=== PATIENT | female | born 1940 | race Caucasian/White ===

== ENCOUNTER 2016-11-11 11:33 | Inpatient (IN) ==
[2016-11-11] MEDS ORDERED: Ondansetron 4 MG/2 ML VIAL IVP ONE (11:51)
[2016-11-11] MEDS ORDERED: 0.9 % Sodium Chloride 1,000 ML IVC ONE (11:53)
--- NOTE | 2016-11-11 12:09 | Emergency Department Note ---
Disposition Clinical Impression: Partial small bowel obstruction, Hepatic lesion, Chronic osteomyelitis of sacrum Abdominal pain Qualifiers: Abdominal location: unspecified location Qualified Code(s): R10.9 - Unspecified abdominal pain Disposition: Admitted As Inpatient Condition: Good Time of Disposition: 17:08 Abdominal Pain HPI - General Chief Complaint: ED Abdominal Pain Stated Complaint: abdominal pain, N/V/D Time Seen by Provider: 11/11/16 11:37 Source: patient, EMS Limitations: no limitations Nursing Notes Reviewed: Yes Vital Signs Reviewed: Yes - History of Present Illness HPI Narrative: 76-year-old female presents to the ED via EMS from [facility] for abdominal pain, nausea and vomiting. Patient reports yesterday while at rest began to experience sharp crampy abdominal pain. Pain was nonradiating. She has been experiencing nausea and vomiting the past 3 days as well, last episode of vomiting this morning. She vomited up her ice tea. She has been taking Percocet that she takes for her decubitus ulcer for this pain without significant relief. She denies any fever, cough, recent illness, chest pain or shortness of breath. She had not episode of nonbloody diarrhea today with a normal bowel movement yesterday. Denies any recent hospitalizations or recent travel. Denies any new medications. Patient has a history of cholecystectomy, appendectomy and umbilical hernia repair. The mesh was removed by Dr. Raygoza when surgery was performed to remove adhesions. She also has a chronic sacral decubitus ulcer which wound care nurse has been addressing on a weekly basis. Pt Subjective Complaint: abdominal pain Pain Scale: 7 - Related Data Home Medications Medication Instructions Recorded Confirmed Amitriptyline [Elavil] 10 mg PO 02/04/15 11/11/16 Gabapentin [Neurontin] 200 mg PO 02/04/15 11/11/16 Omeprazole [PriLOSEC] 20 mg PO [facility] 02/04/15 11/11/16 Sennosides/Docusate Sodium [Senna 8.6 mg PO [facility] 02/04/15 11/11/16 Plus] Sertraline [Zoloft] 100 mg PO QA 02/04/15 11/11/16 Simvastatin [Zocor] 40 mg PO 02/04/15 11/11/16 Calcium Carbonate/Vitamin D3 1 tab PO [facility] 03/05/15 11/11/16 [Calcium 250+D Tablet] Aspirin 81 mg PO QAM 05/06/15 11/11/16 Lactobacillus Combination No.8 2 tab PO DAILY 12/09/15 11/11/16 [Adult Probiotic] Potassium Chloride [Klor-Con 10 meq PO DAILY 12/09/15 11/11/16 Sprinkle] Acetaminophen [Tylenol] 650 mg PO TID PRN 08/17/16 11/11/16 Colestipol HCl [Colestid] 2 gm PO DAILY 08/17/16 11/11/16 Gabapentin [Neurontin] 100 mg PO QAM 08/17/16 11/11/16 Insulin Aspart Prot/Insuln Asp 46 unit SQ HS 08/17/16 11/11/16 [Novolog Mix 70-30 Vial] Insulin Aspart Prot/Insuln Asp 56 unit SQ QAM 08/17/16 11/11/16 [Novolog Mix 70-30 Vial] Ondansetron HCl [Zofran] 4 mg PO TID PRN 08/17/16 11/11/16 Oxycodone HCl/Acetaminophen 1 each PO Q6H PRN 08/17/16 11/11/16 [Percocet 5-325 mg Tablet] Psyllium Husk [Daily Fiber] 1.04 gm PO DAILY 08/17/16 11/11/16 Bromfenac Sodium 1 drop RIGHT EYE DAILY 11/11/16 11/11/16 Fluconazole [Diflucan] 150 mg PO DAILY 11/11/16 11/11/16 Terconazole Vag SUPP [Terazol] 80 mg VG HS 11/11/16 11/11/16 Previous Rx's Medication Instructions Recorded Metoprolol [Lopressor] 12.5 mg PO BID tablet 12/19/14 Allergies Allergy/AdvReac Type Severity Reaction Status Date / Time rosuvastatin [From Crestor] Allergy Hives Verified 11/11/16 11:50 ciprofloxacin AdvReac Itching Verified 11/11/16 11:50 Hydromorphone [From Dilaudid] AdvReac Difficulty Verified 11/11/16 11:50 Breathing All systems ED: reviewed and negative except as stated. Constitutional: Denies: fever, chills Cardiovascular: Denies: chest pain, dyspnea on exertion Respiratory: Denies: cough, dyspnea Gastrointestinal: Reports: abdominal pain, nausea, vomiting, diarrhea. Denies: melena, hematochezia Genitourinary: Denies: urgency, dysuria Musculoskeletal: Denies: back pain, neck pain Integumentary: Denies: rash, abrasion Neurological: Denies: headache Abdominal Pain PMH - Past Medical History Medical history: Reports: arthritis, cancer, coronary artery disease, DVT, diabetes, fibromyalgia, hyperlipidemia, hypertension, myocardial infarction, other Female Surgical History: Reports: herniorrhaphy Psychiatric history: Reports: anxiety, depression - Social History Smoking status: Former smoker Alcohol use: Reports: rarely Drug use: Reports: none Physical Exam - General Limitations: no limitations General appearance: alert, in no apparent distress, obese - Head Head exam: atraumatic, normocephalic, normal inspection - Eye Eye exam: Present: normal appearance, PERRL, EOMI - ENT ENT exam: normal exam, normal oropharynx, mucous membranes dry - Neck Neck exam: Present: normal inspection, full ROM, trachea midline - Chest Chest inspection: Present: normal inspection, symmetric chest wall rise. Absent : tenderness - Respiratory Respiratory exam: Present: normal lung sounds bilaterally. Absent: respiratory distress - Cardiovascular Cardiovascular exam: Present: regular rate, normal rhythm, normal heart sounds - Abdominal Exam Abdominal exam: Present: soft (obese), tenderness, hyperactive bowel sounds, scar (midline). Absent: distention, guarding, rebound, rigidity Abdominal tenderness: Present: diffuse - Extremities Exam Extremities exam: Present: normal inspection, full ROM, normal capillary refill. Absent: tenderness, pedal edema, calf tenderness - Neurological Exam Neurological exam: Present: alert, oriented X3 - Psychiatric Psychiatric exam: Present: normal affect, normal mood - Skin Skin exam: Present: warm, dry, intact, normal color Course Course Narrative: 76-year-old female presents with nausea vomiting and now abdominal pain. She has had multiple abdominal surgeries including adhesions. Patient reports her abdomen is slightly more distended than usual. Patients afebrile. Appears in no acute distress. Heart and lungs are normal. Denies any lung disease. Her abdomen is obese but soft and diffusely tender. She does have hyperactive bowel sounds. She denies any bloodier black tarry stools. Concerning for possible obstruction given her symptoms. Will get labs, urine, troponin and EKG. CT abdomen and pelvis with IV and oral contrast. - Reevaluation(s) Reevaluation #1: Patient re-examined, abdomen is mildly distended diffusely tender. Her pain is well-controlled as well as her nausea. I offer the patient or medication she currently refused. Labs and images reviewed she has a normal white blood cell count 11, elevated glucose 163, alk phos 176 has been elevated the past and urine that appears contaminated not consistent with infection. Patient denies any urinary symptoms. Her CT of the abdomen and pelvis reveals distended fluid filled small bowel loops suggestive a partial to early obstructive process. She also has a new hepatic lesion as well as redemonstration of a chronic osteomyelitis to the sacrum. NG tube will be placed she would be admitted to the hospital. Patient was notified about her new hepatic lesion. She does have a history of endometrial cancer requiring 30 sessions of chemoradiation. She is not septic appearing. Does not meet SIRS criteria. Lactate 0.9. Patient is in agreement with this plan. Abdomen/Pelvis CT 11/11/16 14:30 IMPRESSION: 1. Distended fluid filled small bowel loops. Gradual transition in the mid to distal small bowel. Large ventral abdominal wall hernia containing multiple loops of bowel. No significant inflammatory changes although small interloop fluid collections are present in the pelvis. A partial or early obstructive process is not excluded and continued close follow-up recommended. 2. New left hepatic lesion with peripheral enhancement worrisome for a malignancy. Differential possibilities include a metastatic lesion or cholangiocarcinoma versus HCC. Workup at this time could entail MRI, particularly if there is high likelihood for HCC. Alternatively, percutaneous biopsy could be performed. 3. Re-demonstration of sacral decubitus ulcer with chronic osteomyelitis involving the distal sacrum and coccyx. D/ / 11/11/2016 15:28:01 Jeremias Bach MD / Irlanda Oliver Interpreting Provider: Jeremias Bach MD Time: 16:50 Reevaluation #2: Patient refused NG tube at this time. Discussed that tit is imperative that it is placed for the partial obstruction she voices understanding. - Consultations Consultation #1: Spoke with on-call hospitalist young Casarez to admit for abdominal pain, partial small bowel obstruction, new hepatic lesion, chronic sacral osteomyelitis. No further orders at this time Time: 17:04 Vital Signs Temperature 98.2 F 11/11/16 11:36 Pulse Rate 86 11/11/16 11:36 Respiratory Rate 18 11/11/16 11:36 Blood Pressure 143/94 11/11/16 11:36 O2 Sat by Pulse Oximetry 94 11/11/16 11:36 Temperature 98.3 F 11/11/16 16:52 Pulse Rate 71 11/11/16 17:45 Respiratory Rate 16 11/11/16 18:03 Blood Pressure 125/59 11/11/16 18:03 O2 Sat by Pulse Oximetry 96 11/11/16 17:45 Oxygen Delivery Oxygen Delivery Nasal Cannula Abdominal Pain - MDM Narrative Medical decision making narrative: I examined this patient and my medical decision-making was reviewed with the KNITTING TEACHER/PA/Advanced Practice Nurse/Resident Physician. I agree with the documented findings, disposition and treatment plan as described except to the extent set forth below. Patient was seen and evaluated by Dr. Baum and myself, I agree with his evaluation and management plan, supervise care the patient's stay. Patient's nursing facility with crampy abdominal pain. History of surgery in the past. Question whether she could have a bowel obstruction today she is distended but she is nontoxic in appearance. We will order lab CT of her abdomen ; see if we can make her comfortable and reassess. She is fairly nonverbal with medication here. 1408 hrs.: Patient's labs are back. Urine looks a contamination with bacteria. Creatinine is okay. Waiting on CAT scan. Patient does have fluids running at this point. Abdomen/Pelvis CT 11/11/16 14:30 IMPRESSION: 1. Distended fluid filled small bowel loops. Gradual transition in the mid to distal small bowel. Large ventral abdominal wall hernia containing multiple loops of bowel. No significant inflammatory changes although small interloop fluid collections are present in the pelvis. A partial or early obstructive process is not excluded and continued close follow-up recommended. 2. New left hepatic lesion with peripheral enhancement worrisome for a malignancy. Differential possibilities include a metastatic lesion or cholangiocarcinoma versus HCC. Workup at this time could entail MRI, particularly if there is high likelihood for HCC. Alternatively, percutaneous biopsy could be performed. 3. Re-demonstration of sacral decubitus ulcer with chronic osteomyelitis involving the distal sacrum and coccyx. D/ / 11/11/2016 15:28:01 Jeremias Bach MD / Irlanda Oliver Interpreting Provider: Jeremias Bach MD - Medical Records Medical records reviewed: Yes I reviewed the patient's medical records. - Lab Data Lab results reviewed: Yes I reviewed the patient's lab results. Result diagrams: 11/11/16 12:47 11/11/16 12:47 Lab Results 11/11/16 11/11/16 11/11/16 Range/Units 12:47 12:47 12:47 WBC 11.0 (4.3-11.1) K/mcL RBC 4.60 (3.82-4.97) M/mcL Hgb 12.0 (11.5-15.4) g/dL Hct 40.5 (35.3-44.9) % MCV 88.0 (83.0-100.0) fL MCH 26.1 L (28.0-33.3) pg MCHC 29.6 L (31.6-35.5) g/dL RDW 18.0 H (11.5-14.5) % Plt Count 224 (140-400) K/mcL MPV 11.1 (9.4-12.4) fL Immature Gran % 1.0 (0-4) % Seg Neutrophils % 82.2 % Lymphocytes % 8.3 % Monocytes % 8.1 % Eosinophils % 0.1 % Basophils % 0.3 % Neutrophils # 9.1 H (1.6-8.9) K/mcL Lymphocytes # 0.9 (0.6-4.6) K/mcL Monocytes # 0.9 (0.0-1.3) K/mcL Eosinophils # 0.0 (0.0-0.6) K/mcL Basophils # 0.0 (0.0-0.2) K/mcL Sodium 137 (136-145) mEq/L Potassium 4.2 (3.5-4.5) mEq/L Chloride 101 (98-109) mEq/L Carbon Dioxide 28 (19-29) mEq/L BUN 23 H (7-20) mg/dL Creatinine 0.82 (0.57-1.11) mg/dL Est GFR ( Amer) > 60 (> 60) Est GFR (Non-Af Amer) > 60 (> 60) BUN/Creatinine Ratio 28 H (6-26) Glucose 163 H (70-99) mg/dL Calculated Osmolality 291 (280-300) Lactic Acid (0.5-2.2) mmol/L Calcium 9.1 (8.6-10.8) mg/dL Total Bilirubin 0.8 (0.2-1.2) mg/dL Direct Bilirubin 0.4 (0.0-0.5) mg/dL Indirect Bilirubin 0.4 (0.0-1.2) mg/dL AST 67 H (5-34) Units/L ALT 53 (0-55) Units/L Alkaline Phosphatase 176 H (38-126) Units/L Troponin I 0.02 (0-0.03) ng/mL Serum Total Protein 7.6 (6.0-8.3) g/dL Albumin 3.1 L (3.5-5.0) g/dL Globulin 4.5 H (2.4-3.5) g/dL Albumin/Globulin Ratio 0.7 L (1.1-2.2) Lipase < 10 (8-78) Units/L Urine Color (Yellow) Urine Clarity (Clear) Urine pH (5.0-8.0) pH Units Ur Specific Galt (1.010-1.025) Urine Protein (Neg-Trace) mg/dL Urine Glucose (UA) (Normal) mg/dL Urine Ketones (Negative) mg/dL Urine Blood (Negative) Urine Nitrite (Negative) Urine Bilirubin (Negative) Urine Urobilinogen (Normal) mg/dL Ur Leukocyte Esterase (Negative) Urine Microscopic RBC (0-3) per hpf Urine Microscopic WBC (0-3) per hpf Ur Squamous Epith Cells (None-Few) per lpf Urine Bacteria (None-Few) per hpf Hyaline Casts (None-Few) per lpf Granular Casts (None Seen) per lpf Ur Culture Indicated? (NO) 11/11/16 11/11/16 Range/Units 12:57 17:17 WBC (4.3-11.1) K/mcL RBC (3.82-4.97) M/mcL Hgb (11.5-15.4) g/dL Hct (35.3-44.9) % MCV (83.0-100.0) fL MCH (28.0-33.3) pg MCHC (31.6-35.5) g/dL RDW (11.5-14.5) % Plt Count (140-400) K/mcL MPV (9.4-12.4) fL Immature Gran % (0-4) % Seg Neutrophils % % Lymphocytes % % Monocytes % % Eosinophils % % Basophils % % Neutrophils # (1.6-8.9) K/mcL Lymphocytes # (0.6-4.6) K/mcL Monocytes # (0.0-1.3) K/mcL Eosinophils # (0.0-0.6) K/mcL Basophils # (0.0-0.2) K/mcL Sodium (136-145) mEq/L Potassium (3.5-4.5) mEq/L Chloride (98-109) mEq/L Carbon Dioxide (19-29) mEq/L BUN (7-20) mg/dL Creatinine (0.57-1.11) mg/dL Est GFR ( Amer) (> 60) Est GFR (Non-Af Amer) (> 60) BUN/Creatinine Ratio (6-26) Glucose (70-99) mg/dL Calculated Osmolality (280-300) Lactic Acid 0.9 (0.5-2.2) mmol/L Calcium (8.6-10.8) mg/dL Total Bilirubin (0.2-1.2) mg/dL Direct Bilirubin (0.0-0.5) mg/dL Indirect Bilirubin (0.0-1.2) mg/dL AST (5-34) Units/L ALT (0-55) Units/L Alkaline Phosphatase (38-126) Units/L Troponin I (0-0.03) ng/mL Serum Total Protein (6.0-8.3) g/dL Albumin (3.5-5.0) g/dL Globulin (2.4-3.5) g/dL Albumin/Globulin Ratio (1.1-2.2) Lipase (8-78) Units/L Urine Color Dark Yellow (Yellow) Urine Clarity Cloudy A (Clear) Urine pH 5.5 (5.0-8.0) pH Units Ur Specific Galt 1.029 H (1.010-1.025) Urine Protein 30 H (Neg-Trace) mg/dL Urine Glucose (UA) Normal (Normal) mg/dL Urine Ketones Trace H (Negative) mg/dL Urine Blood Small H (Negative) Urine Nitrite Negative (Negative) Urine Bilirubin Moderate H (Negative) Urine Urobilinogen Normal (Normal) mg/dL Ur Leukocyte Esterase Moderate H (Negative) Urine Microscopic RBC 0-3 (0-3) per hpf Urine Microscopic WBC TNTC H (0-3) per hpf Ur Squamous Epith Cells Many H (None-Few) per lpf Urine Bacteria Many H (None-Few) per hpf Hyaline Casts Few (None-Few) per lpf Granular Casts Moderate H (None Seen) per lpf Ur Culture Indicated? YES A (NO) - Radiology Data Radiology results reviewed: Yes I reviewed the patient's radiology results. Abdomen/Pelvis CT 11/11/16 14:30 IMPRESSION: 1. Distended fluid filled small bowel loops. Gradual transition in the mid to distal small bowel. Large ventral abdominal wall hernia containing multiple loops of bowel. No significant inflammatory changes although small interloop fluid collections are present in the pelvis. A partial or early obstructive process is not excluded and continued close follow-up recommended. 2. New left hepatic lesion with peripheral enhancement worrisome for a malignancy. Differential possibilities include a metastatic lesion or cholangiocarcinoma versus HCC. Workup at this time could entail MRI, particularly if there is high likelihood for HCC. Alternatively, percutaneous biopsy could be performed. 3. Re-demonstration of sacral decubitus ulcer with chronic osteomyelitis involving the distal sacrum and coccyx. D/ / 11/11/2016 15:28:01 Jeremias Bach MD / Irlanda Oliver Interpreting Provider: Jeremias Bach MD - EKG Data EKG attestation: Yes I reviewed and interpreted this EKG. EKG results narrative: EKG performed 1149 normal sinus rhythm 79 bpm, here is a incomplete right bundle branch block in a marked left axis deviation, there are no ST elevations or depressions. Intervals are within normal limits NE interval 166 QRS 96 QT QTC [id number]. There is no old EKG for comparison. No acute ischemic changes scene. This is an abnormal EKG.
[2016-11-11] MEDS ORDERED: *HR* Morphine 2 MG/ML SYRINGE IVP ONE (12:48)
[2016-11-11 12:56] LABS: Basophils % 0.3 %; Eosinophils % 0.1 %; Hematocrit 40.5 % (35.3-44.9); Lymphocytes # 0.9 K/mcL (0.6-4.6); Lymphocytes % 8.3 %; Mean Corpuscular HGB Conc 29.6 g/dL (31.6-35.5); Mean Corpuscular Hemoglobin 26.1 pg (28.0-33.3); Mean Platelet Volume 11.1 fL (9.4-12.4); Monocytes # 0.9 K/mcL (0.0-1.3); Monocytes % 8.1 %; Neutrophils # 9.1 K/mcL (1.6-8.9); Platelet Count 224 K/mcL (140-400); Segmented Neutrophils % 82.2 %
[2016-11-11 13:07] LABS: Alanine Aminotransferase 53 Units/L (0-55); Albumin 3.1 g/dL (3.5-5.0); Albumin/Globulin Ratio 0.7 (1.1-2.2); Alkaline Phosphatase 176 Units/L (38-126); Aspartate Amino Transferase 67 Units/L (5-34); BUN/Creatinine Ratio 28 (6-26); Bilirubin,Direct 0.4 mg/dL (0.0-0.5); Bilirubin,Indirect 0.4 mg/dL (0.0-1.2); Bilirubin,Total 0.8 mg/dL (0.2-1.2); Blood Urea Nitrogen 23 mg/dL (7-20); Calcium 9.1 mg/dL (8.6-10.8); Carbon Dioxide 28 mEq/L (19-29); Chloride 101 mEq/L (98-109); Globulin 4.5 g/dL (2.4-3.5); Glucose 163 mg/dL (70-99); Osmolality,Calculated 291 (280-300); Potassium 4.2 mEq/L (3.5-4.5); Sodium 137 mEq/L (136-145); Total Protein 7.6 g/dL (6.0-8.3); eGFR For African Americans > 60 (> 60); eGFR For Non-African Americans > 60 (> 60)
[2016-11-11 13:08] LABS: Lipase < 10 Units/L (8-78)
[2016-11-11 13:14] LABS: Bilirubin,Urine Moderate (Negative); Blood,Urine Small (Negative); Clarity,Urine Cloudy (Clear); Color,Urine Dark Yellow (Yellow); Glucose,Urine (UA) Normal (Normal); Ketones,Urine Trace mg/dL (Negative); Leukocyte Esterase,Urine Moderate (Negative); Nitrite,Urine Negative (Negative); PH,Urine 5.5 pH Units (5.0-8.0); Protein,Urine 30 mg/dL (Neg-Trace); Specific Gravity,Urine 1.029 (1.010-1.025); Urobilinogen,Urine Normal (Normal)
[2016-11-11 13:17] LABS: Bacteria,Urine Many per hpf (None-Few); RBC,Urine 0-3 per hpf (0-3); Squamous Epithelial Cell,Urine Many per lpf (None-Few); WBC,Urine TNTC per hpf (0-3)
[2016-11-11 13:27] LABS: Hyaline Casts,Urine Few per lpf (None-Few)
[2016-11-11 13:28] LABS: Granular Casts,Urine Moderate per lpf (None Seen)
[2016-11-11] MEDS ORDERED: Naloxone 0.4 MG/ML INJ IVP PRN (22:33)
[2016-11-11] MEDS ORDERED: Dextrose Gel 15 GM PO PRN ×2 (22:36)
[2016-11-11] MEDS ORDERED: *HR* Dextrose 50 % in Water (Syg) 50 ML SYRINGE IVP PRN (22:36)
[2016-11-11] MEDS ORDERED: D5% in Water 1,000 ML IVC PRN (22:36)
[2016-11-11] MEDS ORDERED: *HR* Morphine 2 MG/ML SYRINGE IVP PRN ×2 (22:38→22:39)
[2016-11-11] MEDS ORDERED: Acetaminophen 325 MG TABLET PO PRN (22:38)
--- NOTE | 2016-11-11 22:41 | Internal Med History&Physical ---
Date of Encounter: 11/11/16 Time of Encounter: 22:41 Assessment and Plan (1) Partial small bowel obstruction Current visit: Yes Status: Acute Keep NPO. Surgical consult. Pain relief. (2) Diarrhea Current visit: Yes Status: Acute Check for stool culture and C diff. Qualifiers: Diarrhea type: unspecified type Qualified Code(s): R19.7 - Diarrhea, unspecified (3) UTI (urinary tract infection) Current visit: Yes Status: Acute Emperically treat with ceftriaxone. Urine cultures pending Qualifiers: Urinary tract infection type: site unspecified Hematuria presence: without hematuria Qualified Code(s): N39.0 - Urinary tract infection, site not specified (4) Hepatic lesion Current visit: Yes Status: Acute Pt had h/o endometrial cancer. possible metastatic lesion. Consider liver biopsy versus oncology consult (5) Diabetes mellitus Current visit: Yes Status: Chronic Start sliding scale insulin Qualifiers: Diabetes mellitus type: type 2 Diabetes mellitus complication status: with skin complications Diabetes mellitus complication detail: with other skin ulcer Diabetes mellitus group home insulin use: with manager intermediate use Qualified Code(s): E11.622 - Type 2 diabetes mellitus with other skin ulcer; Z79.4 - senior care (current) use of insulin (6) Sacral decubitus ulcer Current visit: Yes Status: Chronic Consult wound care team Qualifiers: Pressure ulcer stage: unspecified pressure ulcer stage Qualified Code(s): L89.159 - Pressure ulcer of sacral region, unspecified stage (7) Chronic osteomyelitis of sacrum Current visit: Yes Status: Chronic Wound care consult (8) CAD (coronary artery disease) Current visit: Yes Status: Chronic Continue home medications Qualifiers: Coronary Disease-Associated Artery/Lesion type: [place] artery [place] vs. transplanted heart: [place] heart Associated angina: without angina Qualified Code(s): I25.10 - Atherosclerotic heart disease of [place] coronary artery without angina pectoris (9) Morbid obesity with BMI of 40.0-44.9, adult Current visit: Yes Status: Chronic Supportive care (10) DVT prophylaxis Current visit: Yes Status: Acute SubQ Heparin Internal Medicine - H&P: HPI Chief complaint: Abdominal pain; diarrhea, vomiting Admitted From: Emergency Dept Plans for Post Hospital Care: Home History of present illness: Ms. Camacho is a 76 year old female With h/o coronary artery disease, diabetes mellitus, fibromyalgia, hypertension, endometrial cancer s/p hysterectomy; h/o umbilical hernia repair, cholecystectomy and appendectomy; wheel chair bound and resident of [facility], h/o chronic sacral ulcer. She reports 3 episodes of diarrhea (describes as acid diarrhea, which irritates her skin). She reports crampy, non radiating upper abdominal pain. Pain was associated with nausea and an episode of vomiting. She denies fever, chills. She reports pain on urination and attributes to diarrhea. She denies chest pain, shortness of breath, cough, expectoration. She was evaluated in the emergency department and CT scan of the abdomen showed Distended fluid filled small bowel loops - partial or early obstructive process is not excluded. She is kept NPO and admitted to the hospitalist service for further management. Past Med Surg Social Fam HX - Past Medical History Medical history: arthritis, cancer, coronary artery disease, DVT, diabetes, fibromyalgia, hyperlipidemia, hypertension, myocardial infarction, other Psychiatric history: anxiety, depression - Past Surgical History Surgical History: appendectomy, , cataract, cholecystectomy, herniorrhaphy, orthopedic, other, SHONDA/BSO, other - Social History Smoking Status: Former smoker Smokeless Tobacco Status: No Alcohol use: rarely Drug use: none - Family History Father History Unknown: Yes Living Status: Mother Adopted: No Living Status: Hx Family Cardiac Disorders: Yes Hx Family Respiratory Disorders: Yes (COPD) Hx Family Endocrine Disorder: Yes (Diabetes) Internal Medicine - H&P: Meds Metoprolol [Lopressor] 12.5 mg PO BID tablet 12/19/14 [Rx] Amitriptyline [Elavil] 10 mg PO HS 02/04/15 [History] Gabapentin [Neurontin] 200 mg PO HS 02/04/15 [History] Omeprazole [PriLOSEC] 20 mg PO QAM 02/04/15 [History] Sennosides/Docusate Sodium [Senna Plus] 8.6 mg PO QAM 02/04/15 [History] Sertraline [Zoloft] 100 mg PO QAM 02/04/15 [History] Simvastatin [Zocor] 40 mg PO HS 02/04/15 [History] Calcium Carbonate/Vitamin D3 [Calcium 250+D Tablet] 1 tab PO QAM 03/05/15 [ History] Aspirin 81 mg PO QAM 05/06/15 [History] Lactobacillus Combination No.8 [Adult Probiotic] 2 tab PO DAILY 12/09/15 [ History] Potassium Chloride [Klor-Con Sprinkle] 10 meq PO DAILY 12/09/15 [History] Acetaminophen [Tylenol] 650 mg PO TID PRN 08/17/16 [History] Colestipol HCl [Colestid] 2 gm PO DAILY 08/17/16 [History] Gabapentin [Neurontin] 100 mg PO QAM 08/17/16 [History] Insulin Aspart Prot/Insuln Asp [Novolog Mix 70-30 Vial] 46 unit SQ HS 08/17/16 [ History] Insulin Aspart Prot/Insuln Asp [Novolog Mix 70-30 Vial] 56 unit SQ QAM 08/17/16 [History] Ondansetron HCl [Zofran] 4 mg PO TID PRN 08/17/16 [History] Oxycodone HCl/Acetaminophen [Percocet 5-325 mg Tablet] 1 each PO Q6H PRN [History] Psyllium Husk [Daily Fiber] 1.04 gm PO DAILY 08/17/16 [History] Bromfenac Sodium 1 drop RIGHT EYE DAILY 11/11/16 [History] Fluconazole [Diflucan] 150 mg PO DAILY 11/11/16 [History] Terconazole Vag SUPP [Terazol] 80 mg VG HS 11/11/16 [History] Allergies rosuvastatin [From Crestor] Allergy (Verified 11/11/16 11:50) Hives ciprofloxacin Adverse Reaction (Verified 11/11/16 11:50) Itching Hydromorphone [From Dilaudid] Adverse Reaction (Verified 11/11/16 11:50) Difficulty Breathing All Systems PM: A 10-system review of systems was performed and is negative for pertinent findings except as documented above in the HPI. - Constitutional Vitals: Temp Pulse Resp BP Pulse Ox 98.1 F 67 17 114/62 93 11/11/16 19:03 11/11/16 19:03 11/11/16 19:03 11/11/16 19:03 11/11/16 19:03 Exam: General: Not in acute distress at the time of my evaluation. obese HEENT: Oral mucosa is moist. No conjunctival palor or scleral icterus Neck: No obvious neck swellings Lungs: Clear to auscultation Cardiac: Regular rate and rhythm. No significant murmurs Abdomen: Soft, non tender. Bowel sounds present. midline scar present. Large ventral hernia present Genitourinary: No guzmán catheter Neurological: Alert and oriented. Not able to move the lower extremities Psych: Not aggressive or agitated Extremities: B/L leg edema Skin: Unstageable sacral ulcer present Internal Med - H&P Results - Labs CBC & Chem 7: 11/11/16 12:47 11/11/16 12:47 - Impressions ITS Impressions Abdomen/Pelvis CT 11/11/16 14:30 IMPRESSION: 1. Distended fluid filled small bowel loops. Gradual transition in the mid to distal small bowel. Large ventral abdominal wall hernia containing multiple loops of bowel. No significant inflammatory changes although small interloop fluid collections are present in the pelvis. A partial or early obstructive process is not excluded and continued close follow-up recommended. 2. New left hepatic lesion with peripheral enhancement worrisome for a malignancy. Differential possibilities include a metastatic lesion or cholangiocarcinoma versus HCC. Workup at this time could entail MRI, particularly if there is high likelihood for HCC. Alternatively, percutaneous biopsy could be performed. 3. Re-demonstration of sacral decubitus ulcer with chronic osteomyelitis involving the distal sacrum and coccyx. D/ / 11/11/2016 15:28:01 Jeremias Bach MD / Irlanda Oliver Interpreting Provider: Jeremias Bach MD
[2016-11-11] MEDS: *HR* Heparin 5,000 UNIT/ML VIAL SQ SCH (23:06)
[2016-11-11] MEDS: 0.9 % Sodium Chloride 1,000 ML IVC SCH (23:06)
[2016-11-11] MEDS: Insulin LISPRO 300 UNITS/3 ML VIAL SQ SCH (23:25)
[2016-11-12 04:50] LABS: Adenovirus F 40/41 PCR Not detected (Not detect); Astrovirus PCR Not detected (Not detect); C.difficile Toxin A/B by PCR Not detected (Not detect); Campylobacter by PCR Not detected (Not detect); Cryptosporidium by PCR Not detected (Not detect); Cyclospora cayetanensis PCR Not detected (Not detect); E. coli O157 by PCR Not detected (Not detect); Entamoeba histolytica PCR Not detected (Not detect); Enteroaggregative E.coli(EAEC) Not detected (Not detect); Enteropathogenic E.coli(EPEC) Not detected (Not detect); Enterotoxigenic E.coli (ETEC) Not detected (Not detect); Giardia lamblia PCR Not detected (Not detect); Norovirus GI/GII PCR Not detected (Not detect); Plesiomonas shigelloides PCR Not detected (Not detect); Rotavirus A PCR Not detected (Not detect); Salmonella PCR Not detected (Not detect); Sapovirus PCR Not detected (Not detect); Shig/EnteroinvasiveE coli EIEC Not detected (Not detect); Shigalike tox-prod E coli STEC Not detected (Not detect); Vibrio PCR Not detected (Not detect); Vibrio cholerae PCR Not detected (Not detect); Yersinia enterocolitica PCR Not detected (Not detect)
[2016-11-12] MEDS: *HR* Heparin 5,000 UNIT/ML VIAL SQ SCH ×3 (05:45→21:04)
[2016-11-12] MEDS: Insulin LISPRO 300 UNITS/3 ML VIAL SQ SCH ×3 (05:45→17:46)
[2016-11-12] MEDS: Lactobacillus 1 EACH CAP.SPRINK PO SCH ×2 (08:15→21:03)
--- NOTE | 2016-11-12 11:21 | Electrocardiograph Report ---
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
[2016-11-12] MEDS: Fluconazole 100 MG TABLET PO SCH (12:24)
[2016-11-12] MEDS: 0.9 % Sodium Chloride 1,000 ML IVC SCH (12:25)
--- NOTE | 2016-11-12 17:02 | Internal Med Progress Note ---
Date of Encounter: 11/12/16 Time of Encounter: 09:40 - Assessment and plan (1) Partial small bowel obstruction Current Visit: Yes Status: Acute Assessment and plan: Patient has history of multiple abdominal surgeries including ventral hernia repairs in the past. CT abdomen/pelvis shows changes suggestive of partial small bowel obstruction. Patient seems to be improving clinically. Surgery consult. Clear liquid diet if tolerated. IV hydration. Pain control and when necessary antiemetics. Supportive care. (2) Hepatic lesion Current Visit: Yes Status: Acute Assessment and plan: CT abdomen/pelvis shows incidental finding of hepatic lesion at least 3-4 cm, which was not present in CT abdomen from 2015 2 years ago. Patient does have history of endometrial cancer. Will consult IR for possible CT-guided biopsy. (3) Diarrhea Current Visit: Yes Status: Acute Assessment and plan: Reported to have diarrhea prior to presentation, currently resolved. GI panel negative. No fever or leukocytosis. Qualifiers: Diarrhea type: unspecified type Qualified Code(s): R19.7 - Diarrhea, unspecified (4) UTI (urinary tract infection) Current Visit: Yes Status: Acute Assessment and plan: Asymptomatic bacteriuria. Continue IV Rocephin and follow up final urine culture. Qualifiers: Urinary tract infection type: site unspecified Hematuria presence: without hematuria Qualified Code(s): N39.0 - Urinary tract infection, site not specified (5) Diabetes mellitus Current Visit: Yes Status: Chronic Assessment and plan: Accu-Chek blood glucose monitoring with sliding scale insulin. Diabetic diet when tolerated. Qualifiers: Diabetes mellitus type: type 2 Diabetes mellitus complication status: with skin complications Diabetes mellitus complication detail: with other skin ulcer Diabetes mellitus terminal make up operator insulin use: with skilled nursing use Qualified Code(s): E11.622 - Type 2 diabetes mellitus with other skin ulcer; Z79.4 - manager terminal (current) use of insulin (6) Morbid obesity with BMI of 40.0-44.9, adult Current Visit: Yes Status: Chronic (7) Chronic osteomyelitis of sacrum Current Visit: Yes Status: Chronic Assessment and plan: Patient has stable stage IV decubitus ulcer per nursing notes and documented chronic osteomyelitis of sacrum and coccyx. Continue local wound care according to outpatient wound center instructions. (8) CAD (coronary artery disease) Current Visit: Yes Status: Chronic Qualifiers: Coronary Disease-Associated Artery/Lesion type: [place] artery [place] vs. transplanted heart: [place] heart Associated angina: without angina Qualified Code(s): I25.10 - Atherosclerotic heart disease of [place] coronary artery without angina pectoris - Subjective Interval history: Slightly drowsy but able to answer questions. Reports improvement in nausea and abdominal pain. - Constitutional Vitals: Temp Pulse Resp BP Pulse Ox 97.7 F 99 17 113/61 97 11/12/16 14:30 11/12/16 14:30 11/12/16 14:30 11/12/16 14:30 11/12/16 14:30 General appearance: Present: A&O X 2, answers questions appropriately - Respiratory Respiratory exam: Present: CTAB. Absent: accessory muscle use, rales, rhonchi, wheezes - Cardiovascular Cardiovascular exam: Present: RRR, +S1, +S2. Absent: diastolic murmur, gallop, rubs, systolic murmur - GI/Abdominal GI/Abdominal exam: Present: normal bowel sounds, soft (On palpation, underlying deformity and induration related to previous ventral hernia repairs in central abdomen, nontender), no peritoneal signs. Absent: distended, tenderness - Extremities Exam Extremities exam: Present: full ROM (Decreased range of motion due to chronic weakness), warm, radial pulses palpable and symetrical. Absent: calf tenderness , cyanotic, pedal edema Internal Medicine: Result - Labs CBC & Chem 7: 11/11/16 12:47 11/11/16 12:47 Consult Discharge Plan - Plan Referrals: NO,PCP [Primary Care Provider] -
[2016-11-12] MEDS ORDERED: Terconazole Vag SUPP 80 MG SUPP.VAG VG SCH (21:00)
--- NOTE | 2016-11-12 21:57 | General Surgery Consult Note ---
Date of Encounter: 11/12/16 Time of Encounter: 21:55 Assessment and Plan (1) Partial small bowel obstruction Status: Acute I explained to the patient that she may have signs of PSBO, however it appears to be resolving. I personally reviewed the CT scan images and report and note the large ventral/incisional hernia. I do not think any surgical intervention is necessary and think that after the patient has her procedure tomorrow (she states she is to have a liver biopsy on Wednesday) I think it would be appropriate to advance her diet. The patient agrees with the above plan. History of Present Illness Consult date: 11/12/16 Reason for consult: other (Abdominal pain, concern for PSBO) Requesting physician: Blanquita Paulson History of present illness: The patient is a 76 year old female with a past medical history signficant for IBS mellitus, hypertension, obesity, and recurrent abdominal hernia who states that 3 days ago she had the onset of nas[place]a and vomiting along with diarrhea. She denies any rectal bleeding and states that the diarrhea lasted for less than 24hours. The nausea and vomiting symptoms lasted until the following day, however, she did also admit to decreased appetites. She states currently that she doesn't have any nausea and does have some abdominal tenderness. Her last BM was today and she feels it was normal. I've been asked to evaluate the patient due to a CT scan concerning for PSBO. Past Med Surg Social Fam HX - Past Medical History Medical history: arthritis, cancer, coronary artery disease, DVT, diabetes, fibromyalgia, hyperlipidemia, hypertension, myocardial infarction, other Psychiatric history: anxiety, depression - Past Surgical History Surgical History: appendectomy, , cataract, cholecystectomy, herniorrhaphy, orthopedic, other, SHONDA/BSO, other - Social History Smoking Status: Former smoker Smokeless Tobacco Status: No Alcohol use: rarely Drug use: none - Family History Father History Unknown: Yes Living Status: Mother Adopted: No Living Status: Hx Family Cardiac Disorders: Yes Hx Family Respiratory Disorders: Yes (COPD) Hx Family Endocrine Disorder: Yes (Diabetes) Medications and Allergies Metoprolol [Lopressor] 12.5 mg PO BID tablet 12/19/14 [Rx] Amitriptyline [Elavil] 10 mg PO HS 02/04/15 [History] Gabapentin [Neurontin] 200 mg PO HS 02/04/15 [History] Omeprazole [PriLOSEC] 20 mg PO QAM 02/04/15 [History] Sennosides/Docusate Sodium [Senna Plus] 8.6 mg PO QAM 02/04/15 [History] Sertraline [Zoloft] 100 mg PO QAM 02/04/15 [History] Simvastatin [Zocor] 40 mg PO HS 02/04/15 [History] Calcium Carbonate/Vitamin D3 [Calcium 250+D Tablet] 1 tab PO QAM 03/05/15 [ History] Aspirin 81 mg PO QAM 05/06/15 [History] Lactobacillus Combination No.8 [Adult Probiotic] 2 tab PO DAILY 12/09/15 [ History] Potassium Chloride [Klor-Con Sprinkle] 10 meq PO DAILY 12/09/15 [History] Acetaminophen [Tylenol] 650 mg PO TID PRN 08/17/16 [History] Colestipol HCl [Colestid] 2 gm PO DAILY 08/17/16 [History] Gabapentin [Neurontin] 100 mg PO QAM 08/17/16 [History] Insulin Aspart Prot/Insuln Asp [Novolog Mix 70-30 Vial] 46 unit SQ HS 08/17/16 [ History] Insulin Aspart Prot/Insuln Asp [Novolog Mix 70-30 Vial] 56 unit SQ QAM 08/17/16 [History] Ondansetron HCl [Zofran] 4 mg PO TID PRN 08/17/16 [History] Psyllium Husk [Daily Fiber] 1.04 gm PO DAILY 08/17/16 [History] Bromfenac Sodium 1 drop RIGHT EYE DAILY 11/11/16 [History] Cefdinir [Omnicef] 300 mg PO BID #10 capsule 11/13/16 [Rx] Oxycodone HCl/Acetaminophen [Percocet 5-325 mg Tablet] 1 each PO Q6H PRN #20 [Rx] Allergies rosuvastatin [From Crestor] Allergy (Verified 11/11/16 11:50) Hives ciprofloxacin Adverse Reaction (Verified 11/11/16 11:50) Itching Hydromorphone [From Dilaudid] Adverse Reaction (Verified 11/11/16 11:50) Difficulty Breathing Review of Systems All systems PM: reviewed and no additional remarkable complaints except as stated All systems PM: A 10-system review of systems was performed and is negative for pertinent findings except as documented above in the HPI. General Surgery Exam Initial Vital Signs Temp Pulse Resp BP Pulse Ox 98.2 F 86 18 143/94 94 11/11/16 11:36 11/11/16 11:36 11/11/16 11:36 11/11/16 11:36 11/11/16 11:36 - Eyes PERRL, normal ocular movement - Neck no masses, trachea midline, no lymphadectomy - Cardiovascular Cardiovascular exam: Present: RRR, no murmurs/rubs/gallops - Abdomen Abdomen general surgery: Present: bowel sounds present, soft (Obese, positive bowel sounds. Noted wide mouth incisional hernia. Mild tenderness.) - Neurologic Present: CN 2-12 grossly intact, normal coordination - Musculoskeletal Present: other (No clubbing cyanosis or edema noted.) Exam Initial Vital Signs Temp Pulse Resp BP Pulse Ox 98.2 F 86 18 143/94 94 11/11/16 11:36 11/11/16 11:36 11/11/16 11:36 11/11/16 11:36 11/11/16 11:36 Results - Labs 11/13/16 05:31 11/13/16 05:31 Abnormal lab results MCH 26.1 pg (28.0-33.3) L 11/11/16 12:47 MCHC 29.6 g/dL (31.6-35.5) L 11/11/16 12:47 RDW 18.0 % (11.5-14.5) H 11/11/16 12:47 Neutrophils # 9.1 K/mcL (1.6-8.9) H 11/11/16 12:47 BUN 23 mg/dL (7-20) H 11/11/16 12:47 BUN/Creatinine Ratio 28 (6-26) H 11/11/16 12:47 Glucose 163 mg/dL (70-99) H 11/11/16 12:47 POC Glucose 173 (58-89) H 11/12/16 16:05 AST 67 Units/L (5-34) H 11/11/16 12:47 Alkaline Phosphatase 176 Units/L (38-126) H 11/11/16 12:47 Albumin 3.1 g/dL (3.5-5.0) L 11/11/16 12:47 Globulin 4.5 g/dL (2.4-3.5) H 11/11/16 12:47 Albumin/Globulin Ratio 0.7 (1.1-2.2) L 11/11/16 12:47 Urine Clarity Cloudy (Clear) A 11/11/16 12:57 Ur Specific [place] 1.029 (1.010-1.025) H 11/11/16 12:57 Urine Protein 30 mg/dL (Neg-Trace) H 11/11/16 12:57 Urine Ketones Trace mg/dL (Negative) H 11/11/16 12:57 Urine Blood Small (Negative) H 11/11/16 12:57 Urine Bilirubin Moderate (Negative) H 11/11/16 12:57 Ur Leukocyte Esterase Moderate (Negative) H 11/11/16 12:57 Urine Microscopic WBC TNTC per hpf (0-3) H 11/11/16 12:57 Ur Squamous Epith Cells Many per lpf (None-Few) H 11/11/16 12:57 Urine Bacteria Many per hpf (None-Few) H 11/11/16 12:57 Granular Casts Moderate per lpf (None Seen) H 11/11/16 12:57 Ur Culture Indicated? YES (NO) A 11/11/16 12:57 All other labs normal. - Imaging CT scan - abdomen: report reviewed, image reviewed (Noted large incisional hernia. Mildly dilated small bowel loops with no free air or free fluid. Air noted in the rectum. Stool noted in the colon. Likely consistent with partial small bowel obstruction. Noted faint evidence of a hepatic mass identified.) Consult Discharge Plan - Plan Additional Instructions: F/up with PCP in 1-2 weeks Referrals: NO,PCP [Primary Care Provider] - Prescriptions: Cefdinir [Omnicef] 300 mg PO BID #10 capsule
[2016-11-12] MEDS ORDERED: CefTRIAXone 1,000 MG VIAL ONE (23:36)
[2016-11-13] MEDS: Insulin LISPRO 300 UNITS/3 ML VIAL SQ SCH ×2 (00:24→06:04)
[2016-11-13] MEDS: 0.9 % Sodium Chloride 1,000 ML IVC SCH (00:24)
[2016-11-13 05:43] LABS: Basophils % 0.3 %; Eosinophils # 0.1 K/mcL (0.0-0.6); Eosinophils % 0.8 %; Hematocrit 35.1 % (35.3-44.9); Immature Granulocytes % 1.2 % (0-4); Lymphocytes # 1.5 K/mcL (0.6-4.6); Lymphocytes % 18.9 %; Mean Corpuscular HGB Conc 29.3 g/dL (31.6-35.5); Mean Corpuscular Hemoglobin 26.3 pg (28.0-33.3); Mean Corpuscular Volume 89.8 fL (83.0-100.0); Monocytes # 0.9 K/mcL (0.0-1.3); Monocytes % 10.9 %; Neutrophils # 5.3 K/mcL (1.6-8.9); Platelet Count 182 K/mcL (140-400); Red Blood Count 3.91 M/mcL (3.82-4.97); Red Cell Distribution Width 18.1 % (11.5-14.5); Segmented Neutrophils % 67.9 %
[2016-11-13 05:48] LABS: Hemoglobin 10.3 g/dL (11.5-15.4)
[2016-11-13 05:53] LABS: INR 1.3; Prothrombin Time 13.6 Seconds (9.4-12.1)
[2016-11-13] MEDS: *HR* Heparin 5,000 UNIT/ML VIAL SQ SCH ×2 (06:04→13:46)
[2016-11-13 06:12] LABS: BUN/Creatinine Ratio 15 (6-26); Calcium 8.2 mg/dL (8.6-10.8); Carbon Dioxide 26 mEq/L (19-29); Chloride 103 mEq/L (98-109); Glucose 185 mg/dL (70-99); Osmolality,Calculated 286 (280-300); Potassium 3.7 mEq/L (3.5-4.5); Sodium 136 mEq/L (136-145); eGFR For African Americans > 60 (> 60); eGFR For Non-African Americans > 60 (> 60)
[2016-11-13 06:19] LABS: Blood Urea Nitrogen 10 mg/dL (7-20)
[2016-11-13] MEDS: Lactobacillus 1 EACH CAP.SPRINK PO SCH (08:22)
[2016-11-13] MEDS ORDERED: Aspirin 81 MG TAB.CHEW PO SCH (09:00)
[2016-11-13] MEDS ORDERED: Insulin LISPRO 300 UNITS/3 ML VIAL SQ SCH ×2 (11:30→21:00)
[2016-11-13] MEDS ORDERED: Gabapentin 100 MG CAPSULE PO SCH ×2 (11:30→21:00)
--- NOTE | 2016-11-13 12:37 | IR Procedure Note ---
Date of procedure: 11/13/16 Consent Obtained: Written consent Timeout: Correct patient and procedure verified, Correct site verified, Time out performed, Skin prep completed Local anesthetic: Lidocaine 1% Indications: Left hepatic mass. Remote h/o uterine can in 1983 Procedure Performed: CT guided liver bx Site/Technique: Left hepatic lobe access Results/Findings: Lesional material per path. Tolerated well. Estimated blood loss (cc): 3 Complications: None; Tolerated procedure well Post Procedure Treatment Plan: Monitoring in pts room
[2016-11-13] MEDS: Fluconazole 100 MG TABLET PO SCH (13:46)
--- NOTE | 2016-11-13 14:12 | Discharge Summary ---
Date of Encounter: 11/13/16 Time of Encounter: 14:08 - Discharge Diagnosis (1) Partial small bowel obstruction Priority: Primary Status: Acute (2) Hepatic lesion Priority: Primary Status: Acute (3) Diarrhea Priority: Primary Status: Acute Qualifiers: Diarrhea type: unspecified type Qualified Code(s): R19.7 - Diarrhea, unspecified (4) UTI (urinary tract infection) Priority: Primary Status: Acute Qualifiers: Urinary tract infection type: site unspecified Hematuria presence: without hematuria Qualified Code(s): N39.0 - Urinary tract infection, site not specified (5) Diabetes mellitus Priority: Secondary Status: Chronic Qualifiers: Diabetes mellitus type: type 2 Diabetes mellitus complication status: with skin complications Diabetes mellitus complication detail: with other skin ulcer Diabetes mellitus prison insulin use: with prison use Qualified Code(s): E11.622 - Type 2 diabetes mellitus with other skin ulcer; Z79.4 - FPC (current) use of insulin (6) Morbid obesity with BMI of 40.0-44.9, adult Priority: Secondary Status: Chronic (7) Chronic osteomyelitis of sacrum Priority: Secondary Status: Chronic (8) CAD (coronary artery disease) Priority: Secondary Status: Chronic Qualifiers: Coronary Disease-Associated Artery/Lesion type: [place] artery [place] vs. transplanted heart: [place] heart Associated angina: without angina Qualified Code(s): I25.10 - Atherosclerotic heart disease of [place] coronary artery without angina pectoris - Discharge Medications Prescriptions: Cefdinir [Omnicef] 300 mg PO BID #10 capsule Home Medications: Metoprolol [Lopressor] 12.5 mg PO BID tablet 12/19/14 [Rx] Amitriptyline [Elavil] 10 mg PO HS 02/04/15 [History] Gabapentin [Neurontin] 200 mg PO HS 02/04/15 [History] Omeprazole [PriLOSEC] 20 mg PO QAM 02/04/15 [History] Sennosides/Docusate Sodium [Senna Plus] 8.6 mg PO QAM 02/04/15 [History] Sertraline [Zoloft] 100 mg PO QAM 02/04/15 [History] Simvastatin [Zocor] 40 mg PO HS 02/04/15 [History] Calcium Carbonate/Vitamin D3 [Calcium 250+D Tablet] 1 tab PO QAM 03/05/15 [ History] Aspirin 81 mg PO QAM 05/06/15 [History] Lactobacillus Combination No.8 [Adult Probiotic] 2 tab PO DAILY 12/09/15 [ History] Potassium Chloride [Klor-Con Sprinkle] 10 meq PO DAILY 12/09/15 [History] Acetaminophen [Tylenol] 650 mg PO TID PRN 08/17/16 [History] Colestipol HCl [Colestid] 2 gm PO DAILY 08/17/16 [History] Gabapentin [Neurontin] 100 mg PO QAM 08/17/16 [History] Insulin Aspart Prot/Insuln Asp [Novolog Mix 70-30 Vial] 46 unit SQ HS 08/17/16 [ History] Insulin Aspart Prot/Insuln Asp [Novolog Mix 70-30 Vial] 56 unit SQ QAM 08/17/16 [History] Ondansetron HCl [Zofran] 4 mg PO TID PRN 08/17/16 [History] Psyllium Husk [Daily Fiber] 1.04 gm PO DAILY 08/17/16 [History] Bromfenac Sodium 1 drop RIGHT EYE DAILY 11/11/16 [History] Cefdinir [Omnicef] 300 mg PO BID #10 capsule 11/13/16 [Rx] Oxycodone HCl/Acetaminophen [Percocet 5-325 mg Tablet] 1 each PO Q6H PRN #20 [Rx] Allergies/Adverse Reactions: Allergies rosuvastatin [From Crestor] Allergy (Verified 11/11/16 11:50) Hives ciprofloxacin Adverse Reaction (Verified 11/11/16 11:50) Itching Hydromorphone [From Dilaudid] Adverse Reaction (Verified 11/11/16 11:50) Difficulty Breathing Procedures/tests Complete & Pending: Procedures Performed prior 72 hours Category Date Time Status CT biopsy liver [CT] Routine Cat Scan 11/13/16 Taken - Notes to Outpatient Provider Please f/up liver biopsy results from new hepatic lesion; Date of admission: 11/11/16 22:33 Primary care physician: PCP NO Consults: 11/11/16 22:39 Consult to Wound Care [CONS] Routine Reason for Consult: Sacral pressure ulcer Call Completed: No 11/12/16 08:49 Consult to Surgery [CONS] Routine Consulting Provider: [facility] Reason for Consult: Partial SBO Call Completed: Yes Discharging clinician: Blanquita Paulson Anticipated date of discharge: 11/13/16 - Patient Status Disposition: Transfer SNF Condition: Good Functional capacity at discharge: bed bound Overall status at discharge: patient is progressing back to baseline - Discharge Instructions Follow Up With: NO,PCP [Primary Care Provider] - Additional Instructions: F/up with PCP in 1-2 weeks - Diet and Activity Activity: as per physical therapy Diet: advance to your usual diet, diabetic diet, low fat, low cholesterol, low salt diet Hospital course: Ms. Camacho is a 76 year old female [facility] resident with the above medical problems who was admitted with abdominal pain, nausea and emesis. Patient has history of multiple abdominal surgeries including cholecystectomy, appendectomy, multiple surgeries for ventral hernia repair. CT abdomen/pelvis done in the emergency room showed changes suggestive of partial small bowel obstruction. Patient was kept on IV hydration with bowel rest and supportive care with gradual improvement in abdominal pain and emesis. Surgery was consulted and agreed with conservative management as patient was noted to be improving. She gradually tolerated soft diet. She was also noted to have an incidental finding of hepatic lesion, concerning for malignancy, which was new since her previous CT abdomen in 2014. She underwent CT-guided liver biopsy today by interventional radiology, pathology report pending. Patient is otherwise medically stable for discharge back to [facility] with outpatient follow-up for biopsy results. - Time Spent with Patient Total time spent providing and/or coordinating discharge services: Greater than 30 minutes (40 min) - Constitutional Vitals: Temp Pulse Resp BP Pulse Ox 98.0 F 81 16 131/63 93 11/13/16 13:36 11/13/16 13:36 11/13/16 13:36 11/13/16 13:36 11/13/16 13:36 General appearance: Present: A&O X 2, answers questions appropriately - Respiratory Respiratory exam: Present: CTAB. Absent: accessory muscle use, rales, rhonchi, wheezes - GI/Abdominal GI/Abdominal exam: Present: normal bowel sounds, soft, no peritoneal signs. Absent: distended, tenderness
--- NOTE | 2016-11-13 14:17 | Physician Discharge Referral ---
ExtendedCare Referral Info Transfer To: [facility] Provider in Charge: Blanquita Paulson Provider in Charge after Transfer: PCP Institutional Level of Care: Skilled - Diagnosis (1) Partial small bowel obstruction Priority: Primary Status: Acute (2) Hepatic lesion Priority: Primary Status: Acute (3) Diarrhea Priority: Primary Status: Acute (4) UTI (urinary tract infection) Priority: Primary Status: Acute (5) Diabetes mellitus Priority: Secondary Status: Chronic (6) Morbid obesity with BMI of 40.0-44.9, adult Priority: Secondary Status: Chronic (7) Chronic osteomyelitis of sacrum Priority: Secondary Status: Chronic (8) CAD (coronary artery disease) Priority: Secondary Status: Chronic Expected Duration of Placement: senior care Prognosis: Fair Aware of Diagnosis: Patient - Transfer Medications Prescriptions: Cefdinir [Omnicef] 300 mg PO BID #10 capsule Home Medications: Metoprolol [Lopressor] 12.5 mg PO BID tablet 12/19/14 [Rx] Amitriptyline [Elavil] 10 mg PO HS 02/04/15 [History] Gabapentin [Neurontin] 200 mg PO HS 02/04/15 [History] Omeprazole [PriLOSEC] 20 mg PO QAM 02/04/15 [History] Sennosides/Docusate Sodium [Senna Plus] 8.6 mg PO QAM 02/04/15 [History] Sertraline [Zoloft] 100 mg PO QAM 02/04/15 [History] Simvastatin [Zocor] 40 mg PO HS 02/04/15 [History] Calcium Carbonate/Vitamin D3 [Calcium 250+D Tablet] 1 tab PO QAM 03/05/15 [ History] Aspirin 81 mg PO QAM 05/06/15 [History] Lactobacillus Combination No.8 [Adult Probiotic] 2 tab PO DAILY 12/09/15 [ History] Potassium Chloride [Klor-Con Sprinkle] 10 meq PO DAILY 12/09/15 [History] Acetaminophen [Tylenol] 650 mg PO TID PRN 08/17/16 [History] Colestipol HCl [Colestid] 2 gm PO DAILY 08/17/16 [History] Gabapentin [Neurontin] 100 mg PO QAM 08/17/16 [History] Insulin Aspart Prot/Insuln Asp [Novolog Mix 70-30 Vial] 46 unit SQ HS 08/17/16 [ History] Insulin Aspart Prot/Insuln Asp [Novolog Mix 70-30 Vial] 56 unit SQ QAM 08/17/16 [History] Ondansetron HCl [Zofran] 4 mg PO TID PRN 08/17/16 [History] Psyllium Husk [Daily Fiber] 1.04 gm PO DAILY 08/17/16 [History] Bromfenac Sodium 1 drop RIGHT EYE DAILY 11/11/16 [History] Cefdinir [Omnicef] 300 mg PO BID #10 capsule 11/13/16 [Rx] Oxycodone HCl/Acetaminophen [Percocet 5-325 mg Tablet] 1 each PO Q6H PRN #20 [Rx] Allergies/Adverse Reactions: Allergies rosuvastatin [From Crestor] Allergy (Verified 11/11/16 11:50) Hives ciprofloxacin Adverse Reaction (Verified 11/11/16 11:50) Itching Hydromorphone [From Dilaudid] Adverse Reaction (Verified 11/11/16 11:50) Difficulty Breathing - Respiratory Orders Smoking Cessation: Smoking cessation has been advised. For more information, call the [place] Tobacco Quit Line at 0-186-OGJN-NOW. - Ancillary Orders May use pressure relief devices daily prn - Advance Directives Code Status: Full Code - Mobility Orders Bedrest - Rehabiliation Orders Rehab Potential: Fair Rehab Orders: ROM Exercises, Evaluation for Physical Therapy, Evaluation for Occupational Therapy - Treatments Skin tear care topically daily PRN per policy - Diet Orders No Added Salt (ALYSSA), No Concentrated Sweets (diabetic) CERTIFICATION: I certify that the transfer of the above named patient to an Extended Care Facility is necessary for the continuing treatment of the diagnosis listed. The above information is true and accurate reflection of patient's current condition. Confidential - Redisclosure prohibited without a patient's written consent.
[2016-11-13 14:31] VITALS: BP 141/64
== END 2016-11-13 15:19 | DRG 393 ==
LOC: 3ANU 11:33 → EMEROO 11:33 → 3ANU 18:25
PROVIDERS: ADMIT Internal Medicine; ATTEND Internal Medicine
PROC: IRLIVER (2016-11-13 09:15)

== ENCOUNTER 2017-01-11 08:10 | Observation (INO) ==
--- NOTE | 2017-01-11 08:34 | Anesthesia Evaluation PreOp ---
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 HX Other Medical History: Diabetes Type II, GERD, Other (uterine CA S/P TAHBSO, chemo/XRT, obesity BMI=41.7) Anesthesia History: No Prior Anesthetic Complications, Past Anesthesia Alcohol Use: rarely Drug use: none Medications and Allergies Metoprolol [Lopressor] 12.5 mg PO BID tablet 12/19/14 [Rx] Amitriptyline [Elavil] 10 mg PO HS 02/04/15 [History] Gabapentin [Neurontin] 200 mg PO HS 02/04/15 [History] Omeprazole [PriLOSEC] 20 mg PO QAM 02/04/15 [History] Sennosides/Docusate Sodium [Senna Plus] 8.6 mg PO QAM 02/04/15 [History] Sertraline [Zoloft] 100 mg PO QAM 02/04/15 [History] Simvastatin [Zocor] 40 mg PO HS 02/04/15 [History] Calcium Carbonate/Vitamin D3 [Calcium 250+D Tablet] 1 tab PO QAM 03/05/15 [ History] Aspirin 81 mg PO QAM 05/06/15 [History] Lactobacillus Combination No.8 [Adult Probiotic] 2 tab PO DAILY 12/09/15 [ History] Potassium Chloride [Klor-Con Sprinkle] 10 meq PO DAILY 12/09/15 [History] Acetaminophen [Tylenol] 650 mg PO TID PRN 08/17/16 [History] Colestipol HCl [Colestid] 2 gm PO DAILY 08/17/16 [History] Gabapentin [Neurontin] 100 mg PO QAM 08/17/16 [History] Insulin Aspart Prot/Insuln Asp [Novolog Mix 70-30 Vial] 46 unit SQ HS 08/17/16 [ History] Insulin Aspart Prot/Insuln Asp [Novolog Mix 70-30 Vial] 56 unit SQ QAM 08/17/16 [History] Ondansetron HCl [Zofran] 4 mg PO TID PRN 08/17/16 [History] Psyllium Husk [Daily Fiber] 1.04 gm PO DAILY 08/17/16 [History] Bromfenac Sodium 1 drop RIGHT EYE DAILY 11/11/16 [History] Oxycodone HCl/Acetaminophen [Percocet 5-325 mg Tablet] 1 each PO Q6H PRN #20 [Rx] 3 Allergy/AdvReac Type Severity Reaction Status Date / Time rosuvastatin [From Crestor] Allergy Hives Verified 12/14/16 09:09 ciprofloxacin AdvReac Itching Verified 12/14/16 09:09 Hydromorphone [From Dilaudid] AdvReac Difficulty Verified 12/14/16 09:09 Breathing - Meds/Allergy Pre-op Review Medications Reviewed: Yes Allergies Reviewed: Yes Beta Blockers on Current Med List: Yes If Beta Blockers taken, Date/Time (Last Dose taken): 01/11/2017 at 0715 Anesthesia Results - Labs Laboratory Tests 01/05/17 01/05/17 01/05/17 12:14 12:14 12:14 WBC 10.0 Hgb 11.7 Hct 38.8 Plt Count 214 PT 11.8 INR 1.1 APTT 30.1 Sodium 138 Potassium 4.5 BUN 19 Creatinine 0.81 - Imaging EKG: report reviewed (11/11/2016 SINUS RHYTHM WITH OCCASIONAL SUPRAVENTRICULAR PREMATURE COMPLEXES MARKED LEFT AXIS DEVIATION LOW QRS VOLTAGE IN PRECORDIAL LEADS INCOMPLETE RIGHT BUNDLE BRANCH BLOCK) Additional studies: 03/07/2015 Echo mildly dilated LV moderate LV diastolic dysfunction LVEF 50% mildly dilated RV moderate-severely dilated LA mildly dilated RA moderate mitral annular calcification borderline mild mitral stenosis mild MR and TR mild-moderate pulmonary HTN Anesthesia Exam 3 Vital Signs Temp 98.2 BP 124/57 Pulse 86 Resp 18 O2 Sat 91% Height: 5'4'' Weight: 243 lbs NPO (# of Hours): 8 Pain Scale: 0 Pain Scale Used: Numeric (1 - 10) - HEENT Pupil (Motor): EOMI Mallampati: III Teeth: Missing, Poor dentition Oral Opening: Greater than 3 - SCRUBBING MACHINE OPERATOR LOC: Oriented SCRUBBING MACHINE OPERATOR Motor: Normal RUE, Normal LUE, Normal Face, Deficit RLE, Deficit LLE SCRUBBING MACHINE OPERATOR Sensory: Normal: RUE, LUE, Face, Deficit: RLE, LLE - Cardiac Rhythm: Regular Murmur: None - Pulmonary Breath Sounds: bilateral Clear Respiratory Effort: Symmetrical Anesthesia Assess/Plan ASA Score: 3 Modified [place] Scale for Level of Consciousness: Cooperative, oriented, and tranquil Anesthetic Plan: MAC Monitoring Plan: Standard Monitors
[2017-01-11] MEDS ORDERED: Ampicillin/Sulbactam 1,500 MG in 0.9 % Sodium Chloride Mini Bag 100 ML IVPB ONE (09:01)
[2017-01-11] MEDS ORDERED: 0.9 % Sodium Chloride 1,000 ML ONE (09:41)
--- NOTE | 2017-01-11 12:12 | Anesthesia Evaluation Post Op ---
Date of Encounter: 01/11/17 Time of Encounter: 11:59 - Vital Signs Vital Signs: vss - Lungs Lungs: Clear Ascult./Percussion - Airway Airway: Non-obstructed - Cardiovascular Baseline Rhythm - Mental Status Mental Status: Asleep with brisk response to light stimulation - Pain Pain Scale used: [place] (Faces) (patient uncomfrontable, medicated via 2mg morphine.) - Nausea Vomiting Nausea Vomiting: Not Present - Discharge PostOp Status: Transfer Patient to floor ([place], baseline pulse-ox 90%. continous pulse ox ordered, and CPAP ordered.)
[2017-01-11] MEDS ORDERED: Naloxone 0.4 MG/ML INJ IVP PRN (12:52)
[2017-01-11] MEDS ORDERED: Ondansetron 4 MG/2 ML VIAL IVP PRN (12:52)
[2017-01-11] MEDS ORDERED: *HR* Morphine 2 MG/ML SYRINGE IVP PRN ×2 (12:57)
[2017-01-11] MEDS ORDERED: D5% in Water 1,000 ML IVC PRN (13:25)
[2017-01-11] MEDS ORDERED: *HR* Dextrose 50 % in Water (Syg) 50 ML SYRINGE IVP PRN (13:25)
[2017-01-11] MEDS ORDERED: Dextrose Gel 15 GM PO PRN ×2 (13:25)
--- NOTE | 2017-01-11 13:50 | Internal Med History&Physical ---
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 She underwent a CT ablation of left liver today per INR. She tolerated procedure well. She has been admitted overnight monitoring for bleeding and pain management 2 we will check CBC now and continue to monitor 3 MORPHINE as needed as well as Percocet 10 /325 4 monitor vital signs and SPO2-bipap while sleeping 5 patient is to follow-up with oncology as an outpatient consult as needed (2) Cholangiocarcinoma of liver Current visit: No Status: Chronic 1 status post ablation of left liver lesion. Patient is to follow-up with oncology as outpatient consult as needed (3) Diabetes mellitus Current visit: No Status: Chronic 1 Accu-Cheks before meals at bedtime with sliding scale and basal insulin 2 diabetic diet Qualifiers: Diabetes mellitus type: type 2 Diabetes mellitus complication status: with skin complications Diabetes mellitus complication detail: with other skin ulcer Diabetes mellitus snf insulin use: with buttermaker use Qualified Code(s): E11.622 - Type 2 diabetes mellitus with other skin ulcer; Z79.4 - assisted (current) use of insulin (4) DVT prophylaxis Current visit: No Status: Acute 1 SCD (5) Hypertension Current visit: No Status: Chronic 1 we will resume home medications Qualifiers: Hypertension type: essential hypertension Qualified Code(s): I10 - Essential (primary) hypertension Internal Medicine - H&P: HPI Chief complaint: CT ablation of L hepatic mass Admitted From: Emergency Dept Plans for Post Hospital Care: Home History of present illness: Ms. Camacho is a 76 year old female past history of hypertension diabetes osteomyelitis neuropathy [place] newly diagnosed intrahepatic cholangiocarcinoma with no evidence of distant metastases disease, no other liver lesions. Today she underwent a CT ablation of left hepatic mass per interventional radiology. She tolerated procedure well and she has been admitted overnight for monitoring of bleeding and pain control. Presently the patient does appear to be in pain 10 out of 10. She was given 2 mg IV morphine. Blood pressure was slightly elevated systolic 140-160- she was placed on BiPAP per respiratory therapy. Baseline lab work was obtained. Abdomen is tender to palpation she has a dressing to her upper abdomen intact no active bleeding noted. She is hemodynamically stable at this time. Patient's daughter is her granddaughter who is also her power of deputy attorney general requests patient Is status DNR comfort care and DNI. Past Med Surg Social Fam HX - Past Medical History Medical history: cancer, diabetes Psychiatric history: anxiety, depression - Past Surgical History Surgical History: appendectomy, , cataract, cholecystectomy, herniorrhaphy, orthopedic, other, SHONDA/BSO, other - Social History Smoking Status: Former smoker Smokeless Tobacco Status: No Alcohol use: rarely Drug use: none - Family History Father Living Status: Mother Adopted: No Living Status: Hx Family Cardiac Disorders: Yes Hx Family Respiratory Disorders: Yes (COPD) Hx Family Endocrine Disorder: Yes (Diabetes) Internal Medicine - H&P: Meds Metoprolol [Lopressor] 12.5 mg PO BID tablet 12/19/14 [Rx] Amitriptyline [Elavil] 10 mg PO HS 02/04/15 [History] Gabapentin [Neurontin] 200 mg PO HS 02/04/15 [History] Omeprazole [PriLOSEC] 20 mg PO QAM 02/04/15 [History] Sennosides/Docusate Sodium [Senna Plus] 8.6 mg PO QAM 02/04/15 [History] Sertraline [Zoloft] 100 mg PO QAM 02/04/15 [History] Simvastatin [Zocor] 40 mg PO HS 02/04/15 [History] Calcium Carbonate/Vitamin D3 [Calcium 250+D Tablet] 1 tab PO QAM 03/05/15 [ History] Aspirin 81 mg PO QAM 05/06/15 [History] Lactobacillus Combination No.8 [Adult Probiotic] 2 tab PO DAILY 12/09/15 [ History] Potassium Chloride [Klor-Con Sprinkle] 10 meq PO DAILY 12/09/15 [History] Acetaminophen [Tylenol] 650 mg PO TID PRN 08/17/16 [History] Colestipol HCl [Colestid] 2 gm PO DAILY 08/17/16 [History] Gabapentin [Neurontin] 100 mg PO QAM 08/17/16 [History] Insulin Aspart Prot/Insuln Asp [Novolog Mix 70-30 Vial] 46 unit SQ HS 08/17/16 [ History] Insulin Aspart Prot/Insuln Asp [Novolog Mix 70-30 Vial] 56 unit SQ QAM 08/17/16 [History] Ondansetron HCl [Zofran] 4 mg PO TID PRN 08/17/16 [History] Psyllium Husk [Daily Fiber] 1.04 gm PO DAILY 08/17/16 [History] Bromfenac Sodium 1 drop RIGHT EYE DAILY 11/11/16 [History] Oxycodone HCl/Acetaminophen [Percocet 5-325 mg Tablet] 1 each PO Q6H PRN #20 [Rx] 3 Allergy/AdvReac Type Severity Reaction Status Date / Time rosuvastatin [From Crestor] Allergy Hives Verified 12/14/16 09:09 ciprofloxacin AdvReac Itching Verified 12/14/16 09:09 Hydromorphone [From Dilaudid] AdvReac Difficulty Verified 12/14/16 09:09 Breathing ROS unobtainable: other All Systems PM: A 10-system review of systems was performed and is negative for pertinent findings except as documented above in the HPI. 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 Absent: lymphadenopathy - Respiratory Respiratory exam: Present: CTAB. Absent: accessory muscle use, rales, rhonchi, wheezes - Cardiovascular Cardiovascular exam: Present: RRR, +S1, +S2. Absent: diastolic murmur, gallop, rubs, systolic murmur - GI/Abdominal GI/Abdominal exam: Present: normal bowel sounds, soft, tenderness, no peritoneal signs. Absent: distended - Extremities Exam Extremities exam: Present: warm, radial pulses palpable and symmetrical. Absent : calf tenderness, cyanotic, pedal edema - Neurological Exam Neurological exam: Present: CN II-XII intact, oriented X3, no focal deficits. Absent: pronater drift, facial droop, speech deficit - Skin Skin exam: Present: dry, intact <Rubens,Tatyana - Last Filed: 01/11/17 17:22> Date of Encounter: 01/11/17 Internal Medicine - H&P: HPI History of present illness: Ms. Camacho is a 76 year old female All Systems PM: A 10-system review of systems was performed and is negative for pertinent findings except as documented above in the HPI. - Constitutional Vitals: Temp Pulse Resp BP Pulse Ox 98.4 F 90 18 165/87 92 01/11/17 15:34 01/11/17 15:34 01/11/17 15:34 01/11/17 15:34 01/11/17 15:34 Internal Med - H&P Results - Labs CBC & Chem 7: 01/11/17 13:18 01/11/17 13:18 Labs: Short CBC 01/11/17 Range/Units 13:18 WBC 7.0 (4.3-11.1) K/mcL Hgb 11.9 (11.5-15.4) g/dL Hct 39.7 (35.3-44.9) % Plt Count 187 (140-400) K/mcL Neutrophils # 5.5 (1.6-8.9) K/mcL BMP 01/11/17 13:18 Sodium 134 L Potassium 4.6 H Chloride 97 L Carbon Dioxide 24 BUN 19 Creatinine 0.83 Glucose 250 H Calcium 9.2 - Attending Attestation Patient independently seen and examined. Admitted for observation as per Dr. Pastrana's (IR) request for overnight monitoring, s/p abalation of liver lesion. Pain control. Resume home medications Case discussed with SUSIE Breen, I agree with her documented findings, assessment, and plan.
[2017-01-11] MEDS ORDERED: *HR* Labetalol 20 MG/4 ML SYRINGE IVP ONE (14:16)
[2017-01-11] MEDS ORDERED: Lidocaine -MPF 2% 5 ML VIAL INFILT ONE (14:16)
[2017-01-11] MEDS ORDERED: *HR* Propofol 200 MG/20 ML VIAL IVP ONE (14:16)
[2017-01-11] MEDS ORDERED: *HR* Propofol 500 MG/50 ML BOTTLE IVC ONE (14:16)
[2017-01-11 14:32] LABS: Basophils % 0.4 %; Eosinophils % 0.3 %; Hematocrit 39.7 % (35.3-44.9); Hemoglobin 11.9 g/dL (11.5-15.4); Immature Granulocytes % 0.6 % (0-4); Immature Platelets 9.4 % (1.1-6.1); Lymphocytes # 0.7 K/mcL (0.6-4.6); Lymphocytes % 10.6 %; Mean Corpuscular Hemoglobin 26.9 pg (28.0-33.3); Mean Corpuscular Volume 89.8 fL (83.0-100.0); Mean Platelet Volume 11.9 fL (9.4-12.4); Monocytes # 0.7 K/mcL (0.0-1.3); Monocytes % 9.6 %; Neutrophils # 5.5 K/mcL (1.6-8.9); Platelet Count 187 K/mcL (140-400); Red Blood Count 4.42 M/mcL (3.82-4.97); Red Cell Distribution Width 17.5 % (11.5-14.5); Segmented Neutrophils % 78.5 %
[2017-01-11 14:36] LABS: INR 1.1
[2017-01-11 14:44] LABS: BUN/Creatinine Ratio 23 (6-26); Blood Urea Nitrogen 19 mg/dL (7-20); Calcium 9.2 mg/dL (8.6-10.8); Carbon Dioxide 24 mEq/L (19-29); Chloride 97 mEq/L (98-109); Glucose 250 mg/dL (70-99); Osmolality,Calculated 289 (280-300); Potassium 4.6 mEq/L (3.5-4.5); Sodium 134 mEq/L (136-145); eGFR For African Americans > 60 (> 60); eGFR For Non-African Americans > 60 (> 60)
[2017-01-11] MEDS ORDERED: Ondansetron ODT 4 MG TAB.RAPDIS PO PRN (17:12)
[2017-01-11] MEDS: Insulin LISPRO 300 UNITS/3 ML VIAL SQ SCH ×2 (17:21→21:04)
[2017-01-11] MEDS: *HR* HYDROcodone/Acet 10/325 mg TABLET PO PRN (17:45)
[2017-01-11] MEDS: Gabapentin 100 MG CAPSULE PO SCH (21:02)
[2017-01-11] MEDS: Insulin DETEMIR 100 UNIT/ML X5UNITS SQ SCH (21:05)
[2017-01-12 04:34] LABS: Basophils % 0.5 %; Eosinophils # 0.1 K/mcL (0.0-0.6); Eosinophils % 0.7 %; Hematocrit 38.1 % (35.3-44.9); Hemoglobin 11.2 g/dL (11.5-15.4); Immature Granulocytes % 0.5 % (0-4); Lymphocytes # 1.3 K/mcL (0.6-4.6); Lymphocytes % 17.5 %; Mean Corpuscular HGB Conc 29.4 g/dL (31.6-35.5); Mean Corpuscular Hemoglobin 26.9 pg (28.0-33.3); Mean Corpuscular Volume 91.6 fL (83.0-100.0); Mean Platelet Volume 11.5 fL (9.4-12.4); Monocytes # 1.1 K/mcL (0.0-1.3); Monocytes % 13.8 %; Neutrophils # 5.1 K/mcL (1.6-8.9); Platelet Count 180 K/mcL (140-400); Red Blood Count 4.16 M/mcL (3.82-4.97); Red Cell Distribution Width 17.8 % (11.5-14.5)
[2017-01-12 04:50] LABS: BUN/Creatinine Ratio 21 (6-26); Blood Urea Nitrogen 17 mg/dL (7-20); Carbon Dioxide 31 mEq/L (19-29); Chloride 96 mEq/L (98-109); Glucose 208 mg/dL (70-99); Magnesium 1.2 mg/dL (1.6-2.6); Osmolality,Calculated 290 (280-300); Potassium 4.1 mEq/L (3.5-4.5); Sodium 136 mEq/L (136-145); eGFR For African Americans > 60 (> 60); eGFR For Non-African Americans > 60 (> 60)
[2017-01-12] MEDS ORDERED: Magnesium Sulfate 2 GM in D5% in Water 100 ML IVPB ONE (08:12)
[2017-01-12] MEDS ORDERED: BROMFENAC SODIUM OP SCH (09:00)
[2017-01-12] MEDS ORDERED: (Colestipol Hcl [Colestid] 2 GM) PO SCH (09:00)
[2017-01-12] MEDS: Gabapentin 100 MG CAPSULE PO SCH ×2 (09:01→21:51)
[2017-01-12] MEDS: Aspirin 81 MG TAB.CHEW PO SCH (09:02)
[2017-01-12] MEDS: Insulin LISPRO 300 UNITS/3 ML VIAL SQ SCH ×4 (09:02→21:50)
[2017-01-12] MEDS: *HR* HYDROcodone/Acet 10/325 mg TABLET PO PRN ×2 (09:18→21:50)
--- NOTE | 2017-01-12 11:47 | Internal Med Progress Note ---
<Vaibhav Lainez - Last Filed: 01/12/17 17:41> Date of Encounter: 01/12/17 Time of Encounter: 11:47 - Assessment and plan (1) Encounter for ablation of malignant neoplasm with goal of cure or eradication Current Visit: Yes Status: Acute Assessment and plan: Patient's Hgb has dropped from 11.9 to 11.2. WBC count at 7.7. O2 sat at night has been from 92-99 on bipap. Follow-up with oncology at outpatient. (2) Cholangiocarcinoma of liver Current Visit: No Status: Chronic Assessment and plan: Oncology follow-up. (3) Hypomagnesemia Current Visit: Yes Status: Acute Assessment and plan: Patient's magnesium was at 1.2. She was given 2 gm magnesium once as a result. (4) Diabetes mellitus Current Visit: No Status: Chronic Assessment and plan: On diabetic diet. Accuckecks before meals at bedtime with sliding scale and basal insulin. Glucose dropped from 250 to 208. Patient has risk factors for CAD including diabetes, hyperlipidemia, and HTN. She is currently on metorpolol , statin, and aspirin. 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 Home med of metoprolol resumed. Qualifiers: Hypertension type: essential hypertension Qualified Code(s): I10 - Essential (primary) hypertension (6) DVT prophylaxis Current Visit: No Status: Acute Assessment and plan: SCD. - Subjective Interval history: Patient denies any abdominal pain, chest pain, shortness of breath, dizziness, syncope, or headaches. She says she feels better overall since yesterday. - Constitutional Vitals: Temp Pulse Resp BP Pulse Ox 97.8 F 72 16 131/63 94 01/12/17 10:39 01/12/17 10:39 01/12/17 10:39 01/12/17 10:39 01/12/17 10:39 General appearance: Present: A&O X 3, answers questions appropriately - Respiratory Respiratory exam: Present: CTAB. Absent: chest wall tenderness, respiratory distress, rhonchi, wheezes, tachypnea - Cardiovascular Cardiovascular exam: Present: RRR, +S1, +S2. Absent: irregular rhythm - GI/Abdominal GI/Abdominal exam: Present: normal bowel sounds, soft, tenderness. Absent: guarding, rebound Additional comments: Tenderdness to light palpation of the LLQ. Surgical scar present. Internal Medicine: Result - Labs CBC & Chem 7: 01/12/17 03:41 01/12/17 03:41 Labs: Short CBC 01/11/17 01/12/17 Range/Units 13:18 03:41 WBC 7.0 7.7 (4.3-11.1) K/mcL Hgb 11.9 11.2 L (11.5-15.4) g/dL Hct 39.7 38.1 (35.3-44.9) % Plt Count 187 180 (140-400) K/mcL Neutrophils # 5.5 5.1 (1.6-8.9) K/mcL BMP 01/11/17 01/12/17 13:18 03:41 Sodium 134 L 136 Potassium 4.6 H 4.1 Chloride 97 L 96 L Carbon Dioxide 24 31 H BUN 19 17 Creatinine 0.83 0.80 Glucose 250 H 208 H Calcium 9.2 9.0 Laboratory Tests 01/12/17 03:41 Magnesium 1.2 L - ABG Interpretation ABG results: PT/INR, D-dimer PT 12.0 Seconds (9.4-12.1) 01/11/17 13:18 - VTE Documentation of Mechanical Device: Intermittent pneumatic compression device Consult Discharge Plan - Plan Referrals: NONE,PCP [Primary Care Provider] - <Mark Turner - Last Filed: 01/12/17 18:10> Date of Encounter: 01/12/17 - Constitutional Vitals: Temp Pulse Resp BP Pulse Ox 97.5 F L 94 17 153/70 94 01/12/17 14:51 01/12/17 14:51 01/12/17 14:51 01/12/17 14:51 01/12/17 14:51 Internal Medicine: Result - Labs CBC & Chem 7: 01/12/17 03:41 01/12/17 03:41 Labs: Short CBC 01/12/17 Range/Units 03:41 WBC 7.7 (4.3-11.1) K/mcL Hgb 11.2 L (11.5-15.4) g/dL Hct 38.1 (35.3-44.9) % Plt Count 180 (140-400) K/mcL Neutrophils # 5.1 (1.6-8.9) K/mcL BMP 01/12/17 03:41 Sodium 136 Potassium 4.1 Chloride 96 L Carbon Dioxide 31 H BUN 17 Creatinine 0.80 Glucose 208 H Calcium 9.0 - ABG Interpretation ABG results: PT/INR, D-dimer PT 12.0 Seconds (9.4-12.1) 01/11/17 13:18 - Attending Attestation I examined this patient and my medical decision-making was reviewed with the Resident Physician. I agree with the documented findings, disposition and treatment plan as described except to the extent set forth below. Patient admitted for ablation of malignant neoplasm. Recently diagnosed with intrahepatic cholangiocarcinoma. She tolerated procedure well. Patient is scheduled to follow-up with oncology as outpatient. Magnesium is being replaced. Patient's home medications will be continued. Anticipate discharge in a.m. No other acute events or complaints. Heart rate 94, temperature 97.5, blood pressure 152/70, O2 sat 94%. Heart S1-S2 positive. Lungs bilateral good entry. Abdomen soft nontender.
[2017-01-12] MEDS: Insulin DETEMIR 100 UNIT/ML X5UNITS SQ SCH (21:51)
[2017-01-13 05:12] LABS: Basophils % 0.2 %; Eosinophils # 0.1 K/mcL (0.0-0.6); Eosinophils % 0.6 %; Hematocrit 35.8 % (35.3-44.9); Hemoglobin 11.1 g/dL (11.5-15.4); Immature Granulocytes % 0.5 % (0-4); Lymphocytes # 1.4 K/mcL (0.6-4.6); Lymphocytes % 17.3 %; Mean Corpuscular Hemoglobin 27.4 pg (28.0-33.3); Mean Corpuscular Volume 88.4 fL (83.0-100.0); Mean Platelet Volume 11.7 fL (9.4-12.4); Monocytes # 1.1 K/mcL (0.0-1.3); Monocytes % 13.2 %; Neutrophils # 5.5 K/mcL (1.6-8.9); Platelet Count 168 K/mcL (140-400); Red Blood Count 4.05 M/mcL (3.82-4.97); Red Cell Distribution Width 17.7 % (11.5-14.5); Segmented Neutrophils % 68.2 %
[2017-01-13 05:17] LABS: BUN/Creatinine Ratio 18 (6-26); Blood Urea Nitrogen 13 mg/dL (7-20); Carbon Dioxide 31 mEq/L (19-29); Chloride 97 mEq/L (98-109); Glucose 197 mg/dL (70-99); Magnesium 1.4 mg/dL (1.6-2.6); Osmolality,Calculated 284 (280-300); Sodium 134 mEq/L (136-145); eGFR For African Americans > 60 (> 60); eGFR For Non-African Americans > 60 (> 60)
[2017-01-13] MEDS: *HR* HYDROcodone/Acet 10/325 mg TABLET PO PRN ×2 (09:32→20:51)
[2017-01-13] MEDS: Insulin LISPRO 300 UNITS/3 ML VIAL SQ SCH ×4 (09:38→21:51)
[2017-01-13] MEDS: Aspirin 81 MG TAB.CHEW PO SCH (10:25)
[2017-01-13] MEDS: Gabapentin 100 MG CAPSULE PO SCH ×2 (10:26→20:51)
[2017-01-13] MEDS ORDERED: Magnesium Sulfate 2 GM in D5% in Water 100 ML IVPB ONE (12:02)
--- NOTE | 2017-01-13 13:50 | Internal Med Progress Note ---
Date of Encounter: 01/13/17 Time of Encounter: 09:00 - Assessment and plan (1) Cholangiocarcinoma of liver Current Visit: No Status: Chronic Assessment and plan: Recently diagnosed intrahepatic cholangiocarcinoma - s/p CT ablation of left hepatic lobe mass, Hydrodissection attempted, 2 zarate performed Patient tolerated procedure well, admitted for pain management and possible mild bleeding Continue IV morphine as needed for pain and [place] as needed for pain No active bleeding, H&H stable, WBC - 8.0 Oncology follow-up as outpatient (2) Sacral decubitus ulcer Current Visit: No Status: Chronic Assessment and plan: 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 Wound care consult - change dressing daily Qualifiers: Pressure ulcer stage: unspecified pressure ulcer stage Qualified Code(s): L89.159 - Pressure ulcer of sacral region, unspecified stage (3) Diabetes mellitus Current Visit: No Status: Chronic Assessment and plan: Diabetes mellitus type 2, insulin-dependent, hyperglycemia Continue Levemir, insulin sliding scale, glucose checks Qualifiers: Diabetes mellitus type: type 2 Diabetes mellitus complication status: with skin complications Diabetes mellitus complication detail: with other skin ulcer 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 Patient needs PT and OT evaluation (7) DVT prophylaxis Current Visit: No Status: Acute Assessment and plan: Continue SCDs, ambulate - Time Spent With Patient 25 - 35 minutes - Subjective Interval history: Examined this morning. Patient is awake and alert. Not in any distress. Denies chest pain or shortness of breath. Denies abdominal pain or vomiting. Tolerating oral diet. Complains of generalized weakness. No fever. Hemodynamically stable. No other acute events or complaints. - Constitutional Vitals: Temp Pulse Resp BP Pulse Ox 97.4 F L 83 18 139/84 92 01/13/17 11:32 01/13/17 11:32 01/13/17 11:32 01/13/17 11:32 01/13/17 11:32 General appearance: Present: A&O X 3, morbidly obese, pleasant, no acute distress, answers questions appropriately - Head Head exam: Present: atraumatic - Eye Eye exam: Present: EOMI - ENT ENT exam: Present: mucous membranes moist - Respiratory Respiratory exam: Present: decreased breath sounds (Slightly decreased in both bases, otherwise clear to auscultation). Absent: rales, rhonchi, wheezes, tachypnea - Cardiovascular Cardiovascular exam: Present: RRR, +S1, +S2 - GI/Abdominal GI/Abdominal exam: Present: soft. Absent: distended, firm, guarding, tenderness Additional comments: Obese - Extremities Exam Extremities exam: Present: pedal edema (Mild bilateral lower leg edema), radial pulses palpable and symmetrical. Absent: cyanotic - Neurological Exam Neurological exam: Present: alert, oriented X3, no focal deficits. Absent: facial droop, speech deficit - Skin Additional comments: Stage IV sacral ulcer Internal Medicine: Result - Labs CBC & Chem 7: 01/13/17 04:19 01/13/17 04:19 Labs: Short CBC 01/13/17 Range/Units 04:19 WBC 8.0 (4.3-11.1) K/mcL Hgb 11.1 L (11.5-15.4) g/dL Hct 35.8 (35.3-44.9) % Plt Count 168 (140-400) K/mcL Neutrophils # 5.5 (1.6-8.9) K/mcL BMP 01/13/17 04:19 Sodium 134 L Potassium 4.0 Chloride 97 L Carbon Dioxide 31 H BUN 13 Creatinine 0.72 Glucose 197 H Calcium 9.0 - ABG Interpretation ABG results: PT/INR, D-dimer PT 12.0 Seconds (9.4-12.1) 01/11/17 13:18 - VTE Documentation of Mechanical Device: Intermittent pneumatic compression device Consult Discharge Plan - Plan Referrals: NONE,PCP [Primary Care Provider] -
[2017-01-13] MEDS: Insulin DETEMIR 100 UNIT/ML X5UNITS SQ SCH (21:51)
[2017-01-14] MEDS: *HR* HYDROcodone/Acet 10/325 mg TABLET PO PRN ×2 (02:47→16:48)
[2017-01-14] MEDS: Gabapentin 100 MG CAPSULE PO SCH (08:18)
[2017-01-14] MEDS: Aspirin 81 MG TAB.CHEW PO SCH (08:18)
[2017-01-14] MEDS: Insulin LISPRO 300 UNITS/3 ML VIAL SQ SCH ×3 (08:19→16:48)
[2017-01-14 10:51] VITALS: BP 145/57
--- NOTE | 2017-01-14 12:27 | Discharge Summary ---
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 Wound care consult - change dressing daily Qualifiers: Pressure ulcer stage: stage 4 Qualified Code(s): L89.154 - Pressure ulcer of sacral region, stage 4 (3) Diabetes mellitus Priority: Secondary Status: Chronic Comments: Diabetes mellitus type 2, insulin-dependent, hyperglycemia Continue usual home dose of insulin Qualifiers: Diabetes mellitus type: type 2 Diabetes mellitus complication status: with skin complications Diabetes mellitus complication detail: with other skin ulcer Diabetes mellitus chcf insulin use: with termite exterminator helper use Qualified Code(s): E11.622 - Type 2 diabetes mellitus with other skin ulcer; Z79.4 - shelter (current) use of insulin (4) Hypomagnesemia Priority: Secondary Status: Acute Comments: Magnesium replaced (5) Hypertension Priority: Secondary Status: Chronic Comments: Essential hypertension, controlled, continue metoprolol, monitor Qualifiers: Hypertension type: essential hypertension Qualified Code(s): I10 - Essential (primary) hypertension (6) Morbid obesity with BMI of 40.0-44.9, adult Priority: Secondary Status: Chronic Comments: BMI 42.2. Patient needs PT and OT evaluation - Discharge Medications Prescriptions: Magnesium Oxide [Magnesium] 400 mg PO BID #30 tablet Oxycodone HCl/Acetaminophen [Percocet 5-325 mg Tablet] 1 each PO Q6H PRN #7 PRN Reason: Pain Home Medications: Metoprolol [Lopressor] 12.5 mg PO BID tablet 12/19/14 [Rx] Amitriptyline [Elavil] 10 mg PO HS 02/04/15 [History] Gabapentin [Neurontin] 200 mg PO HS 02/04/15 [History] Omeprazole [PriLOSEC] 20 mg PO QAM 02/04/15 [History] Sennosides/Docusate Sodium [Senna Plus] 8.6 mg PO QAM 02/04/15 [History] Sertraline [Zoloft] 100 mg PO QAM 02/04/15 [History] Simvastatin [Zocor] 40 mg PO HS 02/04/15 [History] Calcium Carbonate/Vitamin D3 [Calcium 250+D Tablet] 1 tab PO QAM 03/05/15 [ History] Aspirin 81 mg PO QAM 05/06/15 [History] Potassium Chloride [Klor-Con Sprinkle] 10 meq PO DAILY 12/09/15 [History] Acetaminophen [Tylenol] 650 mg PO TID PRN 08/17/16 [History] Colestipol HCl [Colestid] 2 gm PO DAILY 08/17/16 [History] Gabapentin [Neurontin] 100 mg PO QAM 08/17/16 [History] Insulin Aspart Prot/Insuln Asp [Novolog Mix 70-30 Vial] 46 unit SQ HS 08/17/16 [ History] Insulin Aspart Prot/Insuln Asp [Novolog Mix 70-30 Vial] 56 unit SQ QAM 08/17/16 [History] Ondansetron HCl [Zofran] 4 mg PO TID PRN 08/17/16 [History] Psyllium Husk [Daily Fiber] 1.04 gm PO DAILY 08/17/16 [History] Bromfenac Sodium 1 drop RIGHT EYE DAILY 11/11/16 [History] Magnesium Oxide [Magnesium] 400 mg PO BID #30 tablet 01/14/17 [Rx] Oxycodone HCl/Acetaminophen [Percocet 5-325 mg Tablet] 1 each PO Q6H PRN #7 [Rx] Allergies/Adverse Reactions: 3 Allergy/AdvReac Type Severity Reaction Status Date / Time rosuvastatin [From Crestor] Allergy Hives Verified 12/14/16 09:09 ciprofloxacin AdvReac Itching Verified 12/14/16 09:09 Hydromorphone [From Dilaudid] AdvReac Difficulty Verified 12/14/16 09:09 Breathing Date of admission: 01/11/17 14:15 Primary care physician: PCP NONE Consults: 01/11/17 13:25 Consult to Event Av Operator [CONS] Routine Reason for SW Consult: Pt from ECF 01/11/17 13:30 Consult to Interventional Radiology [CONS] Routine Consulting Provider: Radiology Interventional Cols Reason for Consult: post microwave ablation Time Notified: 13:32 Call Completed: No 01/12/17 15:23 Consult to Wound Care [CONS] Routine Reason for Consult: decub Call Completed: No Anticipated date of discharge: 01/14/17 - Patient Status Disposition: Transfer SNF Condition: Good Functional capacity at discharge: wheelchair bound Overall status at discharge: patient is progressing back to baseline - Discharge Instructions Follow Up With: NONE,PCP [Primary Care Provider] - Miah Chavez MD [Partnered Physician] - Additional Instructions: - Advised to follow-up with oncology and primary care physician - Continue all meds as per discharge instructions - Advised to return if symptoms worsen - Diet and Activity Activity: increase activity as tolerated Diet: advance to your usual diet Hospital course: Ms. Camacho is a 76 year old female with past medical history of diabetes, anxiety, depression, hypertension, obesity and recently diagnosed cholangiocarcinoma liver. Patient underwent a CT abdomen showed a left hepatic mass by interventional radiology. She tolerated procedure well. She was admitted for monitoring of bleeding and pain control. Patient has been hemodynamically stable. She did not have any complications. Patient's labs are fairly within normal limits. Magnesium has been replaced. H&H has been stable and WBC is 8.0. Patient did not have any fever. We restarted all her home medications. Patient will need to follow-up with oncology for cholangiocarcinoma liver. Patient was on insulin sliding scale during her stay for diabetes. Patient was on IV morphine as needed for pain. Patient also has a sacral decubitus ulcer stage IV which is chronic. Wound care nurse has evaluated patient and advised dressing change daily. Patient will require dressing change even at the [facility]. PT and OT have evaluated the patient. She will need to be continued on physical therapy at [facility]. Patient has been explained about her condition and plan of care in detail. She had no other acute events or complications during her stay in the hospital. She had no complications after her CT ablation of the left hepatic lobe mass. Patient has been advised to follow-up with oncology. She understood and agreed. No unanswered questions. No family members at the time of discharge. She is tolerating oral diet well. She ambulates using a wheelchair. Patient is being discharged in stable condition. - Time Spent with Patient Total time spent providing and/or coordinating discharge services: Less than 30 minutes - Constitutional Vitals: Temp Pulse Resp BP Pulse Ox 97.7 F 81 17 145/57 96 01/14/17 10:40 01/14/17 10:40 01/14/17 10:40 01/14/17 10:40 01/14/17 10:40 General appearance: Present: A&O X 3, morbidly obese, pleasant, no acute distress, answers questions appropriately - Head Head exam: Present: atraumatic - Eye Eye exam: Present: EOMI - ENT ENT exam: Present: mucous membranes moist - Respiratory Respiratory exam: Present: CTAB. Absent: rales, rhonchi, wheezes, tachypnea - Cardiovascular Cardiovascular exam: Present: RRR, +S1, +S2 - GI/Abdominal GI/Abdominal exam: Present: soft. Absent: distended, firm, guarding, tenderness - Extremities Exam Extremities exam: Present: pedal edema (Mild bilateral), radial pulses palpable and symmetrical. Absent: cyanotic - Neurological Exam Neurological exam: Present: alert, oriented X3, no focal deficits. Absent: facial droop, speech deficit - Skin Additional comments: Stage IV decubitus sacral ulcer - VTE Documentation of Mechanical Device: Intermittent pneumatic compression device
--- NOTE | 2017-01-14 12:40 | Physician Discharge Referral ---
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 (2) Sacral decubitus ulcer Priority: Primary Status: Chronic (3) Diabetes mellitus Priority: Secondary Status: Chronic (4) Hypomagnesemia Priority: Secondary Status: Acute (5) Hypertension Priority: Secondary Status: Chronic (6) Morbid obesity with BMI of 40.0-44.9, adult Priority: Secondary Status: Chronic Prognosis: Fair Aware of Diagnosis: Patient, Family Aware of Prognosis: Patient, Family - Transfer Medications Prescriptions: Magnesium Oxide [Magnesium] 400 mg PO BID #30 tablet Oxycodone HCl/Acetaminophen [Percocet 5-325 mg Tablet] 1 each PO Q6H PRN #7 PRN Reason: Pain Home Medications: Metoprolol [Lopressor] 12.5 mg PO BID tablet 12/19/14 [Rx] Amitriptyline [Elavil] 10 mg PO HS 02/04/15 [History] Gabapentin [Neurontin] 200 mg PO HS 02/04/15 [History] Omeprazole [PriLOSEC] 20 mg PO QAM 02/04/15 [History] Sennosides/Docusate Sodium [Senna Plus] 8.6 mg PO QAM 02/04/15 [History] Sertraline [Zoloft] 100 mg PO QAM 02/04/15 [History] Simvastatin [Zocor] 40 mg PO HS 02/04/15 [History] Calcium Carbonate/Vitamin D3 [Calcium 250+D Tablet] 1 tab PO QAM 03/05/15 [ History] Aspirin 81 mg PO QAM 05/06/15 [History] Potassium Chloride [Klor-Con Sprinkle] 10 meq PO DAILY 12/09/15 [History] Acetaminophen [Tylenol] 650 mg PO TID PRN 08/17/16 [History] Colestipol HCl [Colestid] 2 gm PO DAILY 08/17/16 [History] Gabapentin [Neurontin] 100 mg PO QAM 08/17/16 [History] Insulin Aspart Prot/Insuln Asp [Novolog Mix 70-30 Vial] 46 unit SQ HS 08/17/16 [ History] Insulin Aspart Prot/Insuln Asp [Novolog Mix 70-30 Vial] 56 unit SQ QAM 08/17/16 [History] Ondansetron HCl [Zofran] 4 mg PO TID PRN 08/17/16 [History] Psyllium Husk [Daily Fiber] 1.04 gm PO DAILY 08/17/16 [History] Bromfenac Sodium 1 drop RIGHT EYE DAILY 11/11/16 [History] Magnesium Oxide [Magnesium] 400 mg PO BID #30 tablet 01/14/17 [Rx] Oxycodone HCl/Acetaminophen [Percocet 5-325 mg Tablet] 1 each PO Q6H PRN #7 [Rx] Allergies/Adverse Reactions: 3 Allergy/AdvReac Type Severity Reaction Status Date / Time rosuvastatin [From Crestor] Allergy Hives Verified 12/14/16 09:09 ciprofloxacin AdvReac Itching Verified 12/14/16 09:09 Hydromorphone [From Dilaudid] AdvReac Difficulty Verified 12/14/16 09:09 Breathing - Respiratory Orders Smoking Cessation: Smoking cessation has been advised. For more information, call the [place] Tobacco Quit Line at 4-773-YXPI-NOW. - Lab Orders Lab Orders: CBC - Ancillary Orders May use pressure relief devices daily prn - Advance Directives Code Status: DNR-Arrest/Don't Intubate - Mobility Orders Other (Wheelchair) - Rehabiliation Orders Rehab Potential: Fair Rehab Orders: ROM Exercises, Evaluation for Physical Therapy, Evaluation for Occupational Therapy - Treatments Skin tear care topically daily PRN per policy List/Other: - Change in dressing to sacral decubitus ulcer daily - Follow up with oncology - Diet Orders Regular (Diabetic diet) CERTIFICATION: I certify that the transfer of the above named patient to an Extended Care Facility is necessary for the continuing treatment of the diagnosis listed. The above information is true and accurate reflection of patient's current condition. Confidential - Redisclosure prohibited without a patient's written consent.
== END 2017-01-14 18:48 ==
LOC: 3ANU 08:10 → INTRAD 08:10 → 3ANU 12:27
PROVIDERS: ADMIT Internal Medicine; ATTEND Internal Medicine

== ENCOUNTER 2017-04-17 08:06 | Inpatient (IN) ==
--- NOTE | 2017-04-17 09:31 | Emergency Department Note ---
Disposition Clinical Impression: UTI (urinary tract infection), Sacral decubitus ulcer Disposition: Admitted As Inpatient Condition: Fair General Adult HPI - General Chief complaint: ED Altered Mental Status Stated complaint: AMS Time Seen by Provider: 04/17/17 08:11 Source: patient Limitations: no limitations Nursing Notes Reviewed: Yes Vital Signs Reviewed: Yes - History of Present Illness Pain Scale: 7 - Related Data Home Medications Medication Instructions Recorded Confirmed Omeprazole [PriLOSEC] 20 mg PO QAM 02/04/15 03/15/17 Sennosides/Docusate Sodium [Senna 8.6 mg PO QAM PRN 02/04/15 03/15/17 Plus] Calcium Carbonate/Vitamin D3 2 tab PO BID 03/05/15 03/15/17 [Calcium 250+D Tablet] Acetaminophen [Tylenol] 650 mg PO TID PRN 08/17/16 03/15/17 Ondansetron HCl [Zofran] 4 mg PO TID PRN 08/17/16 03/15/17 Alendronate Sodium [Fosamax] 70 mg PO QWEEK 03/15/17 03/15/17 Divalproex (24 HR) [Depakote ER 500 mg PO BID 03/15/17 03/15/17 (24 HR)] Docusate [Colace] 200 mg PO DAILY 03/15/17 03/15/17 Ergocalciferol (VITAMIN D2) 50,000 unit PO QWEEK 03/15/17 03/15/17 [Vitamin D2] Ergocalciferol (VITAMIN D2) 400 unit PO DAILY 03/15/17 03/15/17 [Vitamin D] Ibuprofen [Motrin] 200 mg PO TID PRN 03/15/17 03/15/17 LORazepam [Ativan] 1 mg PO TID PRN 03/15/17 03/15/17 Levothyroxine [Synthroid] 112 mcg PO 0630 03/15/17 03/15/17 Loratadine [Claritin] 10 mg PO DAILY 03/15/17 03/15/17 Lurasidone [Latuda] 20 mg PO HS 03/15/17 03/15/17 Multivitamin [Multivitamins] 1 each PO DAILY 03/15/17 03/15/17 fluvoxaMINE [Luvox] 150 mg PO HS 03/15/17 03/15/17 Previous Rx's Medication Instructions Recorded Oxycodone HCl/Acetaminophen 1 each PO Q6H PRN #7 01/14/17 [Percocet 5-325 mg Tablet] Allergies Allergy/AdvReac Type Severity Reaction Status Date / Time rosuvastatin [From Crestor] Allergy Hives Verified 03/15/17 10:51 ciprofloxacin AdvReac Itching Verified 03/15/17 10:51 Hydromorphone [From Dilaudid] AdvReac Difficulty Verified 03/15/17 10:51 Breathing Past Medical History - Past Medical History Medical history: Reports: cancer, diabetes Surgical history: Reports: appendectomy, , cataract, cholecystectomy, herniorrhaphy, orthopedic, other, SHONDA/BSO, other Psychiatric history: Reports: anxiety, depression - Social History Smoking Status: Former smoker Smokeless Tobacco Status: No Alcohol use: Reports: rarely Drug use: Reports: none Physical Exam - General Limitations: no limitations General appearance: alert, in no apparent distress Course Vital Signs Temperature 98.0 F 04/17/17 08:07 Pulse Rate 91 04/17/17 08:07 Respiratory Rate 16 04/17/17 08:07 Blood Pressure 172/83 04/17/17 08:07 O2 Sat by Pulse Oximetry 96 04/17/17 08:07 Temperature 98.0 F 04/17/17 08:07 Pulse Rate 84 04/17/17 12:05 Respiratory Rate 14 04/17/17 12:36 Blood Pressure 125/74 04/17/17 12:36 O2 Sat by Pulse Oximetry 94 04/17/17 12:05 Oxygen Delivery Oxygen Delivery Nasal Cannula Medical Decision Making - MDM Narrative Medical decision making narrative: This documentation is done with the assistance of [employer] [facility] [employer] dictation software. Though efforts have been made to ensure accuracy, there may be inaccuracies in consulting it architect or spelling or other typographical errors. I examined this patient and my medical decision-making was reviewed with the Resident Physician. I agree with the documented findings, disposition and treatment plan as described except to the extent set forth below. Patient seen and evaluated on arrival with EMS and Dr. Tovar, agree with his evaluation and management plan, I supervised the care of the patient's stay. Patient presents from long-term. Medics said they were uncertain why they were called. Patient is getting IV antibiotics for IV out and was somewhat combative. They said for than she has been fine. She has a baseline deficits and is not able to. She does have a decubitus ulcer in the midline of her buttocks that they might be using IV next 4 but no one bothered to call in with a treatment plan or supply name ortega flores and have our nurses call her doctor who is taking care of her and sleeping more history here. Patient currently has no complaints. Baseline labs and her repeat her medical record and the determine if she needs any further evaluation or treatment here. Patient's agreement with this plan. 2 945 hours: Spoke with the long-term. They said they were not sure where her infection was. But they gave her a dose of cefepime. She did have a fever 100.4 today. They sent her in because she was agitated and pulled catheter out. Patient's been very calm here. She does have a decubitus ulcer. We will check urinalysis blood culture CBC and chemistry and a chest x-ray on her. She is in agreement with this plan. She does not appear septic nor does she meet surgical criteria at this point. - Lab Data Result diagrams: 04/17/17 09:53 04/17/17 09:53 Lab Results 04/17/17 04/17/17 04/17/17 Range/Units 08:14 09:32 09:53 WBC 23.1 H (4.3-11.1) K/mcL RBC 4.06 (3.82-4.97) M/mcL Hgb 11.1 L (11.5-15.4) g/dL Hct 36.2 (35.3-44.9) % MCV 89.2 (83.0-100.0) fL MCH 27.3 L (28.0-33.3) pg MCHC 30.7 L (31.6-35.5) g/dL RDW 16.1 H (11.5-14.5) % Plt Count 215 (140-400) K/mcL MPV 11.4 (9.4-12.4) fL Immature Gran % 0.8 (0-4) % Seg Neutrophils % 89.9 % Lymphocytes % 1.8 % Monocytes % 7.3 % Eosinophils % 0.0 % Basophils % 0.2 % Neutrophils # 20.7 H (1.6-8.9) K/mcL Lymphocytes # 0.4 L (0.6-4.6) K/mcL Monocytes # 1.7 H (0.0-1.3) K/mcL Eosinophils # 0.0 (0.0-0.6) K/mcL Basophils # 0.0 (0.0-0.2) K/mcL Immature Plt Fraction 11.6 H (1.1-6.1) % Sodium (136-145) mEq/L Potassium (3.5-4.5) mEq/L Chloride (98-109) mEq/L Carbon Dioxide (19-29) mEq/L BUN (7-20) mg/dL Creatinine (0.57-1.11) mg/dL Est GFR ( Amer) (> 60) Est GFR (Non-Af Amer) (> 60) BUN/Creatinine Ratio (6-26) Glucose (70-99) mg/dL POC Glucose 332 H (58-89) Calculated Osmolality (280-300) Lactic Acid (0.5-2.2) mmol/L Calcium (8.6-10.8) mg/dL Urine Color Yellow (Yellow) Urine Clarity Cloudy A (Clear) Urine pH 6.0 (5.0-8.0) pH Units Ur Specific [place] 1.022 (1.010-1.025) Urine Protein 100 H (Neg-Trace) mg/dL Urine Glucose (UA) 500 H (Normal) mg/dL Urine Ketones 15 H (Negative) mg/dL Urine Blood Small H (Negative) Urine Nitrite Negative (Negative) Urine Bilirubin Negative (Negative) Urine Urobilinogen Normal (Normal) mg/dL Ur Leukocyte Esterase Moderate H (Negative) Urine Microscopic RBC 0-3 (0-3) per hpf Urine Microscopic WBC TNTC H (0-3) per hpf Ur Squamous Epith Cells Many H (None-Few) per lpf Urine Bacteria Few (None-Few) per hpf Hyaline Casts Few (None-Few) per lpf Ur Culture Indicated? YES A (NO) 04/17/17 04/17/17 Range/Units 09:53 11:38 WBC (4.3-11.1) K/mcL RBC (3.82-4.97) M/mcL Hgb (11.5-15.4) g/dL Hct (35.3-44.9) % MCV (83.0-100.0) fL MCH (28.0-33.3) pg MCHC (31.6-35.5) g/dL RDW (11.5-14.5) % Plt Count (140-400) K/mcL MPV (9.4-12.4) fL Immature Gran % (0-4) % Seg Neutrophils % % Lymphocytes % % Monocytes % % Eosinophils % % Basophils % % Neutrophils # (1.6-8.9) K/mcL Lymphocytes # (0.6-4.6) K/mcL Monocytes # (0.0-1.3) K/mcL Eosinophils # (0.0-0.6) K/mcL Basophils # (0.0-0.2) K/mcL Immature Plt Fraction (1.1-6.1) % Sodium 133 L (136-145) mEq/L Potassium 3.9 (3.5-4.5) mEq/L Chloride 97 L (98-109) mEq/L Carbon Dioxide 21 (19-29) mEq/L BUN 23 H (7-20) mg/dL Creatinine 0.83 (0.57-1.11) mg/dL Est GFR ( Amer) > 60 (> 60) Est GFR (Non-Af Amer) > 60 (> 60) BUN/Creatinine Ratio 28 H (6-26) Glucose 320 H (70-99) mg/dL POC Glucose (58-89) Calculated Osmolality 292 (280-300) Lactic Acid 2.8 H (0.5-2.2) mmol/L Calcium 9.2 (8.6-10.8) mg/dL Urine Color (Yellow) Urine Clarity (Clear) Urine pH (5.0-8.0) pH Units Ur Specific [place] (1.010-1.025) Urine Protein (Neg-Trace) mg/dL Urine Glucose (UA) (Normal) mg/dL Urine Ketones (Negative) mg/dL Urine Blood (Negative) Urine Nitrite (Negative) Urine Bilirubin (Negative) Urine Urobilinogen (Normal) mg/dL Ur Leukocyte Esterase (Negative) Urine Microscopic RBC (0-3) per hpf Urine Microscopic WBC (0-3) per hpf Ur Squamous Epith Cells (None-Few) per lpf Urine Bacteria (None-Few) per hpf Hyaline Casts (None-Few) per lpf Ur Culture Indicated? (NO)
--- NOTE | 2017-04-17 09:37 | Emergency Department Note ---
Disposition Clinical Impression: UTI (urinary tract infection) Qualifiers: Urinary tract infection type: site unspecified Hematuria presence: with hematuria Qualified Code(s): N39.0 - Urinary tract infection, site not specified ; R31.9 - Hematuria, unspecified; R31.9 - Hematuria, unspecified Sacral decubitus ulcer Qualifiers: Pressure ulcer stage: stage 4 Qualified Code(s): L89.154 - Pressure ulcer of sacral region, stage 4 Disposition: Admitted As Inpatient Condition: Fair Time of Disposition: 13:10 General Adult HPI - General Chief complaint: ED Altered Mental Status Stated complaint: AMS Time Seen by Provider: 04/17/17 08:11 Source: patient Limitations: no limitations Nursing Notes Reviewed: Yes Vital Signs Reviewed: Yes - History of Present Illness HPI Narrative: Mrs. Camacho, a 76yo female, presents from [facility]; sent by nursing. Patient is alert and oriented however is unsure why she was sent here. Patient did not with any documentation or medication list. Patient's only complaint is mild pain in her buttock from an ulcer; unchanged from what she typically feels. At baseline patient is non-ambulatory. Pain Scale: 7 - Related Data Home Medications Medication Instructions Recorded Confirmed Omeprazole [PriLOSEC] 20 mg PO QAM 02/04/15 03/15/17 Sennosides/Docusate Sodium [Senna 8.6 mg PO QAM PRN 02/04/15 03/15/17 Plus] Calcium Carbonate/Vitamin D3 2 tab PO BID 03/05/15 03/15/17 [Calcium 250+D Tablet] Acetaminophen [Tylenol] 650 mg PO TID PRN 08/17/16 03/15/17 Ondansetron HCl [Zofran] 4 mg PO TID PRN 08/17/16 03/15/17 Alendronate Sodium [Fosamax] 70 mg PO QWEEK 03/15/17 03/15/17 Divalproex (24 HR) [Depakote ER 500 mg PO BID 03/15/17 03/15/17 (24 HR)] Docusate [Colace] 200 mg PO DAILY 03/15/17 03/15/17 Ergocalciferol (VITAMIN D2) 50,000 unit PO QWEEK 03/15/17 03/15/17 [Vitamin D2] Ergocalciferol (VITAMIN D2) 400 unit PO DAILY 03/15/17 03/15/17 [Vitamin D] Ibuprofen [Motrin] 200 mg PO TID PRN 03/15/17 03/15/17 LORazepam [Ativan] 1 mg PO TID PRN 03/15/17 03/15/17 Levothyroxine [Synthroid] 112 mcg PO 0630 03/15/17 03/15/17 Loratadine [Claritin] 10 mg PO DAILY 03/15/17 03/15/17 Lurasidone [Latuda] 20 mg PO HS 03/15/17 03/15/17 Multivitamin [Multivitamins] 1 each PO DAILY 03/15/17 03/15/17 fluvoxaMINE [Luvox] 150 mg PO HS 03/15/17 03/15/17 Previous Rx's Medication Instructions Recorded Oxycodone HCl/Acetaminophen 1 each PO Q6H PRN #7 01/14/17 [Percocet 5-325 mg Tablet] Allergies Allergy/AdvReac Type Severity Reaction Status Date / Time rosuvastatin [From Crestor] Allergy Hives Verified 03/15/17 10:51 ciprofloxacin AdvReac Itching Verified 03/15/17 10:51 Hydromorphone [From Dilaudid] AdvReac Difficulty Verified 03/15/17 10:51 Breathing All systems ED: reviewed and negative except as stated. Review of Systems: As Per HPI Past Medical History - Past Medical History Medical history: Reports: cancer, diabetes Surgical history: Reports: appendectomy, , cataract, cholecystectomy, herniorrhaphy, orthopedic, other, SHONDA/BSO, other Psychiatric history: Reports: anxiety, depression - Social History Smoking Status: Former smoker Smokeless Tobacco Status: No Alcohol use: Reports: rarely Drug use: Reports: none Physical Exam Vital Signs Reviewed General: Patient is alert, oriented, and in no acute distress. HEENT: No facial asymmetry. Head is normocephalic and atraumatic. PERRLA. Oral mucosa moist. Cardiovascular: Heart regular rate and rhythm without clicks, rubs, gallops, or murmurs. Respiratory: Symmetric chest rise with good respiratory effort. Bilateral breath sounds are clear without wheezing, crackles, or rhonchi. Abdomen: Bowel sounds present normoactive x-4 quadrants. Abdomen is soft, nondistended, and nontender. Neuro: GCS 15, A&O x4. Skin: warm, dry. Stage 4 sacral decubitis ulcer, midline, no packing in place, no erythema, no purulance. Psych: Patient's affect is appropriate for situation. - General Limitations: no limitations General appearance: alert, in no apparent distress Course Course Narrative: Requested ED nurse call intermediate: Per intermediate, "patient has an infection but we don't know where." Had IV cefepime; received 1 dose. [place] wound care sees the patient once per week with intermediate staff doing daily dressing changes. Patient's sacral decubitus ulcer clinically appears clean however is deep and still concerning. We will add vancomycin to cover cellulitis. Additionally, she has UTI. I discussed the patient with the admitting hospitalist, Dr. Olivares, who agrees to accept the patient for continued evaluation and management. Vital Signs Temperature 98.0 F 04/17/17 08:07 Pulse Rate 91 04/17/17 08:07 Respiratory Rate 16 04/17/17 08:07 Blood Pressure 172/83 04/17/17 08:07 O2 Sat by Pulse Oximetry 96 04/17/17 08:07 Temperature 98.0 F 04/17/17 08:07 Pulse Rate 84 04/17/17 12:05 Respiratory Rate 14 04/17/17 12:36 Blood Pressure 125/74 04/17/17 12:36 O2 Sat by Pulse Oximetry 94 04/17/17 12:05 Oxygen Delivery Oxygen Delivery Nasal Cannula Medical Decision Making - Medical Records Medical records reviewed: Yes I reviewed the patient's medical records. - Lab Data Lab results reviewed: Yes I reviewed the patient's lab results. Result diagrams: 04/17/17 09:53 04/17/17 09:53 Lab Results 04/17/17 04/17/17 04/17/17 Range/Units 08:14 09:32 09:53 WBC 23.1 H (4.3-11.1) K/mcL RBC 4.06 (3.82-4.97) M/mcL Hgb 11.1 L (11.5-15.4) g/dL Hct 36.2 (35.3-44.9) % MCV 89.2 (83.0-100.0) fL MCH 27.3 L (28.0-33.3) pg MCHC 30.7 L (31.6-35.5) g/dL RDW 16.1 H (11.5-14.5) % Plt Count 215 (140-400) K/mcL MPV 11.4 (9.4-12.4) fL Immature Gran % 0.8 (0-4) % Seg Neutrophils % 89.9 % Lymphocytes % 1.8 % Monocytes % 7.3 % Eosinophils % 0.0 % Basophils % 0.2 % Neutrophils # 20.7 H (1.6-8.9) K/mcL Lymphocytes # 0.4 L (0.6-4.6) K/mcL Monocytes # 1.7 H (0.0-1.3) K/mcL Eosinophils # 0.0 (0.0-0.6) K/mcL Basophils # 0.0 (0.0-0.2) K/mcL Immature Plt Fraction 11.6 H (1.1-6.1) % Sodium (136-145) mEq/L Potassium (3.5-4.5) mEq/L Chloride (98-109) mEq/L Carbon Dioxide (19-29) mEq/L BUN (7-20) mg/dL Creatinine (0.57-1.11) mg/dL Est GFR ( Amer) (> 60) Est GFR (Non-Af Amer) (> 60) BUN/Creatinine Ratio (6-26) Glucose (70-99) mg/dL POC Glucose 332 H (58-89) Calculated Osmolality (280-300) Lactic Acid (0.5-2.2) mmol/L Calcium (8.6-10.8) mg/dL Urine Color Yellow (Yellow) Urine Clarity Cloudy A (Clear) Urine pH 6.0 (5.0-8.0) pH Units Ur Specific [place] 1.022 (1.010-1.025) Urine Protein 100 H (Neg-Trace) mg/dL Urine Glucose (UA) 500 H (Normal) mg/dL Urine Ketones 15 H (Negative) mg/dL Urine Blood Small H (Negative) Urine Nitrite Negative (Negative) Urine Bilirubin Negative (Negative) Urine Urobilinogen Normal (Normal) mg/dL Ur Leukocyte Esterase Moderate H (Negative) Urine Microscopic RBC 0-3 (0-3) per hpf Urine Microscopic WBC TNTC H (0-3) per hpf Ur Squamous Epith Cells Many H (None-Few) per lpf Urine Bacteria Few (None-Few) per hpf Hyaline Casts Few (None-Few) per lpf Ur Culture Indicated? YES A (NO) 04/17/17 04/17/17 Range/Units 09:53 11:38 WBC (4.3-11.1) K/mcL RBC (3.82-4.97) M/mcL Hgb (11.5-15.4) g/dL Hct (35.3-44.9) % MCV (83.0-100.0) fL MCH (28.0-33.3) pg MCHC (31.6-35.5) g/dL RDW (11.5-14.5) % Plt Count (140-400) K/mcL MPV (9.4-12.4) fL Immature Gran % (0-4) % Seg Neutrophils % % Lymphocytes % % Monocytes % % Eosinophils % % Basophils % % Neutrophils # (1.6-8.9) K/mcL Lymphocytes # (0.6-4.6) K/mcL Monocytes # (0.0-1.3) K/mcL Eosinophils # (0.0-0.6) K/mcL Basophils # (0.0-0.2) K/mcL Immature Plt Fraction (1.1-6.1) % Sodium 133 L (136-145) mEq/L Potassium 3.9 (3.5-4.5) mEq/L Chloride 97 L (98-109) mEq/L Carbon Dioxide 21 (19-29) mEq/L BUN 23 H (7-20) mg/dL Creatinine 0.83 (0.57-1.11) mg/dL Est GFR ( Amer) > 60 (> 60) Est GFR (Non-Af Amer) > 60 (> 60) BUN/Creatinine Ratio 28 H (6-26) Glucose 320 H (70-99) mg/dL POC Glucose (58-89) Calculated Osmolality 292 (280-300) Lactic Acid 2.8 H (0.5-2.2) mmol/L Calcium 9.2 (8.6-10.8) mg/dL Urine Color (Yellow) Urine Clarity (Clear) Urine pH (5.0-8.0) pH Units Ur Specific [place] (1.010-1.025) Urine Protein (Neg-Trace) mg/dL Urine Glucose (UA) (Normal) mg/dL Urine Ketones (Negative) mg/dL Urine Blood (Negative) Urine Nitrite (Negative) Urine Bilirubin (Negative) Urine Urobilinogen (Normal) mg/dL Ur Leukocyte Esterase (Negative) Urine Microscopic RBC (0-3) per hpf Urine Microscopic WBC (0-3) per hpf Ur Squamous Epith Cells (None-Few) per lpf Urine Bacteria (None-Few) per hpf Hyaline Casts (None-Few) per lpf Ur Culture Indicated? (NO) - Radiology Data Radiology results reviewed: Yes I reviewed the patient's radiology results. - EKG Data EKG #1 EKG attestation: Yes I reviewed and interpreted this EKG. EKG results narrative: EKG gated O2 April 2017 at 08:17 inserted as sinus rhythm with a rate of 190. Normal intervals with MO 164, QRS 98, QT/QTC 353/41. Borderline left axis. Nonspecific ST-T changes. No previous EKG for comparison.
[2017-04-17 09:44] LABS: Bilirubin,Urine Negative (Negative); Blood,Urine Small (Negative); Clarity,Urine Cloudy (Clear); Color,Urine Yellow (Yellow); Glucose,Urine (UA) 500 mg/dL (Normal); Ketones,Urine 15 mg/dL (Negative); Leukocyte Esterase,Urine Moderate (Negative); Nitrite,Urine Negative (Negative); Protein,Urine 100 mg/dL (Neg-Trace); Specific Gravity,Urine 1.022 (1.010-1.025); Urobilinogen,Urine Normal (Normal)
[2017-04-17 09:47] LABS: Bacteria,Urine Few per hpf (None-Few); Hyaline Casts,Urine Few per lpf (None-Few); Squamous Epithelial Cell,Urine Many per lpf (None-Few); WBC,Urine TNTC per hpf (0-3)
[2017-04-17 10:00] LABS: RBC,Urine 0-3 per hpf (0-3)
[2017-04-17 10:05] LABS: Basophils % 0.2 %; Hematocrit 36.2 % (35.3-44.9); Hemoglobin 11.1 g/dL (11.5-15.4); Immature Granulocytes % 0.8 % (0-4); Immature Platelets 11.6 % (1.1-6.1); Lymphocytes # 0.4 K/mcL (0.6-4.6); Lymphocytes % 1.8 %; Mean Corpuscular HGB Conc 30.7 g/dL (31.6-35.5); Mean Corpuscular Hemoglobin 27.3 pg (28.0-33.3); Mean Corpuscular Volume 89.2 fL (83.0-100.0); Mean Platelet Volume 11.4 fL (9.4-12.4); Monocytes # 1.7 K/mcL (0.0-1.3); Monocytes % 7.3 %; Neutrophils # 20.7 K/mcL (1.6-8.9); Platelet Count 215 K/mcL (140-400); Red Blood Count 4.06 M/mcL (3.82-4.97); Red Cell Distribution Width 16.1 % (11.5-14.5); Segmented Neutrophils % 89.9 %
[2017-04-17] MEDS ORDERED: Vancomycin 1,750 MG in D5% in Water 500 ML IVPB ONE ×2 (10:59→23:00)
[2017-04-17 11:01] LABS: BUN/Creatinine Ratio 28 (6-26); Blood Urea Nitrogen 23 mg/dL (7-20); Calcium 9.2 mg/dL (8.6-10.8); Carbon Dioxide 21 mEq/L (19-29); Chloride 97 mEq/L (98-109); Glucose 320 mg/dL (70-99); Osmolality,Calculated 292 (280-300); Potassium 3.9 mEq/L (3.5-4.5); Sodium 133 mEq/L (136-145); eGFR For African Americans > 60 (> 60); eGFR For Non-African Americans > 60 (> 60)
--- NOTE | 2017-04-17 14:17 | Event Note ---
Date of Encounter: 04/17/17 Time of Encounter: 14:17 Patient seen and examined with nurse practitioner. Patient presents with altered mental status. Patient has UTI as well as stage 4 sacral decub ulcer. She has been on cefepime at the skilled nursing. Will continue that in addition to vancomycin. Urine and wound culture. Wound care to see the patient. Inpatient admission
[2017-04-17] MEDS ORDERED: 0.9 % Sodium Chloride 1,000 ML IVC ONE (14:19)
[2017-04-17] MEDS ORDERED: *HR* Dextrose 50 % in Water (Syg) 50 ML SYRINGE IVP PRN (14:57)
[2017-04-17] MEDS ORDERED: Dextrose Gel 15 GM PO PRN ×2 (14:57)
[2017-04-17] MEDS ORDERED: Acetaminophen 325 MG TABLET PO PRN (14:57)
[2017-04-17] MEDS ORDERED: Naloxone 0.4 MG/ML INJ IVP PRN (14:57)
[2017-04-17] MEDS ORDERED: D5% in Water 1,000 ML IVC PRN (14:57)
[2017-04-17] MEDS ORDERED: Ondansetron ODT 4 MG TAB.RAPDIS PO PRN (15:18)
[2017-04-17] MEDS ORDERED: Sennosides/Docusate Sodium TABLET PO PRN (15:18)
[2017-04-17] MEDS ORDERED: *HR* LORazepam 1 MG TABLET PO PRN (15:18)
--- NOTE | 2017-04-17 15:35 | Internal Med History&Physical ---
Date of Encounter: 04/17/17 Time of Encounter: 15:33 Assessment and Plan (1) Decubitus ulcer of coccygeal region, stage 4 Current visit: Yes Status: Acute She does not seem toxic. Does not meet SIRS criteria Infected stage IV decubitus ulcer. Consult wound management Obtain blood cultures now Continue antibiotic therapy, vancomycin and cefepime CBC in the morning (2) UTI (urinary tract infection) Current visit: Yes Status: Acute UA cloudy with moderate Leukesterase. Cultures sent, start Cefepime. Follow cultures to narrow Qualifiers: Urinary tract infection type: acute cystitis Hematuria presence: without hematuria Qualified Code(s): N30.00 - Acute cystitis without hematuria (3) Leukocytosis Current visit: Yes Status: Acute Secondary to infectious decubitus sacral ulcer CBC in the morning see plan above Qualifiers: Qualified Code(s): D72.829 - Elevated white blood cell count, unspecified (4) Diabetes mellitus Current visit: Yes Status: Chronic Low sliding scale insulin coverage with before meals and at bedtime with AC and HS Accu-Cheks and diabetic diet Qualifiers: Diabetes mellitus type: type 2 Diabetes mellitus complication status: with skin complications Diabetes mellitus complication detail: with other skin ulcer Diabetes mellitus children's counselor insulin use: with children's counselor use Qualified Code(s): E11.622 - Type 2 diabetes mellitus with other skin ulcer; Z79.4 - dough maker (current) use of insulin (5) DVT prophylaxis Current visit: Yes Status: Acute Heparin 5000 units subcutaneous twice a day Code(s): [id number] - SNOMED Code(s): 613264859 Internal Medicine - H&P: HPI Chief complaint: MENTAL STATUS AND UTI DECUBITUS ULCER Admitted From: Long-term Nursing Facility Plans for Post Hospital Care: Transfer Shelter Care History of present illness: Ms. Camacho is a 76 year old female with a past medical history of endometrial cancer, liver cancer, diabetes, chronic sacral ulcer with osteomyelitis. She presents [facility] today with altered mental status, mild pain in the buttock from decubitus sacral ulcer and osteomyelitis She denies any fever, chills, chest pain, shortness of breath, abdominal pain, bilateral lower extremity pain or swelling. Leukocytosis evident on CBC, mild anemia noted hemoglobin 11.1. Urinalysis cloudy small amount of blood and leukoesterase. He is being admitted for antibiotic therapy and further monitoring and evaluation. Past Med Surg Social Fam HX - Past Medical History Medical history: cancer, diabetes Psychiatric history: anxiety, depression - Past Surgical History Surgical History: appendectomy, , cataract, cholecystectomy, herniorrhaphy, orthopedic, other, SHONDA/BSO, other - Social History Smoking Status: Former smoker Smokeless Tobacco Status: No Alcohol use: rarely Drug use: none - Family History Father History Unknown: Yes Living Status: Mother Adopted: No Living Status: Hx Family Cardiac Disorders: Yes Hx Family Respiratory Disorders: Yes (copd) Hx Family Endocrine Disorder: Yes (Diabetes) Internal Medicine - H&P: Meds Omeprazole [PriLOSEC] 20 mg PO QAM 02/04/15 [History] Sennosides/Docusate Sodium [Senna Plus] 8.6 mg PO QAM PRN 02/04/15 [History] Ondansetron HCl [Zofran] 4 mg PO TID PRN 08/17/16 [History] Oxycodone HCl/Acetaminophen [Percocet 5-325 mg Tablet] 1 each PO Q6H PRN #7 [Rx] Acidoph/L.bulg/Bif.b/S.thermop [Emilie-Bid Caplet] 2 tab PO DAILY 04/17/17 [ History] Amitriptyline [Elavil] 10 mg PO HS 04/17/17 [History] Aspirin Enteric Coated [Aspirin EC] 81 mg PO DAILY 04/17/17 [History] Bromfenac Sodium 1 drop RIGHT EYE DAILY 04/17/17 [History] Calcium Carbonate/Vitamin D3 [Oyster Shell Calcium-Vit D Tab] 1 tab PO DAILY 07/03 [History] Cefepime HCl [Maxipime] 1 gm IV BID 04/17/17 [History] Gabapentin [Neurontin] 100 mg PO QAM 04/17/17 [History] Gabapentin [Neurontin] 200 mg PO HS 04/17/17 [History] Insulin Aspart Prot/Insuln Asp [Novolog Mix 70-30 Vial] 45 unit SQ HS 04/17/17 [ History] Insulin Aspart Prot/Insuln Asp [Novolog Mix 70-30 Vial] 56 unit SQ QAM 04/17/17 [History] Magnesium Oxide [Mag-Ox] 400 mg PO BID 04/17/17 [History] Metoprolol [Lopressor] 12.5 mg PO BID 04/17/17 [History] Oxygen 2 l .ROUTE AD 04/17/17 [History] Potassium Chloride [Klor-Con 10] 10 meq PO DAILY 04/17/17 [History] Sertraline [Zoloft] 125 mg PO DAILY 04/17/17 [History] Simvastatin [Zocor] 40 mg PO DAILY 04/17/17 [History] 3 Allergy/AdvReac Type Severity Reaction Status Date / Time rosuvastatin [From Crestor] Allergy Hives Verified 03/15/17 10:51 ciprofloxacin AdvReac Itching Verified 03/15/17 10:51 Hydromorphone [From Dilaudid] AdvReac Difficulty Verified 03/15/17 10:51 Breathing All Systems PM: A 10-system review of systems was performed and is negative for pertinent findings except as documented above in the HPI. - Constitutional Constitutional: no chills, no fever(s), no night sweats - EENT Nose, mouth and throat: no dysphagia, no nasal discharge, no neck pain, no sore throat - Cardiovascular Cardiovascular ROS IM: no chest pain, no diaphoresis, no dyspnea, no lightheadedness, no palpitations, no syncope - Respiratory Respiratory: no cough, no dyspnea, no wheezing, no excessive phlegm production - Gastrointestinal Gastrointestinal: constipation, nausea, no abdominal pain, no diarrhea, no hematemesis, no hematochezia, no melena, no vomiting - Genitourinary Genitourinary: no change in urinary stream, no dysuria, no flank pain, no hematuria - Musculoskeletal Musculoskeletal ROS IM: no numbness, no tingling - Integumentary Integumentary IM: skin ulcer, no rash, no unusual bruising Additional comments: Discussed cubitus sacral ulcer, tunneled with yellow granulation and pink tissue present. Limited eschar. There is measuring see nurse documentation - Neurological Neurological ROS: no confusion, no convulsions, no focal weakness, no numbness, no tingling, no tremor(s) - Hematologic/Lymphatic Hematologic/Lymphatic: no easy bruising - Constitutional Vitals: Temp Pulse Resp BP Pulse Ox 98.0 F 80 18 122/71 95 04/17/17 14:38 04/17/17 14:38 04/17/17 14:38 04/17/17 14:38 04/17/17 14:38 General appearance: Present: cooperative, A&O X 3, no acute distress, obese, answers questions appropriately - Head Head exam: Present: atraumatic, normocephalic - Neck Neck exam general surgery: Present: supple, trachea midline. Absent: lymphadenopathy - Respiratory Respiratory exam: Present: decreased breath sounds, CTAB. Absent: accessory muscle use, rales, rhonchi, wheezes - Cardiovascular Cardiovascular exam: Present: RRR, +S1, +S2. Absent: diastolic murmur, gallop, rubs, systolic murmur - GI/Abdominal GI/Abdominal exam: Present: distended, hypoactive bowel sounds, normal bowel sounds, soft, no peritoneal signs. Absent: guarding, tenderness - Extremities Exam Extremities exam: Present: warm, radial pulses palpable and symmetrical. Absent : calf tenderness, cyanotic, pedal edema - Neurological Exam Neurological exam: Present: CN II-XII intact, oriented X3, no focal deficits. Absent: pronater drift, facial droop, speech deficit - Skin Skin exam: Present: dry, erythema. Absent: cyanosis, intact - Expanded Skin Exam Full body front and back image: 1 - Unmeasured decubitus Ulcer that is tunelled Internal Med - H&P Results - Labs CBC & Chem 7: 04/17/17 09:53 04/17/17 09:53
[2017-04-17] MEDS: Cefepime HCl 1,000 MG in Water for inj. (sterile) 10 ML IVP SCH (16:12)
[2017-04-17] MEDS: *HR* Heparin 5,000 UNIT/ML VIAL SQ SCH (16:13)
[2017-04-17] MEDS: Insulin LISPRO 300 UNITS/3 ML VIAL SQ SCH ×2 (16:13→22:22)
[2017-04-17] MEDS: *HR* LORazepam 1 MG TABLET PO PRN (22:06)
[2017-04-17] MEDS: Lurasidone 20 MG TABLET PO SCH (22:07)
[2017-04-17] MEDS: Divalproex (24 HR) 500 MG TABLET PO SCH (22:07)
[2017-04-17] MEDS: *HR* OxyCODONE/APAP 5/325 TABLET PO PRN (23:02)
[2017-04-18] MEDS: Cefepime HCl 1,000 MG in Water for inj. (sterile) 10 ML IVP SCH (06:09)
[2017-04-18] MEDS: *HR* Heparin 5,000 UNIT/ML VIAL SQ SCH ×2 (06:10→17:38)
[2017-04-18 08:04] LABS: BUN/Creatinine Ratio 26 (6-26); Blood Urea Nitrogen 22 mg/dL (7-20); Calcium 8.9 mg/dL (8.6-10.8); Carbon Dioxide 24 mEq/L (19-29); Chloride 96 mEq/L (98-109); Glucose 362 mg/dL (70-99); Osmolality,Calculated 292 (280-300); Potassium 3.8 mEq/L (3.5-4.5); Sodium 132 mEq/L (136-145); eGFR For African Americans > 60 (> 60); eGFR For Non-African Americans > 60 (> 60)
[2017-04-18] MEDS: Loratadine 10 MG TABLET PO SCH (08:22)
[2017-04-18] MEDS: Divalproex (24 HR) 500 MG TABLET PO SCH ×2 (08:22→22:13)
[2017-04-18] MEDS: Multivit/Ca/Min/Fe/FA 1 TAB TABLET PO SCH (08:23)
[2017-04-18] MEDS: Insulin LISPRO 300 UNITS/3 ML VIAL SQ SCH ×4 (08:24→22:14)
[2017-04-18] MEDS ORDERED: Vancomycin 1,750 MG in D5% in Water 250 ML IVPB SCH (09:00)
[2017-04-18 09:01] LABS: Nucleated Red Blood Cells 0.1 /100 WBC (0); Red Cell Distribution Width 16.7 % (11.5-14.5)
[2017-04-18 09:03] LABS: Hematocrit 36.6 % (35.3-44.9); Immature Platelets 12.5 % (1.1-6.1); Mean Corpuscular HGB Conc 30.1 g/dL (31.6-35.5); Mean Corpuscular Hemoglobin 27.5 pg (28.0-33.3); Mean Corpuscular Volume 91.5 fL (83.0-100.0); Mean Platelet Volume 12.4 fL (9.4-12.4); Monocytes # 2.2 K/mcL (0.0-1.3); Platelet Count 185 K/mcL (140-400)
[2017-04-18 10:42] LABS: Anisocytosis 1+ (Not Present); Lymphocytes # 1.1 K/mcL (0.6-4.6); Macrocytosis Present (Not Present); Platelet Estimate Normal (Normal)
--- NOTE | 2017-04-18 13:36 | Internal Med Progress Note ---
Date of Encounter: 04/18/17 Time of Encounter: 13:31 - Assessment and plan (1) Sepsis Current Visit: Yes Status: Acute Assessment and plan: Suspected sepsis with leukocytosis, low-grade fever, tachycardia and lactic acidosis. Currently improving except worsening leukocytosis. Continue broad- spectrum IV antibiotics, continue workup to identify accurate source of infection. Qualifiers: Sepsis type: sepsis due to unspecified organism Qualified Code(s): A41.9 - Sepsis, unspecified organism (2) Decubitus ulcer, stage 4 with infection Current Visit: Yes Status: Chronic Assessment and plan: Patient has chronic stage IV sacral decubitus ulcer along with chronic sacral osteomyelitis due to bedbound status. Admitted with acute pain, confusion and low-grade fever, for presumed infected decubitus ulcer. On culture grew group B streptococcus. Will change antibiotics to IV Zosyn and vancomycin. Follow-up blood cultures. Local wound care were wound care recommendations. Frequent repositioning. ESR and CRP noted to be significantly elevated from baseline. We will consult infectious diseases and check MRI sacrum. Chest x-ray to rule out underlying infection. (3) UTI (urinary tract infection) Current Visit: Yes Status: Ruled-out Assessment and plan: Suspected UTI. Urine culture shows no significant bacterial growth. Qualifiers: Urinary tract infection type: acute cystitis Hematuria presence: without hematuria Qualified Code(s): N30.00 - Acute cystitis without hematuria (4) Hypothyroidism Current Visit: Yes Status: Chronic Assessment and plan: Continue levothyroxine. Qualifiers: Hypothyroidism type: unspecified Qualified Code(s): E03.9 - Hypothyroidism , unspecified (5) Peripheral neuropathy Current Visit: Yes Status: Chronic Qualifiers: Peripheral neuropathy type: polyneuropathy, unspecified Qualified Code(s): G62.9 - Polyneuropathy, unspecified (6) Diabetes mellitus Current Visit: Yes Status: Chronic Assessment and plan: Continue Accu-Chek blood glucose monitoring with sliding scale insulin. Diabetic diet. Qualifiers: Diabetes mellitus type: type 2 Diabetes mellitus complication status: with skin complications Diabetes mellitus complication detail: with other skin ulcer Diabetes mellitus terminologist insulin use: with terminologist use Qualified Code(s): E11.622 - Type 2 diabetes mellitus with other skin ulcer; Z79.4 - intermediate frame tender (current) use of insulin (7) Cholangiocarcinoma of liver Current Visit: Yes Status: Chronic - Subjective Interval history: Reports pain in sacral area; has chronic stage 4 decubitus ulcer in her lower back, that is spreading to her buttocks per her; no fever/chills, nausea, vomiting; bedbound at baseline. - Constitutional Vitals: Temp Pulse Resp BP Pulse Ox 97.9 F 87 18 129/62 96 04/18/17 12:22 04/18/17 12:22 04/18/17 12:22 04/18/17 12:22 04/18/17 12:22 General appearance: Present: A&O X 3, morbidly obese, no acute distress, answers questions appropriately - Respiratory Respiratory exam: Present: CTAB. Absent: accessory muscle use, rales, rhonchi, wheezes - Cardiovascular Cardiovascular exam: Present: RRR, +S1, +S2. Absent: diastolic murmur, gallop, rubs, systolic murmur - GI/Abdominal GI/Abdominal exam: Present: normal bowel sounds, soft (obese), no peritoneal signs. Absent: distended, tenderness - Extremities Exam Extremities exam: Present: pedal edema (dependent), warm, radial pulses palpable and symmetrical. Absent: calf tenderness, cyanotic - Back Exam Additional comments: Stage IV 5 x 6 cm ulcer in sacral area, mostly dry; noted to be contaminated by feces despite Allevyn dressing - Neurological Exam Neurological exam: Present: CN II-XII intact, oriented X3, no focal deficits, strengths equal and symetr throughout (decreased in B/L LE). Absent: pronater drift, facial droop, speech deficit Internal Medicine: Result - Labs CBC & Chem 7: 04/18/17 06:45 04/18/17 06:45 Labs: Short CBC 04/18/17 Range/Units 06:45 WBC 27.3 H (4.3-11.1) K/mcL Hgb 11.0 L (11.5-15.4) g/dL Hct 36.6 (35.3-44.9) % Plt Count 185 (140-400) K/mcL Neutrophils # 24.0 H (1.6-8.9) K/mcL BMP 04/18/17 06:45 Sodium 132 L Potassium 3.8 Chloride 96 L Carbon Dioxide 24 BUN 22 H Creatinine 0.84 Glucose 362 H Calcium 8.9 Consult Discharge Plan - Plan Referrals: NONE,PCP [Primary Care Provider] -
[2017-04-18] MEDS: Piperacillin/Tazobactam 3.375 GM/200 ML BAG IVPB SCH (15:11)
[2017-04-18] MEDS: Lurasidone 20 MG TABLET PO SCH (22:12)
[2017-04-18] MEDS: Vancomycin 1,750 MG in D5% in Water 500 ML IVPB SCH (22:19)
[2017-04-19] MEDS: Piperacillin/Tazobactam 3.375 GM/200 ML BAG IVPB SCH ×3 (00:45→15:55)
[2017-04-19 05:29] LABS: Basophils % 0.2 %; Eosinophils % 0.1 %; Hematocrit 33.2 % (35.3-44.9); Hemoglobin 10.4 g/dL (11.5-15.4); Immature Granulocytes % 1.3 % (0-4); Lymphocytes # 0.7 K/mcL (0.6-4.6); Lymphocytes % 3.7 %; Mean Corpuscular HGB Conc 31.3 g/dL (31.6-35.5); Mean Corpuscular Hemoglobin 27.5 pg (28.0-33.3); Mean Corpuscular Volume 87.8 fL (83.0-100.0); Mean Platelet Volume 11.7 fL (9.4-12.4); Monocytes # 1.6 K/mcL (0.0-1.3); Monocytes % 8.9 %; Neutrophils # 15.4 K/mcL (1.6-8.9); Platelet Count 194 K/mcL (140-400); Red Blood Count 3.78 M/mcL (3.82-4.97); Red Cell Distribution Width 16.2 % (11.5-14.5); Segmented Neutrophils % 85.8 %
[2017-04-19 05:41] LABS: BUN/Creatinine Ratio 26 (6-26); Blood Urea Nitrogen 21 mg/dL (7-20); Carbon Dioxide 28 mEq/L (19-29); Chloride 96 mEq/L (98-109); Glucose 342 mg/dL (70-99); Osmolality,Calculated 285 (280-300); Potassium 3.6 mEq/L (3.5-4.5); Sodium 129 mEq/L (136-145); eGFR For African Americans > 60 (> 60); eGFR For Non-African Americans > 60 (> 60)
[2017-04-19] MEDS: *HR* Heparin 5,000 UNIT/ML VIAL SQ SCH ×2 (06:28→17:17)
[2017-04-19] MEDS: Loratadine 10 MG TABLET PO SCH (09:50)
[2017-04-19] MEDS: Multivit/Ca/Min/Fe/FA 1 TAB TABLET PO SCH (09:50)
[2017-04-19] MEDS: Insulin LISPRO 300 UNITS/3 ML VIAL SQ SCH ×4 (09:50→21:28)
[2017-04-19] MEDS: Divalproex (24 HR) 500 MG TABLET PO SCH ×2 (09:50→21:28)
--- NOTE | 2017-04-19 14:47 | Internal Med Progress Note ---
Date of Encounter: 04/19/17 Time of Encounter: 14:44 - Assessment and plan (1) Sepsis Current Visit: Yes Status: Acute Assessment and plan: Suspected sepsis with leukocytosis, low-grade fever, tachycardia and lactic acidosis. Currently improved labs and vitals. Continue broad-spectrum IV antibiotics, continue workup to identify accurate source of infection. Qualifiers: Sepsis type: sepsis due to unspecified organism Qualified Code(s): A41.9 - Sepsis, unspecified organism (2) Decubitus ulcer, stage 4 with infection Current Visit: Yes Status: Chronic Assessment and plan: Patient has chronic stage IV sacral decubitus ulcer along with chronic sacral osteomyelitis due to bedbound status. Admitted with acute pain, confusion and low-grade fever, for presumed infected decubitus ulcer. Wound culture grew group B streptococcus and MRSA; Will continue antibiotics- IV Zosyn and vancomycin. Blood cultures remained negative; Local wound care were wound care recommendations. Frequent repositioning. ESR and CRP noted to be significantly elevated from baseline. Consulted infectious diseases and f/up MRI pelvis. Chest x-ray to rule out underlying infection noted- no acute infiltrates. (3) UTI (urinary tract infection) Current Visit: Yes Status: Ruled-out Qualifiers: Urinary tract infection type: acute cystitis Hematuria presence: without hematuria Qualified Code(s): N30.00 - Acute cystitis without hematuria (4) Hypothyroidism Current Visit: Yes Status: Chronic Assessment and plan: Continue levothyroxine. Qualifiers: Hypothyroidism type: unspecified Qualified Code(s): E03.9 - Hypothyroidism , unspecified (5) Peripheral neuropathy Current Visit: Yes Status: Chronic Qualifiers: Peripheral neuropathy type: polyneuropathy, unspecified Qualified Code(s): G62.9 - Polyneuropathy, unspecified (6) Diabetes mellitus Current Visit: Yes Status: Chronic Assessment and plan: Continue Accu-Chek blood glucose monitoring with sliding scale insulin. Blood sugars noted to be elevated, start basal insulin and increase sliding scale. Diabetic diet. Qualifiers: Diabetes mellitus type: type 2 Diabetes mellitus complication status: with skin complications Diabetes mellitus complication detail: with other skin ulcer Diabetes mellitus joint terminal attack controller insulin use: with custodial use Qualified Code(s): E11.622 - Type 2 diabetes mellitus with other skin ulcer; Z79.4 - skilled nursing (current) use of insulin (7) Cholangiocarcinoma of liver Current Visit: Yes Status: Chronic - Subjective Interval history: Reports no new complaints; improved sacral pain; no chest pain, dyspnea, nausea , vomiting, abdominal pain; has bowel movements; - Constitutional Vitals: Temp Pulse Resp BP Pulse Ox 97.9 F 86 17 111/68 95 04/19/17 11:56 04/19/17 11:56 04/19/17 11:56 04/19/17 11:56 04/19/17 11:56 General appearance: Present: A&O X 3, morbidly obese, no acute distress, answers questions appropriately - Respiratory Respiratory exam: Present: CTAB. Absent: accessory muscle use, rales, rhonchi, wheezes - Cardiovascular Cardiovascular exam: Present: RRR, +S1, +S2. Absent: diastolic murmur, gallop, rubs, systolic murmur - GI/Abdominal GI/Abdominal exam: Present: normal bowel sounds, soft (obese), no peritoneal signs. Absent: distended, tenderness - Extremities Exam Extremities exam: Present: pedal edema, warm, radial pulses palpable and symmetrical. Absent: calf tenderness, cyanotic - Neurological Exam Neurological exam: Present: CN II-XII intact, oriented X3, no focal deficits ( decreased motor power B/L LE). Absent: pronater drift, facial droop, speech deficit Internal Medicine: Result - Labs CBC & Chem 7: 04/19/17 04:59 04/19/17 04:59 Labs: Short CBC 04/19/17 Range/Units 04:59 WBC 17.9 H (4.3-11.1) K/mcL Hgb 10.4 L (11.5-15.4) g/dL Hct 33.2 L (35.3-44.9) % Plt Count 194 (140-400) K/mcL Neutrophils # 15.4 H (1.6-8.9) K/mcL BMP 04/19/17 04:59 Sodium 129 L Potassium 3.6 Chloride 96 L Carbon Dioxide 28 BUN 21 H Creatinine 0.82 Glucose 342 H Calcium 9.0 - Impressions Impressions Chest X-Ray 04/18/17 17:37 IMPRESSION: No evidence of pneumonia. D/ / Franklyn Roach / Franklyn Roach Interpreting Provider: Franklyn Roach Consult Discharge Plan - Plan Referrals: NONE,PCP [Primary Care Provider] -
--- NOTE | 2017-04-19 16:22 | Infectious Disease Consult ---
Date of Encounter: 04/19/17 Time of Encounter: 15:30 Assessment and Plan (1) Leukocytosis Status: Acute Assessment and plan: WBC 23.1 on admission. Source not clear: osteomyelitis/wound infection vs. pelvic fluid collection. Improved. Blood culture drawn 04/17/17 is NGTD 05/17 set. Qualifiers: Leukocytosis type: unspecified Qualified Code(s): D72.829 - Elevated white blood cell count, unspecified (2) Pelvic fluid collection Status: Acute Assessment and plan: Etiology unclear. CT scan done 03/04/17 showed a nonspecific 2.9 x 2.3 cm fluid and gas collection within the rectovesical pouch concerning for post-op seroma vs. abscess vs. hematoma. No additional workup was done. Get MRI of the abdomen and pelvis to evaluate fluid collection and sacral wound for possible OM. (3) Decubitus ulcer of coccygeal region, stage 4 Status: Acute Assessment and plan: Chronic. Clinically, does not appear infected. Not sure what the wound normally looks like and if there has been wound regression or not. ESR >130. CRP 283. Wound culture positive for MRSA and GBS. Get MRI of pelvis to evaluate for OM. The patient does have a history of OM back in 2014 for which she was treated by [facility]. If MRI suspicious for OM, would recommend IR consult for bone biopsy. Dressing changes per the wound care team's recommendations. Continue Vancomycin IV. Pharmacy to dose. Goal trough approximately 15. Continue Zosyn 3.375 grams IV Q8H. Duration of treatment depends on the clinical picture. Monitor renal function and for drug toxicity and dose-adjust antibiotics. (4) Cholangiocarcinoma of liver Status: Chronic Assessment and plan: Status post mircowave ablation in December 2016. Follows with [facility]. (5) Hypertension Status: Chronic Qualifiers: Hypertension type: essential hypertension Qualified Code(s): I10 - Essential (primary) hypertension (6) Morbid obesity with BMI of 40.0-44.9, adult Status: Chronic Infectious Disease HPI - Data of Consult Patient: new to practice Consult date: 04/19/17 Requesting Physician: Blanquita Paulson MD Primary Care Provider: PCP NONE - Consult Narrative Reason for consult: Sacral wound History of present illness: Ms. Camacho is a 76 year old female with a past medical history of cholangiocarcinoma status post microwave ablation in December 2016, diabetes, anxiety, depression, and chronic sacral wound with previous history of OM. The patient was admitted to the hospital 04/17/17 for altered mental status. We are consulted April 19 for antibiotic recommendations regarding sacral wound infection. Briefly, the patient 76-year-old female with past medical history as stated above. The patient somewhat of a poor historian, therefore, most of the information is obtained from the medical record. Review of the medical record reveals that the patient was seen by our service back in 2014 and at that time was being treated by [facility] for sacral osteomyelitis. Apparently, the patient resides in [facility] and she became suddenly altered and combative and was transferred to our emergency department for concerns about a possible infection. She received a dose of IV cefepime at the [facility] prior to transfer. On arrival to the ER, the patient was afebrile. She was mildly tachycardic and have leukocytosis with neutrophilic predominance. A urinalysis was obtained that was positive for pyuria, but the urine culture was negative. Blood cultures were obtained 1 set and are no growth to date. A wound culture of the patient's chronic sacral wound was positive for group B strep and MRSA. She was started on empiric IV antibiotics and admitted to the hospital for further evaluation. Since admission, the patient's leukocytosis has improved. Her mental status back to baseline. She had a chest x-ray that was negative. She has not had any other imaging studies since admission. Inflammatory markers were checked and are markedly elevated with an ESR of >130 and CRP 283. She is currently on IV vancomycin and IV Zosyn. We've been asked to evaluate and make further recommendations. During my exam, the patient states that she's had this chronic sacral wound for several years. She states it had gotten very small one point, but she went in for surgery on the wound and its split back open. She states she's not been ever treated with IV antibiotics for a sacral wound osteomyelitis or infection. Seen by Dr. Raygoza in the wound clinic, but she wasn't happy with the services so she's been seeing a wound nurse that comes to the [facility]. Again, the patient is unable to tell me why she came to the emergency department. She states she was in her usual state of health up until the day of admission. She denies any fevers or chills or rigors. She denies any chest pain, shortness of breath, or cough. She denies nausea, vomiting, diarrhea, or constipation. She states she is not aware of any changes of the wound or any increased drainage. She does report pain at the site, but states this is at baseline. Review of the medical record reveals that the patient had a CT scan of the abdomen and pelvis ordered by her medical oncologist on March 04. It showed post-ablation changes as well as a nonspecific 2.9 x 2.3 cm fluid collection within the rectovesical pouch concerning for postop seroma versus abscess versus a hematoma. I cannot find anywhere with this is addressed or worked up further and I'm concerned that maybe this is the source of the patient's leukocytosis rather than her wound infection. CC: Blanquita Paulson MD Past Med Surg Social Fam HX - Past Medical History Attestation: Yes The following information was validated with the patient. Source: patient, old records reviewed, nursing notes reviewed Medical history: cancer (cholangiocarcinoma s/p microwave ablation 12/2016), diabetes, other (chronic sacral decubitus ulcer) Psychiatric history: anxiety, depression - Past Surgical History Surgical History: appendectomy, , cataract, cholecystectomy, herniorrhaphy, orthopedic, other, SHONDA/BSO, other - Social History Smoking Status: Former smoker Smokeless Tobacco Status: No Alcohol use: rarely Drug use: none Occupational status: unemployed Current living situation: [facility] Activity Level: Wheelchair bound Recent Out of Country Travel Within the Last 8 Weeks: No Exposure or Possible Exposure to Illness During Travel: No - Family History Father History Unknown: Yes Living Status: Mother Adopted: No Living Status: Hx Family Cardiac Disorders: Yes Hx Family Respiratory Disorders: Yes (copd) Hx Family Endocrine Disorder: Yes (Diabetes) Infectious Disease-CN:Meds Omeprazole [PriLOSEC] 20 mg PO QAM 02/04/15 [History] Sennosides/Docusate Sodium [Senna Plus] 8.6 mg PO QAM PRN 02/04/15 [History] Ondansetron HCl [Zofran] 4 mg PO TID PRN 08/17/16 [History] Oxycodone HCl/Acetaminophen [Percocet 5-325 mg Tablet] 1 each PO Q6H PRN #7 [Rx] Acidoph/L.bulg/Bif.b/S.thermop [Emilie-Bid Caplet] 2 tab PO DAILY 04/17/17 [ History] Amitriptyline [Elavil] 10 mg PO HS 04/17/17 [History] Aspirin Enteric Coated [Aspirin EC] 81 mg PO DAILY 04/17/17 [History] Bromfenac Sodium 1 drop RIGHT EYE DAILY 04/17/17 [History] Calcium Carbonate/Vitamin D3 [Oyster Shell Calcium-Vit D Tab] 1 tab PO DAILY 07/03 [History] Cefepime HCl [Maxipime] 1 gm IV BID 04/17/17 [History] Gabapentin [Neurontin] 100 mg PO QAM 04/17/17 [History] Gabapentin [Neurontin] 200 mg PO HS 04/17/17 [History] Insulin Aspart Prot/Insuln Asp [Novolog Mix 70-30 Vial] 45 unit SQ HS 04/17/17 [ History] Insulin Aspart Prot/Insuln Asp [Novolog Mix 70-30 Vial] 56 unit SQ QAM 04/17/17 [History] Magnesium Oxide [Mag-Ox] 400 mg PO BID 04/17/17 [History] Metoprolol [Lopressor] 12.5 mg PO BID 04/17/17 [History] Oxygen 2 l .ROUTE AD 04/17/17 [History] Potassium Chloride [Klor-Con 10] 10 meq PO DAILY 04/17/17 [History] Sertraline [Zoloft] 125 mg PO DAILY 04/17/17 [History] Simvastatin [Zocor] 40 mg PO DAILY 04/17/17 [History] 3 Allergy/AdvReac Type Severity Reaction Status Date / Time rosuvastatin [From Crestor] Allergy Hives Verified 03/15/17 10:51 ciprofloxacin AdvReac Itching Verified 03/15/17 10:51 Hydromorphone [From Dilaudid] AdvReac Difficulty Verified 03/15/17 10:51 Breathing All systems: reviewed and no additional remarkable complaints except as stated Exam - Constitutional Vitals: Temp Pulse Resp BP Pulse Ox 97.7 F 70 16 118/61 95 04/19/17 14:58 04/19/17 14:58 04/19/17 14:58 04/19/17 14:58 04/19/17 14:58 General appearance: cooperative, morbidly obese, no acute distress - Head Head exam: Present: atraumatic, normal inspection, normocephalic - Eye Eye exam: Present: EOMI, normal appearance, PERRL Pupils: Present: normal accommodation - ENT ENT exam: Present: mucous membranes moist - Neck Neck exam: Present: normal inspection - Respiratory Respiratory exam: Present: CTAB. Absent: rales, respiratory distress, rhonchi, wheezes - Cardiovascular Cardiovascular exam: Present: RRR, +S1, +S2 - GI/Abdominal GI/Abdominal exam: Present: distended (obese), normal bowel sounds, soft. Absent: tenderness - Extremities Exam Extremities exam: Present: normal inspection. Absent: joint swelling, pedal edema, tenderness - Back Exam Additional comments: Stage IV sacral wound noted with moist pink wound bed with 100% granulation tissue. No purulence, surrounding erythema, or drainage noted. - Neurological Exam Neurological exam: Present: alert, oriented X3, no focal deficits - Psychiatric Psychiatric exam: Present: normal affect, normal mood - Skin Skin exam: Present: dry, intact, normal color, warm Infectious Disease CN: Results - Labs CBC & Chem 7: 04/20/17 04:41 04/20/17 04:41 Cultures: Cultures 04/17/17 14:27 Wound Culture - Final Buttock Strep agalactiae - (Group B) Methicillin Resistant S.aureus 04/17/17 09:53 Blood Culture - Preliminary Peripheral Venipuncture No growth. 04/17/17 09:32 Urine Culture - Final Urine,Clean Catch No significant growth. Consult Discharge Plan - Plan Referrals: NONE,PCP [Primary Care Provider] -
[2017-04-19] MEDS: *HR* OxyCODONE/APAP 5/325 TABLET PO PRN (19:19)
[2017-04-19] MEDS: Insulin DETEMIR 100 UNIT/ML X5UNITS SQ SCH (21:28)
[2017-04-19] MEDS: Lurasidone 20 MG TABLET PO SCH (21:29)
[2017-04-20] MEDS: Piperacillin/Tazobactam 3.375 GM/200 ML BAG IVPB SCH ×4 (00:27→22:44)
[2017-04-20 05:23] LABS: Basophils % 0.3 %; Eosinophils # 0.1 K/mcL (0.0-0.6); Eosinophils % 0.5 %; Hematocrit 32.6 % (35.3-44.9); Hemoglobin 10.2 g/dL (11.5-15.4); Immature Granulocytes % 1.2 % (0-4); Lymphocytes # 1.2 K/mcL (0.6-4.6); Lymphocytes % 10.2 %; Mean Corpuscular HGB Conc 31.3 g/dL (31.6-35.5); Mean Corpuscular Hemoglobin 27.3 pg (28.0-33.3); Mean Corpuscular Volume 87.4 fL (83.0-100.0); Mean Platelet Volume 11.8 fL (9.4-12.4); Monocytes # 1.1 K/mcL (0.0-1.3); Monocytes % 9.4 %; Neutrophils # 9.4 K/mcL (1.6-8.9); Platelet Count 189 K/mcL (140-400); Red Blood Count 3.73 M/mcL (3.82-4.97); Red Cell Distribution Width 16.1 % (11.5-14.5); Segmented Neutrophils % 78.4 %
[2017-04-20 05:28] LABS: BUN/Creatinine Ratio 23 (6-26); Blood Urea Nitrogen 17 mg/dL (7-20); Calcium 8.7 mg/dL (8.6-10.8); Carbon Dioxide 28 mEq/L (19-29); Chloride 98 mEq/L (98-109); Glucose 204 mg/dL (70-99); Osmolality,Calculated 291 (280-300); Potassium 3.3 mEq/L (3.5-4.5); eGFR For African Americans > 60 (> 60); eGFR For Non-African Americans > 60 (> 60)
[2017-04-20 05:29] LABS: Sodium 137 mEq/L (136-145)
[2017-04-20] MEDS: *HR* Heparin 5,000 UNIT/ML VIAL SQ SCH ×2 (05:37→15:21)
[2017-04-20] MEDS: Vancomycin 1,750 MG in D5% in Water 500 ML IVPB SCH (06:41)
[2017-04-20] MEDS: Loratadine 10 MG TABLET PO SCH (08:51)
[2017-04-20] MEDS: Divalproex (24 HR) 500 MG TABLET PO SCH ×2 (08:51→22:44)
[2017-04-20] MEDS: Multivit/Ca/Min/Fe/FA 1 TAB TABLET PO SCH (08:52)
[2017-04-20] MEDS: Insulin LISPRO 300 UNITS/3 ML VIAL SQ SCH ×4 (08:53→22:45)
[2017-04-20] MEDS: Insulin DETEMIR 100 UNIT/ML X5UNITS SQ SCH ×2 (09:40→22:42)
--- NOTE | 2017-04-20 13:20 | Infectious Disease Progress No ---
Date of Encounter: 04/20/17 Time of Encounter: 13:17 - Assessment and Plan (1) Leukocytosis Current Visit: Yes Status: Acute WBC 23.1 on admission. Source not clear: osteomyelitis/wound infection vs. pelvic fluid collection. Improved. Blood culture drawn 04/17/17 is NGTD 05/17 set. Qualifiers: Leukocytosis type: unspecified Qualified Code(s): D72.829 - Elevated white blood cell count, unspecified (2) Osteomyelitis Current Visit: Yes Status: Acute Causative organism unclear, but wound culture was positive for MRSA and GBS. Location: S5 sacral segment. MRI shows findings consistent with osteomyelitis. Recommend IR to evaluate for bone biopsy for culture. Continue antibiotics as below. Duration of treatment depends on the clinical picture, but likely 6 weeks. Qualifiers: Osteomyelitis type: unspecified type Osteomyelitis location: other site Qualified Code(s): M86.9 - Osteomyelitis, unspecified (3) Pelvic fluid collection Current Visit: Yes Status: Ruled-out Etiology unclear. CT scan done 03/04/17 showed a nonspecific 2.9 x 2.3 cm fluid and gas collection within the rectovesical pouch concerning for post-op seroma vs. abscess vs. hematoma. No additional workup was done. No drainable fluid collection was noted. (4) Decubitus ulcer of coccygeal region, stage 4 Current Visit: Yes Status: Acute Chronic. Clinically, does not appear infected. Not sure what the wound normally looks like and if there has been wound regression or not. ESR >130. CRP 283. Wound culture positive for MRSA and GBS. MRI of the pelvis shows findings consistent with osteomyelitis of the sacrum. The patient does have a history of OM back in 2014 for which she was treated by [facility]. Recommend IR consult for bone biopsy for culture. Dressing changes per the wound care team's recommendations. Continue Vancomycin IV. Pharmacy to dose. Goal trough approximately 15. Continue Zosyn 3.375 grams IV Q8H. Duration of treatment depends on the clinical picture. Monitor renal function and for drug toxicity and dose-adjust antibiotics. (5) Cholangiocarcinoma of liver Current Visit: Yes Status: Chronic Status post mircowave ablation in December 2016. Follows with [facility]. (6) Hypertension Current Visit: No Status: Chronic Qualifiers: Hypertension type: essential hypertension Qualified Code(s): I10 - Essential (primary) hypertension (7) Morbid obesity with BMI of 40.0-44.9, adult Current Visit: No Status: Chronic - Subjective Interval history: Patient seen and examined. No acute events noted overnight. Patient resting comfortably in bed. Denies any fevers or chills or rigors. Denies any headache or neck pain. Denies any chest pain, shortness of breath, cough. Denies any nausea, vomiting, diarrhea, constipation. Complains of lower back pain at the site of the decubitus ulcer when she is turned. No pain, urinary complaints, or appetite changes. Denies any oral thrush or new skin lesions. Infect Dis PN-Objective Data - Labs CBC & Chem 7: 04/21/17 03:33 04/21/17 03:33 Labs: Laboratory Results - last 24 hr 04/19/17 04/19/17 04/19/17 11:55 20:52 22:06 WBC RBC Hgb Hct MCV MCH MCHC RDW Plt Count MPV Immature Gran % Seg Neutrophils % Lymphocytes % Monocytes % Eosinophils % Basophils % Neutrophils # Lymphocytes # Monocytes # Eosinophils # Basophils # Sodium Potassium Chloride Carbon Dioxide BUN Creatinine Est GFR ( Amer) Est GFR (Non-Af Amer) BUN/Creatinine Ratio Glucose POC Glucose 335 H 219 H Calculated Osmolality Calcium Vancomycin Trough 21.2 H* Random Vancomycin 04/20/17 04/20/17 04/20/17 04:41 04:41 09:48 WBC 12.0 H RBC 3.73 L Hgb 10.2 L Hct 32.6 L MCV 87.4 MCH 27.3 L MCHC 31.3 L RDW 16.1 H Plt Count 189 MPV 11.8 Immature Gran % 1.2 Seg Neutrophils % 78.4 Lymphocytes % 10.2 Monocytes % 9.4 Eosinophils % 0.5 Basophils % 0.3 Neutrophils # 9.4 H Lymphocytes # 1.2 Monocytes # 1.1 Eosinophils # 0.1 Basophils # 0.0 Sodium 137 D Potassium 3.3 L Chloride 98 Carbon Dioxide 28 BUN 17 Creatinine 0.74 Est GFR ( Amer) > 60 Est GFR (Non-Af Amer) > 60 BUN/Creatinine Ratio 23 Glucose 204 H POC Glucose Calculated Osmolality 291 Calcium 8.7 Vancomycin Trough Random Vancomycin 15.1 - Impressions Impressions Pelvis MRI 04/18/17 17:32 IMPRESSION: 1. Large full-thickness sacral decubitus ulcer. No associated abscess. 2. Chronic absence of the coccyx. Bone marrow edema of the S5 sacral segment compatible with osteomyelitis. 3. Nonspecific presacral edema and edema of the visualized pelvic musculature. The differential includes myositis versus denervation. 4. Small to moderate volume of fluid in the left greater trochanteric bursa. 5. Status post intramedullary fixation of the left proximal femur. D/ / Farhat Downs MD / Farhat Downs MD Interpreting Provider: Farhat Downs MD Exam - Constitutional Vitals: Temp Pulse Resp BP Pulse Ox 98.6 F 99 16 131/79 94 04/20/17 10:26 04/20/17 10:26 04/20/17 10:26 04/20/17 10:26 04/20/17 10:26 General appearance: cooperative, morbidly obese, no acute distress - Head Head exam: Present: atraumatic, normal inspection, normocephalic - Eye Eye exam: Present: EOMI, normal appearance, PERRL Pupils: Present: normal accommodation - ENT ENT exam: Present: mucous membranes moist - Neck Neck exam: Present: normal inspection - Respiratory Respiratory exam: Present: CTAB. Absent: rales, respiratory distress, rhonchi, wheezes - Cardiovascular Cardiovascular exam: Present: RRR, +S1, +S2 - GI/Abdominal GI/Abdominal exam: Present: normal bowel sounds, soft. Absent: distended, tenderness - Extremities Exam Extremities exam: Present: normal inspection. Absent: joint swelling, pedal edema, tenderness - Neurological Exam Neurological exam: Present: alert, oriented X3. Absent: facial droop, speech deficit - Psychiatric Psychiatric exam: Present: normal affect, normal mood - Skin Skin exam: Present: dry, intact, normal color, warm Consult Discharge Plan - Plan Referrals: NONE,PCP [Primary Care Provider] -
--- NOTE | 2017-04-20 16:20 | Internal Med Progress Note ---
Date of Encounter: 04/20/17 Time of Encounter: 16:17 - Assessment and plan (1) Osteomyelitis Current Visit: Yes Status: Acute Assessment and plan: *Will consult IR for bone biopsy/culture. Qualifiers: Osteomyelitis type: unspecified type Osteomyelitis location: other site Qualified Code(s): M86.9 - Osteomyelitis, unspecified (2) Decubitus ulcer, stage 4 with infection Current Visit: Yes Status: Chronic Assessment and plan: Patient has chronic stage IV sacral decubitus ulcer along with chronic sacral osteomyelitis due to bedbound status. Admitted with acute pain, confusion and low-grade fever, for presumed infected decubitus ulcer. Wound culture grew group B streptococcus and MRSA; Will continue antibiotics- IV Zosyn and vancomycin. Blood cultures remained negative; Local wound care were wound care recommendations. Frequent repositioning. ESR and CRP noted to be significantly elevated from baseline. Infectious Disease consulted, recommendations appreciated. (3) CAD (coronary artery disease) Current Visit: No Status: Chronic Qualifiers: Coronary Disease-Associated Artery/Lesion type: [place] artery [place] vs. transplanted heart: [place] heart Associated angina: without angina Qualified Code(s): I25.10 - Atherosclerotic heart disease of [place] coronary artery without angina pectoris (4) Cholangiocarcinoma of liver Current Visit: Yes Status: Chronic (5) Diabetes mellitus Current Visit: Yes Status: Chronic Qualifiers: Diabetes mellitus type: type 2 Diabetes mellitus complication status: with skin complications Diabetes mellitus complication detail: with other skin ulcer Diabetes mellitus senior care insulin use: with senior care use Qualified Code(s): E11.622 - Type 2 diabetes mellitus with other skin ulcer; Z79.4 - FPC (current) use of insulin (6) Hypothyroidism Current Visit: Yes Status: Chronic Qualifiers: Hypothyroidism type: unspecified Qualified Code(s): E03.9 - Hypothyroidism , unspecified (7) Peripheral neuropathy Current Visit: Yes Status: Chronic Qualifiers: Peripheral neuropathy type: polyneuropathy, unspecified Qualified Code(s): G62.9 - Polyneuropathy, unspecified (8) Sepsis Current Visit: Yes Status: Acute Assessment and plan: Suspected sepsis with leukocytosis, low-grade fever, tachycardia and lactic acidosis. Currently improved labs and vitals. Continue broad-spectrum IV antibiotics, continue workup to identify accurate source of infection. Qualifiers: Sepsis type: sepsis due to unspecified organism Qualified Code(s): A41.9 - Sepsis, unspecified organism (9) UTI (urinary tract infection) Current Visit: Yes Status: Ruled-out Qualifiers: Urinary tract infection type: acute cystitis Hematuria presence: without hematuria Qualified Code(s): N30.00 - Acute cystitis without hematuria (10) UTI (urinary tract infection) Current Visit: Yes Status: Acute Qualifiers: Urinary tract infection type: site unspecified Hematuria presence: with hematuria Qualified Code(s): N39.0 - Urinary tract infection, site not specified; R31.9 - Hematuria, unspecified; R31.9 - Hematuria, unspecified - Subjective Interval history: no complaints, no acute events - Constitutional Vitals: Temp Pulse Resp BP Pulse Ox 98.6 F 99 16 131/79 94 04/20/17 10:26 04/20/17 10:26 04/20/17 10:26 04/20/17 10:26 04/20/17 10:26 General appearance: Present: A&O X 3, morbidly obese, no acute distress, answers questions appropriately Exam: - Respiratory Respiratory exam: Present: CTAB. Absent: accessory muscle use, rales, rhonchi, wheezes - Cardiovascular Cardiovascular exam: Present: RRR, +S1, +S2. Absent: diastolic murmur, gallop, rubs, systolic murmur - GI/Abdominal GI/Abdominal exam: Present: normal bowel sounds, soft (obese), no peritoneal signs. Absent: distended, tenderness - Extremities Exam Extremities exam: Present: pedal edema, warm, radial pulses palpable and symmetrical. Absent: calf tenderness, cyanotic - Neurological Exam Neurological exam: Present: CN II-XII intact, oriented X3, no focal deficits ( decreased motor power B/L LE). Absent: pronater drift, facial droop, speech deficit Internal Medicine: Result - Labs CBC & Chem 7: 04/20/17 04:41 04/20/17 04:41 Labs: Short CBC 04/20/17 Range/Units 04:41 WBC 12.0 H (4.3-11.1) K/mcL Hgb 10.2 L (11.5-15.4) g/dL Hct 32.6 L (35.3-44.9) % Plt Count 189 (140-400) K/mcL Neutrophils # 9.4 H (1.6-8.9) K/mcL BMP 12/05/17 04:41 Sodium 137 D Potassium 3.3 L Chloride 98 Carbon Dioxide 28 BUN 17 Creatinine 0.74 Glucose 204 H Calcium 8.7 - Impressions Impressions Pelvis MRI 04/18/17 17:32 IMPRESSION: 1. Large full-thickness sacral decubitus ulcer. No associated abscess. 2. Chronic absence of the coccyx. Bone marrow edema of the S5 sacral segment compatible with osteomyelitis. 3. Nonspecific presacral edema and edema of the visualized pelvic musculature. The differential includes myositis versus denervation. 4. Small to moderate volume of fluid in the left greater trochanteric bursa. 5. Status post intramedullary fixation of the left proximal femur. D/ / Farhat Downs MD / Farhat Downs MD Interpreting Provider: Farhat Downs MD Consult Discharge Plan - Plan Referrals: NONE,PCP [Primary Care Provider] -
[2017-04-20] MEDS: *HR* LORazepam 1 MG TABLET PO PRN (16:29)
[2017-04-20] MEDS: *HR* OxyCODONE/APAP 5/325 TABLET PO PRN (16:30)
[2017-04-20] MEDS: Vancomycin 1,250 MG in D5% in Water 250 ML IVPB SCH (17:35)
--- NOTE | 2017-04-20 22:38 | Electrocardiograph Report ---
[address] [place], [place] [address] Test Date: 2017-04-17 Pat Name: [facility] Department: [id number] Room: 3B23 Gender: F [employer] Operator: [facility] [place] : 1940 Requested By: Blanquita Paulson Order Number: [id number] Reading MD: Bernice Jarrett Measurements Intervals [place] Rate: 90 P: 34 NM: 164 QRS: -26 QRSD: 98 T: -26 QT: 353 QTc: 401 Interpretive Statements SINUS RHYTHM INDETERMINATE AXIS ST DEVIATION AND MODERATE T-WAVE ABNORMALITY, CONSIDER ANTEROLATERAL ISCHEMIA Electronically Signed On 04-20-2017 22:36:17 EST by Bernice Jarrett
[2017-04-20] MEDS: Lurasidone 20 MG TABLET PO SCH (22:44)
[2017-04-21 04:51] LABS: BUN/Creatinine Ratio 23 (6-26); Blood Urea Nitrogen 14 mg/dL (7-20); Calcium 8.8 mg/dL (8.6-10.8); Carbon Dioxide 23 mEq/L (19-29); Chloride 99 mEq/L (98-109); Glucose 62 mg/dL (70-99); Osmolality,Calculated 282 (280-300); Potassium 3.6 mEq/L (3.5-4.5); Sodium 137 mEq/L (136-145); eGFR For African Americans > 60 (> 60); eGFR For Non-African Americans > 60 (> 60)
[2017-04-21 04:53] LABS: Basophils # 0.1 K/mcL (0.0-0.2); Basophils % 0.8 %; Eosinophils # 0.1 K/mcL (0.0-0.6); Eosinophils % 0.6 %; Hematocrit 37.3 % (35.3-44.9); Hemoglobin 11.4 g/dL (11.5-15.4); Immature Granulocytes % 2.9 % (0-4); Lymphocytes # 1.7 K/mcL (0.6-4.6); Lymphocytes % 13.7 %; Mean Corpuscular HGB Conc 30.6 g/dL (31.6-35.5); Mean Corpuscular Hemoglobin 27.4 pg (28.0-33.3); Mean Corpuscular Volume 89.7 fL (83.0-100.0); Mean Platelet Volume 12.1 fL (9.4-12.4); Monocytes # 1.2 K/mcL (0.0-1.3); Neutrophils # 8.7 K/mcL (1.6-8.9); Platelet Count 158 K/mcL (140-400); Red Blood Count 4.16 M/mcL (3.82-4.97); Red Cell Distribution Width 16.7 % (11.5-14.5)
[2017-04-21] MEDS: *HR* Heparin 5,000 UNIT/ML VIAL SQ SCH ×2 (05:14→16:49)
[2017-04-21 06:25] LABS: Platelet Clumps Few (Not Present)
[2017-04-21 06:26] LABS: Platelet Estimate Normal (Normal)
[2017-04-21 08:13] LABS: INR 1.3; Prothrombin Time 13.7 Seconds (9.4-12.1)
[2017-04-21] MEDS: Insulin LISPRO 300 UNITS/3 ML VIAL SQ SCH ×4 (08:15→22:33)
[2017-04-21] MEDS: Piperacillin/Tazobactam 3.375 GM/200 ML BAG IVPB SCH ×2 (08:17→16:39)
[2017-04-21] MEDS ORDERED: *HR* FentaNYL (PF) 100 MCG/2 ML VIAL IVP ONE (09:07)
[2017-04-21] MEDS ORDERED: *HR* Midazolam HCl 2 MG/2 ML VIAL IVP ONE (09:07)
[2017-04-21] MEDS: Loratadine 10 MG TABLET PO SCH (09:18)
[2017-04-21] MEDS: Divalproex (24 HR) 500 MG TABLET PO SCH ×2 (09:19→22:32)
[2017-04-21] MEDS: Insulin DETEMIR 100 UNIT/ML X5UNITS SQ SCH ×2 (09:19→23:45)
[2017-04-21] MEDS: Multivit/Ca/Min/Fe/FA 1 TAB TABLET PO SCH (09:19)
--- NOTE | 2017-04-21 10:04 | IR Procedure Note ---
Date of procedure: 04/21/17 Consent Obtained: Verbal consent Timeout: Correct patient and procedure verified, Correct site verified, Time out performed, Skin prep completed Local anesthetic: Lidocaine 1% Indications: Decubitus ulcer, MRI positive for OM, bone bx requested. Procedure Performed: S5 bone bx Site/Technique: A longer 15g Jamshidi needle was used. Single 11g core obtained. Results/Findings: Approx 2cm bone core obtained for bone culture and sent to lab. Estimated blood loss (cc): 1 Complications: None; Tolerated procedure well Post Procedure Treatment Plan: Bone core placed in CSF container with saline per lab.
[2017-04-21] MEDS ORDERED: *HR* OxyCODONE/APAP 5/325 TABLET PO ONE (10:26)
[2017-04-21] MEDS: *HR* OxyCODONE/APAP 5/325 TABLET PO PRN (10:40)
[2017-04-21] MEDS: Vancomycin 1,250 MG in D5% in Water 250 ML IVPB SCH (16:38)
[2017-04-21] MEDS: Lurasidone 20 MG TABLET PO SCH (22:32)
--- NOTE | 2017-04-22 00:22 | Internal Med Progress Note ---
Date of Encounter: 04/21/17 Time of Encounter: 08:21 - Assessment and plan (1) Osteomyelitis Current Visit: Yes Status: Acute Assessment and plan: Bone biopsy and culture today Qualifiers: Osteomyelitis type: unspecified type Osteomyelitis location: other site Qualified Code(s): M86.9 - Osteomyelitis, unspecified (2) Decubitus ulcer, stage 4 with infection Current Visit: Yes Status: Chronic Assessment and plan: Patient has chronic stage IV sacral decubitus ulcer along with chronic sacral osteomyelitis due to bedbound status. Admitted with acute pain, confusion and low-grade fever, for presumed infected decubitus ulcer. Wound culture grew group B streptococcus and MRSA; Will continue antibiotics- IV Zosyn and vancomycin. Blood cultures remained negative; Local wound care were wound care recommendations. Frequent repositioning. ESR and CRP noted to be significantly elevated from baseline. Infectious Disease consulted, recommendations appreciated. (3) CAD (coronary artery disease) Current Visit: No Status: Chronic Qualifiers: Coronary Disease-Associated Artery/Lesion type: [place] artery [place] vs. transplanted heart: [place] heart Associated angina: without angina Qualified Code(s): I25.10 - Atherosclerotic heart disease of [place] coronary artery without angina pectoris (4) Cholangiocarcinoma of liver Current Visit: Yes Status: Chronic (5) Diabetes mellitus Current Visit: Yes Status: Chronic Assessment and plan: Continue Accu-Chek blood glucose monitoring with sliding scale insulin. Blood sugars noted to be elevated, start basal insulin and increase sliding scale. Diabetic diet. Qualifiers: Diabetes mellitus type: type 2 Diabetes mellitus complication status: with skin complications Diabetes mellitus complication detail: with other skin ulcer Diabetes mellitus prison insulin use: with prison use Qualified Code(s): E11.622 - Type 2 diabetes mellitus with other skin ulcer; Z79.4 - care home (current) use of insulin (6) Hypothyroidism Current Visit: Yes Status: Chronic Assessment and plan: Continue levothyroxine. Qualifiers: Hypothyroidism type: unspecified Qualified Code(s): E03.9 - Hypothyroidism , unspecified (7) Peripheral neuropathy Current Visit: Yes Status: Chronic Qualifiers: Peripheral neuropathy type: polyneuropathy, unspecified Qualified Code(s): G62.9 - Polyneuropathy, unspecified (8) Sepsis Current Visit: Yes Status: Acute Assessment and plan: Suspected sepsis with leukocytosis, low-grade fever, tachycardia and lactic acidosis. Currently improved labs and vitals. Continue broad-spectrum IV antibiotics, continue workup to identify accurate source of infection. Qualifiers: Sepsis type: sepsis due to unspecified organism Qualified Code(s): A41.9 - Sepsis, unspecified organism (9) UTI (urinary tract infection) Current Visit: Yes Status: Ruled-out Assessment and plan: Suspected UTI. Urine culture shows no significant bacterial growth. Qualifiers: Urinary tract infection type: acute cystitis Hematuria presence: without hematuria Qualified Code(s): N30.00 - Acute cystitis without hematuria (10) UTI (urinary tract infection) Current Visit: Yes Status: Acute Qualifiers: Urinary tract infection type: site unspecified Hematuria presence: with hematuria Qualified Code(s): N39.0 - Urinary tract infection, site not specified; R31.9 - Hematuria, unspecified; R31.9 - Hematuria, unspecified - Subjective Interval history: Scheduled for bone biopsy/culture today - Constitutional Vitals: Temp Pulse Resp BP Pulse Ox 97.8 F 100 16 105/64 96 04/21/17 23:00 04/21/17 23:00 04/21/17 23:00 04/21/17 23:00 04/21/17 23:00 General appearance: Present: A&O X 3, morbidly obese, no acute distress, answers questions appropriately Exam: - Respiratory Respiratory exam: Present: CTAB. Absent: accessory muscle use, rales, rhonchi, wheezes - Cardiovascular Cardiovascular exam: Present: RRR, +S1, +S2. Absent: diastolic murmur, gallop, rubs, systolic murmur - GI/Abdominal GI/Abdominal exam: Present: normal bowel sounds, soft (obese), no peritoneal signs. Absent: distended, tenderness - Extremities Exam Extremities exam: Present: pedal edema, warm, radial pulses palpable and symmetrical. Absent: calf tenderness, cyanotic Stage 4 decub ulcer packing clean, no drainage or active bleeding Internal Medicine: Result - Labs CBC & Chem 7: 04/21/17 03:33 04/21/17 03:33 Labs: Short CBC 04/21/17 Range/Units 03:33 WBC 12.1 H (4.3-11.1) K/mcL Hgb 11.4 L (11.5-15.4) g/dL Hct 37.3 (35.3-44.9) % Plt Count 158 (140-400) K/mcL Neutrophils # 8.7 (1.6-8.9) K/mcL BMP 04/21/17 03:33 Sodium 137 Potassium 3.6 Chloride 99 Carbon Dioxide 23 BUN 14 Creatinine 0.62 Glucose 62 L Calcium 8.8 - ABG Interpretation ABG results: PT/INR, D-dimer PT 13.7 Seconds (9.4-12.1) H 04/21/17 08:02 - Impressions Impressions Biopsy CT 04/21/17 00:00 IMPRESSION: Successful CT guided deep bone biopsy of S5. D/ / Jeremias Beaulieu MD / Jeremias Beaulieu MD Interpreting Provider: Jeremias Beaulieu MD Bone Biopsy CT 04/21/17 00:00 IMPRESSION: Successful CT guided deep bone biopsy of S5. D/ / Jeremias Beaulieu MD / Jeremias Beaulieu MD Interpreting Provider: Jeremias Beaulieu MD Consult Discharge Plan - Plan Referrals: NONE,PCP [Primary Care Provider] -
[2017-04-22] MEDS: Piperacillin/Tazobactam 3.375 GM/200 ML BAG IVPB SCH ×4 (00:31→23:08)
[2017-04-22 05:16] LABS: Basophils # 0.1 K/mcL (0.0-0.2); Basophils % 0.6 %; Eosinophils # 0.1 K/mcL (0.0-0.6); Eosinophils % 0.5 %; Hematocrit 33.9 % (35.3-44.9); Hemoglobin 10.4 g/dL (11.5-15.4); Immature Granulocytes % 3.2 % (0-4); Lymphocytes # 1.1 K/mcL (0.6-4.6); Lymphocytes % 8.9 %; Mean Corpuscular HGB Conc 30.7 g/dL (31.6-35.5); Mean Corpuscular Hemoglobin 27.4 pg (28.0-33.3); Mean Corpuscular Volume 89.4 fL (83.0-100.0); Mean Platelet Volume 11.7 fL (9.4-12.4); Monocytes # 1.2 K/mcL (0.0-1.3); Neutrophils # 9.1 K/mcL (1.6-8.9); Platelet Count 218 K/mcL (140-400); Red Blood Count 3.79 M/mcL (3.82-4.97); Red Cell Distribution Width 16.7 % (11.5-14.5); Segmented Neutrophils % 76.8 %
[2017-04-22 05:25] LABS: BUN/Creatinine Ratio 24 (6-26); Blood Urea Nitrogen 16 mg/dL (7-20); Calcium 8.7 mg/dL (8.6-10.8); Carbon Dioxide 27 mEq/L (19-29); Chloride 97 mEq/L (98-109); Glucose 174 mg/dL (70-99); Osmolality,Calculated 291 (280-300); Potassium 3.4 mEq/L (3.5-4.5); Sodium 138 mEq/L (136-145); eGFR For African Americans > 60 (> 60); eGFR For Non-African Americans > 60 (> 60)
[2017-04-22] MEDS: *HR* Heparin 5,000 UNIT/ML VIAL SQ SCH ×2 (06:21→17:15)
[2017-04-22] MEDS: Insulin LISPRO 300 UNITS/3 ML VIAL SQ SCH ×4 (09:15→20:51)
[2017-04-22] MEDS: Loratadine 10 MG TABLET PO SCH (09:23)
[2017-04-22] MEDS: Divalproex (24 HR) 500 MG TABLET PO SCH ×2 (09:23→20:36)
[2017-04-22] MEDS: Multivit/Ca/Min/Fe/FA 1 TAB TABLET PO SCH (09:23)
[2017-04-22] MEDS: Insulin DETEMIR 100 UNIT/ML X5UNITS SQ SCH ×2 (09:24→20:43)
[2017-04-22] MEDS: Vancomycin 1,250 MG in D5% in Water 250 ML IVPB SCH (15:38)
[2017-04-22] MEDS: Lurasidone 20 MG TABLET PO SCH (20:36)
--- NOTE | 2017-04-22 23:10 | Internal Med Progress Note ---
Date of Encounter: 04/22/17 Time of Encounter: 11:08 - Assessment and plan (1) Osteomyelitis Current Visit: Yes Status: Acute Assessment and plan: Bone biopsy 04/21 and culture follow-up.Continue Vanc/Zosyn. Appreciate ID recommendation on inpatient and discharge antibitoic therapy choice in this time given positive for MRSA and GBS in this patient. Qualifiers: Osteomyelitis type: unspecified type Osteomyelitis location: other site Qualified Code(s): M86.9 - Osteomyelitis, unspecified (2) Decubitus ulcer, stage 4 with infection Current Visit: Yes Status: Chronic Assessment and plan: Patient has chronic stage IV sacral decubitus ulcer along with chronic sacral osteomyelitis due to bedbound status. Admitted with acute pain, confusion and low-grade fever, for presumed infected decubitus ulcer. Wound culture grew group B streptococcus and MRSA; Will continue antibiotics- IV Zosyn and vancomycin. Blood cultures remained negative; Local wound care were wound care recommendations. Frequent repositioning. ESR and CRP noted to be significantly elevated from baseline. Infectious Disease consulted, recommendations appreciated. (3) CAD (coronary artery disease) Current Visit: No Status: Chronic Qualifiers: Coronary Disease-Associated Artery/Lesion type: [place] artery [place] vs. transplanted heart: [place] heart Associated angina: without angina Qualified Code(s): I25.10 - Atherosclerotic heart disease of [place] coronary artery without angina pectoris (4) Cholangiocarcinoma of liver Current Visit: Yes Status: Chronic (5) Diabetes mellitus Current Visit: Yes Status: Chronic Assessment and plan: Continue Accu-Chek blood glucose monitoring with sliding scale insulin. Blood sugars noted to be elevated, start basal insulin and increase sliding scale. Diabetic diet. Qualifiers: Diabetes mellitus type: type 2 Diabetes mellitus complication status: with skin complications Diabetes mellitus complication detail: with other skin ulcer Diabetes mellitus intermediate manager insulin use: with intermediate manager use Qualified Code(s): E11.622 - Type 2 diabetes mellitus with other skin ulcer; Z79.4 - intermediate manager (current) use of insulin (6) Hypothyroidism Current Visit: Yes Status: Chronic Assessment and plan: Continue levothyroxine. Qualifiers: Hypothyroidism type: unspecified Qualified Code(s): E03.9 - Hypothyroidism , unspecified (7) Peripheral neuropathy Current Visit: Yes Status: Chronic Qualifiers: Peripheral neuropathy type: polyneuropathy, unspecified Qualified Code(s): G62.9 - Polyneuropathy, unspecified (8) Sepsis Current Visit: Yes Status: Acute Assessment and plan: Suspected sepsis with leukocytosis, low-grade fever, tachycardia and lactic acidosis. Currently improved labs and vitals. Continue broad-spectrum IV antibiotics, continue workup to identify accurate source of infection. Qualifiers: Sepsis type: sepsis due to unspecified organism Qualified Code(s): A41.9 - Sepsis, unspecified organism (9) UTI (urinary tract infection) Current Visit: Yes Status: Ruled-out Assessment and plan: Suspected UTI. Urine culture shows no significant bacterial growth. Qualifiers: Urinary tract infection type: acute cystitis Hematuria presence: without hematuria Qualified Code(s): N30.00 - Acute cystitis without hematuria (10) UTI (urinary tract infection) Current Visit: Yes Status: Acute Qualifiers: Urinary tract infection type: site unspecified Hematuria presence: with hematuria Qualified Code(s): N39.0 - Urinary tract infection, site not specified; R31.9 - Hematuria, unspecified; R31.9 - Hematuria, unspecified - Subjective Interval history: Had bone biopsy 04/21 and tolerated procedure well without issue. - Constitutional Vitals: Temp Pulse Resp BP Pulse Ox 98.3 F 78 14 132/60 96 04/22/17 22:40 04/22/17 22:40 04/22/17 22:40 04/22/17 22:40 04/22/17 22:40 General appearance: Present: A&O X 3, morbidly obese, no acute distress, answers questions appropriately Exam: CVS: RRR Lungs: CTAB decub ulcer wound: packing clean, no active draining, no active bleed. Internal Medicine: Result - Labs CBC & Chem 7: 04/22/17 04:27 04/22/17 04:27 Labs: Short CBC 04/22/17 Range/Units 04:27 WBC 11.9 H (4.3-11.1) K/mcL Hgb 10.4 L (11.5-15.4) g/dL Hct 33.9 L (35.3-44.9) % Plt Count 218 (140-400) K/mcL Neutrophils # 9.1 H (1.6-8.9) K/mcL BMP 04/22/17 04:27 Sodium 138 Potassium 3.4 L Chloride 97 L Carbon Dioxide 27 BUN 16 Creatinine 0.67 Glucose 174 H Calcium 8.7 - ABG Interpretation ABG results: PT/INR, D-dimer PT 13.7 Seconds (9.4-12.1) H 04/21/17 08:02 Consult Discharge Plan - Plan Referrals: NONE,PCP [Primary Care Provider] -
[2017-04-23 05:08] LABS: Basophils # 0.1 K/mcL (0.0-0.2); Basophils % 0.6 %; Eosinophils # 0.1 K/mcL (0.0-0.6); Eosinophils % 0.7 %; Hematocrit 33.4 % (35.3-44.9); Immature Granulocytes % 4.7 % (0-4); Lymphocytes # 1.4 K/mcL (0.6-4.6); Mean Corpuscular HGB Conc 29.9 g/dL (31.6-35.5); Mean Corpuscular Hemoglobin 26.9 pg (28.0-33.3); Mean Corpuscular Volume 89.8 fL (83.0-100.0); Mean Platelet Volume 11.6 fL (9.4-12.4); Monocytes # 1.1 K/mcL (0.0-1.3); Monocytes % 10.8 %; Neutrophils # 7.3 K/mcL (1.6-8.9); Platelet Count 243 K/mcL (140-400); Red Blood Count 3.72 M/mcL (3.82-4.97); Red Cell Distribution Width 16.8 % (11.5-14.5); Segmented Neutrophils % 70.2 %
[2017-04-23 05:25] LABS: BUN/Creatinine Ratio 25 (6-26); Blood Urea Nitrogen 17 mg/dL (7-20); Calcium 8.5 mg/dL (8.6-10.8); Carbon Dioxide 29 mEq/L (19-29); Chloride 97 mEq/L (98-109); Glucose 173 mg/dL (70-99); Osmolality,Calculated 294 (280-300); Potassium 3.1 mEq/L (3.5-4.5); Sodium 139 mEq/L (136-145); eGFR For African Americans > 60 (> 60); eGFR For Non-African Americans > 60 (> 60)
[2017-04-23 05:31] LABS: Anisocytosis 1+ (Not Present); Microcytosis Present (Not Present); Platelet Estimate Normal (Normal); Polychromasia 1+ (Not Present)
[2017-04-23] MEDS: *HR* Heparin 5,000 UNIT/ML VIAL SQ SCH ×2 (05:33→19:22)
[2017-04-23] MEDS: Insulin LISPRO 300 UNITS/3 ML VIAL SQ SCH ×4 (08:06→21:24)
[2017-04-23] MEDS: Piperacillin/Tazobactam 3.375 GM/200 ML BAG IVPB SCH ×2 (09:48→15:51)
[2017-04-23] MEDS: Insulin DETEMIR 100 UNIT/ML X5UNITS SQ SCH ×2 (09:48→21:19)
[2017-04-23] MEDS: Loratadine 10 MG TABLET PO SCH (09:49)
[2017-04-23] MEDS: Multivit/Ca/Min/Fe/FA 1 TAB TABLET PO SCH (09:49)
[2017-04-23] MEDS: Divalproex (24 HR) 500 MG TABLET PO SCH ×2 (09:49→21:16)
[2017-04-23 10:52] LABS: C-Reactive Protein 155 mg/L (Less than 5)
[2017-04-23] MEDS: Vancomycin 1,250 MG in D5% in Water 250 ML IVPB SCH (15:51)
[2017-04-23] MEDS: Lurasidone 20 MG TABLET PO SCH (21:18)
--- NOTE | 2017-04-23 23:27 | Internal Med Progress Note ---
Date of Encounter: 04/23/17 Time of Encounter: 11:25 - Assessment and plan (1) Osteomyelitis Current Visit: Yes Status: Acute Assessment and plan: Bone biopsy 04/21 and culture follow-up.Continue Vanc/Zosyn. Appreciate ID recommendation on inpatient and discharge antibitoic therapy choice in this time given positive for MRSA and GBS in this patient. Discharge 04/24 with Vanc/Zosyn for 6 weeks. Recommend follow-up with ID. Qualifiers: Osteomyelitis type: unspecified type Osteomyelitis location: other site Qualified Code(s): M86.9 - Osteomyelitis, unspecified (2) Decubitus ulcer, stage 4 with infection Current Visit: Yes Status: Chronic Assessment and plan: Patient has chronic stage IV sacral decubitus ulcer along with chronic sacral osteomyelitis due to bedbound status. Admitted with acute pain, confusion and low-grade fever, for presumed infected decubitus ulcer. Wound culture grew group B streptococcus and MRSA; Will continue antibiotics- IV Zosyn and vancomycin. Blood cultures remained negative; Local wound care were wound care recommendations. Frequent repositioning. ESR and CRP noted to be significantly elevated from baseline. Infectious Disease consulted, recommendations appreciated. (3) CAD (coronary artery disease) Current Visit: No Status: Chronic Qualifiers: Coronary Disease-Associated Artery/Lesion type: [place] artery [place] vs. transplanted heart: [place] heart Associated angina: without angina Qualified Code(s): I25.10 - Atherosclerotic heart disease of [place] coronary artery without angina pectoris (4) Cholangiocarcinoma of liver Current Visit: Yes Status: Chronic (5) Diabetes mellitus Current Visit: Yes Status: Chronic Assessment and plan: Continue Accu-Chek blood glucose monitoring with sliding scale insulin. Blood sugars noted to be elevated, start basal insulin and increase sliding scale. Diabetic diet. Qualifiers: Diabetes mellitus type: type 2 Diabetes mellitus complication status: with skin complications Diabetes mellitus complication detail: with other skin ulcer Diabetes mellitus [facility] insulin use: with [facility] use Qualified Code(s): E11.622 - Type 2 diabetes mellitus with other skin ulcer; Z79.4 - [place] operator (current) use of insulin (6) Hypothyroidism Current Visit: Yes Status: Chronic Assessment and plan: Continue levothyroxine. Qualifiers: Hypothyroidism type: unspecified Qualified Code(s): E03.9 - Hypothyroidism , unspecified (7) Peripheral neuropathy Current Visit: Yes Status: Chronic Qualifiers: Peripheral neuropathy type: polyneuropathy, unspecified Qualified Code(s): G62.9 - Polyneuropathy, unspecified (8) Sepsis Current Visit: Yes Status: Acute Assessment and plan: Suspected sepsis with leukocytosis, low-grade fever, tachycardia and lactic acidosis. Currently improved labs and vitals. Continue broad-spectrum IV antibiotics, continue workup to identify accurate source of infection. Qualifiers: Sepsis type: sepsis due to unspecified organism Qualified Code(s): A41.9 - Sepsis, unspecified organism (9) UTI (urinary tract infection) Current Visit: Yes Status: Ruled-out Assessment and plan: Suspected UTI. Urine culture shows no significant bacterial growth. Qualifiers: Urinary tract infection type: acute cystitis Hematuria presence: without hematuria Qualified Code(s): N30.00 - Acute cystitis without hematuria - Subjective Interval history: Had bone biopsy 04/21 and tolerated procedure well without issue. Currently has no complaints. Ate breakfast without issue. - Constitutional Vitals: Temp Pulse Resp BP Pulse Ox 97.9 F 95 16 146/68 94 04/23/17 21:51 04/23/17 21:51 04/23/17 21:51 04/23/17 21:51 04/23/17 22:00 General appearance: Present: A&O X 2, morbidly obese, no acute distress, answers questions appropriately Exam: - Respiratory Respiratory exam: Present: CTAB. Absent: accessory muscle use, rales, rhonchi, wheezes - Cardiovascular Cardiovascular exam: Present: RRR, +S1, +S2. Absent: diastolic murmur, gallop, rubs, systolic murmur - GI/Abdominal GI/Abdominal exam: Present: normal bowel sounds, soft (obese), no peritoneal signs. Absent: distended, tenderness - Extremities Exam Extremities exam: Present: pedal edema, warm, radial pulses palpable and symmetrical. Absent: calf tenderness, cyanotic Stage 4 decub ulcer packing clean, no drainage or active bleeding Internal Medicine: Result - Labs CBC & Chem 7: 04/23/17 04:13 04/23/17 04:13 Labs: Short CBC 04/23/17 Range/Units 04:13 WBC 10.4 (4.3-11.1) K/mcL Hgb 10.0 L (11.5-15.4) g/dL Hct 33.4 L (35.3-44.9) % Plt Count 243 (140-400) K/mcL Neutrophils # 7.3 (1.6-8.9) K/mcL BMP 04/23/17 04:13 Sodium 139 Potassium 3.1 L Chloride 97 L Carbon Dioxide 29 BUN 17 Creatinine 0.68 Glucose 173 H Calcium 8.5 L - ABG Interpretation ABG results: PT/INR, D-dimer PT 13.7 Seconds (9.4-12.1) H 04/21/17 08:02 Consult Discharge Plan - Plan Referrals: NONE,PCP [Primary Care Provider] -
[2017-04-24] MEDS: Piperacillin/Tazobactam 3.375 GM/200 ML BAG IVPB SCH ×3 (01:07→17:43)
[2017-04-24 06:44] LABS: Basophils # 0.1 K/mcL (0.0-0.2); Basophils % 0.4 %; Eosinophils # 0.1 K/mcL (0.0-0.6); Eosinophils % 0.4 %; Hematocrit 33.1 % (35.3-44.9); Hemoglobin 10.3 g/dL (11.5-15.4); Lymphocytes # 0.9 K/mcL (0.6-4.6); Lymphocytes % 6.4 %; Mean Corpuscular HGB Conc 31.1 g/dL (31.6-35.5); Mean Corpuscular Hemoglobin 27.7 pg (28.0-33.3); Mean Platelet Volume 11.1 fL (9.4-12.4); Monocytes # 1.5 K/mcL (0.0-1.3); Monocytes % 10.5 %; Neutrophils # 11.1 K/mcL (1.6-8.9); Platelet Count 229 K/mcL (140-400); Red Blood Count 3.72 M/mcL (3.82-4.97); Red Cell Distribution Width 16.6 % (11.5-14.5); Segmented Neutrophils % 79.3 %
[2017-04-24 06:54] LABS: BUN/Creatinine Ratio 17 (6-26); Blood Urea Nitrogen 12 mg/dL (7-20); Calcium 8.8 mg/dL (8.6-10.8); Carbon Dioxide 33 mEq/L (19-29); Chloride 97 mEq/L (98-109); Glucose 124 mg/dL (70-99); Osmolality,Calculated 287 (280-300); Potassium 3.7 mEq/L (3.5-4.5); Sodium 138 mEq/L (136-145); eGFR For African Americans > 60 (> 60); eGFR For Non-African Americans > 60 (> 60)
[2017-04-24] MEDS: *HR* Heparin 5,000 UNIT/ML VIAL SQ SCH ×2 (07:51→17:43)
[2017-04-24] MEDS: Insulin LISPRO 300 UNITS/3 ML VIAL SQ SCH ×4 (09:03→20:55)
[2017-04-24] MEDS: Multivit/Ca/Min/Fe/FA 1 TAB TABLET PO SCH (10:00)
[2017-04-24] MEDS: Loratadine 10 MG TABLET PO SCH (10:00)
[2017-04-24] MEDS: Divalproex (24 HR) 500 MG TABLET PO SCH ×2 (10:02→20:55)
[2017-04-24] MEDS: Azithromycin 500 MG in D5% in Water 250 ML IVPB SCH (10:02)
[2017-04-24] MEDS: Insulin DETEMIR 100 UNIT/ML X5UNITS SQ SCH ×2 (10:02→20:49)
[2017-04-24] MEDS: Vancomycin 1,250 MG in D5% in Water 250 ML IVPB SCH (15:26)
--- NOTE | 2017-04-24 17:17 | Internal Med Progress Note ---
Date of Encounter: 04/24/17 Time of Encounter: 17:15 - Assessment and plan (1) Sepsis Current Visit: Yes Status: Acute Assessment and plan: Suspected sepsis with leukocytosis, low-grade fever, tachycardia and lactic acidosis. Currently improved labs and vitals. Continue broad-spectrum IV antibiotics. Suspect sources from osteomyelitis, she had positive wound cultures. Initially leukocytosis resolved and patient seemed to improve. Psychosis improved to as low as 10 but on 04/24 white count went back up to 14 she had fever. Discharge was held and sepsis workup is pending. He is ready on vancomycin and Zosyn. She is not covered for any atypical organisms in case she was to develop pneumonia. We will obtain chest x-ray, urine cultures, blood cultures and evaluate for any other source of infection outside of osteomyelitis. We will add azithromycin. Qualifiers: Sepsis type: sepsis due to unspecified organism Qualified Code(s): A41.9 - Sepsis, unspecified organism (2) Osteomyelitis Current Visit: Yes Status: Acute Assessment and plan: Bone biopsy 04/21 and culture follow-up.Continue Vanc/Zosyn. Appreciate ID recommendation on inpatient and discharge antibitoic therapy choice in this time given positive for MRSA and GBS in this patient. Patient cannot be discharged currently because of recent leukocytosis and fever. Concern for sepsis/infection given she is high risk. 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 Admitted with acute pain, confusion and low-grade fever, for presumed infected decubitus ulcer. Wound culture grew group B streptococcus and MRSA; Will continue antibiotics- IV Zosyn and vancomycin. Blood cultures remained negative; Local wound care were wound care recommendations. Frequent repositioning. ESR and CRP noted to be significantly elevated from baseline. Infectious Disease consulted, recommendations appreciated. (4) CAD (coronary artery disease) Current Visit: No Status: Chronic Qualifiers: Coronary Disease-Associated Artery/Lesion type: [place] artery [place] vs. transplanted heart: [place] heart Associated angina: without angina Qualified Code(s): I25.10 - Atherosclerotic heart disease of [place] coronary artery without angina pectoris (5) Cholangiocarcinoma of liver Current Visit: Yes Status: Chronic (6) Diabetes mellitus Current Visit: Yes Status: Chronic Assessment and plan: Continue Accu-Chek blood glucose monitoring with sliding scale insulin. Blood sugars noted to be elevated, start basal insulin and increase sliding scale. Diabetic diet. 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 Qualifiers: Hypothyroidism type: unspecified Qualified Code(s): E03.9 - Hypothyroidism , unspecified (8) Peripheral neuropathy Current Visit: Yes Status: Chronic Qualifiers: Peripheral neuropathy type: polyneuropathy, unspecified Qualified Code(s): G62.9 - Polyneuropathy, unspecified (9) UTI (urinary tract infection) Current Visit: Yes Status: Ruled-out Qualifiers: Urinary tract infection type: acute cystitis Hematuria presence: without hematuria Qualified Code(s): N30.00 - Acute cystitis without hematuria - Subjective Interval history: Had bone biopsy 04/21 and tolerated procedure well without issue. Currently has no complaints. Ate breakfast without issue. The patient was ready for discharge today but morning labs showed that she has leukocytosis and had fever of 100.8 overnight. She currently denies any symptoms. She denies any subjective fevers/chills, nausea/vomiting, shortness of breath, dysuria - Constitutional Vitals: Temp Pulse Resp BP Pulse Ox 99.0 F 87 16 139/70 93 04/24/17 16:05 04/24/17 16:05 04/24/17 11:43 04/24/17 16:05 04/24/17 16:05 General appearance: Present: A&O X 2, morbidly obese, no acute distress, answers questions appropriately Exam: CVS: RRR Lungs: CTAB decub ulcer wound: packing clean, no active draining, no active bleed. Internal Medicine: Result - Labs CBC & Chem 7: 04/24/17 06:37 04/24/17 06:37 Labs: Short CBC 04/24/17 Range/Units 06:37 WBC 14.0 H (4.3-11.1) K/mcL Hgb 10.3 L (11.5-15.4) g/dL Hct 33.1 L (35.3-44.9) % Plt Count 229 (140-400) K/mcL Neutrophils # 11.1 H (1.6-8.9) K/mcL BMP 04/24/17 06:37 Sodium 138 Potassium 3.7 Chloride 97 L Carbon Dioxide 33 H BUN 12 Creatinine 0.71 Glucose 124 H Calcium 8.8 - ABG Interpretation ABG results: PT/INR, D-dimer PT 13.7 Seconds (9.4-12.1) H 04/21/17 08:02 - Impressions Impressions Chest X-Ray 04/24/17 08:22 IMPRESSION: New mild pulmonary vascular congestion. New small left pleural effusion. New mild patchy/streaky airspace opacities to the lower lung zones bilaterally, left more than right, which may be on the basis of atelectasis, infiltrates or asymmetric pulmonary edema. D/ / 04/24/2017 09:30:07 Gareth Ching MD / [email or web address] Interpreting Provider: Gareth Ching MD Consult Discharge Plan - Plan Referrals: NONE,PCP [Primary Care Provider] -
[2017-04-24] MEDS: Lurasidone 20 MG TABLET PO SCH (20:48)
[2017-04-25] MEDS: Piperacillin/Tazobactam 3.375 GM/200 ML BAG IVPB SCH ×5 (02:41→21:48)
[2017-04-25] MEDS: *HR* Heparin 5,000 UNIT/ML VIAL SQ SCH ×2 (05:52→17:51)
[2017-04-25 05:59] LABS: BUN/Creatinine Ratio 17 (6-26); Blood Urea Nitrogen 11 mg/dL (7-20); Calcium 8.4 mg/dL (8.6-10.8); Carbon Dioxide 30 mEq/L (19-29); Chloride 97 mEq/L (98-109); Glucose 144 mg/dL (70-99); Osmolality,Calculated 284 (280-300); Potassium 3.9 mEq/L (3.5-4.5); Sodium 136 mEq/L (136-145); eGFR For African Americans > 60 (> 60); eGFR For Non-African Americans > 60 (> 60)
[2017-04-25 06:02] LABS: Basophils % 0.3 %; Eosinophils # 0.1 K/mcL (0.0-0.6); Eosinophils % 0.6 %; Hematocrit 30.9 % (35.3-44.9); Hemoglobin 9.5 g/dL (11.5-15.4); Immature Granulocytes % 3.7 % (0-4); Lymphocytes # 1.4 K/mcL (0.6-4.6); Lymphocytes % 11.2 %; Mean Corpuscular HGB Conc 30.7 g/dL (31.6-35.5); Mean Corpuscular Hemoglobin 27.5 pg (28.0-33.3); Mean Corpuscular Volume 89.3 fL (83.0-100.0); Mean Platelet Volume 11.6 fL (9.4-12.4); Monocytes # 1.3 K/mcL (0.0-1.3); Monocytes % 10.4 %; Neutrophils # 9.1 K/mcL (1.6-8.9); Platelet Count 219 K/mcL (140-400); Red Blood Count 3.46 M/mcL (3.82-4.97); Red Cell Distribution Width 16.8 % (11.5-14.5); Segmented Neutrophils % 73.8 %
[2017-04-25] MEDS: Insulin LISPRO 300 UNITS/3 ML VIAL SQ SCH ×4 (08:26→21:35)
[2017-04-25] MEDS ORDERED: Furosemide 20 MG/2 ML VIAL IVP ONE (10:34)
[2017-04-25] MEDS: Azithromycin 500 MG in D5% in Water 250 ML IVPB SCH (10:50)
[2017-04-25] MEDS: Loratadine 10 MG TABLET PO SCH (10:51)
[2017-04-25] MEDS: Divalproex (24 HR) 500 MG TABLET PO SCH ×2 (10:53→21:34)
[2017-04-25] MEDS: Multivit/Ca/Min/Fe/FA 1 TAB TABLET PO SCH (10:53)
[2017-04-25] MEDS: Insulin DETEMIR 100 UNIT/ML X5UNITS SQ SCH ×2 (11:03→21:35)
--- NOTE | 2017-04-25 11:58 | Internal Med Progress Note ---
Date of Encounter: 04/25/17 Time of Encounter: 11:56 - Assessment and plan (1) Sepsis Current Visit: Yes Status: Acute Assessment and plan: Suspected sepsis with leukocytosis, low-grade fever, tachycardia and lactic acidosis. Currently improved labs and vitals. Continue broad-spectrum IV antibiotics. Suspect sources from osteomyelitis, she had positive wound cultures. Initially leukocytosis resolved and patient seemed to improve. Psychosis improved to as low as 10 but on 04/24 white count went back up to 14 with fever. Discharge was held and infectious workup is pending. She is on is already on broad-spectrum antibiotics vancomycin and Zosyn, and on 04/24 azithromycin was started to cover any atypical pneumonias. A chest x-ray showed bilateral opacities and vascular congestion. Follow-up cultures. If patient remains afebrile and leukocytosis improves patient may be discharged 04/26. Qualifiers: Sepsis type: sepsis due to unspecified organism Qualified Code(s): A41.9 - Sepsis, unspecified organism (2) Osteomyelitis Current Visit: Yes Status: Acute Assessment and plan: Bone biopsy 04/21 and culture follow-up.Continue Vanc/Zosyn. Appreciate ID recommendation on inpatient and discharge antibitoic therapy choice in this time given positive for MRSA and GBS in this patient. Patient cannot be discharged currently because of recent leukocytosis and fever. Concern for sepsis/infection given she is high risk. 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 Admitted with acute pain, confusion and low-grade fever, for presumed infected decubitus ulcer. Wound culture grew group B streptococcus and MRSA; Will continue antibiotics- IV Zosyn and vancomycin. Blood cultures remained negative; Local wound care were wound care recommendations. Frequent repositioning. ESR and CRP noted to be significantly elevated from baseline. Infectious Disease consulted, recommendations appreciated. (4) CAD (coronary artery disease) Current Visit: No Status: Chronic Qualifiers: Coronary Disease-Associated Artery/Lesion type: [place] artery [place] vs. transplanted heart: [place] heart Associated angina: without angina Qualified Code(s): I25.10 - Atherosclerotic heart disease of [place] coronary artery without angina pectoris (5) Cholangiocarcinoma of liver Current Visit: Yes Status: Chronic (6) Diabetes mellitus Current Visit: Yes Status: Chronic Assessment and plan: Continue Accu-Chek blood glucose monitoring with sliding scale insulin. Blood sugars noted to be elevated, start basal insulin and increase sliding scale. Diabetic diet. 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 Qualifiers: Hypothyroidism type: unspecified Qualified Code(s): E03.9 - Hypothyroidism , unspecified (8) Peripheral neuropathy Current Visit: Yes Status: Chronic Qualifiers: Peripheral neuropathy type: polyneuropathy, unspecified Qualified Code(s): G62.9 - Polyneuropathy, unspecified (9) UTI (urinary tract infection) Current Visit: Yes Status: Resolved Assessment and plan: In [facility] and has been adequately covered. Qualifiers: Urinary tract infection type: acute cystitis Hematuria presence: without hematuria Qualified Code(s): N30.00 - Acute cystitis without hematuria - Subjective Interval history: Had bone biopsy 04/21 and tolerated procedure well without issue. Currently has no complaints. Ate breakfast without issue. The patient was ready for discharge on 04/24 labs showed that she has leukocytosis and had fever. She was afebrile today She denies any subjective fevers/chills, nausea/vomiting, shortness of breath, dysuria - Constitutional Vitals: Temp Pulse Resp BP Pulse Ox 98.6 F 89 16 150/82 95 04/25/17 07:21 04/25/17 07:21 04/25/17 07:21 04/25/17 07:21 04/25/17 07:21 General appearance: Present: A&O X 2, morbidly obese, no acute distress, answers questions appropriately Exam: - Respiratory Respiratory exam: Present: CTAB. Absent: accessory muscle use, rales, rhonchi, wheezes - Cardiovascular Cardiovascular exam: Present: RRR, +S1, +S2. Absent: diastolic murmur, gallop, rubs, systolic murmur - GI/Abdominal GI/Abdominal exam: Present: normal bowel sounds, soft (obese), no peritoneal signs. Absent: distended, tenderness - Extremities Exam Extremities exam: Present: pedal edema, warm, radial pulses palpable and symmetrical. Absent: calf tenderness, cyanotic Stage 4 decub ulcer packing clean, no drainage or active bleeding Internal Medicine: Result - Labs CBC & Chem 7: 04/25/17 05:40 04/25/17 05:40 Labs: Short CBC 04/25/17 Range/Units 05:40 WBC 12.4 H (4.3-11.1) K/mcL Hgb 9.5 L (11.5-15.4) g/dL Hct 30.9 L (35.3-44.9) % Plt Count 219 (140-400) K/mcL Neutrophils # 9.1 H (1.6-8.9) K/mcL BMP 04/25/17 05:40 Sodium 136 Potassium 3.9 Chloride 97 L Carbon Dioxide 30 H BUN 11 Creatinine 0.66 Glucose 144 H Calcium 8.4 L - ABG Interpretation ABG results: PT/INR, D-dimer PT 13.7 Seconds (9.4-12.1) H 04/21/17 08:02 Consult Discharge Plan - Plan Referrals: NONE,PCP [Primary Care Provider] -
[2017-04-25] MEDS: Vancomycin 1,250 MG in D5% in Water 250 ML IVPB SCH (15:44)
[2017-04-25 20:52] LABS: Acinetobacter baumannii by PCR Not Detected (Not Detect); Candida albicans by PCR Not Detected (Not Detect); Candida krusei by PCR Not Detected (Not Detect); Candida parapsilosis by PCR Not Detected (Not Detect); Candida tropicalis by PCR Not Detected (Not Detect); Enterococcus by PCR Not Detected (Not Detect); Escherichia coli by PCR Not Detected (Not Detect); Klebsiella oxytoca by PCR Not Detected (Not Detect); Klebsiella pneumoniae by PCR Not Detected (Not Detect); Pseudomonas aeruginosa by PCR Not Detected (Not Detect); Serratia marcescens by PCR Not Detected (Not Detect); Staphylococcus aureus by PCR Not Detected (Not Detect); Streptococcus agalactiae(B)PCR Not Detected (Not Detect); Streptococcus by PCR Not Detected (Not Detect); Streptococcus pneumoniae PCR Not Detected (Not Detect); Streptococcus pyogenes (A) PCR Not Detected (Not Detect); blaKPC Carbapenem-Resist Gene Not Detected (Not Detect); mecA Methicillin-Resist Gene Not Detected (Not Detect); vanA/B Vancomycin-Resist Genes Not Detected (Not Detect)
[2017-04-25 20:53] LABS: Candida glabrata by PCR ***DETECTED*** (Not Detect)
[2017-04-25] MEDS: Lurasidone 20 MG TABLET PO SCH (21:34)
[2017-04-26] MEDS: Fluconazole 200 MG/100 ML 200 MG/100 ML BAG IVPB SCH ×2 (00:15→10:21)
[2017-04-26 05:37] LABS: Basophils # 0.1 K/mcL (0.0-0.2); Basophils % 0.5 %; Eosinophils # 0.1 K/mcL (0.0-0.6); Eosinophils % 0.5 %; Hematocrit 32.6 % (35.3-44.9); Hemoglobin 9.9 g/dL (11.5-15.4); Immature Granulocytes % 2.7 % (0-4); Lymphocytes # 1.3 K/mcL (0.6-4.6); Lymphocytes % 11.2 %; Mean Corpuscular HGB Conc 30.4 g/dL (31.6-35.5); Mean Corpuscular Hemoglobin 27.4 pg (28.0-33.3); Mean Corpuscular Volume 90.3 fL (83.0-100.0); Mean Platelet Volume 11.2 fL (9.4-12.4); Monocytes # 1.3 K/mcL (0.0-1.3); Monocytes % 11.2 %; Neutrophils # 8.3 K/mcL (1.6-8.9); Platelet Count 226 K/mcL (140-400); Red Blood Count 3.61 M/mcL (3.82-4.97); Red Cell Distribution Width 16.7 % (11.5-14.5); Segmented Neutrophils % 73.9 %
[2017-04-26] MEDS: *HR* Heparin 5,000 UNIT/ML VIAL SQ SCH ×2 (05:40→18:35)
[2017-04-26] MEDS: Piperacillin/Tazobactam 3.375 GM/200 ML BAG IVPB SCH ×3 (05:42→23:13)
[2017-04-26 05:57] LABS: Alanine Aminotransferase 11 Units/L (0-55); Albumin/Globulin Ratio 0.3 (1.1-2.2); Alkaline Phosphatase 104 Units/L (38-126); Aspartate Amino Transferase 17 Units/L (5-34); BUN/Creatinine Ratio 14 (6-26); Bilirubin,Total 0.4 mg/dL (0.2-1.2); Blood Urea Nitrogen 10 mg/dL (7-20); Calcium 8.6 mg/dL (8.6-10.8); Carbon Dioxide 32 mEq/L (19-29); Chloride 96 mEq/L (98-109); Globulin 5.2 g/dL (2.4-3.5); Glucose 63 mg/dL (70-99); Osmolality,Calculated 283 (280-300); Potassium 3.3 mEq/L (3.5-4.5); Sodium 138 mEq/L (136-145); eGFR For African Americans > 60 (> 60); eGFR For Non-African Americans > 60 (> 60)
[2017-04-26 05:58] LABS: Albumin 1.8 g/dL (3.5-5.0)
[2017-04-26] MEDS: Insulin LISPRO 300 UNITS/3 ML VIAL SQ SCH ×4 (07:39→19:51)
[2017-04-26] MEDS: Multivit/Ca/Min/Fe/FA 1 TAB TABLET PO SCH (08:07)
[2017-04-26] MEDS: Loratadine 10 MG TABLET PO SCH (08:07)
[2017-04-26] MEDS: Divalproex (24 HR) 500 MG TABLET PO SCH ×2 (08:07→19:51)
[2017-04-26] MEDS: Insulin DETEMIR 100 UNIT/ML X5UNITS SQ SCH ×2 (08:08→19:51)
[2017-04-26] MEDS: Azithromycin 500 MG in D5% in Water 250 ML IVPB SCH (08:45)
[2017-04-26] MEDS ORDERED: MICAFUNGIN IVPB SCH (10:15)
[2017-04-26] MEDS ORDERED: SODIUM CHLORIDE 0.9% IVPB SCH (10:15)
[2017-04-26] MEDS ORDERED: Lidocaine 1% 20 ML MDV ID PRN (10:41)
--- NOTE | 2017-04-26 16:00 | Electrocardiograph Report ---
[address] [place] [address] Test Date: 2017-04-26 Pat Name: [facility] Department: 113 Room: 3B Gender: F Mult Au Matic Operator: JOSE LUIS : 1940 Requested By: Andrés Arechiga Order Number: [id number] Reading MD: Ciaran Jarrett Measurements Intervals [place] Rate: 98 P: 40 WV: 181 QRS: -3 QRSD: 100 T: 9 QT: 362 QTc: 418 Interpretive Statements SINUS RHYTHM WITH SINUS ARRHYTHMIA INDETERMINATE AXIS ATYPICAL ECG Electronically Signed On 04-26-2017 15:58:22 EST by Ciaran Jarrett
[2017-04-26] MEDS: Vancomycin 1,250 MG in D5% in Water 250 ML IVPB SCH (16:58)
[2017-04-26] MEDS: Lurasidone 20 MG TABLET PO SCH (19:51)
--- NOTE | 2017-04-27 01:31 | Internal Med Progress Note ---
Date of Encounter: 04/26/17 Time of Encounter: 13:29 - Assessment and plan (1) Susanne glabrata infection Current Visit: Yes Status: Acute (2) Sepsis Current Visit: Yes Status: Acute Assessment and plan: Patient has osteomyelitis secondary to stage IV decubitis ulcer and newly discovered Susanne glabrata due to incontinence, sample from port site. Suspected sepsis with leukocytosis, low-grade fever, tachycardia and lactic acidosis. Currently improved labs and vitals. Continue broad-spectrum IV antibiotics. Suspect sources from osteomyelitis, she had positive wound cultures. Initially leukocytosis resolved and patient seemed to improve. Plan was for discharge on 04/24 but developed leukocytosis with fever. Workup during this time showed Susanne glabrata in blood taken from port site. She is on is already on broad-spectrum antibiotics vancomycin and Zosyn. Discussed with IR and it was recommended to not remove the mediport site at this moment since no signs of local infection. - Will add micafungin to cover C glabrata - May need to discontinue Ramos cath - Re-consult Infectious Disease when available Qualifiers: Sepsis type: sepsis due to unspecified organism Qualified Code(s): A41.9 - Sepsis, unspecified organism (3) Osteomyelitis Current Visit: Yes Status: Acute Assessment and plan: Bone biopsy 04/21 and culture follow-up.Continue Vanc/Zosyn. Appreciate ID recommendation on inpatient and discharge antibitoic therapy choice in this time given positive for MRSA and GBS in this patient. Patient cannot be discharged currently because of recent leukocytosis and fever. Concern for sepsis/infection given she is high risk. Qualifiers: Osteomyelitis type: unspecified type Osteomyelitis location: other site Qualified Code(s): M86.9 - Osteomyelitis, unspecified (4) Decubitus ulcer, stage 4 with infection Current Visit: Yes Status: Chronic Assessment and plan: Patient has chronic stage IV sacral decubitus ulcer along with chronic sacral osteomyelitis due to bedbound status. Admitted with acute pain, confusion and low-grade fever, for presumed infected decubitus ulcer. Wound culture grew group B streptococcus and MRSA; Will continue antibiotics- IV Zosyn and vancomycin. Blood cultures remained negative; Local wound care were wound care recommendations. Frequent repositioning. ESR and CRP noted to be significantly elevated from baseline. Infectious Disease consulted, recommendations appreciated. (5) CAD (coronary artery disease) Current Visit: No Status: Chronic Qualifiers: Coronary Disease-Associated Artery/Lesion type: [place] artery [place] vs. transplanted heart: [place] heart Associated angina: without angina Qualified Code(s): I25.10 - Atherosclerotic heart disease of [place] coronary artery without angina pectoris (6) Cholangiocarcinoma of liver Current Visit: Yes Status: Chronic (7) Diabetes mellitus Current Visit: Yes Status: Chronic Assessment and plan: Continue Accu-Chek blood glucose monitoring with sliding scale insulin. Blood sugars noted to be elevated, start basal insulin and increase sliding scale. Diabetic diet. 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 Qualifiers: Hypothyroidism type: unspecified Qualified Code(s): E03.9 - Hypothyroidism , unspecified (9) Peripheral neuropathy Current Visit: Yes Status: Chronic Qualifiers: Peripheral neuropathy type: polyneuropathy, unspecified Qualified Code(s): G62.9 - Polyneuropathy, unspecified (10) UTI (urinary tract infection) Current Visit: Yes Status: Resolved Assessment and plan: On Zosyn and has been adequately covered. Qualifiers: Urinary tract infection type: acute cystitis Hematuria presence: without hematuria Qualified Code(s): N30.00 - Acute cystitis without hematuria - Subjective Interval history: Had bone biopsy 04/21 and tolerated procedure well without issue. The patient was ready for discharge on 04/24 but patient developed fever and leukocytosis. She was on broad spectrum vancomycin and Zosyn during this time for Osteomyelitis. Blood cultures taken from showed Susanne glabrata, likely from fecal incontinence near decubitis ulcer. Patient currently has no complaints. Eating lunch and answers questions appropriately. - Constitutional Vitals: Temp Pulse Resp BP Pulse Ox 98.2 F 58 16 121/61 96 04/26/17 22:45 04/26/17 22:45 04/26/17 22:45 04/26/17 22:45 04/26/17 22:45 General appearance: Present: A&O X 3, morbidly obese, no acute distress, answers questions appropriately Exam: - Respiratory Respiratory exam: Present: CTAB. Absent: accessory muscle use, rales, rhonchi, wheezes - Cardiovascular Cardiovascular exam: Present: RRR, +S1, +S2. Absent: diastolic murmur, gallop, rubs, systolic murmur - GI/Abdominal GI/Abdominal exam: Present: normal bowel sounds, soft (obese), no peritoneal signs. Absent: distended, tenderness - Extremities Exam Extremities exam: Present: pedal edema, warm, radial pulses palpable and symmetrical. Absent: calf tenderness, cyanotic Stage 4 decub ulcer packing clean, no drainage or active bleeding Internal Medicine: Result - Labs CBC & Chem 7: 04/26/17 05:24 04/26/17 05:24 Labs: Short CBC 04/26/17 Range/Units 05:24 WBC 11.3 H (4.3-11.1) K/mcL Hgb 9.9 L (11.5-15.4) g/dL Hct 32.6 L (35.3-44.9) % Plt Count 226 (140-400) K/mcL Neutrophils # 8.3 (1.6-8.9) K/mcL BMP 04/26/17 05:24 Sodium 138 Potassium 3.3 L Chloride 96 L Carbon Dioxide 32 H BUN 10 Creatinine 0.70 Glucose 63 L Calcium 8.6 Liver Function 04/26/17 Range/Units 05:24 Total Bilirubin 0.4 (0.2-1.2) mg/dL AST 17 (5-34) Units/L ALT 11 (0-55) Units/L Alkaline Phosphatase 104 (38-126) Units/L Albumin 1.8 L (3.5-5.0) g/dL - ABG Interpretation ABG results: PT/INR, D-dimer PT 13.7 Seconds (9.4-12.1) H 04/21/17 08:02 Consult Discharge Plan - Plan Referrals: NONE,PCP [Primary Care Provider] -
[2017-04-27 05:21] LABS: Basophils # 0.1 K/mcL (0.0-0.2); Basophils % 0.6 %; Eosinophils # 0.1 K/mcL (0.0-0.6); Eosinophils % 0.7 %; Hematocrit 29.8 % (35.3-44.9); Hemoglobin 8.9 g/dL (11.5-15.4); Lymphocytes # 1.1 K/mcL (0.6-4.6); Lymphocytes % 12.7 %; Mean Corpuscular HGB Conc 29.9 g/dL (31.6-35.5); Mean Corpuscular Hemoglobin 27.2 pg (28.0-33.3); Mean Corpuscular Volume 91.1 fL (83.0-100.0); Mean Platelet Volume 11.1 fL (9.4-12.4); Monocytes % 11.1 %; Neutrophils # 6.3 K/mcL (1.6-8.9); Platelet Count 260 K/mcL (140-400); Red Blood Count 3.27 M/mcL (3.82-4.97); Red Cell Distribution Width 16.6 % (11.5-14.5); Segmented Neutrophils % 72.9 %
[2017-04-27 05:49] LABS: BUN/Creatinine Ratio 15 (6-26); Blood Urea Nitrogen 11 mg/dL (7-20); Calcium 8.5 mg/dL (8.6-10.8); Carbon Dioxide 33 mEq/L (19-29); Chloride 96 mEq/L (98-109); Glucose 210 mg/dL (70-99); Osmolality,Calculated 294 (280-300); Potassium 3.2 mEq/L (3.5-4.5); Sodium 139 mEq/L (136-145); eGFR For African Americans > 60 (> 60); eGFR For Non-African Americans > 60 (> 60)
[2017-04-27] MEDS: Piperacillin/Tazobactam 3.375 GM/200 ML BAG IVPB SCH ×3 (06:40→22:53)
[2017-04-27] MEDS: *HR* Heparin 5,000 UNIT/ML VIAL SQ SCH ×3 (06:40→22:43)
[2017-04-27] MEDS: Micafungin 100 MG in 0.9 % Sodium Chloride Mini Bag 100 ML IVPB SCH ×2 (09:11→12:23)
[2017-04-27] MEDS: Insulin DETEMIR 100 UNIT/ML X5UNITS SQ SCH ×2 (09:12→22:19)
[2017-04-27] MEDS: Insulin LISPRO 300 UNITS/3 ML VIAL SQ SCH ×4 (09:12→22:19)
[2017-04-27] MEDS: Loratadine 10 MG TABLET PO SCH (09:12)
[2017-04-27] MEDS: Divalproex (24 HR) 500 MG TABLET PO SCH ×2 (09:12→22:17)
[2017-04-27] MEDS: Multivit/Ca/Min/Fe/FA 1 TAB TABLET PO SCH (09:12)
--- NOTE | 2017-04-27 12:42 | Internal Med Progress Note ---
Date of Encounter: 04/27/17 Time of Encounter: 12:39 - Assessment and plan (1) Susanne glabrata infection Current Visit: Yes Status: Acute Assessment and plan: spiked fever with elevated WBC on 04/24. 06/18 blood cultures from medi-port site with Susanne glabrata. Discussed with [facility] infectious disease and recommendations are to remove Mediport, repeat blood cultures, continue micro- fungin for now. IR consulted to remove medi-port (2) Chronic osteomyelitis of sacrum Current Visit: No Status: Chronic Assessment and plan: has chronic stage IV sacral decubitus ulcer along with chronic sacral osteomyelitis due to bedbound status. ESR >130. CRP 283. Sacral MRI findings consistent with osteomyelitis. Causative organism unclear, 04/17/17 wound culture positive for MRSA and GBS. Bone culture negative. Continue IV Vanco, Zosyn. We will likely need IV ATB for 6 weeks. (3) Diabetes mellitus Current Visit: Yes Status: Chronic Assessment and plan: per hx. Blood sugars noted to be elevated, start basal insulin and increase sliding scale. Blood sugars variable but acceptable. 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 Asymptomatic. Denies chest pain. Continue home ASA, BB, statin. Qualifiers: Coronary Disease-Associated Artery/Lesion type: [place] artery [place] vs. transplanted heart: [place] heart Associated angina: without angina Qualified Code(s): I25.10 - Atherosclerotic heart disease of [place] coronary artery without angina pectoris (5) DVT prophylaxis Current Visit: Yes Status: Acute - Time Spent With Patient 25 - 35 minutes - Subjective Interval history: Seen and examined at bedside; patient is new to me. Information obtained from chart review and patient report. Patient says she feels much better and is ready to go to ECF whenever she is medically stable. Start the patient at length regarding the possibility of a diverting ostomy however patient is adamant and says a Ramos catheter is the this she will go. She has apparently been evaluated by general surgery in the past who recommended a diverting ostomy however patient has refused. She has no real complaints. Specifically denies fevers, no chills. No chest pain no shortness of breath. - Constitutional Vitals: Temp Pulse Resp BP Pulse Ox 97.5 F L 103 16 150/76 94 04/27/17 10:54 04/27/17 10:54 04/27/17 10:54 04/27/17 10:54 04/27/17 10:54 General appearance: Present: A&O X 3, morbidly obese, no acute distress, answers questions appropriately - Head Head exam: Present: atraumatic, normocephalic - Eye Eye exam: Present: PERRL, conjuntiva pink, sclera anicteric Pupils: Present: PERRL - Neck Neck exam general surgery: Present: supple, trachea midline. Absent: lymphadenopathy - Respiratory Respiratory exam: Present: CTAB. Absent: accessory muscle use, rales, rhonchi, wheezes - Cardiovascular Cardiovascular exam: Present: RRR, +S1, +S2. Absent: diastolic murmur, gallop, rubs, systolic murmur - GI/Abdominal GI/Abdominal exam: Present: normal bowel sounds, soft, no peritoneal signs. Absent: distended, tenderness - Extremities Exam Extremities exam: Present: warm, radial pulses palpable and symmetrical. Absent : calf tenderness, cyanotic, pedal edema - Neurological Exam Neurological exam: Present: CN II-XII intact, oriented X3, no focal deficits. Absent: pronater drift, facial droop, speech deficit - Skin Skin exam: Present: dry, intact Additional comments: sacral wound C/D/I; wound not assessed Internal Medicine: Result - Labs CBC & Chem 7: 04/27/17 05:03 04/27/17 05:03 Labs: Short CBC 04/27/17 Range/Units 05:03 WBC 8.6 (4.3-11.1) K/mcL Hgb 8.9 L (11.5-15.4) g/dL Hct 29.8 L (35.3-44.9) % Plt Count 260 (140-400) K/mcL Neutrophils # 6.3 (1.6-8.9) K/mcL BMP 04/27/17 05:03 Sodium 139 Potassium 3.2 L Chloride 96 L Carbon Dioxide 33 H BUN 11 Creatinine 0.74 Glucose 210 H Calcium 8.5 L - ABG Interpretation ABG results: PT/INR, D-dimer PT 13.7 Seconds (9.4-12.1) H 04/21/17 08:02 Consult Discharge Plan - Plan Referrals: NONE,PCP [Primary Care Provider] -
[2017-04-27] MEDS ORDERED: 0.9 % Sodium Chloride 500 ML ONE (14:52)
[2017-04-27 15:00] LABS: Procalcitonin 2.21 ng/mL (<=0.10)
[2017-04-27] MEDS: Vancomycin 1,250 MG in D5% in Water 250 ML IVPB SCH (17:25)
[2017-04-27] MEDS: Lurasidone 20 MG TABLET PO SCH (22:17)
[2017-04-27] MEDS: Gabapentin 100 MG CAPSULE PO SCH (22:18)
[2017-04-28] MEDS: *HR* Heparin 5,000 UNIT/ML VIAL SQ SCH ×3 (05:13→22:28)
[2017-04-28 05:26] LABS: Basophils % 0.4 %; Eosinophils # 0.1 K/mcL (0.0-0.6); Eosinophils % 1.1 %; Hematocrit 30.3 % (35.3-44.9); Hemoglobin 8.9 g/dL (11.5-15.4); Immature Granulocytes % 1.5 % (0-4); Lymphocytes # 1.2 K/mcL (0.6-4.6); Lymphocytes % 14.3 %; Mean Corpuscular HGB Conc 29.4 g/dL (31.6-35.5); Mean Corpuscular Volume 91.8 fL (83.0-100.0); Mean Platelet Volume 10.7 fL (9.4-12.4); Monocytes # 0.9 K/mcL (0.0-1.3); Monocytes % 10.6 %; Neutrophils # 6.2 K/mcL (1.6-8.9); Platelet Count 277 K/mcL (140-400); Red Cell Distribution Width 16.5 % (11.5-14.5); Segmented Neutrophils % 72.1 %
[2017-04-28 05:32] LABS: BUN/Creatinine Ratio 14 (6-26); Blood Urea Nitrogen 9 mg/dL (7-20); Calcium 8.2 mg/dL (8.6-10.8); Carbon Dioxide 34 mEq/L (19-29); Chloride 99 mEq/L (98-109); Glucose 117 mg/dL (70-99); Osmolality,Calculated 296 (280-300); Potassium 3.1 mEq/L (3.5-4.5); Sodium 143 mEq/L (136-145); eGFR For African Americans > 60 (> 60); eGFR For Non-African Americans > 60 (> 60)
[2017-04-28] MEDS: Lactobacillus 1 EACH CAP.SPRINK PO SCH (10:08)
[2017-04-28] MEDS: Gabapentin 100 MG CAPSULE PO SCH ×2 (10:09→22:26)
[2017-04-28] MEDS: Divalproex (24 HR) 500 MG TABLET PO SCH ×2 (10:09→22:27)
[2017-04-28] MEDS: Multivit/Ca/Min/Fe/FA 1 TAB TABLET PO SCH (10:09)
[2017-04-28] MEDS: Aspirin Enteric Coated 81 MG Tablet PO SCH (10:09)
[2017-04-28] MEDS: Loratadine 10 MG TABLET PO SCH (10:09)
[2017-04-28] MEDS: Micafungin 100 MG in 0.9 % Sodium Chloride Mini Bag 100 ML IVPB SCH (10:10)
[2017-04-28] MEDS: Insulin DETEMIR 100 UNIT/ML X5UNITS SQ SCH ×2 (10:12→22:27)
[2017-04-28] MEDS: Piperacillin/Tazobactam 3.375 GM/200 ML BAG IVPB SCH ×2 (11:55→18:50)
[2017-04-28] MEDS: Insulin LISPRO 300 UNITS/3 ML VIAL SQ SCH ×4 (13:22→22:27)
--- NOTE | 2017-04-28 15:34 | Internal Med Progress Note ---
Date of Encounter: 04/28/17 Time of Encounter: 10:00 - Assessment and plan (1) Susanne glabrata infection Current Visit: Yes Status: Acute Assessment and plan: spiked fever with elevated WBC on 04/24. 2/2 blood cultures from medi-port site with Susanne glabrata. Right subcutaneous payam-cath removed on 04/27/17 per IR. Discussed with [facility] infectious disease on 04/27 and cont micro-fungin. Repeat cx's pending. Consult ID on 04/30 when available. (2) Chronic osteomyelitis of sacrum Current Visit: No Status: Chronic Assessment and plan: has chronic stage IV sacral decubitus ulcer along with chronic sacral osteomyelitis due to bedbound status. ESR >130. CRP 283. Sacral MRI findings consistent with osteomyelitis. Causative organism unclear, 04/17/17 wound culture positive for MRSA and GBS. Bone culture negative. Continue IV Vanco, Zosyn. Will likely need IV ATB for 6 weeks. (3) Diabetes mellitus Current Visit: Yes Status: Chronic Assessment and plan: per hx. Blood sugars noted to be elevated, start basal insulin and increase sliding scale. Blood sugars variable but acceptable. Continue to monitor and titrate regimen PRN Qualifiers: Diabetes mellitus type: type 2 Diabetes mellitus complication status: with skin complications Diabetes mellitus complication detail: with other skin ulcer Diabetes mellitus intermediate frame tender insulin use: with intermediate frame tender use Qualified Code(s): E11.622 - Type 2 diabetes mellitus with other skin ulcer; Z79.4 - care home (current) use of insulin (4) CAD (coronary artery disease) Current Visit: No Status: Chronic Assessment and plan: per hx. Asymptomatic. Denies chest pain. Continue home ASA, BB, statin. Qualifiers: Coronary Disease-Associated Artery/Lesion type: [place] artery [place] vs. transplanted heart: [place] heart Associated angina: without angina Qualified Code(s): I25.10 - Atherosclerotic heart disease of [place] coronary artery without angina pectoris (5) DVT prophylaxis Current Visit: Yes Status: Acute Assessment and plan: heparin - Time Spent With Patient less than 15 minutes - Subjective Interval history: Seen and examined at bedside. Says she had an uneventful night and slept well. She has no real complaints all my exam. She does complain of mild pain to right subcutaneous port site removal. She is aware of need to stay in hospital until ID returns on 04/30/2017. Denies chest pain, no shortness of breath. - Constitutional Vitals: Temp Pulse Resp BP Pulse Ox 97.7 F 82 16 156/75 91 04/28/17 07:43 04/28/17 07:43 04/28/17 07:43 04/28/17 07:43 04/28/17 07:43 General appearance: Present: A&O X 3, morbidly obese, no acute distress, answers questions appropriately - Head Head exam: Present: atraumatic, normocephalic - Eye Eye exam: Present: PERRL, conjuntiva pink, sclera anicteric Pupils: Present: PERRL - Neck Neck exam general surgery: Present: supple, trachea midline. Absent: lymphadenopathy - Respiratory Respiratory exam: Present: CTAB. Absent: accessory muscle use, rales, rhonchi, wheezes - Cardiovascular Cardiovascular exam: Present: RRR, +S1, +S2. Absent: diastolic murmur, gallop, rubs, systolic murmur - GI/Abdominal GI/Abdominal exam: Present: normal bowel sounds, soft, no peritoneal signs. Absent: distended, tenderness - Extremities Exam Extremities exam: Present: warm, radial pulses palpable and symmetrical. Absent : calf tenderness, cyanotic, pedal edema - Neurological Exam Neurological exam: Present: CN II-XII intact, oriented X3, no focal deficits. Absent: pronater drift, facial droop, speech deficit - Skin Skin exam: Present: dry, intact Internal Medicine: Result - Labs CBC & Chem 7: 04/28/17 05:05 04/28/17 05:05 Labs: Short CBC 04/28/17 Range/Units 05:05 WBC 8.6 (4.3-11.1) K/mcL Hgb 8.9 L (11.5-15.4) g/dL Hct 30.3 L (35.3-44.9) % Plt Count 277 (140-400) K/mcL Neutrophils # 6.2 (1.6-8.9) K/mcL BMP 04/28/17 05:05 Sodium 143 Potassium 3.1 L Chloride 99 Carbon Dioxide 34 H BUN 9 Creatinine 0.64 Glucose 117 H Calcium 8.2 L - ABG Interpretation ABG results: PT/INR, D-dimer PT 13.7 Seconds (9.4-12.1) H 04/21/17 08:02 - Impressions Impressions Tunnelled Catheter Removal 04/27/17 00:00 IMPRESSION: Successful subcutaneous Port-A-Cath removal D/ / Andres Lee MD / Andres Lee MD Interpreting Provider: Andres Lee MD Chest X-Ray 04/27/17 20:13 IMPRESSION: Interval removal of right MediPort catheter. No evidence of pneumothorax. Mild left basilar atelectasis. D/ / 04/28/2017 07:49:34 Toya Bhardwaj MD / bcarter Interpreting Provider: Toya Bhardwaj MD Consult Discharge Plan - Plan Referrals: NONE,PCP [Primary Care Provider] -
[2017-04-28 15:42] LABS: Mycoplasma pneumoniae IgG 0.12 U/L (<=0.09)
[2017-04-28] MEDS: Vancomycin 1,250 MG in D5% in Water 250 ML IVPB SCH (16:42)
--- NOTE | 2017-04-28 19:01 | Internal Medicine Consult Note ---
Date of Encounter: 04/28/17 Time of Encounter: 18:58 Internal Medicine - CN: HPI - Data of Consult Requesting Physician: Jody Martinez MD Patient is admitted with blood cultures positive for candidal infection. Patient also has chronic osteomyelitis of the sacrum, and diabetes and coronary artery disease. Consultation was requested to evaluate for signs of candidal endophthalmitis. Patient reports to me that she is unable to see due to her macular degeneration. She has had bilateral cataract extraction with lens implantation surgery. Examination revealed visual acuity without correction of counting fingers at 1 feet in the right eye and in the left eye. Confrontation visual guerin were constricted in both eyes. Extraocular motility testing revealed full excursion of both eyes to wall cardinal positions of gaze. Pupils were equal round and sluggishly reactive to light with no relative afferent pupillary defects noted. The patient was unable to sit up at the side of the bed so intraocular pressure was checked by digital palpation and it was unremarkable, soft, estimated at 20 mmHg in each eye. External examination revealed normal eyelids and a normal conjunctiva and a clear cornea in both eyes. The anterior chamber was deep in the iris was normal in both eyes. The patient did appear to have posterior chamber intraocular lens implants in both eyes. The pupils were dilated with 1% tropicamide and 2-1/2% phenylephrine drops. After dilation further examination with the indirect ophthalmoscope revealed a clear vitreous in both eyes. The optic nerve heads were unremarkable and there was a scar in the macula in both eyes. Panretinal photocoagulation scars were noted in the retinal periphery in all quadrants in both eyes. No signs of fungal endophthalmitis were appreciated. 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 Please contact or have the patient contact my office at [phone] and I would be happy to help make that referral for this patient. - Consult Narrative History of present illness: Ms. Camacho is a 76 year old female Past Med Surg Social Fam HX - Past Medical History Medical history: cancer, diabetes, other Psychiatric history: anxiety, depression - Past Surgical History Surgical History: appendectomy, , cataract, cholecystectomy, herniorrhaphy, orthopedic, other, SHONDA/BSO, other - Social History Smoking Status: Former smoker Smokeless Tobacco Status: No Alcohol use: rarely Drug use: none - Family History Father History Unknown: Yes Living Status: Mother Adopted: No Living Status: Hx Family Cardiac Disorders: Yes Hx Family Respiratory Disorders: Yes (copd) Hx Family Endocrine Disorder: Yes (Diabetes) Internal Medicine - CN: Meds Omeprazole [PriLOSEC] 20 mg PO QAM 02/04/15 [History] Sennosides/Docusate Sodium [Senna Plus] 8.6 mg PO QAM PRN 02/04/15 [History] Ondansetron HCl [Zofran] 4 mg PO TID PRN 08/17/16 [History] Oxycodone HCl/Acetaminophen [Percocet 5-325 mg Tablet] 1 each PO Q6H PRN #7 [Rx] Acidoph/L.bulg/Bif.b/S.thermop [Emilie-Bid Caplet] 2 tab PO DAILY 04/17/17 [ History] Amitriptyline [Elavil] 10 mg PO HS 04/17/17 [History] Aspirin Enteric Coated [Aspirin EC] 81 mg PO DAILY 04/17/17 [History] Bromfenac Sodium 1 drop RIGHT EYE DAILY 04/17/17 [History] Calcium Carbonate/Vitamin D3 [Oyster Shell Calcium-Vit D Tab] 1 tab PO DAILY 07/03 [History] Cefepime HCl [Maxipime] 1 gm IV BID 04/17/17 [History] Gabapentin [Neurontin] 100 mg PO QAM 04/17/17 [History] Gabapentin [Neurontin] 200 mg PO HS 04/17/17 [History] Insulin Aspart Prot/Insuln Asp [Novolog Mix 70-30 Vial] 45 unit SQ HS 04/17/17 [ History] Insulin Aspart Prot/Insuln Asp [Novolog Mix 70-30 Vial] 56 unit SQ QAM 04/17/17 [History] Magnesium Oxide [Mag-Ox] 400 mg PO BID 04/17/17 [History] Metoprolol [Lopressor] 12.5 mg PO BID 04/17/17 [History] Oxygen 2 l .ROUTE AD 04/17/17 [History] Potassium Chloride [Klor-Con 10] 10 meq PO DAILY 04/17/17 [History] Sertraline [Zoloft] 125 mg PO DAILY 04/17/17 [History] Simvastatin [Zocor] 40 mg PO DAILY 04/17/17 [History] 3 Allergy/AdvReac Type Severity Reaction Status Date / Time rosuvastatin [From Crestor] Allergy Hives Verified 03/15/17 10:51 ciprofloxacin AdvReac Itching Verified 03/15/17 10:51 Hydromorphone [From Dilaudid] AdvReac Difficulty Verified 03/15/17 10:51 Breathing Internal Medicine - CN: Exam - Constitutional Vitals: Temp Pulse Resp BP Pulse Ox 98.3 F 92 18 151/78 97 04/28/17 16:00 04/28/17 16:00 04/28/17 16:00 04/28/17 16:00 04/28/17 16:00 Internal Medicine - CN: Reslt - Labs CBC & Chem 7: 04/28/17 05:05 04/28/17 05:05 Labs: Short CBC 04/28/17 Range/Units 05:05 WBC 8.6 (4.3-11.1) K/mcL Hgb 8.9 L (11.5-15.4) g/dL Hct 30.3 L (35.3-44.9) % Plt Count 277 (140-400) K/mcL Neutrophils # 6.2 (1.6-8.9) K/mcL BMP 04/28/17 05:05 Sodium 143 Potassium 3.1 L Chloride 99 Carbon Dioxide 34 H BUN 9 Creatinine 0.64 Glucose 117 H Calcium 8.2 L - ABG Interpretation ABG results: PT/INR, D-dimer PT 13.7 Seconds (9.4-12.1) H 04/21/17 08:02 - Impressions Impressions Tunnelled Catheter Removal 04/27/17 00:00 IMPRESSION: Successful subcutaneous Port-A-Cath removal D/ / Andres Lee MD / Andres Lee MD Interpreting Provider: Andres Lee MD Chest X-Ray 04/27/17 20:13 IMPRESSION: Interval removal of right MediPort catheter. No evidence of pneumothorax. Mild left basilar atelectasis. D/ / 04/28/2017 07:49:34 Toya Bhardwaj MD / singh Interpreting Provider: Toya Bhardwaj MD Consult Discharge Plan - Plan Referrals: NONE,PCP [Primary Care Provider] -
[2017-04-28] MEDS: Lurasidone 20 MG TABLET PO SCH (22:27)
[2017-04-29] MEDS: Piperacillin/Tazobactam 3.375 GM/200 ML BAG IVPB SCH ×3 (04:28→18:17)
[2017-04-29] MEDS: *HR* Heparin 5,000 UNIT/ML VIAL SQ SCH ×3 (06:21→23:13)
[2017-04-29] MEDS: Loratadine 10 MG TABLET PO SCH (09:30)
[2017-04-29] MEDS: Lactobacillus 1 EACH CAP.SPRINK PO SCH (09:47)
[2017-04-29] MEDS: Gabapentin 100 MG CAPSULE PO SCH ×2 (09:47→22:52)
[2017-04-29] MEDS: Aspirin Enteric Coated 81 MG Tablet PO SCH (09:48)
[2017-04-29] MEDS: Multivit/Ca/Min/Fe/FA 1 TAB TABLET PO SCH (09:48)
[2017-04-29] MEDS: Divalproex (24 HR) 500 MG TABLET PO SCH ×2 (09:48→22:52)
[2017-04-29] MEDS: Micafungin 100 MG in 0.9 % Sodium Chloride Mini Bag 100 ML IVPB SCH (09:49)
[2017-04-29] MEDS: Insulin LISPRO 300 UNITS/3 ML VIAL SQ SCH ×4 (09:51→22:58)
[2017-04-29] MEDS: Insulin DETEMIR 100 UNIT/ML X5UNITS SQ SCH ×2 (09:52→22:53)
--- NOTE | 2017-04-29 12:28 | Internal Med Progress Note ---
Date of Encounter: 04/29/17 Time of Encounter: 12:28 - Assessment and plan (1) Fungemia Current Visit: Yes Status: Acute Assessment and plan: Continue current management Follow ECHO Await ID recs (2) DVT prophylaxis Current Visit: Yes Status: Acute Assessment and plan: heparin (3) Decubitus ulcer, stage 4 with infection Current Visit: Yes Status: Chronic Assessment and plan: Patient has chronic stage IV sacral decubitus ulcer along with chronic sacral osteomyelitis due to bedbound status. Admitted with acute pain, confusion and low-grade fever, for presumed infected decubitus ulcer. Wound culture grew group B streptococcus and MRSA; Will continue antibiotics- IV Zosyn and vancomycin-day 12 Local wound care were wound care recommendations. Frequent repositioning. Bone culture is negative (4) Severe sepsis Current Visit: Yes Status: Resolved (5) Diabetes mellitus Current Visit: Yes Status: Chronic Assessment and plan: per hx. Blood sugars noted to be elevated, start basal insulin and increase sliding scale. Blood sugars variable but acceptable. 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 Asymptomatic. Denies chest pain. Continue home ASA, BB, statin. Qualifiers: Coronary Disease-Associated Artery/Lesion type: [place] artery [place] vs. transplanted heart: [place] heart Associated angina: without angina Qualified Code(s): I25.10 - Atherosclerotic heart disease of [place] coronary artery without angina pectoris (8) Hypothyroidism Current Visit: Yes Status: Chronic Assessment and plan: Continue levothyroxine. Qualifiers: Hypothyroidism type: unspecified Qualified Code(s): E03.9 - Hypothyroidism , unspecified - Subjective Interval history: Initial encounter [facility] 12 IN summary: Resident of SNF, with bed bound /wheel chair bound status, Stage IV decubitus ulcer, chronic sacral OM, admitted for management of Sepsis leukocytosis, low- grade fever, tachycardia and lactic acidosis secondary to Stage IV decubitus ulcer infection and Osteomyelitis. Incidentally, she was found to have fungemia , with blood culture growing Jose D galbrata. The previous hospitalist had consulted and discussed with [facility] infectious disease and recommendations were to remove Mediport, repeat blood cultures, and continue micro-fungin for now. IR consulted to remove medi-port, medi-port removed 04/27. Airways Control Specialist consulted noted 04/28, no eye evidence of fungal infection or endophthalmitis As per patient, she has the medi-port due to poor venous access Urine culture 04/17 and 04/25, -No growth Wound culture 04/17-MRSA and Strep agalactiae, Strep sensitive to penicillins, MRSA sensitive to Ciprofloxacin, Daptimycin, Docycycline, Linezolic, Rifampin, Vanco Blood culture 04/24: Yeast sp-jose d in one bottle Her repeat blood cultures done on 04/27, no growth. Cathter tip 04/27-No growth Bone biopsy culture-NO growth Today is Day 12 on Vanco and Zosyn Day 3 on Mycofungin ECHO ordered today and is pending Patient has no new complains Infectious disease team at this facility was following the patient, there is currently no services available till 04/29/17 Since patients bone culture is negative, I do not believ she has acute OM, no UTI with 2 negative urine cultures, she does have MRSA and Strep infected wound and is getting Zosyn and Vanco Regarding Fungemia, we will await ECHO reports and Infectious disease recommendation for management Per , patient is able to return to [facility] when medically cleared. Patient has hypokalemia today, she is otherwise stable - Constitutional Vitals: Temp Pulse Resp BP Pulse Ox 97.6 F 102 20 103/51 93 04/29/17 10:43 04/29/17 10:43 04/29/17 10:43 04/29/17 10:43 04/29/17 10:43 General appearance: Present: A&O X 3, morbidly obese, no acute distress, answers questions appropriately - Head Head exam: Present: atraumatic, normocephalic - Eye Eye exam: Present: PERRL, conjuntiva pink, sclera anicteric Pupils: Present: PERRL - Neck Neck exam general surgery: Present: supple, trachea midline. Absent: lymphadenopathy - Respiratory Respiratory exam: Present: CTAB. Absent: accessory muscle use, rales, rhonchi, wheezes - Cardiovascular Cardiovascular exam: Present: RRR, +S1, +S2. Absent: diastolic murmur, gallop, rubs, systolic murmur - GI/Abdominal GI/Abdominal exam: Present: normal bowel sounds, soft, no peritoneal signs. Absent: distended, tenderness - Additional comments: Deferred - Extremities Exam Additional comments: Disuse atrophy and dependent edema - Neurological Exam Neurological exam: Present: alert, CN II-XII intact, oriented X3, no focal deficits. Absent: pronater drift, facial droop, speech deficit Internal Medicine: Result - Labs CBC & Chem 7: 04/28/17 05:05 04/28/17 05:05 - ABG Interpretation ABG results: PT/INR, D-dimer PT 13.7 Seconds (9.4-12.1) H 04/21/17 08:02 - Impressions Impressions Tunnelled Catheter Removal 04/27/17 00:00 IMPRESSION: Successful subcutaneous Port-A-Cath removal D/ / Andres Lee MD / Andres Lee MD Interpreting Provider: Andres Lee MD Chest X-Ray 04/27/17 20:13 IMPRESSION: Interval removal of right MediPort catheter. No evidence of pneumothorax. Mild left basilar atelectasis. D/ / 04/28/2017 07:49:34 Toya Bhardwaj MD / singh Interpreting Provider: Toya Bhardwaj MD Consult Discharge Plan - Plan Referrals: NONE,PCP [Primary Care Provider] -
[2017-04-29] MEDS: Vancomycin 1,250 MG in D5% in Water 250 ML IVPB SCH (15:03)
[2017-04-29] MEDS: Lurasidone 20 MG TABLET PO SCH (22:51)
[2017-04-30] MEDS: *HR* OxyCODONE/APAP 5/325 TABLET PO PRN (00:30)
[2017-04-30] MEDS: Piperacillin/Tazobactam 3.375 GM/200 ML BAG IVPB SCH ×2 (02:52→12:04)
[2017-04-30] MEDS: *HR* Heparin 5,000 UNIT/ML VIAL SQ SCH ×2 (05:29→14:33)
[2017-04-30 06:13] LABS: Basophils % 0.3 %; Eosinophils # 0.1 K/mcL (0.0-0.6); Eosinophils % 1.1 %; Hematocrit 30.4 % (35.3-44.9); Hemoglobin 9.1 g/dL (11.5-15.4); Lymphocytes # 1.2 K/mcL (0.6-4.6); Lymphocytes % 13.3 %; Mean Corpuscular HGB Conc 29.9 g/dL (31.6-35.5); Mean Corpuscular Hemoglobin 27.3 pg (28.0-33.3); Mean Corpuscular Volume 91.3 fL (83.0-100.0); Mean Platelet Volume 10.8 fL (9.4-12.4); Monocytes # 0.9 K/mcL (0.0-1.3); Monocytes % 10.2 %; Neutrophils # 6.6 K/mcL (1.6-8.9); Platelet Count 262 K/mcL (140-400); Red Blood Count 3.33 M/mcL (3.82-4.97); Red Cell Distribution Width 16.2 % (11.5-14.5); Segmented Neutrophils % 74.1 %
[2017-04-30 06:21] LABS: Alanine Aminotransferase 10 Units/L (0-55); Albumin 1.8 g/dL (3.5-5.0); Albumin/Globulin Ratio 0.4 (1.1-2.2); Alkaline Phosphatase 119 Units/L (38-126); Aspartate Amino Transferase 17 Units/L (5-34); BUN/Creatinine Ratio 17 (6-26); Bilirubin,Total 0.3 mg/dL (0.2-1.2); Blood Urea Nitrogen 12 mg/dL (7-20); Calcium 8.5 mg/dL (8.6-10.8); Carbon Dioxide 37 mEq/L (19-29); Chloride 96 mEq/L (98-109); Glucose 154 mg/dL (70-99); Osmolality,Calculated 291 (280-300); Sodium 139 mEq/L (136-145); Total Protein 6.8 g/dL (6.0-8.3); eGFR For African Americans > 60 (> 60); eGFR For Non-African Americans > 60 (> 60)
[2017-04-30] MEDS: Insulin LISPRO 300 UNITS/3 ML VIAL SQ SCH ×2 (08:13→12:05)
[2017-04-30] MEDS: Lactobacillus 1 EACH CAP.SPRINK PO SCH (08:17)
[2017-04-30] MEDS: Multivit/Ca/Min/Fe/FA 1 TAB TABLET PO SCH (08:19)
[2017-04-30] MEDS: Divalproex (24 HR) 500 MG TABLET PO SCH (08:19)
[2017-04-30] MEDS: Gabapentin 100 MG CAPSULE PO SCH (08:20)
[2017-04-30] MEDS: Aspirin Enteric Coated 81 MG Tablet PO SCH (08:20)
[2017-04-30] MEDS: Loratadine 10 MG TABLET PO SCH (08:20)
[2017-04-30] MEDS: Insulin DETEMIR 100 UNIT/ML X5UNITS SQ SCH (09:50)
[2017-04-30] MEDS: Micafungin 100 MG in 0.9 % Sodium Chloride Mini Bag 100 ML IVPB SCH (09:50)
--- NOTE | 2017-04-30 10:21 | Internal Med Progress Note ---
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 transplanted heart: [place] heart Associated angina: without angina Qualified Code(s): I25.10 - Atherosclerotic heart disease of [place] coronary artery without angina pectoris (8) Hypothyroidism Current Visit: Yes Status: Chronic Qualifiers: Hypothyroidism type: unspecified Qualified Code(s): E03.9 - Hypothyroidism , unspecified - Subjective Interval history: Initial encounter HD 12 IN summary: Resident of SNF, with bed bound /wheel chair bound status, Stage IV decubitus ulcer, chronic sacral OM, admitted for management of Sepsis leukocytosis, low- grade fever, tachycardia and lactic acidosis secondary to Stage IV decubitus ulcer infection and Osteomyelitis. Incidentally, she was found to have fungemia , with blood culture growing Susanne galbrata. The previous hospitalist had consulted and discussed with [facility] infectious disease and recommendations were to remove Mediport, repeat blood cultures, and continue micro-fungin for now. IR consulted to remove medi-port, medi-port removed 04/27. Piper Helper consulted noted 04/28, no eye evidence of fungal infection or endophthalmitis As per patient, she has the medi-port due to poor venous access Will need weekly CBC, BUN/Cr, ESR, CRP, and LFTs. Urine culture 04/17 and 04/25, -No growth Wound culture 04/17-MRSA and Strep agalactiae, Strep sensitive to penicillins, MRSA sensitive to Ciprofloxacin, Daptimycin, Docycycline, Linezolic, Rifampin, Vanco Blood culture 04/24: Yeast sp-susanne in one bottle Her repeat blood cultures done on 04/27, no growth. Cathter tip 04/27-No growth Bone biopsy culture-NO growth Today is Day 12 on Vanco and Zosyn Day 3 on Mycofungin ECHO ordered today and is pending Patient has no new complains Infectious disease team at this facility was following the patient, there is currently no services available till 04/29/17 Since patients bone culture is negative, I do not believ she has acute OM, no UTI with 2 negative urine cultures, she does have MRSA and Strep infected wound and is getting Zosyn and Vanco Regarding Fungemia, we will await ECHO reports and Infectious disease recommendation for management Per , patient is able to return to [facility] when medically cleared. Duration of treatment to total 14 days from the first set of negative blood cultures after a -port was removed. Treat through 05/10/17. Monitor renal and liver function closely. Patient has hypokalemia today, she is otherwise stable - Constitutional Vitals: Temp Pulse Resp BP Pulse Ox 97.8 F 88 16 142/65 96 04/30/17 07:24 04/30/17 07:24 04/30/17 07:24 04/30/17 07:24 04/30/17 07:24 General appearance: Present: A&O X 3, morbidly obese, no acute distress, answers questions appropriately Internal Medicine: Result - Labs CBC & Chem 7: 04/30/17 05:46 04/30/17 05:46 Labs: Short CBC 04/30/17 Range/Units 05:46 WBC 8.9 (4.3-11.1) K/mcL Hgb 9.1 L (11.5-15.4) g/dL Hct 30.4 L (35.3-44.9) % Plt Count 262 (140-400) K/mcL Neutrophils # 6.6 (1.6-8.9) K/mcL BMP 04/30/17 05:46 Sodium 139 Potassium 4.0 Chloride 96 L Carbon Dioxide 37 H BUN 12 Creatinine 0.70 Glucose 154 H Calcium 8.5 L Liver Function 04/30/17 Range/Units 05:46 Total Bilirubin 0.3 (0.2-1.2) mg/dL AST 17 (5-34) Units/L ALT 10 (0-55) Units/L Alkaline Phosphatase 119 (38-126) Units/L Albumin 1.8 L (3.5-5.0) g/dL - ABG Interpretation ABG results: PT/INR, D-dimer PT 13.7 Seconds (9.4-12.1) H 04/21/17 08:02 Consult Discharge Plan - Plan Referrals: NONE,PCP [Primary Care Provider] -
--- NOTE | 2017-04-30 11:38 | Infectious Disease Progress No ---
Date of Encounter: 04/30/17 Time of Encounter: 11:36 - Assessment and Plan (1) Leukocytosis Current Visit: Yes Status: Resolved WBC 23.1 on admission. Source not clear: osteomyelitis/wound infection vs. candidemia vs. other. Resolved. Peripheral blood culture drawn 04/17/17 is negative / set. Repeat peripheral blood culture drawn 04/24/17 x 1 set is negative. Blood culture drawn 04/24/17 from the patient's a-port was positive for Susanne glabrata. Qualifiers: Leukocytosis type: unspecified Qualified Code(s): D72.829 - Elevated white blood cell count, unspecified (2) Candidemia Current Visit: Yes Status: Acute True infection vs. contaminant. Peripheral blood culture drawn 04/17/17 is negative 05/17 set. Repeat peripheral blood culture drawn 04/24/17 x 1 set is negative. Blood culture drawn 04/24/17 from the patient's a-port was positive for Susanne glabrata. Clinically, the patient did not meet sepsis criteria and only had leukocytosis, which has resolved. Status post explantation of the a-port. Since we cannot completely rule out a true candidemia, will treat for 14 days. Continue Micafungin 100mg IV daily. Duration of treatment to total 14 days from the first set of negative blood cultures after a-port was removed. Treat through 05/10/17. Monitor renal and liver function closely. Will need weekly CBC, BUN/Cr, ESR, CRP, and LFTs. (3) Osteomyelitis Current Visit: Yes Status: Ruled-out MRI shows findings consistent with osteomyelitis. Status post CT-guided bone biopsy. Culture and pathology negative for OM. Qualifiers: Osteomyelitis type: unspecified type Osteomyelitis location: other site Qualified Code(s): M86.9 - Osteomyelitis, unspecified (4) Pelvic fluid collection Current Visit: Yes Status: Ruled-out Etiology unclear. CT scan done 03/04/17 showed a nonspecific 2.9 x 2.3 cm fluid and gas collection within the rectovesical pouch concerning for post-op seroma vs. abscess vs. hematoma. No additional workup was done. No drainable fluid collection was noted. MRI of the pelvis done during this hospitalization did not show any intra- pelvic fluid collection. (5) Decubitus ulcer of coccygeal region, stage 4 Current Visit: Yes Status: Acute Chronic. Clinically, looks good. ESR >130. CRP 283 on admission. Wound culture positive for MRSA and GBS. MRI of the pelvis shows findings consistent with osteomyelitis of the sacrum, but pathology and bone culture are negative. The patient does have a history of OM back in 2014 for which she was treated by [facility]. Dressing changes per the wound care team's recommendations. Continue Vancomycin IV. Pharmacy to dose. Goal trough approximately 15. Continue Zosyn 3.375 grams IV Q8H. Duration of treatment depends on the clinical picture, but can likely de- escalate to PO antibiotics when ready for discharge (doxycycline and amoxicillin ) to complete a 14 day course. Monitor renal function and for drug toxicity and dose-adjust antibiotics. (6) Cholangiocarcinoma of liver Current Visit: Yes Status: Chronic Status post mircowave ablation in December 2016. Follows with [facility]. (7) Hypertension Current Visit: No Status: Chronic Qualifiers: Hypertension type: essential hypertension Qualified Code(s): I10 - Essential (primary) hypertension (8) Morbid obesity with BMI of 40.0-44.9, adult Current Visit: Yes Status: Chronic - Subjective Interval history: Patient seen and examined. Interim events noted. Patient resting comfortably in bed. Denies any fevers or chills or rigors. Denies any headache or neck pain. Denies any chest pain, shortness of breath, cough. Denies any nausea, vomiting, or constipation. Reports her stools are loose and she has had two BMs this morning. Complains of lower back pain at the site of the decubitus ulcer when she is turned. No additional pain or appetite changes. Denies any oral thrush or new skin lesions. Infect Dis PN-Objective Data - Labs CBC & Chem 7: 04/30/17 05:46 04/30/17 05:46 Labs: Laboratory Results - last 24 hr 04/29/17 04/29/17 04/29/17 07:48 11:54 16:09 WBC RBC Hgb Hct MCV MCH MCHC RDW Plt Count MPV Immature Gran % Seg Neutrophils % Lymphocytes % Monocytes % Eosinophils % Basophils % Neutrophils # Lymphocytes # Monocytes # Eosinophils # Basophils # Sodium Potassium Chloride Carbon Dioxide BUN Creatinine Est GFR ( Amer) Est GFR (Non-Af Amer) BUN/Creatinine Ratio Glucose POC Glucose 154 H 254 H 250 H Calculated Osmolality Calcium Total Bilirubin AST ALT Alkaline Phosphatase Serum Total Protein Albumin Globulin Albumin/Globulin Ratio 04/29/17 04/30/17 04/30/17 20:40 05:46 05:46 WBC 8.9 RBC 3.33 L Hgb 9.1 L Hct 30.4 L MCV 91.3 MCH 27.3 L MCHC 29.9 L RDW 16.2 H Plt Count 262 MPV 10.8 Immature Gran % 1.0 Seg Neutrophils % 74.1 Lymphocytes % 13.3 Monocytes % 10.2 Eosinophils % 1.1 Basophils % 0.3 Neutrophils # 6.6 Lymphocytes # 1.2 Monocytes # 0.9 Eosinophils # 0.1 Basophils # 0.0 Sodium 139 Potassium 4.0 Chloride 96 L Carbon Dioxide 37 H BUN 12 Creatinine 0.70 Est GFR ( Amer) > 60 Est GFR (Non-Af Amer) > 60 BUN/Creatinine Ratio 17 Glucose 154 H POC Glucose 250 H Calculated Osmolality 291 Calcium 8.5 L Total Bilirubin 0.3 AST 17 ALT 10 Alkaline Phosphatase 119 Serum Total Protein 6.8 Albumin 1.8 L Globulin 5.0 H Albumin/Globulin Ratio 0.4 L Cultures: Cultures 04/24/17 08:57 Blood Culture - Final Peripheral Venipuncture No growth. 04/27/17 15:10 Catheter Tip Culture - Final Intravenous or Arterial Cath No growth. 04/24/17 10:52 Blood Culture - Preliminary Port System Yeast Species 04/27/17 12:46 Blood Culture - Preliminary Peripheral Venipuncture No growth. 04/27/17 14:20 Blood Culture - Preliminary Port System No growth. 04/25/17 02:42 Urine Culture - Final Urine,Clean Catch No growth. 04/25/17 02:42 Legionella Antigen - Final Urine,Clean Catch Streptococcus pneumoniae Antigen (M - Final 04/21/17 09:55 Surgical Biopsy Culture - Final Bone Serology 04/28/17 04/27/17 04/24/17 Range/Units 12:45 03:18 10:52 Stool Occult Blood Negative (Negative) Stl C. diff Tox B Gene Negative (Negative) A. baumannii (PCR) Not Detected (Not Detect) Susanne albicans (PCR) Not Detected (Not Detect) C. glabrata (PCR) DETECTED A (Not Detect) C. krusei (PCR) Not Detected (Not Detect) C. parapsilosis (PCR) Not Detected (Not Detect) C. tropicalis (PCR) Not Detected (Not Detect) Enterobacteriac sp PCR Not Detected (Not Detect) E. cloacae complex PCR Not Detected (Not Detect) Enterococcus sp PCR Not Detected (Not Detect) E. coli (PCR) Not Detected (Not Detect) H. influenzae (PCR) Not Detected (Not Detect) Klebsiella oxytoca PCR Not Detected (Not Detect) Klebsiella pneumoniae Not Detected (Not Detect) List. monocytogenes PCR Not Detected (Not Detect) Mycoplasma pneumon IgG (<=0.09) U/L Mycoplasma pneumon IgM (<=0.76) U/L N. meningitidis (PCR) Not Detected (Not Detect) Proteus species (PCR) Not Detected (Not Detect) Serratia marcescens PCR Not Detected (Not Detect) Staphylococcus sp PCR Not Detected (Not Detect) Staph aureus (PCR) Not Detected (Not Detect) mecA-Methicil Res Gene Not Detected (Not Detect) Streptococcus sp PCR Not Detected (Not Detect) Group A Strep DNA Not Detected (Not Detect) Group B Strep (PCR) Not Detected (Not Detect) Strep pneumoniae (PCR) Not Detected (Not Detect) P. aeruginosa (PCR) Not Detected (Not Detect) Wil/B-Vanco Res Genes Not Detected (Not Detect) KPC (blaKPC) Detect PCR Not Detected (Not Detect) 04/24/17 Range/Units 08:57 Stool Occult Blood (Negative) Stl C. diff Tox B Gene (Negative) A. baumannii (PCR) (Not Detect) Susanne albicans (PCR) (Not Detect) C. glabrata (PCR) (Not Detect) C. krusei (PCR) (Not Detect) C. parapsilosis (PCR) (Not Detect) C. tropicalis (PCR) (Not Detect) Enterobacteriac sp PCR (Not Detect) E. cloacae complex PCR (Not Detect) Enterococcus sp PCR (Not Detect) E. coli (PCR) (Not Detect) H. influenzae (PCR) (Not Detect) Klebsiella oxytoca PCR (Not Detect) Klebsiella pneumoniae (Not Detect) List. monocytogenes PCR (Not Detect) Mycoplasma pneumon IgG 0.12 H (<=0.09) U/L Mycoplasma pneumon IgM 0.13 (<=0.76) U/L N. meningitidis (PCR) (Not Detect) Proteus species (PCR) (Not Detect) Serratia marcescens PCR (Not Detect) Staphylococcus sp PCR (Not Detect) Staph aureus (PCR) (Not Detect) mecA-Methicil Res Gene (Not Detect) Streptococcus sp PCR (Not Detect) Group A Strep DNA (Not Detect) Group B Strep (PCR) (Not Detect) Strep pneumoniae (PCR) (Not Detect) P. aeruginosa (PCR) (Not Detect) Wil/B-Vanco Res Genes (Not Detect) KPC (blaKPC) Detect PCR (Not Detect) - Impressions Impressions Echocardiogram 04/29/17 12:29 Impressions: LVEF 50-55%. Mild left ventricular diastolic dysfunction. RV is not well visualized. Borderline mild mitral stenosis - MG 4 mmHg at 103 bpm. Mild-moderate mitral regurgitation. No pulmonary hypertension by TR gradient. Valvular vegetations are not visualized. Left Ventricular Wall Motion: Rest Echo Findings The mid inferior lateral and basal inferior lateral aviles were not visualized. All other wall segments showed normal motion. Findings: Study Quality * Technically sub-optimal due to body habitus. ECG Findings * Probably normal sinus rhythm. Possibly first degree AVB. Left Ventricle * Normal LV size and wall thickness. * Mild left ventricular diastolic dysfunction. * LVEF 50-55%. Right Ventricle * RV is not well visualized. Left Atrium * Normal left atrial size. Right Atrium * Normal right atrial size. Aortic Valve * No aortic regurgitation. * No aortic stenosis. * Trileaflet aortic valve. Mitral Valve * Mild-moderate mitral annular calcification * Mildly thickened mitral valve leaflets. * Borderline mild mitral stenosis - MG 4 mmHg at 103 bpm. * Mild-moderate mitral regurgitation. Tricuspid Valve * Tricuspid valve not well visualized. * Trace tricuspid regurgitation. Pulmonic Valve * Pulmonic valve is not well visualized. * No pulmonic stenosis. * Trace pulmonic regurgitation. Pulmonary Artery * Pulmonary artery not well visualized. Aorta * Not well visualized. Pericardium * There is no pericardial effusion present. Interatrial Septum * Interatrial septum not well evaluated. IVC * The IVC is not well evaluated. Exam - Constitutional Vitals: Temp Pulse Resp BP Pulse Ox 97.8 F 88 16 142/65 96 04/30/17 07:24 04/30/17 07:24 04/30/17 07:24 04/30/17 07:24 04/30/17 07:24 General appearance: cooperative, no acute distress, obese - Head Head exam: Present: atraumatic, normal inspection, normocephalic - Eye Eye exam: Present: EOMI, normal appearance, PERRL Pupils: Present: normal accommodation - ENT ENT exam: Present: mucous membranes moist - Neck Neck exam: Present: normal inspection - Respiratory Respiratory exam: Present: CTAB. Absent: rales, respiratory distress, rhonchi, wheezes - Cardiovascular Cardiovascular exam: Present: RRR, +S1, +S2 - GI/Abdominal GI/Abdominal exam: Present: distended, normal bowel sounds, soft, tenderness ( generalized) Additional comments: Ramos catheter noted to be draining clear yellow urine. - Extremities Exam Extremities exam: Absent: joint swelling, pedal edema, tenderness - Back Exam Additional comments: Stage IV decubitus ulcer noted. Wound bed with 100% granulation. No necrosis, drainage, or foul odor noted. No surrounding erythema appreciated. - Neurological Exam Neurological exam: Present: alert, oriented X3 - Psychiatric Psychiatric exam: Present: normal affect, normal mood - Skin Skin exam: Present: dry, intact, normal color, warm - Additional findings Additional findings: A-port explantation site with dressing C/D/I and non-tender. Consult Discharge Plan - Plan Referrals: NONE,PCP [Primary Care Provider] -
[2017-04-30] MEDS: Vancomycin 1,250 MG in D5% in Water 250 ML IVPB SCH (14:33)
--- NOTE | 2017-04-30 15:06 | Discharge Summary ---
Date of Encounter: 04/30/17 Time of Encounter: 14:59 - Discharge Diagnosis (1) Fungemia Priority: Primary Status: Acute (2) DVT prophylaxis Priority: Primary Status: Acute (3) Decubitus ulcer, stage 4 with infection Priority: Secondary Status: Chronic (4) Severe sepsis Priority: Primary Status: Resolved (5) Diabetes mellitus Priority: Secondary Status: Chronic Qualifiers: Diabetes mellitus type: type 2 Diabetes mellitus complication status: with skin complications Diabetes mellitus complication detail: with other skin ulcer Diabetes mellitus prison insulin use: with prison use Qualified Code(s): E11.622 - Type 2 diabetes mellitus with other skin ulcer; Z79.4 - intermediate designer (current) use of insulin (6) Morbid obesity with BMI of 40.0-44.9, adult Priority: Secondary Status: Chronic (7) CAD (coronary artery disease) Priority: Secondary Status: Chronic Qualifiers: Coronary Disease-Associated Artery/Lesion type: [place] artery [place] vs. transplanted heart: [place] heart Associated angina: without angina Qualified Code(s): I25.10 - Atherosclerotic heart disease of [place] coronary artery without angina pectoris (8) Hypothyroidism Priority: Secondary Status: Chronic Qualifiers: Hypothyroidism type: unspecified Qualified Code(s): E03.9 - Hypothyroidism , unspecified - Discharge Medications Prescriptions: Amoxicillin 500 mg PO Q6H #8 tablet Doxycycline 100 mg PO BID #6 capsule Gabapentin [Neurontin] 100 mg PO QAM #15 capsule Gabapentin [Neurontin] 200 mg PO HS #20 capsule LORazepam [Ativan] 0.5 mg PO BID PRN #10 tablet PRN Reason: Anxiety Oxycodone HCl/Acetaminophen [Percocet 5-325 mg Tablet] 1 each PO Q6H PRN #7 tablet PRN Reason: Pain Home Medications: Omeprazole [PriLOSEC] 20 mg PO QAM 02/04/15 [History] Sennosides/Docusate Sodium [Senna Plus] 8.6 mg PO QAM PRN 02/04/15 [History] Ondansetron HCl [Zofran] 4 mg PO TID PRN 08/17/16 [History] Acidoph/L.bulg/Bif.b/S.thermop [Emilie-Bid Caplet] 2 tab PO DAILY 04/17/17 [ History] Amitriptyline [Elavil] 10 mg PO HS 04/17/17 [History] Aspirin Enteric Coated [Aspirin EC] 81 mg PO DAILY 04/17/17 [History] Bromfenac Sodium 1 drop RIGHT EYE DAILY 04/17/17 [History] Calcium Carbonate/Vitamin D3 [Oyster Shell Calcium-Vit D Tab] 1 tab PO DAILY 07/03 [History] Insulin Aspart Prot/Insuln Asp [Novolog Mix 70-30 Vial] 45 unit SQ HS 04/17/17 [ History] Insulin Aspart Prot/Insuln Asp [Novolog Mix 70-30 Vial] 56 unit SQ QAM 04/17/17 [History] Magnesium Oxide [Mag-Ox] 400 mg PO BID 04/17/17 [History] Metoprolol [Lopressor] 12.5 mg PO BID 04/17/17 [History] Oxygen 2 l .ROUTE AD 04/17/17 [History] Potassium Chloride [Klor-Con 10] 10 meq PO DAILY 04/17/17 [History] Sertraline [Zoloft] 125 mg PO DAILY 04/17/17 [History] Simvastatin [Zocor] 40 mg PO DAILY 04/17/17 [History] Acetaminophen [Tylenol] 650 mg PO Q6HR PRN tablet 04/30/17 [Rx] Amoxicillin 500 mg PO Q6H #8 tablet 04/30/17 [Rx] Cholecalciferol (D-3) [Vitamin D] 500 unit PO DAILY tablet 04/30/17 [Rx] Divalproex (24 HR) [Depakote ER (24 HR)] 500 mg PO BID tab.er.24h 04/30/17 [Rx] Doxycycline 100 mg PO BID #6 capsule 04/30/17 [Rx] Gabapentin [Neurontin] 100 mg PO QAM #15 capsule 04/30/17 [Rx] Gabapentin [Neurontin] 200 mg PO HS #20 capsule 04/30/17 [Rx] LORazepam [Ativan] 0.5 mg PO BID PRN #10 tablet 04/30/17 [Rx] Loratadine [Claritin] 10 mg PO DAILY tablet 04/30/17 [Rx] Multivit/Ca/Min/Fe/FA [Thera M Plus] 1 tab PO DAILY tablet 04/30/17 [Rx] Oxycodone HCl/Acetaminophen [Percocet 5-325 mg Tablet] 1 each PO Q6H PRN #7 tablet 04/30/17 [Rx] Sodium Hypochlorite 0.25% [Dakin's (Half-Strength 0.25%)] 1 appl TP BID bottle 04/30/17 [Rx] fluvoxaMINE [Luvox] 150 mg PO HS tablet 04/30/17 [Rx] Allergies/Adverse Reactions: 3 Allergy/AdvReac Type Severity Reaction Status Date / Time rosuvastatin [From Crestor] Allergy Hives Verified 03/15/17 10:51 ciprofloxacin AdvReac Itching Verified 03/15/17 10:51 Hydromorphone [From Dilaudid] AdvReac Difficulty Verified 03/15/17 10:51 Breathing Procedures/tests Complete & Pending: Procedures Performed prior 72 hours Category Date Time Status ECG 12 lead ECG [ECG] AM 0600 Y 04/28/17 06:00 Ordered ECG 12 lead ECG [ECG] AM 0600 Y 04/29/17 06:00 Ordered EV echocardiogram Routine Y 04/29/17 12:29 Completed Date of admission: 04/17/17 14:58 Primary care physician: PCP NONE Consults: 04/18/17 17:32 Consult to Infectious Diseases [CONS] Routine Consulting Provider: [facility] [place] Reason for Consult: Infected sacral decubitus ulcer, stage IV Call Completed: No 04/20/17 16:21 Consult to Interventional Radiology [CONS] Routine Consulting Provider: Radiology [facility] [place] Reason for Consult: Bone culture/biopsy. Osteomyelitis in stage 4 decub ulcer Call Completed: No 04/27/17 07:44 Consult to Infectious Diseases [CONS] Routine Consulting Provider: [facility] [place] Reason for Consult: newly discovered Jose D glabrata Call Completed: Yes 04/27/17 12:13 Consult to Interventional Radiology [CONS] Routine Consulting Provider: Radiology [facility] Reason for Consult: + blood cx from right port. Discussed with [facility] ID service who recommends port be removed Call Completed: Yes 04/28/17 08:03 Consult to Wound Care [CONS] Routine Reason for Consult: wound from aport removal Call Completed: No 04/28/17 16:02 Consult to Physician [CONS] Routine Consulting Provider: Adi Bradley Reason for Consult: Ophthalmology exam Call Completed: Yes Discharging clinician: Maikol Beth Anticipated date of discharge: 04/30/17 - Patient Status Disposition: Transfer SNF Condition: Fair Functional capacity at discharge: bed bound Overall status at discharge: patient is progressing back to baseline - Discharge Instructions Follow Up With: NONE,PCP [Primary Care Provider] - - Diet and Activity Activity: resume usual activities as tolerated Diet: diabetic diet, other (Ensure ) Interval History: See below Hospital course: Discharge summary Resident of [facility], with bed bound /wheel chair bound status, Stage IV decubitus ulcer, chronic sacral OM, admitted for management of Sepsis leukocytosis, low- grade fever, tachycardia and lactic acidosis secondary to Stage IV decubitus ulcer infection and Osteomyelitis. Incidentally, she was found to have fungemia , with blood culture growing Jose D galbrata. The previous hospitalist had consulted and discussed with [facility] infectious disease and recommendations were to remove Mediport, repeat blood cultures, and continue micro-fungin for now. IR consulted to remove medi-port, medi-port removed 04/27. Curing Pickling Packer consulted noted 04/28, no eye evidence of fungal infection or endophthalmitis As per patient, she has the medi-port due to poor venous access Work up since admission in summary Urine culture 04/17 and 04/25, -No growth Wound culture 04/17-MRSA and Strep agalactiae, Strep sensitive to penicillins, MRSA sensitive to Ciprofloxacin, Daptimycin, Docycycline, Linezolic, Rifampin, Vanco Blood culture 04/24: Yeast sp-jose d in one bottle Her repeat blood cultures done on 04/27, no growth. Cathter tip 04/27-No growth Bone biopsy culture-NO growth Today is Day 13 on Vanco and Zosyn Day 4 on Mycofungin ECHO ordered 04/29 and showed no vegetations. Patient seen and examined at bedside this morning, has no new complains Infectious disease team at this facility was following the patient, recommendation for Duration of treatment is total 14 days from the first set of negative blood cultures after a-port was removed. Treat through 05/10/17. We will discharge on amocicillin and doxycyline for 3 more days to complete 15 days of antibiotic therapy for her stage IV sacral decubitus ulcer Monitor renal and liver function closely. Safe to be transferred back to SNF - Time Spent with Patient Total time spent providing and/or coordinating discharge services: Greater than 30 minutes (60 minutes only.) - Constitutional Vitals: Temp Pulse Resp BP Pulse Ox 97.6 F 95 16 130/63 97 04/30/17 12:04 04/30/17 12:04 04/30/17 12:04 04/30/17 12:04 04/30/17 12:04 General appearance: Present: A&O X 3, morbidly obese, no acute distress, answers questions appropriately - Head Head exam: Present: atraumatic, normocephalic - Eye Eye exam: Present: PERRL, conjuntiva pink, sclera anicteric Pupils: Present: PERRL - Neck Neck exam general surgery: Present: supple, trachea midline. Absent: lymphadenopathy - Respiratory Respiratory exam: Present: CTAB. Absent: accessory muscle use, rales, rhonchi, wheezes - Cardiovascular Cardiovascular exam: Present: RRR, +S1, +S2. Absent: diastolic murmur, gallop, rubs, systolic murmur - Additional comments: Stage IV decubitus ulcer noted. Wound bed with 100% granulation. No necrosis, drainage, or foul odor noted. No surrounding erythema appreciated. Ramos up with clear urine - Extremities Exam Extremities exam: Absent: calf tenderness, cyanotic, pedal edema Additional comments: Disuse atrophy. Contractures of ankles, no n-piting edema, dependent - Neurological Exam Neurological exam: Present: alert, CN II-XII intact, oriented X3, no focal deficits. Absent: pronater drift, facial droop, speech deficit - Skin Skin exam: Present: dry, intact
[2017-04-30 15:09] VITALS: BP 113/59
--- NOTE | 2017-04-30 15:14 | Physician Discharge Referral ---
ExtendedCare Referral Info Transfer To: [facility] Provider in Charge: Primitivo Beth Provider in Charge after Transfer: PCP Institutional Level of Care: Skilled - Diagnosis (1) Fungemia Priority: Primary Status: Acute (2) DVT prophylaxis Priority: Primary Status: Acute (3) Decubitus ulcer, stage 4 with infection Priority: Secondary Status: Chronic (4) Severe sepsis Priority: Primary Status: Resolved (5) Diabetes mellitus Priority: Secondary Status: Chronic (6) Morbid obesity with BMI of 40.0-44.9, adult Priority: Secondary Status: Chronic (7) CAD (coronary artery disease) Status: Chronic (8) Hypothyroidism Priority: Secondary Status: Chronic Prognosis: Fair Aware of Diagnosis: Patient Aware of Prognosis: Patient - Transfer Medications Prescriptions: Amoxicillin 500 mg PO Q6H #8 tablet Doxycycline 100 mg PO BID #6 capsule Gabapentin [Neurontin] 100 mg PO QAM #15 capsule Gabapentin [Neurontin] 200 mg PO HS #20 capsule LORazepam [Ativan] 0.5 mg PO BID PRN #10 tablet PRN Reason: Anxiety Oxycodone HCl/Acetaminophen [Percocet 5-325 mg Tablet] 1 each PO Q6H PRN #7 tablet PRN Reason: Pain Home Medications: Omeprazole [PriLOSEC] 20 mg PO QAM 02/04/15 [History] Sennosides/Docusate Sodium [Senna Plus] 8.6 mg PO QAM PRN 02/04/15 [History] Ondansetron HCl [Zofran] 4 mg PO TID PRN 08/17/16 [History] Acidoph/L.bulg/Bif.b/S.thermop [Emilie-Bid Caplet] 2 tab PO DAILY 04/17/17 [ History] Amitriptyline [Elavil] 10 mg PO HS 04/17/17 [History] Aspirin Enteric Coated [Aspirin EC] 81 mg PO DAILY 04/17/17 [History] Bromfenac Sodium 1 drop RIGHT EYE DAILY 04/17/17 [History] Calcium Carbonate/Vitamin D3 [Oyster Shell Calcium-Vit D Tab] 1 tab PO DAILY 07/03 [History] Insulin Aspart Prot/Insuln Asp [Novolog Mix 70-30 Vial] 45 unit SQ HS 04/17/17 [ History] Insulin Aspart Prot/Insuln Asp [Novolog Mix 70-30 Vial] 56 unit SQ QAM 04/17/17 [History] Magnesium Oxide [Mag-Ox] 400 mg PO BID 04/17/17 [History] Metoprolol [Lopressor] 12.5 mg PO BID 04/17/17 [History] Oxygen 2 l .ROUTE AD 04/17/17 [History] Potassium Chloride [Klor-Con 10] 10 meq PO DAILY 04/17/17 [History] Sertraline [Zoloft] 125 mg PO DAILY 04/17/17 [History] Simvastatin [Zocor] 40 mg PO DAILY 04/17/17 [History] Acetaminophen [Tylenol] 650 mg PO Q6HR PRN tablet 04/30/17 [Rx] Amoxicillin 500 mg PO Q6H #8 tablet 04/30/17 [Rx] Cholecalciferol (D-3) [Vitamin D] 500 unit PO DAILY tablet 04/30/17 [Rx] Divalproex (24 HR) [Depakote ER (24 HR)] 500 mg PO BID tab.er.24h 04/30/17 [Rx] Doxycycline 100 mg PO BID #6 capsule 04/30/17 [Rx] Gabapentin [Neurontin] 100 mg PO QAM #15 capsule 04/30/17 [Rx] Gabapentin [Neurontin] 200 mg PO HS #20 capsule 04/30/17 [Rx] LORazepam [Ativan] 0.5 mg PO BID PRN #10 tablet 04/30/17 [Rx] Loratadine [Claritin] 10 mg PO DAILY tablet 04/30/17 [Rx] Multivit/Ca/Min/Fe/FA [Thera M Plus] 1 tab PO DAILY tablet 04/30/17 [Rx] Oxycodone HCl/Acetaminophen [Percocet 5-325 mg Tablet] 1 each PO Q6H PRN #7 tablet 04/30/17 [Rx] Sodium Hypochlorite 0.25% [Dakin's (Half-Strength 0.25%)] 1 appl TP BID bottle 04/30/17 [Rx] fluvoxaMINE [Luvox] 150 mg PO HS tablet 04/30/17 [Rx] Allergies/Adverse Reactions: 3 Allergy/AdvReac Type Severity Reaction Status Date / Time rosuvastatin [From Crestor] Allergy Hives Verified 03/15/17 10:51 ciprofloxacin AdvReac Itching Verified 03/15/17 10:51 Hydromorphone [From Dilaudid] AdvReac Difficulty Verified 03/15/17 10:51 Breathing - Respiratory Orders Oxygen / L per min (2-3 L per minute) Smoking Cessation: Smoking cessation has been advised. For more information, call the [place] Tobacco Quit Line at 0-571-NTLA-NOW. - Lab Orders Lab Orders: CBC (weekly), Other (include drug levels w/frequency) ( Weekly BUN/ Cr, ESR, CRP and LFTs) - Advance Directives Code Status: DNR-Arrest/Don't Intubate - Diet Orders No Concentrated Sweets House Supplement per Dietary: Ensure High PRo TID, chocolate CERTIFICATION: I certify that the transfer of the above named patient to an Extended Care Facility is necessary for the continuing treatment of the diagnosis listed. The above information is true and accurate reflection of patient's current condition. Confidential - Redisclosure prohibited without a patient's written consent.
[2017-04-30] MEDS ORDERED: Aminoglycoside Consult 1 EACH MC ONE (16:47)
== END 2017-04-30 16:48 | DRG 987 ==
LOC: 3BNU 08:06 → EMEROO 08:06 → 3BNU 12:50 → SUATTDRO 14:58
PROVIDERS: ADMIT Nurse Practitioner; ATTEND Internal Medicine

== ENCOUNTER 2017-05-28 14:43 | Inpatient (IN) ==
[2017-05-28] MEDS ORDERED: Lidocaine Jelly 6ml 1 APPL/6 ML JEL.PF.APP TP ONE (15:36)
--- NOTE | 2017-05-28 15:40 | Emergency Department Note ---
Disposition Clinical Impression: Ramos catheter problem Qualifiers: Encounter type: initial encounter Qualified Code(s): T83.9XXA - Unspecified complication of genitourinary prosthetic device, implant and graft, initial encounter Sacral decubitus ulcer Qualifiers: Pressure ulcer stage: unspecified pressure ulcer stage Qualified Code(s): L89.159 - Pressure ulcer of sacral region, unspecified stage Disposition: Admitted As Inpatient Condition: Fair Referrals: NONE,PCP [Primary Care Provider] - Forms: ED Satisfaction Letter Time of Disposition: 17:25 Female Urogenital HPI - General Chief complaint: ED Urogenital-Female Stated complaint: Cant void Time Seen by Provider: 05/28/17 15:16 Source: patient, family, EMS Mode of arrival: EMS Limitations: no limitations Nursing Notes Reviewed: Yes Vital Signs Reviewed: Yes - History of Present Illness HPI Narrative: 76-year-old female who is a resident of custodial has large sacral decubitus. She had a Ramos catheter placed to divert the urine from going over the sacral decubitus and apparently she had decreased urine output. She states that she thinks there may be clots in her bladder which she's had no past. Says a lot of pain in the region. 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 Radiation: non-radiating Severity: moderate Improves with: none Urinary Symptoms: difficulty urinating - Related Data Home Medications Medication Instructions Recorded Confirmed Omeprazole [PriLOSEC] 20 mg PO QAM 02/04/15 05/25/17 Sennosides/Docusate Sodium [Senna 8.6 mg PO QAM PRN 02/04/15 05/25/17 Plus] Acidoph/L.bulg/Bif.b/S.thermop 2 tab PO DAILY 04/17/17 04/17/17 [Emilie-Bid Caplet] Amitriptyline [Elavil] 10 mg PO HS 04/17/17 05/25/17 Aspirin Enteric Coated [Aspirin EC] 81 mg PO DAILY 04/17/17 05/25/17 Bromfenac Sodium 1 drop RIGHT EYE DAILY 04/17/17 05/25/17 Insulin Aspart Prot/Insuln Asp 46 unit SQ HS 04/17/17 05/25/17 [Novolog Mix 70-30 Vial] Insulin Aspart Prot/Insuln Asp 56 unit SQ QAM 04/17/17 05/25/17 [Novolog Mix 70-30 Vial] Magnesium Oxide [Mag-Ox] 400 mg PO BID 04/17/17 05/25/17 Metoprolol [Lopressor] 12.5 mg PO BID 04/17/17 05/25/17 Sertraline [Zoloft] 125 mg PO DAILY 04/17/17 05/25/17 Acidoph/L.bulg/Bif.b/S.thermop 1 each PO DAILY 05/25/17 05/25/17 [Emilie-Bid Caplet] Calcium Carbonate/Vitamin D3 1 each PO DAILY 05/25/17 05/25/17 [Oyster Shell 250 mg + Vit D Tb] Calcium Polycarbophil [Fiber 625 mg PO DAILY 05/25/17 05/25/17 Laxative] Colestipol HCl [Colestid] 2 gm PO DAILY 05/25/17 05/25/17 Previous Rx's Medication Instructions Recorded Acetaminophen [Tylenol] 650 mg PO Q6HR PRN tablet 04/30/17 Divalproex (24 HR) [Depakote ER 500 mg PO BID tab.er.24h 04/30/17 (24 HR)] Gabapentin [Neurontin] 100 mg PO QAM #15 capsule 04/30/17 Gabapentin [Neurontin] 200 mg PO HS #20 capsule 04/30/17 LORazepam [Ativan] 0.5 mg PO BID PRN #10 tablet 04/30/17 Oxycodone HCl/Acetaminophen 1 each PO Q6H PRN #7 tablet 04/30/17 [Percocet 5-325 mg Tablet] Allergies Allergy/AdvReac Type Severity Reaction Status Date / Time rosuvastatin [From Crestor] Allergy Hives Verified 03/15/17 10:51 ciprofloxacin AdvReac Itching Verified 03/15/17 10:51 Hydromorphone [From Dilaudid] AdvReac Difficulty Verified 03/15/17 10:51 Breathing All systems ED: reviewed and negative except as stated. Constitutional: Denies: fever, chills, weakness, weight change Eyes: Denies: eye pain, eye discharge, vision change ENT ED: Denies: ear pain, throat pain, dental pain, hearing loss, epistaxis, congestion, dysphagia Cardiovascular: Denies: chest pain, palpitations, dyspnea on exertion, edema, syncope Respiratory: Denies: cough, dyspnea, wheezes, hemoptysis, stridor Gastrointestinal: Denies: abdominal pain, nausea, vomiting, diarrhea, constipation, hematemesis, melena, hematochezia Genitourinary: Reports: other (Critical decubitus with perineal pain secondary to decubitus skin irritation). Denies: dysuria, frequency, hematuria, discharge Musculoskeletal: Denies: back pain, neck pain, arthralgia, myalgia Integumentary: Denies: rash, abrasion, lesions Neurological: Denies: headache, weakness, numbness, paresthesias, confusion, abnormal gait, vertigo Psychiatric: Denies: anxiety, depression, suicidal thoughts, homicidal thoughts , auditory hallucinations, visual hallucinations Endocrine: Denies: fatigue Hematological/Lymphatic: Denies: easy bleeding, easy bruising Allergic/Immunologic: Denies: facial swelling, urticaria Past Medical History - Past Medical History Medical history: Reports: cancer, diabetes, hypertension, myocardial infarction , thyroid disease, other Surgical history: Reports: appendectomy, , cataract, cholecystectomy, herniorrhaphy, orthopedic, other, SHONDA/BSO, other Psychiatric history: Reports: anxiety, depression - Social History Smoking Status: Former smoker Smokeless Tobacco Status: No Alcohol use: Reports: rarely Drug use: Reports: none Physical Exam - General Limitations: no limitations General appearance: alert, in no apparent distress - Head Head exam: atraumatic, normocephalic, normal inspection - Eye Eye exam: Present: normal appearance, PERRL, EOMI - ENT ENT exam: normal exam, normal oropharynx, mucous membranes moist - Neck Neck exam: Present: normal inspection, full ROM, trachea midline - Chest Chest inspection: Present: normal inspection, symmetric chest wall rise - Respiratory Respiratory exam: Present: normal lung sounds bilaterally - Cardiovascular Cardiovascular exam: Present: regular rate, normal rhythm, normal heart sounds - Rectal Exam Rectal exam: Present: other (Sent large sacral decubitus stage IV.) - Extremities Exam Extremities exam: Present: normal inspection, full ROM. Absent: tenderness, pedal edema - Expanded Lower Extremity Exam Neurovascular/Tendon exam: Absent: motor deficit, sensory deficit, tendon deficit Gait: not tested/not observed - Back Exam Back exam: Present: normal inspection - Neurological Exam Neurological exam: Present: alert - Psychiatric Psychiatric exam: Present: normal affect - Skin Skin exam: Present: warm, dry, normal color Course - Reevaluation(s) Reevaluation #1: 76-year-old who had a Ramos displaced at the custodial is concerned that she had blood clots in her bladder that prevented the Ramos from working. A three- way Ramos was inserted and irrigated it was clear. Patient has appointment next week with the wound care doctor. She is being followed for that and that's the reason for the Ramos. The patient's urine showed too numerous to count white cells too numerous to count red cells . We'll send for culture. This may be related to a chronic indwelling Ramos. However the patient states she has run a fever today. We will admit. The patient's last urine culture that was positive grew out Escherichia coli sensitive to ceftriaxone. Time: 17:15 - Consultations Consultation #1: Discussed with Dr. Field, admit. Time: 17:26 Vital Signs Temperature 98.0 F 05/28/17 14:43 Pulse Rate 86 05/28/17 14:43 Respiratory Rate 18 05/28/17 14:43 Blood Pressure 129/57 05/28/17 14:43 O2 Sat by Pulse Oximetry 94 05/28/17 14:43 Temperature 98.0 F 05/28/17 14:43 Pulse Rate 86 05/28/17 14:43 Respiratory Rate 18 05/28/17 14:43 Blood Pressure 129/57 05/28/17 14:43 O2 Sat by Pulse Oximetry 94 05/28/17 14:43 Oxygen Delivery Oxygen Delivery Nasal Cannula Urogenital-Female - Lab Data Result diagrams: 05/28/17 16:26 05/28/17 16:26 Lab Results 05/28/17 05/28/17 05/28/17 Range/Units 16:00 16:26 16:26 WBC 15.1 H (4.3-11.1) K/mcL RBC 3.81 L (3.82-4.97) M/mcL Hgb 10.5 L (11.5-15.4) g/dL Hct 33.8 L (35.3-44.9) % MCV 88.7 (83.0-100.0) fL MCH 27.6 L (28.0-33.3) pg MCHC 31.1 L (31.6-35.5) g/dL RDW 16.7 H (11.5-14.5) % Plt Count 285 (140-400) K/mcL MPV 10.4 (9.4-12.4) fL Immature Gran % 0.5 (0-4) % Seg Neutrophils % 82.4 % Lymphocytes % 9.6 % Monocytes % 7.3 % Eosinophils % 0.1 % Basophils % 0.1 % Neutrophils # 12.5 H (1.6-8.9) K/mcL Lymphocytes # 1.5 (0.6-4.6) K/mcL Monocytes # 1.1 (0.0-1.3) K/mcL Eosinophils # 0.0 (0.0-0.6) K/mcL Basophils # 0.0 (0.0-0.2) K/mcL Immature Plt Fraction 6.6 H (1.1-6.1) % Sodium 135 L (136-145) mEq/L Potassium 3.3 L (3.5-5.1) mEq/L Chloride 98 (98-107) mEq/L Carbon Dioxide 31 H (23-29) mEq/L BUN 16 (8-23) mg/dL Creatinine 0.51 L (0.60-1.20) mg/dL Est GFR ( Amer) > 60 (> 60) Est GFR (Non-Af Amer) > 60 (> 60) BUN/Creatinine Ratio 31 H (6-26) Glucose 89 (70-105) mg/dL Calculated Osmolality 281 (280-300) Calcium 8.8 (8.6-10.3) mg/dL Urine Color Red A (Yellow) Urine Clarity Cloudy A (Clear) Urine pH 6.0 (5.0-8.0) pH Units Ur Specific [place] 1.024 (1.010-1.025) Urine Protein 100 H (Neg-Trace) mg/dL Urine Glucose (UA) Normal (Normal) mg/dL Urine Ketones Trace H (Negative) mg/dL Urine Blood Large H (Negative) Urine Nitrite Negative (Negative) Urine Bilirubin Small H (Negative) Urine Urobilinogen Normal (Normal) mg/dL Ur Leukocyte Esterase Moderate H (Negative) Urine Microscopic RBC TNTC H (0-3) per hpf Urine Microscopic WBC TNTC H (0-3) per hpf Ur Squamous Epith Cells Moderate H (None-Few) per lpf Urine Bacteria None Seen (None-Few) per hpf Hyaline Casts Few (None-Few) per lpf Ur Culture Indicated? YES A (NO)
[2017-05-28 16:26] LABS: Bilirubin,Urine Small (Negative); Blood,Urine Large (Negative); Clarity,Urine Cloudy (Clear); Color,Urine Red (Yellow); Glucose,Urine (UA) Normal (Normal); Ketones,Urine Trace mg/dL (Negative); Leukocyte Esterase,Urine Moderate (Negative); Nitrite,Urine Negative (Negative); Protein,Urine 100 mg/dL (Neg-Trace); Specific Gravity,Urine 1.024 (1.010-1.025); Urobilinogen,Urine Normal (Normal)
[2017-05-28 16:27] LABS: Bacteria,Urine None Seen per hpf (None-Few); Hyaline Casts,Urine Few per lpf (None-Few); RBC,Urine TNTC per hpf (0-3); Squamous Epithelial Cell,Urine Moderate per lpf (None-Few); WBC,Urine TNTC per hpf (0-3)
[2017-05-28 16:34] LABS: Basophils % 0.1 %; Eosinophils % 0.1 %; Hematocrit 33.8 % (35.3-44.9); Hemoglobin 10.5 g/dL (11.5-15.4); Immature Granulocytes % 0.5 % (0-4); Immature Platelets 6.6 % (1.1-6.1); Lymphocytes # 1.5 K/mcL (0.6-4.6); Lymphocytes % 9.6 %; Mean Corpuscular HGB Conc 31.1 g/dL (31.6-35.5); Mean Corpuscular Hemoglobin 27.6 pg (28.0-33.3); Mean Corpuscular Volume 88.7 fL (83.0-100.0); Mean Platelet Volume 10.4 fL (9.4-12.4); Monocytes # 1.1 K/mcL (0.0-1.3); Monocytes % 7.3 %; Neutrophils # 12.5 K/mcL (1.6-8.9); Platelet Count 285 K/mcL (140-400); Red Blood Count 3.81 M/mcL (3.82-4.97); Red Cell Distribution Width 16.7 % (11.5-14.5); Segmented Neutrophils % 82.4 %
[2017-05-28 16:51] LABS: BUN/Creatinine Ratio 31 (6-26); Blood Urea Nitrogen 16 mg/dL (8-23); Calcium 8.8 mg/dL (8.6-10.3); Carbon Dioxide 31 mEq/L (23-29); Chloride 98 mEq/L (98-107); Glucose 89 mg/dL (70-105); Osmolality,Calculated 281 (280-300); Potassium 3.3 mEq/L (3.5-5.1); Sodium 135 mEq/L (136-145); eGFR For African Americans > 60 (> 60); eGFR For Non-African Americans > 60 (> 60)
[2017-05-28] MEDS ORDERED: cefTRIAXone 1,000 MG in Water for inj. (sterile) 10 ML IVP ONE (17:25)
--- NOTE | 2017-05-28 21:42 | Internal Med History&Physical ---
<Haylee Mesa-Nyla - Last Filed: 05/28/17 23:20> Date of Encounter: 05/28/17 Time of Encounter: 21:35 Assessment and Plan (1) Catheter-associated urinary tract infection Current visit: Yes Status: Acute UTI most likely secondary to the indwelling guzmán catheter. Patient has indwelling guzmán catheter since first week of April 2017. Per nurse, the guzmán cathether was changed in the ED. UA showed red, cloudy urine with large amount of blood and moderate leukocytes esterase. Negative for nitrates. Urine culture was ordered in the ED. Will treat the patient for UTI with ceftriaxone until urine culture indicate specific specimen. Will give fluids as well to hydrate the patient Qualifiers: Qualified Code(s): T83.511A - Infection and inflammatory reaction due to indwelling urethral catheter, initial encounter; N39.0 - Urinary tract infection , site not specified; N39.0 - Urinary tract infection, site not specified (2) Indwelling Guzmán catheter present Current visit: Yes Status: Acute Patient is in no acute distress. Patient is afebrile. Patient stated that she has had the guzmán catheter placed in the first week of April 2017 in order to prevent the urine from worsening her sacral decubitus ulcer. UA showed red, cloudy urine with large amount of blood and moderate leukocytes esterase. Negative for nitrates. Urine culture was ordered in the ED. Will treat the patient for UTI with ceftriaxone until urine culture indicate specific specimen. (3) Diabetes mellitus Current visit: No Status: Chronic Will continue home medications and place patient on ADA diet and insulin sliding scale. Will continue to monitor the patient closely. 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 From my quick examination due to patient's unwillingness to participate, the decubitus ulcer is erythematous but it does not appear infected at this time. There is no purulent discharge at this time. Will provide appropriate local wound care. Will continue to monitor the patient closely. (6) Hypertension Current visit: Yes Status: Chronic Will continue to monitor the patient closely. Will continue home medications. Qualifiers: Hypertension type: essential hypertension Qualified Code(s): I10 - Essential (primary) hypertension Internal Medicine - H&P: HPI Chief complaint: UTI Admitted From: Emergency Dept History of present illness: Ms. Camacho is a 76 year old female with a past medical history of cancer, diabetes, HTN, and NH who presented to the ED from the skilled nursing complaining of a urinary tract infection. Patient stated that she began having suprapubic pain this morning and "knew I had a urinary tract infection". She admits she has a history of UTI and stated that this was similar to it. She stated that the suprapubic pain began today and is worse with movement and improves with rest. She denies any radiation of the pain. She admits a low grade fever of 99.8, hematuria, dysuria, decrease in urine output, and increase in urinary frequency. She has had a guzmán catheter in place since the first week of April 2017 in order to avoid urinating on her sacral decubitus ulcer, which per patient, has been present for 6-7 years. She states that she does follow up with a wound doctor for her sacral decubitus ulcer. Per patient, her decubitus ulcer has not worsened and is not painful at this time. She denies any headache, vision changes, chest pain, shortness of breath, difficulty breathing, abdominal pain, diarrhea, blood in stool, numbness or tingling, and any weaknesses. Past Med Surg Social Fam HX - Past Medical History Medical history: cancer, diabetes, hypertension, myocardial infarction, thyroid disease, other Psychiatric history: anxiety, depression - Past Surgical History Surgical History: appendectomy, , cataract, cholecystectomy, herniorrhaphy, orthopedic, other, SHONDA/BSO, other - Social History Smoking Status: Former smoker Smokeless Tobacco Status: No Alcohol use: rarely Drug use: none - Family History Father Living Status: Mother Adopted: No Living Status: Hx Family Cardiac Disorders: Yes Hx Family Respiratory Disorders: Yes (copd) Hx Family Endocrine Disorder: Yes (Diabetes) Internal Medicine - H&P: Meds Omeprazole [PriLOSEC] 20 mg PO QAM 02/04/15 [History] Sennosides/Docusate Sodium [Senna Plus] 8.6 mg PO QAM PRN 02/04/15 [History] Acidoph/L.bulg/Bif.b/S.thermop [Emilie-Bid Caplet] 2 tab PO DAILY 04/17/17 [ History] Amitriptyline [Elavil] 10 mg PO HS 04/17/17 [History] Aspirin Enteric Coated [Aspirin EC] 81 mg PO DAILY 04/17/17 [History] Bromfenac Sodium 1 drop RIGHT EYE DAILY 04/17/17 [History] Insulin Aspart Prot/Insuln Asp [Novolog Mix 70-30 Vial] 46 unit SQ HS 04/17/17 [ History] Insulin Aspart Prot/Insuln Asp [Novolog Mix 70-30 Vial] 56 unit SQ QAM 04/17/17 [History] Magnesium Oxide [Mag-Ox] 400 mg PO BID 04/17/17 [History] Metoprolol [Lopressor] 12.5 mg PO BID 04/17/17 [History] Sertraline [Zoloft] 125 mg PO DAILY 04/17/17 [History] Acetaminophen [Tylenol] 650 mg PO Q6HR PRN tablet 04/30/17 [Rx] Divalproex (24 HR) [Depakote ER (24 HR)] 500 mg PO BID tab.er.24h 04/30/17 [Rx] Gabapentin [Neurontin] 100 mg PO QAM #15 capsule 04/30/17 [Rx] Gabapentin [Neurontin] 200 mg PO HS #20 capsule 04/30/17 [Rx] LORazepam [Ativan] 0.5 mg PO BID PRN #10 tablet 04/30/17 [Rx] Oxycodone HCl/Acetaminophen [Percocet 5-325 mg Tablet] 1 each PO Q6H PRN #7 tablet 04/30/17 [Rx] Acidoph/L.bulg/Bif.b/S.thermop [Emilie-Bid Caplet] 1 each PO DAILY 05/25/17 [ History] Calcium Carbonate/Vitamin D3 [Oyster Shell 250 mg + Vit D Tb] 1 each PO DAILY [History] Calcium Polycarbophil [Fiber Laxative] 625 mg PO DAILY 05/25/17 [History] Colestipol HCl [Colestid] 2 gm PO DAILY 05/25/17 [History] 3 Allergy/AdvReac Type Severity Reaction Status Date / Time rosuvastatin [From Crestor] Allergy Hives Verified 03/15/17 10:51 ciprofloxacin AdvReac Itching Verified 03/15/17 10:51 Hydromorphone [From Dilaudid] AdvReac Difficulty Verified 03/15/17 10:51 Breathing All Systems PM: A 10-system review of systems was performed and is negative for pertinent findings except as documented above in the HPI. - Constitutional Vitals: Temp Pulse Resp BP Pulse Ox 98.4 F 105 18 143/75 92 05/28/17 20:27 05/28/17 20:27 05/28/17 20:27 05/28/17 20:27 05/28/17 20:27 General appearance: Present: A&O X 3, obese. Absent: pleasant, no acute distress Exam: Patient was not pleasant to me or the nurse who assisted me in examining her sacral ulcer. The patient answered some questions and refused to answer other questions because she was "frustrated that the other doctors asked the questions already". During my examination, she told me to "go away now. leave me alone." - Head Head exam: Present: atraumatic, normocephalic - Eye Eye exam: Present: PERRL, conjuntiva pink, sclera anicteric Pupils: Present: PERRL - Neck Neck exam general surgery: Present: supple, trachea midline. Absent: lymphadenopathy - Respiratory Respiratory exam: Present: CTAB. Absent: accessory muscle use, rales, rhonchi, wheezes - Cardiovascular Cardiovascular exam: Present: RRR, +S1, +S2. Absent: diastolic murmur, gallop, rubs, systolic murmur - GI/Abdominal GI/Abdominal exam: Present: normal bowel sounds, soft, no peritoneal signs. Absent: distended, guarding, tenderness Additional comments: Patient suprapubic region was tender to palpation. - Expanded GI/Abdominal Exam GI/Abdominal exam expanded: Absent: psoas sign, tenderness at [place]'s Point - Additional comments: Patient has a guzmán catheter in place with blood tinged urine in the catheter. - Extremities Exam Extremities exam: Present: warm, radial pulses palpable and symmetrical. Absent : calf tenderness, cyanotic, pedal edema - Neurological Exam Neurological exam: Present: CN II-XII intact, oriented X3, no focal deficits. Absent: pronater drift, facial droop, speech deficit - Skin Skin exam: Present: dry, intact Internal Med - H&P Results - Labs CBC & Chem 7: 05/28/17 16:26 05/28/17 16:26 <Tatyana Art - Last Filed: 05/29/17 06:05> Date of Encounter: 05/28/17 Time of Encounter: 22:58 Internal Medicine - H&P: HPI History of present illness: Ms. Camacho is a 76 year old female All Systems PM: A 10-system review of systems was performed and is negative for pertinent findings except as documented above in the HPI. - Constitutional Vitals: Temp Pulse Resp BP Pulse Ox 97.5 F L 93 15 144/70 91 05/29/17 05:16 05/29/17 05:16 05/29/17 05:16 05/29/17 05:16 05/29/17 05:16 Internal Med - H&P Results - Labs CBC & Chem 7: 05/28/17 16:26 05/28/17 16:26 - Attending Attestation Patient is a 76y/o female who is admitted for CAUTI. Pt's guzmán catheter was changed in the ER upon arrival Patient independently seen and examined at bedside. Denied any discomfort Wound care for sacral decubitus IV ceftriaxone for UTI. f/u urine cultures. consider urology evaluation if hematuria persists H&H low but acceptable, continue to monitor Case discussed with resident physician Haylee-My Mesa, I agree with her documented findings, assessment, and plan except as listed above.
[2017-05-28] MEDS ORDERED: Naloxone 0.4 MG/ML INJ IVP PRN (22:10)
[2017-05-28] MEDS ORDERED: Ondansetron ODT 4 MG TAB.RAPDIS SL PRN (22:10)
[2017-05-28] MEDS ORDERED: D5% in Water 1,000 ML IVC PRN (22:15)
[2017-05-28] MEDS ORDERED: *HR* Dextrose 50 % in Water (Syg) 50 ML SYRINGE IVP PRN (22:15)
[2017-05-28] MEDS ORDERED: Dextrose Gel 15 GM/37.5 ML TUBE PO PRN ×2 (22:15)
[2017-05-28] MEDS: Acetaminophen 325 MG TABLET PO PRN (23:00)
[2017-05-28] MEDS: 0.9 % Sodium Chloride 1,000 ML IVC SCH (23:01)
[2017-05-29] MEDS ORDERED: *HR* OxyCODONE/APAP 5/325 TABLET PO PRN (00:54)
[2017-05-29] MEDS ORDERED: Sennosides/Docusate Sodium TABLET PO PRN (00:54)
[2017-05-29] MEDS ORDERED: *HR* LORazepam 0.5 MG TABLET PO PRN (00:54)
[2017-05-29] MEDS: *HR* Heparin 5,000 UNIT/ML VIAL SQ SCH ×2 (05:51→17:42)
[2017-05-29 07:49] LABS: BUN/Creatinine Ratio 27 (6-26); Blood Urea Nitrogen 13 mg/dL (8-23); Calcium 8.4 mg/dL (8.6-10.3); Carbon Dioxide 30 mEq/L (23-29); Chloride 100 mEq/L (98-107); Chol/HDL Ratio 3.7 (0-4.9); Cholesterol 96 mg/dL (< 200); Glucose 195 mg/dL (70-105); HDL Cholesterol 26 mg/dL (40-59); LDL Cholesterol,Calculated 45 mg/dL (0-99); Magnesium 1.1 mg/dL (1.6-2.6); Osmolality,Calculated 289 (280-300); Potassium 3.2 mEq/L (3.5-5.1); Sodium 137 mEq/L (136-145); Triglycerides 125 mg/dL (< 150); eGFR For African Americans > 60 (> 60); eGFR For Non-African Americans > 60 (> 60)
[2017-05-29] MEDS ORDERED: Insulin NPH/REG 70/30 100 UNIT/ML (x5UNIT) SQ SCH (08:00)
[2017-05-29 08:22] LABS: Basophils % 0.4 %; Eosinophils # 0.1 K/mcL (0.0-0.6); Eosinophils % 0.5 %; Hematocrit 32.9 % (35.3-44.9); Immature Granulocytes % 0.5 % (0-4); Lymphocytes # 1.7 K/mcL (0.6-4.6); Lymphocytes % 15.7 %; Mean Corpuscular HGB Conc 30.4 g/dL (31.6-35.5); Mean Corpuscular Hemoglobin 27.2 pg (28.0-33.3); Mean Corpuscular Volume 89.6 fL (83.0-100.0); Mean Platelet Volume 11.6 fL (9.4-12.4); Monocytes # 1.1 K/mcL (0.0-1.3); Monocytes % 10.2 %; Neutrophils # 7.8 K/mcL (1.6-8.9); Platelet Count 259 K/mcL (140-400); Red Blood Count 3.67 M/mcL (3.82-4.97); Segmented Neutrophils % 72.7 %
[2017-05-29] MEDS ORDERED: [UNRECOGNIZED DRUG - MIXTURE] PO SCH (09:00)
[2017-05-29] MEDS ORDERED: NON-FORMULARY MEDICATION 1 EACH EACH (Insulin Aspart Prot/Insuln Asp [Novolog Mix 70-30 Vi SQ SCH ×2 (09:00→21:00)
[2017-05-29] MEDS: 0.9 % Sodium Chloride 1,000 ML IVC SCH (09:25)
[2017-05-29] MEDS: cefTRIAXone 1,000 MG in Water for inj. (sterile) 20 ML 10 ML IVP SCH (09:26)
[2017-05-29] MEDS: Gabapentin 100 MG CAPSULE PO SCH ×2 (09:27→20:55)
[2017-05-29] MEDS: Aspirin Enteric Coated 81 MG Tablet PO SCH (09:27)
[2017-05-29] MEDS: Divalproex (24 HR) 500 MG TABLET PO SCH ×2 (09:27→20:54)
[2017-05-29] MEDS: Lactobacillus 1 EACH CAP.SPRINK PO SCH (09:28)
[2017-05-29] MEDS: Magnesium Oxide 400 MG TABLET PO SCH ×2 (09:28→20:53)
[2017-05-29] MEDS: Insulin LISPRO 300 UNITS/3 ML VIAL SQ SCH ×4 (09:29→21:16)
--- NOTE | 2017-05-29 11:01 | Internal Med Progress Note ---
Date of Encounter: 05/29/17 Time of Encounter: 08:30 - Assessment and plan (1) Catheter-associated urinary tract infection Current Visit: Yes Status: Acute Assessment and plan: has custodial indwelling guzmán catheter secondary to non-healing coccyx/sacral decubitis ulcer. Symptomatic with suprapubic pain and dysuria. UA grossly indicative of UTI. Guzmán catheter changed and ED. Continue IV ceftriaxone; follow urine culture and narrow accordingly. Qualifiers: Qualified Code(s): T83.511A - Infection and inflammatory reaction due to indwelling urethral catheter, initial encounter; N39.0 - Urinary tract infection , site not specified; N39.0 - Urinary tract infection, site not specified (2) Hypokalemia Current Visit: Yes Status: Acute Assessment and plan: K 3.2, Mg 1.1. Both replaced. Monitor repeat BMP and replace electrolytes PRN (3) Decubitus ulcer of coccygeal region, stage 4 Current Visit: Yes Status: Acute Assessment and plan: has chronic stage IV sacral decubitus ulcer along with chronic sacral osteomyelitis due to bedbound status. Recently treated with long-term IV ATB for acute on chronic osteomyelitis. Wound not assessed per patient request on however per our in does not appear overtly infected. Continue local wound care. (4) Diabetes mellitus Current Visit: No Status: Chronic Assessment and plan: per hx. Cont home long acting, add SSI. 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 Asymptomatic. Denies chest pain. Continue home ASA, BB, statin. Qualifiers: Coronary Disease-Associated Artery/Lesion type: [place] artery [place] vs. transplanted heart: [place] heart Associated angina: without angina Qualified Code(s): I25.10 - Atherosclerotic heart disease of [place] coronary artery without angina pectoris (6) Cholangiocarcinoma of liver Current Visit: No Status: Chronic Assessment and plan: hx intrahepatic cholangiocarcinoma of the left liver. Follows with Dr. Chavez. Per chart review, PET/CT 12/10/16 without evidence of metastasis or primary disease. S/p ablation 01/11/17 with imaging 03/04/17 showing good response. Also has remote history of endometrial carcinoma; S/p adjuvant chemotherapy and adjuvant radiation therapy. She is a long-term survivor (7) DVT prophylaxis Current Visit: No Status: Acute Assessment and plan: heparin - Subjective Interval history: Seen and examined at bedside. Patient is known to me from previous admission. Says she feels much better after receiving IV ATB, no dysuria, ABD pain, N/V/D. - Constitutional Vitals: Temp Pulse Resp BP Pulse Ox 97.5 F L 93 15 144/70 91 05/29/17 05:16 05/29/17 05:16 05/29/17 05:16 05/29/17 05:16 05/29/17 05:16 General appearance: Present: A&O X 3, pleasant, obese. Absent: no acute distress - Head Head exam: Present: atraumatic, normocephalic - Eye Eye exam: Present: PERRL, conjuntiva pink, sclera anicteric Pupils: Present: PERRL - Neck Neck exam general surgery: Present: supple, trachea midline. Absent: lymphadenopathy - Respiratory Respiratory exam: Present: CTAB. Absent: accessory muscle use, rales, rhonchi, wheezes - Cardiovascular Cardiovascular exam: Present: RRR, +S1, +S2. Absent: diastolic murmur, gallop, rubs, systolic murmur - GI/Abdominal GI/Abdominal exam: Present: normal bowel sounds, soft, no peritoneal signs. Absent: distended, tenderness - Additional comments: + guzmán catheter - Extremities Exam Extremities exam: Present: pedal edema, warm, radial pulses palpable and symmetrical. Absent: calf tenderness, cyanotic - Neurological Exam Neurological exam: Present: CN II-XII intact, oriented X3, no focal deficits. Absent: pronater drift, facial droop, speech deficit - Skin Skin exam: Present: dry, intact Internal Medicine: Result - Labs CBC & Chem 7: 05/29/17 06:12 05/29/17 06:12 Labs: Short CBC 05/29/17 Range/Units 06:12 WBC 10.6 (4.3-11.1) K/mcL Hgb 10.0 L (11.5-15.4) g/dL Hct 32.9 L (35.3-44.9) % Plt Count 259 (140-400) K/mcL Neutrophils # 7.8 (1.6-8.9) K/mcL BMP 05/29/17 06:12 Sodium 137 Potassium 3.2 L Chloride 100 Carbon Dioxide 30 H BUN 13 Creatinine 0.48 L Glucose 195 H Calcium 8.4 L Consult Discharge Plan - Plan Referrals: NONE,PCP [Primary Care Provider] -
[2017-05-29] MEDS: Colestipol Hcl [Colestid] 2 GM PO SCH (11:39)
[2017-05-29] MEDS: BROMFENAC SODIUM OP SCH (13:08)
[2017-05-29] MEDS: Acetaminophen 325 MG TABLET PO PRN (21:15)
[2017-05-29] MEDS: Insulin NPH/REG 70/30 100 UNIT/ML (x5UNIT) SQ SCH (21:16)
[2017-05-30] MEDS: *HR* Heparin 5,000 UNIT/ML VIAL SQ SCH ×2 (05:09→17:48)
[2017-05-30 06:01] LABS: BUN/Creatinine Ratio 23 (6-26); Blood Urea Nitrogen 12 mg/dL (8-23); Calcium 8.4 mg/dL (8.6-10.3); Carbon Dioxide 29 mEq/L (23-29); Chloride 101 mEq/L (98-107); Glucose 134 mg/dL (70-105); Magnesium 1.5 mg/dL (1.6-2.6); Osmolality,Calculated 288 (280-300); Potassium 3.6 mEq/L (3.5-5.1); Sodium 138 mEq/L (136-145); eGFR For African Americans > 60 (> 60); eGFR For Non-African Americans > 60 (> 60)
--- NOTE | 2017-05-30 08:32 | Internal Med Progress Note ---
Date of Encounter: 05/30/17 Time of Encounter: 08:30 - Assessment and plan (1) Catheter-associated urinary tract infection Current Visit: Yes Status: Acute Assessment and plan: has halfway indwelling guzmán catheter secondary to non-healing coccyx/sacral decubitis ulcer. Symptomatic with suprapubic pain and dysuria. UA grossly indicative of UTI. WBC 15K and trended down. Urine cx with proteus mirabillis, sensitive to Ceftriaxone. Guzmán catheter changed in ED. Continue IV ceftriaxone -day 2. Medically stable for discharge; awaiting to hear back from [facility] whether or not patient is able to return today and if they can provide IV ceftriaxone. Of note, patient has right PICC from previous admission (was previously treated with IV ATB/antifungal); PICC should be removed once completed treatment for UTI is completed. Qualifiers: Indwelling urinary catheter type: indwelling urethral catheter Encounter type: subsequent encounter Qualified Code(s): T83.511D - Infection and inflammatory reaction due to indwelling urethral catheter, subsequent encounter ; N39.0 - Urinary tract infection, site not specified; N39.0 - Urinary tract infection, site not specified (2) Loose stools Current Visit: Yes Status: Acute Assessment and plan: has had multiple loose stools since arrival. At risk for C. difficile with multiple rounds of ATB. Stool for C. difficile pending. C. difficile negative then can add PRN loperamide (3) Hypokalemia Current Visit: Yes Status: Acute Assessment and plan: K 3.2, Mg 1.1. Both replaced. Possibly secondary to loose stools. Monitor repeat BMP and replace electrolytes PRN (4) Decubitus ulcer of coccygeal region, stage 4 Current Visit: Yes Status: Acute Assessment and plan: has chronic stage IV sacral decubitus ulcer along with chronic sacral osteomyelitis due to bedbound status. Recently treated with long-term IV ATB for acute on chronic osteomyelitis. Wound not assessed per patient request on however per our in does not appear overtly infected. Continue local wound care. (5) Diabetes mellitus Current Visit: No Status: Chronic Assessment and plan: per hx. Cont home long acting, add SSI. 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 Asymptomatic. Denies chest pain. Continue home ASA, BB, statin. Qualifiers: Coronary Disease-Associated Artery/Lesion type: [place] artery [place] vs. transplanted heart: [place] heart Associated angina: without angina Qualified Code(s): I25.10 - Atherosclerotic heart disease of [place] coronary artery without angina pectoris (7) Cholangiocarcinoma of liver Current Visit: No Status: Chronic Assessment and plan: hx intrahepatic cholangiocarcinoma of the left liver. Follows with Dr. Chavez. Per chart review, PET/CT 12/10/16 without evidence of metastasis or primary disease. S/p ablation 01/11/17 with imaging 03/04/17 showing good response. Also has remote history of endometrial carcinoma; S/p adjuvant chemotherapy and adjuvant radiation therapy. She is a long-term survivor (8) DVT prophylaxis Current Visit: No Status: Acute Assessment and plan: coumadin - Subjective Interval history: Seen and examined at bedside; says she is tired otherwise she has no complaints. Uneventful night, slept well. Says she would like to go back to [facility] if able to today. She was incontinent of a large, loose bowel movement during my exam. Again discussed possibility of a diverting colostomy and she continues to adamantly refuse. No abdominal pain, no suprapubic discomfort. No dysuria. Discussed with RN and will attempt to reach out to [facility] to see if patient is able to return today; no social professionals available on . - Constitutional Vitals: Temp Pulse Resp BP Pulse Ox 98.8 F 90 18 134/75 94 05/30/17 08:13 05/30/17 08:13 05/30/17 08:13 05/30/17 08:13 05/30/17 08:13 General appearance: Present: A&O X 3, pleasant, obese. Absent: no acute distress - Head Head exam: Present: atraumatic, normocephalic - Eye Eye exam: Present: PERRL, conjuntiva pink, sclera anicteric Pupils: Present: PERRL - Neck Neck exam general surgery: Present: supple, trachea midline. Absent: lymphadenopathy - Respiratory Respiratory exam: Present: CTAB. Absent: accessory muscle use, rales, rhonchi, wheezes - Cardiovascular Cardiovascular exam: Present: RRR, +S1, +S2. Absent: diastolic murmur, gallop, rubs, systolic murmur - GI/Abdominal GI/Abdominal exam: Present: normal bowel sounds, soft, no peritoneal signs. Absent: distended, tenderness - Extremities Exam Extremities exam: Present: pedal edema (Mild nonpitting pedal edema), warm, radial pulses palpable and symmetrical. Absent: calf tenderness, cyanotic - Neurological Exam Neurological exam: Present: CN II-XII intact, oriented X3, no focal deficits. Absent: pronater drift, facial droop, speech deficit - Skin Skin exam: Present: dry. Absent: intact - Expanded Skin Exam Full body front and back image: 1 - Large, stage IV sacral decubitus ulcer. Difficult to assess as wound is covered in stool. Does not appear obviously infected 2 - S/p right mediport removal Internal Medicine: Result - Labs CBC & Chem 7: 05/29/17 06:12 05/30/17 05:05 Labs: BMP 05/30/17 05:05 Sodium 138 Potassium 3.6 Chloride 101 Carbon Dioxide 29 BUN 12 Creatinine 0.53 L Glucose 134 H Calcium 8.4 L Consult Discharge Plan - Plan Referrals: NONE,PCP [Primary Care Provider] -
[2017-05-30] MEDS: Lactobacillus 1 EACH CAP.SPRINK PO SCH (09:08)
[2017-05-30] MEDS: Divalproex (24 HR) 500 MG TABLET PO SCH ×2 (09:08→21:23)
[2017-05-30] MEDS: Aspirin Enteric Coated 81 MG Tablet PO SCH (09:08)
[2017-05-30] MEDS: Gabapentin 100 MG CAPSULE PO SCH ×2 (09:08→21:25)
[2017-05-30] MEDS: Magnesium Oxide 400 MG TABLET PO SCH ×2 (09:08→21:26)
[2017-05-30] MEDS: BROMFENAC SODIUM OP SCH (09:09)
[2017-05-30] MEDS: Insulin LISPRO 300 UNITS/3 ML VIAL SQ SCH ×4 (09:09→21:30)
[2017-05-30] MEDS: Colestipol Hcl [Colestid] 2 GM PO SCH (09:10)
[2017-05-30] MEDS: cefTRIAXone 1,000 MG in Water for inj. (sterile) 20 ML 10 ML IVP SCH (09:10)
[2017-05-30] MEDS: Insulin NPH/REG 70/30 100 UNIT/ML (x5UNIT) SQ SCH ×2 (10:02→17:50)
[2017-05-30] MEDS: Vancomycin Oral Soln 250 MG/5 ML UDC PO SCH ×2 (19:05→21:29)
[2017-05-30] MEDS: Acetaminophen 325 MG TABLET PO PRN (21:22)
[2017-05-31 05:38] LABS: BUN/Creatinine Ratio 28 (6-26); Blood Urea Nitrogen 14 mg/dL (8-23); Calcium 8.7 mg/dL (8.6-10.3); Carbon Dioxide 32 mEq/L (23-29); Chloride 99 mEq/L (98-107); Glucose 108 mg/dL (70-105); Magnesium 1.6 mg/dL (1.6-2.6); Osmolality,Calculated 287 (280-300); Sodium 138 mEq/L (136-145); eGFR For African Americans > 60 (> 60); eGFR For Non-African Americans > 60 (> 60)
[2017-05-31] MEDS: *HR* Heparin 5,000 UNIT/ML VIAL SQ SCH ×2 (06:12→16:48)
--- NOTE | 2017-05-31 09:13 | Internal Med Progress Note ---
Date of Encounter: 05/31/17 Time of Encounter: 09:11 - Subjective Interval history: 76 yr old woman at HD #3 with h/o cholangiocarcinomachronia with a stage IV decubitus ulcer and indweling guzmán catheter who was admitted with CAUTI. Catheter-associated urinary tract infection Current Visit: Yes Status: Acute Assessment and plan: She has custodial indwelling guzmán catheter secondary to non-healing coccyx/ sacral decubitis ulcer. Guzmán catheter changed and ED. Continue IV ceftriaxone ; follow urine culture and narrow accordingly. Qualifiers: Qualified Code(s): T83.511A - Infection and inflammatory reaction due to indwelling urethral catheter, initial encounter; N39.0 - Urinary tract infection , site not specified; N39.0 - Urinary tract infection, site not specified C. difficile diarrhea: PO Vancomycin started Contact precautions Deubitus ulcer of coccygeal region, stage 4 Current Visit: Yes Status: Acute Assessment and plan: has chronic stage IV sacral decubitus ulcer along with chronic sacral osteomyelitis due to bedbound status. Recently treated with long-term IV ATB for acute on chronic osteomyelitis. Wound not assessed per patient request on however per our in does not appear overtly infected. Continue local wound care. Diabetes mellitus Current Visit: No Status: Chronic Assessment and plan: per hx. Cont home long acting, add SSI. 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 Follows with Dr. Chvaez. Per chart review, PET/CT 12/10/16 without evidence of metastasis or primary disease. S/p ablation 01/11/17 with imaging 03/04/17 showing good response. Also has remote history of endometrial carcinoma; S/p adjuvant chemotherapy and adjuvant radiation therapy. She is a long-term survivor (7) DVT prophylaxis Current Visit: No Status: Acute Assessment and plan: heparin - Constitutional Vitals: Temp Pulse Resp BP Pulse Ox 98.6 F 89 17 117/51 95 05/31/17 06:40 05/31/17 06:40 05/31/17 06:40 05/31/17 06:40 05/31/17 06:40 General appearance: Present: A&O X 3, pleasant, obese. Absent: no acute distress Internal Medicine: Result - Labs CBC & Chem 7: 05/29/17 06:12 05/31/17 04:21 Labs: BMP 05/31/17 04:21 Sodium 138 Potassium 4.0 Chloride 99 Carbon Dioxide 32 H BUN 14 Creatinine 0.50 L Glucose 108 H Calcium 8.7 Consult Discharge Plan - Plan Referrals: NONE,PCP [Primary Care Provider] -
[2017-05-31] MEDS: Insulin LISPRO 300 UNITS/3 ML VIAL SQ SCH ×4 (09:16→21:52)
[2017-05-31] MEDS: Vancomycin Oral Soln 250 MG/5 ML UDC PO SCH ×4 (09:19→21:25)
[2017-05-31] MEDS: Insulin NPH/REG 70/30 100 UNIT/ML (x5UNIT) SQ SCH ×2 (09:19→16:48)
[2017-05-31] MEDS: cefTRIAXone 1,000 MG in Water for inj. (sterile) 20 ML 10 ML IVP SCH (09:19)
[2017-05-31] MEDS: BROMFENAC SODIUM OP SCH (09:20)
[2017-05-31] MEDS: Colestipol Hcl [Colestid] 2 GM PO SCH (09:20)
[2017-05-31] MEDS: Divalproex (24 HR) 500 MG TABLET PO SCH ×2 (09:21→21:25)
[2017-05-31] MEDS: Lactobacillus 1 EACH CAP.SPRINK PO SCH (09:21)
[2017-05-31] MEDS: Aspirin Enteric Coated 81 MG Tablet PO SCH (09:21)
[2017-05-31] MEDS: Gabapentin 100 MG CAPSULE PO SCH ×2 (09:21→21:26)
[2017-05-31] MEDS: Magnesium Oxide 400 MG TABLET PO SCH ×2 (09:21→21:26)
[2017-05-31] MEDS: Acetaminophen 325 MG TABLET PO PRN (21:25)
[2017-06-01] MEDS: *HR* Heparin 5,000 UNIT/ML VIAL SQ SCH ×2 (05:37→18:26)
[2017-06-01] MEDS: Insulin LISPRO 300 UNITS/3 ML VIAL SQ SCH ×3 (08:06→18:26)
[2017-06-01] MEDS: Divalproex (24 HR) 500 MG TABLET PO SCH ×2 (09:51→21:17)
[2017-06-01] MEDS: Lactobacillus 1 EACH CAP.SPRINK PO SCH (09:51)
[2017-06-01] MEDS: Magnesium Oxide 400 MG TABLET PO SCH ×2 (09:51→21:15)
[2017-06-01] MEDS: Cholecalciferol (D-3) 1,000 UNIT TABLET PO SCH (09:52)
[2017-06-01] MEDS: Gabapentin 100 MG CAPSULE PO SCH ×2 (09:52→21:17)
[2017-06-01] MEDS: cefTRIAXone 1,000 MG in Water for inj. (sterile) 20 ML 10 ML IVP SCH (09:52)
[2017-06-01] MEDS: Vancomycin Oral Soln 250 MG/5 ML UDC PO SCH ×4 (09:52→21:18)
[2017-06-01] MEDS: Aspirin Enteric Coated 81 MG Tablet PO SCH (09:52)
[2017-06-01] MEDS: Insulin NPH/REG 70/30 100 UNIT/ML (x5UNIT) SQ SCH ×2 (09:53→18:26)
[2017-06-01] MEDS ORDERED: *HR* OxyCODONE/APAP 5/325 TABLET PO PRN (14:18)
--- NOTE | 2017-06-01 14:38 | Internal Med Progress Note ---
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 -Guzmán catheter changed and ED. -Continue IV ceftriaxone for the cystitis above secondary to chronic indwelling Guzmán catheter (3) Decubitus ulcer, stage 4 with infection Current Visit: No Status: Chronic Assessment and plan: -Recently treated with long-term IV ATB for acute on chronic osteomyelitis. -Wound team consulted and appreciate recommendations. (4) Cholangiocarcinoma of liver Current Visit: No Status: Chronic Assessment and plan: -History of intrahepatic cholangiocarcinoma of the left liver. Follows with Dr. Chavez. Per chart review, PET/CT 12/10/16 without evidence of metastasis or primary disease. -S/p ablation 01/11/17 with imaging 03/04/17 showing good response. Also has remote history of endometrial carcinoma; -S/p adjuvant chemotherapy and adjuvant radiation therapy. (5) DVT prophylaxis Current Visit: No Status: Acute Assessment and plan: Subcutaneous heparin - Subjective Interval history: Patient with a stage IV decubitus ulcer and indweling guzmán catheter being treated for catheter associated acute cystitis - Constitutional Vitals: Temp Pulse Resp BP Pulse Ox 98.0 F 98 16 125/65 95 06/01/17 11:00 06/01/17 11:00 06/01/17 11:00 06/01/17 11:00 06/01/17 11:00 General appearance: Present: A&O X 3, pleasant, obese. Absent: no acute distress - Respiratory Respiratory exam: Present: CTAB. Absent: accessory muscle use, rales, rhonchi, wheezes - Cardiovascular Cardiovascular exam: Present: RRR, +S1, +S2. Absent: diastolic murmur, gallop, rubs, systolic murmur Internal Medicine: Result - Labs CBC & Chem 7: 05/29/17 06:12 05/31/17 04:21 Consult Discharge Plan - Plan Referrals: NONE,PCP [Primary Care Provider] -
[2017-06-01] MEDS: Acetaminophen 325 MG TABLET PO PRN (21:17)
[2017-06-02] MEDS: Insulin LISPRO 300 UNITS/3 ML VIAL SQ SCH ×5 (00:58→22:22)
[2017-06-02 07:08] LABS: Basophils % 0.4 %; Eosinophils # 0.1 K/mcL (0.0-0.6); Eosinophils % 1.5 %; Hematocrit 31.6 % (35.3-44.9); Hemoglobin 9.6 g/dL (11.5-15.4); Immature Granulocytes % 0.4 % (0-4); Lymphocytes # 2.3 K/mcL (0.6-4.6); Lymphocytes % 24.3 %; Mean Corpuscular HGB Conc 30.4 g/dL (31.6-35.5); Mean Corpuscular Hemoglobin 27.5 pg (28.0-33.3); Mean Corpuscular Volume 90.5 fL (83.0-100.0); Mean Platelet Volume 11.1 fL (9.4-12.4); Monocytes # 0.8 K/mcL (0.0-1.3); Monocytes % 8.1 %; Neutrophils # 6.3 K/mcL (1.6-8.9); Platelet Count 290 K/mcL (140-400); Red Blood Count 3.49 M/mcL (3.82-4.97); Red Cell Distribution Width 17.1 % (11.5-14.5); Segmented Neutrophils % 65.3 %
[2017-06-02] MEDS: *HR* Heparin 5,000 UNIT/ML VIAL SQ SCH ×2 (07:32→17:32)
[2017-06-02] MEDS: cefTRIAXone 1,000 MG in Water for inj. (sterile) 20 ML 10 ML IVP SCH (07:41)
[2017-06-02] MEDS: Vancomycin Oral Soln 250 MG/5 ML UDC PO SCH ×4 (07:42→22:22)
[2017-06-02] MEDS: Cholecalciferol (D-3) 1,000 UNIT TABLET PO SCH (07:43)
[2017-06-02] MEDS: Aspirin Enteric Coated 81 MG Tablet PO SCH (07:44)
[2017-06-02] MEDS: Magnesium Oxide 400 MG TABLET PO SCH ×2 (07:44→22:20)
[2017-06-02] MEDS: Lactobacillus 1 EACH CAP.SPRINK PO SCH (07:44)
[2017-06-02] MEDS: Famotidine 20 MG TABLET PO SCH ×2 (07:44→22:20)
[2017-06-02] MEDS: Gabapentin 100 MG CAPSULE PO SCH ×2 (07:44→22:21)
[2017-06-02] MEDS: Divalproex (24 HR) 500 MG TABLET PO SCH ×2 (07:44→22:21)
[2017-06-02] MEDS: Insulin NPH/REG 70/30 100 UNIT/ML (x5UNIT) SQ SCH ×2 (07:46→17:41)
[2017-06-02 07:47] LABS: BUN/Creatinine Ratio 35 (6-26); Blood Urea Nitrogen 19 mg/dL (8-23); Carbon Dioxide 35 mEq/L (23-29); Chloride 95 mEq/L (98-107); Glucose 93 mg/dL (70-105); Osmolality,Calculated 284 (280-300); Potassium 4.2 mEq/L (3.5-5.1); Sodium 136 mEq/L (136-145); eGFR For African Americans > 60 (> 60); eGFR For Non-African Americans > 60 (> 60)
--- NOTE | 2017-06-02 17:35 | Internal Med Progress Note ---
Date of Encounter: 06/02/17 Time of Encounter: 11:00 - Assessment and plan (1) C. difficile diarrhea Current Visit: Yes Status: Acute Assessment and plan: -Patient with diarrhea secondary to C. difficile has been started on oral vancomycin (2) UTI (urinary tract infection) Current Visit: Yes Status: Resolved Assessment and plan: -Proteus mirabilis secondary to chronic indwelling Guzmán catheter -Continue IV ceftriaxone Qualifiers: Urinary tract infection type: acute cystitis Hematuria presence: with hematuria Qualified Code(s): N30.01 - Acute cystitis with hematuria (3) Indwelling Guzmán catheter present Current Visit: Yes Status: Acute Assessment and plan: -Patient with alf indwelling guzmán catheter secondary to non-healing coccyx/sacral decubitis ulcer. -Guzmán catheter changed and ED. -Continue IV ceftriaxone for the cystitis above secondary to chronic indwelling Guzmán catheter -Urology consulted for change in type of indwelling Guzmán catheter per patient request (4) Decubitus ulcer, stage 4 with infection Current Visit: No Status: Chronic Assessment and plan: -Recently treated with long-term IV ATB for acute on chronic osteomyelitis. -Wound team consulted and appreciate recommendations. (5) Cholangiocarcinoma of liver Current Visit: No Status: Chronic Assessment and plan: -History of intrahepatic cholangiocarcinoma of the left liver. Follows with Dr. Chavez. Per chart review, PET/CT 12/10/16 without evidence of metastasis or primary disease. -S/p ablation 01/11/17 with imaging 03/04/17 showing good response. Also has remote history of endometrial carcinoma; -S/p adjuvant chemotherapy and adjuvant radiation therapy. (6) DVT prophylaxis Current Visit: No Status: Acute Assessment and plan: Subcutaneous heparin - Subjective Interval history: Patient with a stage IV decubitus ulcer and indweling guzmán catheter being treated for catheter associated acute cystitis Patient now with diarrhea secondary to C. difficile - Constitutional Vitals: Temp Pulse Resp BP Pulse Ox 98.2 F 87 18 109/65 95 06/02/17 15:55 06/02/17 15:55 06/02/17 15:55 06/02/17 15:55 06/02/17 15:55 General appearance: Present: A&O X 3, pleasant, obese. Absent: no acute distress - Respiratory Respiratory exam: Present: CTAB. Absent: accessory muscle use, rales, rhonchi, wheezes - Cardiovascular Cardiovascular exam: Present: RRR, +S1, +S2. Absent: diastolic murmur, gallop, rubs, systolic murmur Internal Medicine: Result - Labs CBC & Chem 7: 06/02/17 06:29 06/02/17 06:29 Labs: Short CBC 06/02/17 Range/Units 06:29 WBC 9.6 (4.3-11.1) K/mcL Hgb 9.6 L (11.5-15.4) g/dL Hct 31.6 L (35.3-44.9) % Plt Count 290 (140-400) K/mcL Neutrophils # 6.3 (1.6-8.9) K/mcL BMP 06/02/17 06:29 Sodium 136 Potassium 4.2 Chloride 95 L Carbon Dioxide 35 H BUN 19 Creatinine 0.55 L Glucose 93 Calcium 9.0 Consult Discharge Plan - Plan Referrals: NONE,PCP [Primary Care Provider] -
[2017-06-03] MEDS: *HR* Heparin 5,000 UNIT/ML VIAL SQ SCH ×2 (06:19→17:36)
[2017-06-03] MEDS: Lactobacillus 1 EACH CAP.SPRINK PO SCH (10:15)
[2017-06-03] MEDS: Gabapentin 100 MG CAPSULE PO SCH ×2 (10:15→22:05)
[2017-06-03] MEDS: Aspirin Enteric Coated 81 MG Tablet PO SCH (10:15)
[2017-06-03] MEDS: Cholecalciferol (D-3) 1,000 UNIT TABLET PO SCH (10:15)
[2017-06-03] MEDS: Vancomycin Oral Soln 250 MG/5 ML UDC PO SCH ×4 (10:15→22:03)
[2017-06-03] MEDS: Divalproex (24 HR) 500 MG TABLET PO SCH ×2 (10:15→22:06)
[2017-06-03] MEDS: Famotidine 20 MG TABLET PO SCH ×2 (10:15→22:05)
[2017-06-03] MEDS: Magnesium Oxide 400 MG TABLET PO SCH ×2 (10:15→22:06)
[2017-06-03] MEDS: Insulin NPH/REG 70/30 100 UNIT/ML (x5UNIT) SQ SCH ×2 (10:15→17:36)
[2017-06-03] MEDS: cefTRIAXone 1,000 MG in Water for inj. (sterile) 20 ML 10 ML IVP SCH (10:15)
[2017-06-03] MEDS: Insulin LISPRO 300 UNITS/3 ML VIAL SQ SCH ×4 (10:57→22:07)
[2017-06-03 11:28] LABS: BUN/Creatinine Ratio 30 (6-26); Blood Urea Nitrogen 18 mg/dL (8-23); Calcium 9.1 mg/dL (8.6-10.3); Carbon Dioxide 31 mEq/L (23-29); Chloride 94 mEq/L (98-107); Glucose 199 mg/dL (70-105); Osmolality,Calculated 285 (280-300); Potassium 4.8 mEq/L (3.5-5.1); Sodium 134 mEq/L (136-145); eGFR For African Americans > 60 (> 60); eGFR For Non-African Americans > 60 (> 60)
[2017-06-03 12:17] LABS: Basophils # 0.1 K/mcL (0.0-0.2); Basophils % 0.6 %; Eosinophils # 0.2 K/mcL (0.0-0.6); Eosinophils % 1.8 %; Hematocrit 32.3 % (35.3-44.9); Hemoglobin 9.7 g/dL (11.5-15.4); Immature Granulocytes % 0.6 % (0-4); Lymphocytes # 1.6 K/mcL (0.6-4.6); Mean Corpuscular Hemoglobin 27.4 pg (28.0-33.3); Mean Corpuscular Volume 91.2 fL (83.0-100.0); Mean Platelet Volume 11.5 fL (9.4-12.4); Monocytes # 0.7 K/mcL (0.0-1.3); Monocytes % 7.7 %; Neutrophils # 6.5 K/mcL (1.6-8.9); Platelet Count 349 K/mcL (140-400); Red Blood Count 3.54 M/mcL (3.82-4.97); Red Cell Distribution Width 16.8 % (11.5-14.5); Segmented Neutrophils % 71.3 %
--- NOTE | 2017-06-03 14:37 | Urology - Consult Note ---
Date of Encounter: 06/03/17 Time of Encounter: 14:35 - Assessment and Plan (1) Urinary retention Current Visit: Yes Status: Acute Assessment and plan: Order written for catheter be changed to 2-way catheter. She can follow-up with Dr. Bruner as an outpatient. She was previously established with him. Urology CN:HPI Consult date: 06/03/17 Reason for consult Urology: Other (urinary retention) Requesting physician: Ashwin Mesa History of present illness: Kami is a 76-year-old female with a history of chronic indwelling urethral catheter for unknown reason. Patient came into the hospital with possible hematuria where a three-way catheter was placed. She is point have his catheter changed to a 2-way catheter. Past Med Surg Social Fam HX - Past Medical History Medical history: cancer, diabetes, hypertension, myocardial infarction, thyroid disease, other Psychiatric history: anxiety, depression - Past Surgical History Surgical History: appendectomy, , cataract, cholecystectomy, herniorrhaphy, orthopedic, other, SHONDA/BSO, other - Social History Smoking Status: Former smoker Smokeless Tobacco Status: No Alcohol use: rarely Drug use: none - Family History Father Living Status: Mother Adopted: No Living Status: Hx Family Cardiac Disorders: Yes Hx Family Respiratory Disorders: Yes (copd) Hx Family Endocrine Disorder: Yes (Diabetes) Medications and Allergies Omeprazole [PriLOSEC] 20 mg PO QAM 02/04/15 [History] Sennosides/Docusate Sodium [Senna Plus] 8.6 mg PO QAM PRN 02/04/15 [History] Acidoph/L.bulg/Bif.b/S.thermop [Emilie-Bid Caplet] 2 tab PO DAILY 04/17/17 [ History] Amitriptyline [Elavil] 10 mg PO HS 04/17/17 [History] Aspirin Enteric Coated [Aspirin EC] 81 mg PO DAILY 04/17/17 [History] Bromfenac Sodium 1 drop RIGHT EYE DAILY 04/17/17 [History] Insulin Aspart Prot/Insuln Asp [Novolog Mix 70-30 Vial] 46 unit SQ HS 04/17/17 [ History] Insulin Aspart Prot/Insuln Asp [Novolog Mix 70-30 Vial] 56 unit SQ QAM 04/17/17 [History] Magnesium Oxide [Mag-Ox] 400 mg PO BID 04/17/17 [History] Metoprolol [Lopressor] 12.5 mg PO BID 04/17/17 [History] Sertraline [Zoloft] 125 mg PO DAILY 04/17/17 [History] Acetaminophen [Tylenol] 650 mg PO Q6HR PRN tablet 04/30/17 [Rx] Gabapentin [Neurontin] 100 mg PO QAM #15 capsule 04/30/17 [Rx] Gabapentin [Neurontin] 200 mg PO HS #20 capsule 04/30/17 [Rx] LORazepam [Ativan] 0.5 mg PO BID PRN #10 tablet 04/30/17 [Rx] Oxycodone HCl/Acetaminophen [Percocet 5-325 mg Tablet] 1 each PO Q6H PRN #7 tablet 04/30/17 [Rx] Calcium Carbonate/Vitamin D3 [Oyster Shell 250 mg + Vit D Tb] 1 each PO DAILY [History] Calcium Polycarbophil [Fiber Laxative] 625 mg PO DAILY 05/25/17 [History] Colestipol HCl [Colestid] 2 gm PO DAILY 05/25/17 [History] 3 Allergy/AdvReac Type Severity Reaction Status Date / Time rosuvastatin [From Crestor] Allergy Hives Verified 05/31/17 14:16 ciprofloxacin AdvReac Itching Verified 05/31/17 14:16 Hydromorphone [From Dilaudid] AdvReac Difficulty Verified 05/31/17 14:16 Breathing Review of Systems - Constitutional no chills - EENT Nose, mouth and throat: no dizziness - Cardiovascular no chest pain - Respiratory no cough Exam Initial Vital Signs Temp Pulse Resp BP Pulse Ox 98.0 F 86 18 129/57 94 05/28/17 14:43 05/28/17 14:43 05/28/17 14:43 05/28/17 14:43 05/28/17 14:43 - General physical appearance Present: well developed - Abdomen Abdomen: Present: soft - Genitourinary Present: other (Three-way catheter clear urine) Urology Results - Labs 06/03/17 10:45 06/03/17 10:45 Abnormal lab results RBC 3.54 M/mcL (3.82-4.97) L 06/03/17 10:45 Hgb 9.7 g/dL (11.5-15.4) L 06/03/17 10:45 Hct 32.3 % (35.3-44.9) L 06/03/17 10:45 MCH 27.4 pg (28.0-33.3) L 06/03/17 10:45 MCHC 30.0 g/dL (31.6-35.5) L 06/03/17 10:45 RDW 16.8 % (11.5-14.5) H 06/03/17 10:45 Immature Plt Fraction 6.6 % (1.1-6.1) H 05/28/17 16:26 Sodium 134 mEq/L (136-145) L 06/03/17 10:45 Chloride 94 mEq/L (98-107) L 06/03/17 10:45 Carbon Dioxide 31 mEq/L (23-29) H 06/03/17 10:45 BUN/Creatinine Ratio 30 (6-26) H 06/03/17 10:45 Glucose 199 mg/dL (70-105) H 06/03/17 10:45 POC Glucose 187 (58-89) H 06/03/17 12:02 HDL Cholesterol 26 mg/dL (40-59) L 05/29/17 06:12 Urine Color Red (Yellow) A 05/28/17 16:00 Urine Clarity Cloudy (Clear) A 05/28/17 16:00 Urine Protein 100 mg/dL (Neg-Trace) H 05/28/17 16:00 Urine Ketones Trace mg/dL (Negative) H 05/28/17 16:00 Urine Blood Large (Negative) H 05/28/17 16:00 Urine Bilirubin Small (Negative) H 05/28/17 16:00 Ur Leukocyte Esterase Moderate (Negative) H 05/28/17 16:00 Urine Microscopic RBC TNTC per hpf (0-3) H 05/28/17 16:00 Urine Microscopic WBC TNTC per hpf (0-3) H 05/28/17 16:00 Ur Squamous Epith Cells Moderate per lpf (None-Few) H 05/28/17 16:00 Ur Culture Indicated? YES (NO) A 05/28/17 16:00 Diabetes panel 06/03/17 Range/Units 10:45 Sodium 134 L (136-145) mEq/L Potassium 4.8 (3.5-5.1) mEq/L Chloride 94 L (98-107) mEq/L Carbon Dioxide 31 H (23-29) mEq/L BUN 18 (8-23) mg/dL Creatinine 0.61 (0.60-1.20) mg/dL Glucose 199 H (70-105) mg/dL Calcium 9.1 (8.6-10.3) mg/dL Calcium panel 06/03/17 Range/Units 10:45 Calcium 9.1 (8.6-10.3) mg/dL Pituitary panel 06/03/17 Range/Units 10:45 Sodium 134 L (136-145) mEq/L Potassium 4.8 (3.5-5.1) mEq/L Chloride 94 L (98-107) mEq/L Carbon Dioxide 31 H (23-29) mEq/L BUN 18 (8-23) mg/dL Creatinine 0.61 (0.60-1.20) mg/dL Glucose 199 H (70-105) mg/dL Calcium 9.1 (8.6-10.3) mg/dL Adrenal panel 06/03/17 Range/Units 10:45 Sodium 134 L (136-145) mEq/L Potassium 4.8 (3.5-5.1) mEq/L Chloride 94 L (98-107) mEq/L Carbon Dioxide 31 H (23-29) mEq/L BUN 18 (8-23) mg/dL Creatinine 0.61 (0.60-1.20) mg/dL Glucose 199 H (70-105) mg/dL Calcium 9.1 (8.6-10.3) mg/dL All other labs normal. Consult Discharge Plan - Plan Referrals: NONE,PCP [Primary Care Provider] -
--- NOTE | 2017-06-03 16:47 | Internal Med Progress Note ---
Date of Encounter: 06/03/17 Time of Encounter: 11:00 - Assessment and plan (1) C. difficile diarrhea Current Visit: Yes Status: Acute Assessment and plan: -Patient with diarrhea secondary to C. difficile -She reports that diarrhea has decreased in frequency -Continue day 2 of oral oral vancomycin (2) UTI (urinary tract infection) Current Visit: Yes Status: Resolved Assessment and plan: -Proteus mirabilis secondary to chronic indwelling Guzmán catheter -Continue day 6 of a 7 day course of IV ceftriaxone Qualifiers: Urinary tract infection type: acute cystitis Hematuria presence: with hematuria Qualified Code(s): N30.01 - Acute cystitis with hematuria (3) Indwelling Guzmán catheter present Current Visit: Yes Status: Acute Assessment and plan: -Patient with senior care indwelling guzmán catheter secondary to non-healing coccyx/sacral decubitis ulcer. -Guzmán catheter changed and ED. -Continue IV ceftriaxone for the cystitis above secondary to chronic indwelling Guzmán catheter -Urology consulted for change in type of indwelling Guzmán catheter per patient request -Recommendations for catheter be changed to 2-way catheter and to follow-up with Dr. Bruner as an outpatient. (4) Decubitus ulcer, stage 4 with infection Current Visit: No Status: Chronic Assessment and plan: -Recently treated with long-term IV ATB for acute on chronic osteomyelitis. -Wound team consulted and appreciate recommendations. (5) Cholangiocarcinoma of liver Current Visit: No Status: Chronic Assessment and plan: -History of intrahepatic cholangiocarcinoma of the left liver. Follows with Dr. Chavez. Per chart review, PET/CT 12/10/16 without evidence of metastasis or primary disease. -S/p ablation 01/11/17 with imaging 03/04/17 showing good response. Also has remote history of endometrial carcinoma; -S/p adjuvant chemotherapy and adjuvant radiation therapy. (6) DVT prophylaxis Current Visit: No Status: Acute Assessment and plan: Subcutaneous heparin - Subjective Interval history: Patient reports that diarrhea has decreased after starting oral vancomycin for C. difficile infection - Constitutional Vitals: Temp Pulse Resp BP Pulse Ox 97.6 F 87 17 113/67 93 06/03/17 14:30 06/03/17 14:30 06/03/17 14:30 06/03/17 14:30 06/03/17 14:30 General appearance: Present: A&O X 3, pleasant, obese. Absent: no acute distress - Respiratory Respiratory exam: Present: CTAB. Absent: accessory muscle use, rales, rhonchi, wheezes - Cardiovascular Cardiovascular exam: Present: RRR, +S1, +S2. Absent: diastolic murmur, gallop, rubs, systolic murmur Internal Medicine: Result - Labs CBC & Chem 7: 06/03/17 10:45 06/03/17 10:45 Labs: Short CBC 06/03/17 Range/Units 10:45 WBC 9.1 (4.3-11.1) K/mcL Hgb 9.7 L (11.5-15.4) g/dL Hct 32.3 L (35.3-44.9) % Plt Count 349 (140-400) K/mcL Neutrophils # 6.5 (1.6-8.9) K/mcL BMP 06/03/17 10:45 Sodium 134 L Potassium 4.8 Chloride 94 L Carbon Dioxide 31 H BUN 18 Creatinine 0.61 Glucose 199 H Calcium 9.1 Consult Discharge Plan - Plan Referrals: NONE,PCP [Primary Care Provider] -
[2017-06-03] MEDS: Acetaminophen 325 MG TABLET PO PRN (22:04)
[2017-06-04] MEDS: *HR* Heparin 5,000 UNIT/ML VIAL SQ SCH (04:54)
[2017-06-04] MEDS: Magnesium Oxide 400 MG TABLET PO SCH (09:47)
[2017-06-04] MEDS: Divalproex (24 HR) 500 MG TABLET PO SCH (09:47)
[2017-06-04] MEDS: Cholecalciferol (D-3) 1,000 UNIT TABLET PO SCH (09:47)
[2017-06-04] MEDS: Gabapentin 100 MG CAPSULE PO SCH (09:47)
[2017-06-04] MEDS: Famotidine 20 MG TABLET PO SCH (09:49)
[2017-06-04] MEDS: Lactobacillus 1 EACH CAP.SPRINK PO SCH (09:50)
[2017-06-04] MEDS: Aspirin Enteric Coated 81 MG Tablet PO SCH (09:50)
[2017-06-04] MEDS: Insulin LISPRO 300 UNITS/3 ML VIAL SQ SCH ×3 (09:51→16:37)
[2017-06-04] MEDS: cefTRIAXone 1,000 MG in Water for inj. (sterile) 20 ML 10 ML IVP SCH (09:52)
[2017-06-04] MEDS: Vancomycin Oral Soln 250 MG/5 ML UDC PO SCH ×3 (09:54→16:36)
[2017-06-04] MEDS: Insulin NPH/REG 70/30 100 UNIT/ML (x5UNIT) SQ SCH ×2 (10:55→16:36)
--- NOTE | 2017-06-04 16:00 | Discharge Summary ---
Date of Encounter: 06/04/17 Time of Encounter: 11:00 - Discharge Diagnosis (1) C. difficile diarrhea Priority: Secondary Status: Acute (2) UTI (urinary tract infection) Priority: Primary Status: Resolved Qualifiers: Urinary tract infection type: acute cystitis Hematuria presence: with hematuria Qualified Code(s): N30.01 - Acute cystitis with hematuria (3) Indwelling Guzmán catheter present Priority: Secondary Status: Acute (4) Decubitus ulcer, stage 4 with infection Priority: Secondary Status: Chronic (5) Cholangiocarcinoma of liver Priority: Secondary Status: Chronic - Discharge Medications Prescriptions: Gabapentin [Neurontin] 100 mg PO QAM #15 capsule Gabapentin [Neurontin] 200 mg PO HS #20 capsule LORazepam [Ativan] 0.5 mg PO BID PRN #10 tablet PRN Reason: Anxiety Oxycodone HCl/Acetaminophen [Percocet 5-325 mg Tablet] 1 each PO Q6H PRN #7 tablet PRN Reason: Pain Home Medications: Omeprazole [PriLOSEC] 20 mg PO QAM 02/04/15 [History] Sennosides/Docusate Sodium [Senna Plus] 8.6 mg PO QAM PRN 02/04/15 [History] Acidoph/L.bulg/Bif.b/S.thermop [Emilie-Bid Caplet] 2 tab PO DAILY 04/17/17 [ History] Amitriptyline [Elavil] 10 mg PO HS 04/17/17 [History] Aspirin Enteric Coated [Aspirin EC] 81 mg PO DAILY 04/17/17 [History] Bromfenac Sodium 1 drop RIGHT EYE DAILY 04/17/17 [History] Insulin Aspart Prot/Insuln Asp [Novolog Mix 70-30 Vial] 46 unit SQ HS 04/17/17 [ History] Insulin Aspart Prot/Insuln Asp [Novolog Mix 70-30 Vial] 56 unit SQ QAM 04/17/17 [History] Magnesium Oxide [Mag-Ox] 400 mg PO BID 04/17/17 [History] Metoprolol [Lopressor] 12.5 mg PO BID 04/17/17 [History] Sertraline [Zoloft] 125 mg PO DAILY 04/17/17 [History] Acetaminophen [Tylenol] 650 mg PO Q6HR PRN tablet 04/30/17 [Rx] Calcium Carbonate/Vitamin D3 [Oyster Shell 250 mg + Vit D Tb] 1 each PO DAILY [History] Calcium Polycarbophil [Fiber Laxative] 625 mg PO DAILY 05/25/17 [History] Colestipol HCl [Colestid] 2 gm PO DAILY 05/25/17 [History] Gabapentin [Neurontin] 100 mg PO QAM #15 capsule 06/04/17 [Rx] Gabapentin [Neurontin] 200 mg PO HS #20 capsule 06/04/17 [Rx] LORazepam [Ativan] 0.5 mg PO BID PRN #10 tablet 06/04/17 [Rx] Oxycodone HCl/Acetaminophen [Percocet 5-325 mg Tablet] 1 each PO Q6H PRN #7 tablet 06/04/17 [Rx] Vancomycin Oral Soln [Vancocin] 125 mg PO QID 7 Days #28 udc 06/04/17 [Rx] Allergies/Adverse Reactions: 3 Allergy/AdvReac Type Severity Reaction Status Date / Time rosuvastatin [From Crestor] Allergy Hives Verified 05/31/17 14:16 ciprofloxacin AdvReac Itching Verified 05/31/17 14:16 Hydromorphone [From Dilaudid] AdvReac Difficulty Verified 05/31/17 14:16 Breathing Date of admission: 06/02/17 17:39 Primary care physician: PCP NONE - Patient Status Disposition: Transfer SNF Condition: Fair - Discharge Instructions Follow Up With: NONE,PCP [Primary Care Provider] - Hospital course: Patient is a 76-year-old female with past medical history significant for cancer , diabetes, HTN, and [place] who presented to the ER on 06/02/17 due to urinary symptoms. Patient stated that she began having suprapubic pain this morning and "knew I had a urinary tract infection". She reported of a history of UTI and stated that this was similar to it. She stated that the suprapubic pain began the day of admission and is worse with movement and improves with rest. She reported of a low grade fever of 99.8, hematuria, dysuria, decrease in urine output, and increase in urinary frequency. She has had a guzmán catheter in place since the first week of April 2017 in order to avoid urinating on her sacral decubitus ulcer, which per patient, has been present for 6-7 years. Patient was admitted to the medical floor for further evaluation. During patients hospital stay, she was treated for acute cystitis due to indwelling Guzmán catheter with a 7 day course of IV ceftriaxone; patients urinary symptoms have resolved. Patient was also found to have diarrhea secondary to C. difficile and her symptoms improved after starting oral vancomycin. She is medically stable to be discharged back to [facility] to continue a seven-day course of oral vancomycin for C. difficile. Patient has already completed her course of IV antibiotics for UTI infection in her hospital stay. - Time Spent with Patient Total time spent providing and/or coordinating discharge services: Less than 30 minutes - Constitutional Vitals: Temp Pulse Resp BP Pulse Ox 98.5 F 77 16 106/49 93 06/04/17 11:05 06/04/17 11:05 06/04/17 11:05 06/04/17 11:05 06/04/17 11:05 General appearance: Present: A&O X 3, pleasant, obese. Absent: no acute distress - Respiratory Respiratory exam: Present: CTAB. Absent: accessory muscle use, rales, rhonchi, wheezes - Cardiovascular Cardiovascular exam: Present: RRR, +S1, +S2. Absent: diastolic murmur, gallop, rubs, systolic murmur
--- NOTE | 2017-06-04 16:01 | Physician Discharge Referral ---
ExtendedCare Referral Info Institutional Level of Care: Intermediate - Diagnosis (1) C. difficile diarrhea Priority: Secondary Status: Acute (2) UTI (urinary tract infection) Priority: Primary Status: Resolved (3) Indwelling Ramos catheter present Priority: Secondary Status: Acute (4) Decubitus ulcer, stage 4 with infection Priority: Secondary Status: Chronic (5) Cholangiocarcinoma of liver Priority: Secondary Status: Chronic - Transfer Medications Prescriptions: Gabapentin [Neurontin] 100 mg PO QAM #15 capsule Gabapentin [Neurontin] 200 mg PO HS #20 capsule LORazepam [Ativan] 0.5 mg PO BID PRN #10 tablet PRN Reason: Anxiety Oxycodone HCl/Acetaminophen [Percocet 5-325 mg Tablet] 1 each PO Q6H PRN #7 tablet PRN Reason: Pain Home Medications: Omeprazole [PriLOSEC] 20 mg PO QAM 02/04/15 [History] Sennosides/Docusate Sodium [Senna Plus] 8.6 mg PO QAM PRN 02/04/15 [History] Acidoph/L.bulg/Bif.b/S.thermop [Emilie-Bid Caplet] 2 tab PO DAILY 04/17/17 [ History] Amitriptyline [Elavil] 10 mg PO HS 04/17/17 [History] Aspirin Enteric Coated [Aspirin EC] 81 mg PO DAILY 04/17/17 [History] Bromfenac Sodium 1 drop RIGHT EYE DAILY 04/17/17 [History] Insulin Aspart Prot/Insuln Asp [Novolog Mix 70-30 Vial] 46 unit SQ HS 04/17/17 [ History] Insulin Aspart Prot/Insuln Asp [Novolog Mix 70-30 Vial] 56 unit SQ QAM 04/17/17 [History] Magnesium Oxide [Mag-Ox] 400 mg PO BID 04/17/17 [History] Metoprolol [Lopressor] 12.5 mg PO BID 04/17/17 [History] Sertraline [Zoloft] 125 mg PO DAILY 04/17/17 [History] Acetaminophen [Tylenol] 650 mg PO Q6HR PRN tablet 04/30/17 [Rx] Calcium Carbonate/Vitamin D3 [Oyster Shell 250 mg + Vit D Tb] 1 each PO DAILY [History] Calcium Polycarbophil [Fiber Laxative] 625 mg PO DAILY 05/25/17 [History] Colestipol HCl [Colestid] 2 gm PO DAILY 05/25/17 [History] Gabapentin [Neurontin] 100 mg PO QAM #15 capsule 06/04/17 [Rx] Gabapentin [Neurontin] 200 mg PO HS #20 capsule 06/04/17 [Rx] LORazepam [Ativan] 0.5 mg PO BID PRN #10 tablet 06/04/17 [Rx] Oxycodone HCl/Acetaminophen [Percocet 5-325 mg Tablet] 1 each PO Q6H PRN #7 tablet 06/04/17 [Rx] Vancomycin Oral Soln [Vancocin] 125 mg PO QID 7 Days #28 udc 06/04/17 [Rx] Allergies/Adverse Reactions: 3 Allergy/AdvReac Type Severity Reaction Status Date / Time rosuvastatin [From Crestor] Allergy Hives Verified 05/31/17 14:16 ciprofloxacin AdvReac Itching Verified 05/31/17 14:16 Hydromorphone [From Dilaudid] AdvReac Difficulty Verified 05/31/17 14:16 Breathing - Respiratory Orders Smoking Cessation: Smoking cessation has been advised. For more information, call the [place] Tobacco Quit Line at 2-380-WVKT-NOW. CERTIFICATION: I certify that the transfer of the above named patient to an Extended Care Facility is necessary for the continuing treatment of the diagnosis listed. The above information is true and accurate reflection of patient's current condition. Confidential - Redisclosure prohibited without a patient's written consent.
[2017-06-04 16:05] VITALS: BP 107/54
== END 2017-06-04 18:43 | DRG 698 ==
LOC: EMEROO 14:43 → INTOOBSV 18:14 → 3ANU 18:14 → SUATTDRO 18:14 → 3ANU 19:18
PROVIDERS: ADMIT Internal Medicine; ATTEND Hospitalist

== ENCOUNTER 2017-09-26 08:09 | Inpatient (IN) ==
[2017-09-26] MEDS ORDERED: Naloxone 0.4 MG/ML INJ IVP ONE (08:19)
--- NOTE | 2017-09-26 08:20 | Emergency Department Note ---
Disposition Clinical Impression: Abdominal pain Qualifiers: Abdominal location: unspecified location Qualified Code(s): R10.9 - Unspecified abdominal pain Disposition: Admitted As Inpatient General Adult HPI - General Chief complaint: ED Abdominal Pain Stated complaint: abdominal pains Time Seen by Provider: 09/26/17 08:12 - History of Present Illness Pain Scale: 2 - Related Data Home Medications Medication Instructions Recorded Confirmed Omeprazole [PriLOSEC] 20 mg PO QAM 02/04/15 07/13/17 Sennosides/Docusate Sodium [Senna 8.6 mg PO QAM PRN 02/04/15 07/13/17 Plus] Acidoph/L.bulg/Bif.b/S.thermop 2 tab PO DAILY 04/17/17 07/13/17 [Emilie-Bid Caplet] Amitriptyline [Elavil] 10 mg PO HS 04/17/17 07/13/17 Aspirin Enteric Coated [Aspirin EC] 81 mg PO DAILY 04/17/17 07/13/17 Bromfenac Sodium 1 drop RIGHT EYE DAILY 04/17/17 07/13/17 Insulin Aspart Prot/Insuln Asp 46 unit SQ HS 04/17/17 07/13/17 [Novolog Mix 70-30 Vial] Insulin Aspart Prot/Insuln Asp 56 unit SQ QAM 04/17/17 07/13/17 [Novolog Mix 70-30 Vial] Magnesium Oxide [Mag-Ox] 400 mg PO BID 04/17/17 07/13/17 Metoprolol [Lopressor] 12.5 mg PO BID 04/17/17 07/13/17 Sertraline [Zoloft] 125 mg PO DAILY 04/17/17 07/13/17 Calcium Carbonate/Vitamin D3 1 each PO DAILY 05/25/17 07/13/17 [Oyster Shell 250 mg + Vit D Tb] Calcium Polycarbophil [Fiber 625 mg PO DAILY 05/25/17 07/13/17 Laxative] Colestipol HCl [Colestid] 2 gm PO DAILY 05/25/17 07/13/17 Meclizine [Antivert] 12.5 mg PO TID PRN 07/13/17 07/13/17 Ondansetron HCl [Zofran] 4 mg PO Q8H PRN 07/13/17 07/13/17 Oxycodone HCl [Oxaydo] 5 mg PO Q6H PRN 07/13/17 07/13/17 Simvastatin [Zocor] 40 mg PO HS 07/13/17 07/13/17 Previous Rx's Medication Instructions Recorded Acetaminophen [Tylenol] 650 mg PO Q6HR PRN tablet 04/30/17 Gabapentin [Neurontin] 100 mg PO QAM #15 capsule 06/04/17 Gabapentin [Neurontin] 200 mg PO HS #20 capsule 06/04/17 LORazepam [Ativan] 0.5 mg PO BID PRN #10 tablet 06/04/17 Oxycodone HCl/Acetaminophen 1 each PO Q6H PRN #7 tablet 06/04/17 [Percocet 5-325 mg Tablet] Allergies Allergy/AdvReac Type Severity Reaction Status Date / Time rosuvastatin [From Crestor] Allergy Hives Verified 07/13/17 16:35 ciprofloxacin AdvReac Itching Verified 07/13/17 16:35 Hydromorphone [From Dilaudid] AdvReac Difficulty Verified 07/13/17 16:35 Breathing Past Medical History - Past Medical History Medical history: Reports: cancer, diabetes, hypertension, myocardial infarction , thyroid disease, other Surgical history: Reports: appendectomy, , cataract, cholecystectomy, herniorrhaphy, orthopedic, other, SHONDA/BSO, other Psychiatric history: Reports: anxiety, depression - Social History Smoking Status: Former smoker Smokeless Tobacco Status: No Alcohol use: Reports: rarely Drug use: Reports: none Physical Exam - General General appearance: alert Course Vital Signs Temperature 97.6 F 09/26/17 08:11 Pulse Rate 85 09/26/17 08:11 Respiratory Rate 20 09/26/17 08:11 Blood Pressure 94/70 09/26/17 08:11 O2 Sat by Pulse Oximetry 95 09/26/17 08:11 Temperature 97.6 F 09/26/17 08:11 Pulse Rate 85 09/26/17 08:11 Respiratory Rate 20 09/26/17 08:11 Blood Pressure 94/70 09/26/17 08:11 O2 Sat by Pulse Oximetry 95 09/26/17 08:11 Oxygen Delivery Oxygen Delivery Nasal Cannula Attestation Statement - Attestation Attestation: I examined this patient and my medical decision-making was reviewed with the Resident Physician. I agree with the documented findings, disposition and treatment plan as described except to the extent set forth below. 77 year old female presntes to the eD with complanits of adboimnal pain and c.difficile. She has a histroy of two hernias and has been sent to us for evlaution of sepsis secondary to hypotension and altered mental status and decrased urine output. WE will use standard precautions and evaluate for sepsis with ABCt IV contrast included and rule out HCAP secondary to nursin home stay PAtinet will be admitted.
--- NOTE | 2017-09-26 08:22 | Emergency Department Note ---
Disposition Clinical Impression: C. difficile diarrhea, Confusion, Sacral decubitus ulcer, stage III Abdominal pain Qualifiers: Abdominal location: unspecified location Qualified Code(s): R10.9 - Unspecified abdominal pain UTI (urinary tract infection) Qualifiers: Urinary tract infection type: site unspecified Hematuria presence: without hematuria Qualified Code(s): N39.0 - Urinary tract infection, site not specified Hypotension Qualifiers: Hypotension type: unspecified hypotension type Qualified Code(s): I95.9 - Hypotension, unspecified Altered mental status Qualifiers: Altered mental status type: unspecified Qualified Code(s): R41.82 - Altered mental status, unspecified Leukocytosis Qualifiers: Leukocytosis type: unspecified Qualified Code(s): D72.829 - Elevated white blood cell count, unspecified Ventral hernia Qualifiers: Obstruction and gangrene presence: without obstruction or gangrene Qualified Code(s): K43.9 - Ventral hernia without obstruction or gangrene Disposition: Admitted As Inpatient Condition: Fair Referrals: Veto Harper MD [Non-Partnered Physician] - Forms: ED Satisfaction Letter, Work/School Release Time of Disposition: 11:06 Abdominal Pain HPI - General Chief Complaint: ED Abdominal Pain Stated Complaint: abdominal pains Time Seen by Provider: 09/26/17 08:12 Source: patient, EMS Mode of arrival: EMS Limitations: other Nursing Notes Reviewed: Yes Vital Signs Reviewed: Yes - History of Present Illness HPI Narrative: Patient is a 77-year-old female with past medical history of hypertension, previous [place], chronic indwelling Ramos catheter, abdominal hernias, sacral ulcer that she follows with wound center for. She presents today due to abdominal pain, decreased urine output, altered mental status. She presents from [facility] via EMS. According to EMS, the patient has been sleeping throughout her transport here. Blood pressure was stated to be 80 systolic by [facility], EMS reports systolic blood pressure 100. The patient herself complains of abdominal pain in the lower abdomen below abdominal hernias. Denies any other chest pain, shortness of breath, nausea, vomiting, fevers. She does admit to diarrhea and has a history of C. difficile. She is oriented to person and place but not time. She is sleepy throughout her exam and does admit that she received pain medication prior to arrival. Pain Scale: 2 - Related Data Home Medications Medication Instructions Recorded Confirmed Omeprazole [PriLOSEC] 20 mg PO QAM 02/04/15 09/26/17 Sennosides/Docusate Sodium [Senna 8.6 mg PO QAM PRN 02/04/15 09/26/17 Plus] Acidoph/L.bulg/Bif.b/S.thermop 2 tab PO DAILY 04/17/17 09/26/17 [Emilie-Bid Caplet] Amitriptyline [Elavil] 10 mg PO HS 04/17/17 09/26/17 Aspirin Enteric Coated [Aspirin EC] 81 mg PO DAILY 04/17/17 09/26/17 Bromfenac Sodium 1 drop RIGHT EYE DAILY 04/17/17 09/26/17 Insulin Aspart Prot/Insuln Asp 46 unit SQ HS 04/17/17 09/26/17 [Novolog Mix 70-30 Vial] Insulin Aspart Prot/Insuln Asp 56 unit SQ QAM 04/17/17 09/26/17 [Novolog Mix 70-30 Vial] Magnesium Oxide [Mag-Ox] 400 mg PO BID 04/17/17 09/26/17 Metoprolol [Lopressor] 12.5 mg PO BID 04/17/17 09/26/17 Sertraline [Zoloft] 25 mg PO DAILY 04/17/17 09/26/17 Calcium Carbonate/Vitamin D3 1 tab PO DAILY 05/25/17 09/26/17 [Oyster Shell 250 mg + Vit D Tb] Calcium Polycarbophil [Fiber 625 mg PO DAILY 05/25/17 09/26/17 Laxative] Colestipol HCl [Colestid] 2 gm PO DAILY 05/25/17 09/26/17 Ondansetron HCl [Zofran] 4 mg PO Q8H PRN 07/13/17 09/26/17 Oxycodone HCl [Oxaydo] 5 mg PO Q6H PRN 07/13/17 09/26/17 Simvastatin [Zocor] 40 mg PO HS 07/13/17 09/26/17 Acetaminophen [Tylenol] 650 mg PO Q8H PRN 09/26/17 09/26/17 Oxycodone HCl/Acetaminophen 1 each PO Q6H PRN 09/26/17 09/26/17 [Percocet 5-325 mg Tablet] Sertraline [Zoloft] 100 mg PO DAILY 09/26/17 09/26/17 Previous Rx's Medication Instructions Recorded Gabapentin [Neurontin] 100 mg PO QAM #15 capsule 06/04/17 Gabapentin [Neurontin] 200 mg PO HS #20 capsule 06/04/17 LORazepam [Ativan] 0.5 mg PO BID PRN #10 tablet 06/04/17 Allergies Allergy/AdvReac Type Severity Reaction Status Date / Time rosuvastatin [From Crestor] Allergy Hives Verified 07/13/17 16:35 ciprofloxacin AdvReac Itching Verified 07/13/17 16:35 Hydromorphone [From Dilaudid] AdvReac Difficulty Verified 07/13/17 16:35 Breathing All systems ED: reviewed and negative except as stated. Constitutional: Denies: fever Cardiovascular: Denies: chest pain Respiratory: Denies: cough, dyspnea Gastrointestinal: Reports: abdominal pain, diarrhea. Denies: nausea, vomiting Integumentary: Denies: rash Neurological: Reports: weakness (Chronic weakness of bilateral lower extremity, bedbound). Denies: headache, numbness, paresthesias Abdominal Pain PMH - Past Medical History Medical history: Reports: cancer, diabetes, hypertension, myocardial infarction , thyroid disease, other Female Surgical History: Reports: herniorrhaphy Psychiatric history: Reports: anxiety, depression - Social History Smoking status: Former smoker Alcohol use: Reports: rarely Drug use: Reports: none Physical Exam - General Limitations: altered mental status General appearance: alert - Head Head exam: atraumatic, normocephalic, normal inspection - Eye Eye exam: Present: PERRL, EOMI, miosis - ENT ENT exam: mucous membranes moist, mucous membranes dry - Neck Neck exam: Present: normal inspection, full ROM, trachea midline - Chest Chest inspection: Present: normal inspection, symmetric chest wall rise - Respiratory Respiratory exam: Present: normal lung sounds bilaterally. Absent: respiratory distress, wheezes, stridor, accessory muscle use - Cardiovascular Cardiovascular exam: Present: regular rate, normal rhythm, normal heart sounds - Abdominal Exam Abdominal exam: Present: other (Large ventral hernia that is firm, no overlying erythema or skin discoloration. Moderate generalized tenderness, worse in lower abdomen). Absent: guarding, rebound, rigidity - Extremities Exam Extremities exam: Present: full ROM, other (Small bruise of right lower extremity). Absent: tenderness, pedal edema - Back Exam Back exam: Present: other (stage 3 ulcer of sacrum with foul odor and mild pus drainage) - Neurological Exam Neurological exam: Present: alert - Expanded Neurological Exam Patient oriented to: Present: person, place. Absent: time Speech: Present: fluid speech (slurred speech due to sleepiness) Cranial nerves: EOM function (II, III, IV, ): Normal, facial sensation (V): Normal, spinal accessory function (XI): Normal, tongue deviation (XII): Normal Motor strength - LUE: 5/5 Motor strength - RUE: 5/5 Motor strength - LLE: 2/5 (chronic) Motor strength - RLE: 2/5 (chronic) Sensory exam upper extremity: light touch: Normal Sensory exam lower extremity: light touch: Normal Coma Scale Eye Opening: To Voice Coma Scale Motor Response: Obeys Commands Coma Scale Verbal Response: Confused Coma Scale Total: 13 - Psychiatric Psychiatric exam: Present: normal affect, normal mood - Skin Skin exam: Present: warm, dry, intact Course Course Narrative: On exam, patient was sleepy, oriented to person and place only but not time. She did follow commands. GCS of 13 due to opening eyes to voice, confusion. Patient also had miotic pupils. No focal neurologic deficits. She does have chronic lower extreme weakness and is bedbound that she states is chronic for her. Patient was given Narcan and is now more awake. Currently concern for incarcerated hernia versus other intra-abdominal process. Patient also has C. difficile and stage 3 sacral ulcer. Patient was placed on precautions, will perform septic workup, CT abdomen and pelvis, chest x-ray, basic blood work, LFTs, lipase. We will give the patient 2 L normal saline bolus due to his systolic blood pressure in the 80s. Will also start patient on empiric vanc and zosyn. 09:44 labs show leukocytosis, UTI. She was restarted on empiric vancomycin and Zosyn which should cover UTI. Chest x-ray negative for any acute abnormality. Currently concern for sepsis secondary to UTI or sacral ulcer. Blood pressure after normal saline boluses is now 133 systolic. Mentating better at this time. 10:23 CT abdomen and pelvis shows no acute abdominal processes. There is large ventral hernia that contains a portion of the gastric antrum, some small hypodense lesions of the liver, small amount of fluid around the liver and hernia sac. Will admit the patient for further care for possible urosepsis versus sepsis secondary to sacral ulcers Chest X-Ray 09/26/17 08:14 IMPRESSION: 1. No acute abnormality. D/ / Kodak Ramos MD / Kodak Ramos MD Interpreting Provider: Kodak Ramos MD Abdomen/Pelvis CT 09/26/17 08:16 IMPRESSION: 1. Redemonstration of left lobe of liver hypodense lesions. Lesions are mostly stable however 1 small lesions smaller and indistinct which would suggest some ongoing resolution. 2. Interval increase in size of large ventral hernia which now contains a portion of the gastric antrum which is distended with gas. 3. Interval development of small amount of free intraperitoneal fluid seen mainly around the left lobe of liver, in the hernia sac and in the anterior lower abdomen. 4. No evidence for bowel obstruction. D/ / Ronny Bradley MD / Ronny Bradley MD Interpreting Provider: Ronny Bradley MD Chest X-Ray 09/26/17 08:14 IMPRESSION: 1. No acute abnormality. D/ / Kodak Ramos MD / Kodak Ramos MD Interpreting Provider: Kodak Ramos MD Vital Signs Temperature 97.6 F 09/26/17 08:11 Pulse Rate 85 09/26/17 08:11 Respiratory Rate 20 09/26/17 08:11 Blood Pressure 94/70 09/26/17 08:11 O2 Sat by Pulse Oximetry 95 09/26/17 08:11 Temperature 97.6 F 09/26/17 08:11 Pulse Rate 100 09/26/17 10:12 Respiratory Rate 17 09/26/17 10:12 Blood Pressure 115/67 09/26/17 10:12 O2 Sat by Pulse Oximetry 100 09/26/17 10:12 Oxygen Delivery Oxygen Delivery Nasal Cannula Abdominal Pain - MDM Narrative Medical decision making narrative: On exam, patient was sleepy, oriented to person and place only but not time. She did follow commands. GCS of 13 due to opening eyes to voice, confusion. Patient also had miotic pupils. No focal neurologic deficits. She does have chronic lower extreme weakness and is bedbound that she states is chronic for her. Patient was given Narcan and is now more awake. Currently concern for incarcerated hernia versus other intra-abdominal process. Patient also has C. difficile and stage 3 sacral ulcer. Patient was placed on precautions, will perform septic workup, CT abdomen and pelvis, chest x-ray, basic blood work, LFTs, lipase. We will give the patient 2 L normal saline bolus due to his systolic blood pressure in the 80s. Will also start patient on empiric vanc and zosyn. 09:44 labs show leukocytosis, UTI. She was restarted on empiric vancomycin and Zosyn which should cover UTI. Chest x-ray negative for any acute abnormality. Currently concern for sepsis secondary to UTI or sacral ulcer. Blood pressure after normal saline boluses is now 133 systolic. Mentating better at this time. 10:23 CT abdomen and pelvis shows no acute abdominal processes. There is large ventral hernia that contains a portion of the gastric antrum, some small hypodense lesions of the liver, small amount of fluid around the liver and hernia sac. Will admit the patient for further care for possible urosepsis versus sepsis secondary to sacral ulcers - Medical Records Medical records reviewed: Yes I reviewed the patient's medical records. - Lab Data Lab results reviewed: Yes I reviewed the patient's lab results. Result diagrams: 09/26/17 08:13 09/26/17 08:13 Lab Results 09/26/17 09/26/17 09/26/17 Range/Units 08:13 08:13 08:13 WBC 15.9 H (4.3-11.1) K/mcL RBC 4.86 (3.82-4.97) M/mcL Hgb 13.1 (11.5-15.4) g/dL Hct 42.5 (35.3-44.9) % MCV 87.4 (83.0-100.0) fL MCH 27.0 L (28.0-33.3) pg MCHC 30.8 L (31.6-35.5) g/dL RDW 17.2 H (11.5-14.5) % Plt Count 333 (140-400) K/mcL MPV 11.6 (9.4-12.4) fL Immature Gran % 0.4 (0-4) % Seg Neutrophils % 87.8 % Lymphocytes % 5.6 % Monocytes % 5.9 % Eosinophils % 0.1 % Basophils % 0.2 % Neutrophils # 14.0 H (1.6-8.9) K/mcL Lymphocytes # 0.9 (0.6-4.6) K/mcL Monocytes # 0.9 (0.0-1.3) K/mcL Eosinophils # 0.0 (0.0-0.6) K/mcL Basophils # 0.0 (0.0-0.2) K/mcL PT 11.7 (9.4-12.1) Seconds INR 1.1 APTT 25.4 L (26.0-36.0) Seconds Sodium 137 (136-145) mEq/L Potassium 4.7 (3.5-5.1) mEq/L Chloride 99 (98-107) mEq/L Carbon Dioxide 25 (23-29) mEq/L BUN 20 (8-23) mg/dL Creatinine 0.75 (0.60-1.20) mg/dL Est GFR ( Amer) > 60 (> 60) Est GFR (Non-Af Amer) > 60 (> 60) BUN/Creatinine Ratio 27 H (6-26) Glucose 156 H (70-105) mg/dL Calculated Osmolality 290 (280-300) Lactic Acid (0.5-2.2) mmol/L Calcium 9.4 (8.6-10.3) mg/dL Phosphorus 4.5 (2.7-4.5) mg/dL Magnesium 1.4 L (1.6-2.6) mg/dL Total Bilirubin 0.5 (0.3-1.0) mg/dL Direct Bilirubin 0.0 (0.0-0.2) mg/dL Indirect Bilirubin 0.5 (0.0-1.2) mg/dL AST 23 (13-39) Units/L ALT 12 (7-52) Units/L Alkaline Phosphatase 146 H (34-104) Units/L Troponin I < 0.03 (< 0.04) ng/mL Serum Total Protein 8.0 (6.4-8.9) g/dL Albumin 3.6 (3.5-5.7) g/dL Globulin 4.4 H (2.4-3.5) g/dL Albumin/Globulin Ratio 0.8 L (1.1-2.2) Lipase 10 L (11-82) Units/L Urine Color (Yellow) Urine Clarity (Clear) Urine pH (5.0-8.0) pH Units Ur Specific [place] (1.010-1.025) Urine Protein (Neg-Trace) mg/dL Urine Glucose (UA) (Normal) mg/dL Urine Ketones (Negative) mg/dL Urine Blood (Negative) Urine Nitrite (Negative) Urine Bilirubin (Negative) Urine Urobilinogen (Normal) mg/dL Ur Leukocyte Esterase (Negative) Urine Microscopic RBC (0-3) per hpf Urine Microscopic WBC (0-3) per hpf Ur Squamous Epith Cells (None-Few) per lpf Urine Bacteria (None-Few) per hpf Hyaline Casts (None-Few) per lpf Ur Culture Indicated? (NO) 09/26/17 09/26/17 Range/Units 08:25 09:02 WBC (4.3-11.1) K/mcL RBC (3.82-4.97) M/mcL Hgb (11.5-15.4) g/dL Hct (35.3-44.9) % MCV (83.0-100.0) fL MCH (28.0-33.3) pg MCHC (31.6-35.5) g/dL RDW (11.5-14.5) % Plt Count (140-400) K/mcL MPV (9.4-12.4) fL Immature Gran % (0-4) % Seg Neutrophils % % Lymphocytes % % Monocytes % % Eosinophils % % Basophils % % Neutrophils # (1.6-8.9) K/mcL Lymphocytes # (0.6-4.6) K/mcL Monocytes # (0.0-1.3) K/mcL Eosinophils # (0.0-0.6) K/mcL Basophils # (0.0-0.2) K/mcL PT (9.4-12.1) Seconds INR APTT (26.0-36.0) Seconds Sodium (136-145) mEq/L Potassium (3.5-5.1) mEq/L Chloride (98-107) mEq/L Carbon Dioxide (23-29) mEq/L BUN (8-23) mg/dL Creatinine (0.60-1.20) mg/dL Est GFR ( Amer) (> 60) Est GFR (Non-Af Amer) (> 60) BUN/Creatinine Ratio (6-26) Glucose (70-105) mg/dL Calculated Osmolality (280-300) Lactic Acid 3.7 H (0.5-2.2) mmol/L Calcium (8.6-10.3) mg/dL Phosphorus (2.7-4.5) mg/dL Magnesium (1.6-2.6) mg/dL Total Bilirubin (0.3-1.0) mg/dL Direct Bilirubin (0.0-0.2) mg/dL Indirect Bilirubin (0.0-1.2) mg/dL AST (13-39) Units/L ALT (7-52) Units/L Alkaline Phosphatase (34-104) Units/L Troponin I (< 0.04) ng/mL Serum Total Protein (6.4-8.9) g/dL Albumin (3.5-5.7) g/dL Globulin (2.4-3.5) g/dL Albumin/Globulin Ratio (1.1-2.2) Lipase (11-82) Units/L Urine Color Dark Yellow (Yellow) Urine Clarity Turbid A (Clear) Urine pH 8.5 H (5.0-8.0) pH Units Ur Specific [place] 1.011 (1.010-1.025) Urine Protein 100 H (Neg-Trace) mg/dL Urine Glucose (UA) Normal (Normal) mg/dL Urine Ketones Negative (Negative) mg/dL Urine Blood Large H (Negative) Urine Nitrite Positive A (Negative) Urine Bilirubin Negative (Negative) Urine Urobilinogen Normal (Normal) mg/dL Ur Leukocyte Esterase Moderate H (Negative) Urine Microscopic RBC TNTC H (0-3) per hpf Urine Microscopic WBC TNTC H (0-3) per hpf Ur Squamous Epith Cells Moderate H (None-Few) per lpf Urine Bacteria Many H (None-Few) per hpf Hyaline Casts Moderate H (None-Few) per lpf Ur Culture Indicated? YES A (NO) - Radiology Data Radiology results reviewed: Yes I reviewed the patient's radiology results. Chest X-Ray 09/26/17 08:14 IMPRESSION: 1. No acute abnormality. D/ / Kodak Ramos MD / Kodak Ramos MD Interpreting Provider: Kodak Ramos MD Abdomen/Pelvis CT 09/26/17 08:16 IMPRESSION: 1. Redemonstration of left lobe of liver hypodense lesions. Lesions are mostly stable however 1 small lesions smaller and indistinct which would suggest some ongoing resolution. 2. Interval increase in size of large ventral hernia which now contains a portion of the gastric antrum which is distended with gas. 3. Interval development of small amount of free intraperitoneal fluid seen mainly around the left lobe of liver, in the hernia sac and in the anterior lower abdomen. 4. No evidence for bowel obstruction. D/ / Ronny Bradley MD / Ronny Bradley MD Interpreting Provider: Ronny Bradley MD - EKG Data EKG attestation: Yes I reviewed and interpreted this EKG. EKG results narrative: 09/26/2017 08:19. Normal sinus rhythm. Rate 81. NE within normal limits. QRS 92. QTC 425. Mild left axis deviation. No acute ST elevation or depression. Occasional PVCs present. S.B.A.R. - S.B.A.R. Situation: Demographics, MOA Background: Presenting Complaint, Relevant PMH, Meds, & Allergies Assessment: Vital Signs, Course and respsone to treatment, Exam Concerns, Patient/Family Expectation, Pertinant Lab Results Recommendation: Barrier(s) to disposition, Recommendation based on pending studies, treatments, or consults S.B.A.R. Report Given to: Dr. Rich
[2017-09-26] MEDS ORDERED: Ondansetron 4 MG/2 ML VIAL IVP ONE (08:28)
[2017-09-26 08:36] LABS: Basophils % 0.2 %; Eosinophils % 0.1 %; Hematocrit 42.5 % (35.3-44.9); Hemoglobin 13.1 g/dL (11.5-15.4); Immature Granulocytes % 0.4 % (0-4); Lymphocytes # 0.9 K/mcL (0.6-4.6); Lymphocytes % 5.6 %; Mean Corpuscular HGB Conc 30.8 g/dL (31.6-35.5); Mean Corpuscular Volume 87.4 fL (83.0-100.0); Mean Platelet Volume 11.6 fL (9.4-12.4); Monocytes # 0.9 K/mcL (0.0-1.3); Monocytes % 5.9 %; Platelet Count 333 K/mcL (140-400); Red Blood Count 4.86 M/mcL (3.82-4.97); Red Cell Distribution Width 17.2 % (11.5-14.5); Segmented Neutrophils % 87.8 %
[2017-09-26 08:43] LABS: INR 1.1; Prothrombin Time 11.7 Seconds (9.4-12.1)
[2017-09-26] MEDS ORDERED: Piperacillin/Tazobactam 3.375 GM in 0.9 % Sodium Chloride Mini Bag 100 ML IVPB ONE (08:43)
[2017-09-26 08:45] LABS: Activated Partial Thrombo Time 25.4 Seconds (26.0-36.0)
[2017-09-26 08:59] LABS: Alanine Aminotransferase 12 Units/L (7-52); Albumin 3.6 g/dL (3.5-5.7); Albumin/Globulin Ratio 0.8 (1.1-2.2); Alkaline Phosphatase 146 Units/L (34-104); Aspartate Amino Transferase 23 Units/L (13-39); BUN/Creatinine Ratio 27 (6-26); Bilirubin,Indirect 0.5 mg/dL (0.0-1.2); Bilirubin,Total 0.5 mg/dL (0.3-1.0); Blood Urea Nitrogen 20 mg/dL (8-23); Calcium 9.4 mg/dL (8.6-10.3); Carbon Dioxide 25 mEq/L (23-29); Chloride 99 mEq/L (98-107); Globulin 4.4 g/dL (2.4-3.5); Glucose 156 mg/dL (70-105); Lipase 10 Units/L (11-82); Magnesium 1.4 mg/dL (1.6-2.6); Osmolality,Calculated 290 (280-300); Phosphorous 4.5 mg/dL (2.7-4.5); Potassium 4.7 mEq/L (3.5-5.1); Sodium 137 mEq/L (136-145); Troponin I < 0.03 ng/mL (< 0.04); eGFR For African Americans > 60 (> 60); eGFR For Non-African Americans > 60 (> 60)
[2017-09-26] MEDS: 0.9 % Sodium Chloride 1,000 ML IVC SCH ×6 (09:00→16:11)
[2017-09-26 09:12] LABS: Bilirubin,Urine Negative (Negative); Blood,Urine Large (Negative); Clarity,Urine Turbid (Clear); Color,Urine Dark Yellow (Yellow); Glucose,Urine (UA) Normal (Normal); Ketones,Urine Negative (Negative); Leukocyte Esterase,Urine Moderate (Negative); Nitrite,Urine Positive (Negative); PH,Urine 8.5 pH Units (5.0-8.0); Protein,Urine 100 mg/dL (Neg-Trace); Specific Gravity,Urine 1.011 (1.010-1.025); Urobilinogen,Urine Normal (Normal)
[2017-09-26 09:14] LABS: Bacteria,Urine Many per hpf (None-Few); Hyaline Casts,Urine Moderate per lpf (None-Few); RBC,Urine TNTC per hpf (0-3); Squamous Epithelial Cell,Urine Moderate per lpf (None-Few); WBC,Urine TNTC per hpf (0-3)
[2017-09-26] MEDS ORDERED: 0.9 % Sodium Chloride 1,000 ML IVC ONE (11:30)
[2017-09-26] MEDS ORDERED: Naloxone 0.4 MG/ML INJ IVP PRN (13:34)
[2017-09-26] MEDS ORDERED: *HR* OxyCODONE Immed Rel 5 MG TABLET PO PRN (13:37)
[2017-09-26] MEDS ORDERED: *HR* LORazepam 1 MG TABLET PO PRN (13:37)
[2017-09-26] MEDS ORDERED: *HR* Dextrose 50 % in Water (Syg) 50 ML SYRINGE IVP PRN (13:41)
[2017-09-26] MEDS ORDERED: Dextrose Gel 15 GM/37.5 ML TUBE PO PRN ×2 (13:41)
[2017-09-26] MEDS ORDERED: D5% in Water 1,000 ML IVC PRN (13:41)
--- NOTE | 2017-09-26 13:49 | Internal Med History&Physical ---
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 Camacho is a 77 year old female was a background medical history of diabetes, hypertension, dyslipidemia, coronary artery disease, has a long- standing indwelling Ramos catheter, patient has a huge sacral ulcer. Patient is a resident of detention. Noted that patient was having altered mental status, abdominal pain, decreased urine output. For this reason detention sent the patient to emergency department for further evaluation. Patient denies chest pain, nausea, vomiting, dizziness, Workup in the emergency room: Patient was evaluated in the emergency room. Baseline labs were drawn. Noted that there was a leukocytosis. CT abdomen pelvis along with chest x-ray was done. Likely source UTI/sacral ulcer. Reason for admission: Persistent UTI likely secondary to recurrent soaking of sacral ulcer. ICU evaluation: Patient was evaluated by ICU team for recurrent/refractory hypotension. According to ICU team patient can be managed on the floor. Family history: Noncontributory Past Med Surg Social Fam HX - Past Medical History Medical history: cancer, diabetes, hypertension, myocardial infarction, thyroid disease, other Psychiatric history: anxiety, depression - Past Surgical History Surgical History: appendectomy, , cataract, cholecystectomy, herniorrhaphy, orthopedic, other, SHONDA/BSO, other - Social History Smoking Status: Former smoker Smokeless Tobacco Status: No Alcohol use: rarely Drug use: none - Family History Father Living Status: Mother Adopted: No Living Status: Hx Family Cardiac Disorders: Yes Hx Family Respiratory Disorders: Yes (copd) Hx Family Endocrine Disorder: Yes (Diabetes) Internal Medicine - H&P: Meds Omeprazole [PriLOSEC] 20 mg PO QAM 02/04/15 [History] Sennosides/Docusate Sodium [Senna Plus] 8.6 mg PO QAM PRN 02/04/15 [History] Acidoph/L.bulg/Bif.b/S.thermop [Emilie-Bid Caplet] 2 tab PO DAILY 04/17/17 [ History] Amitriptyline [Elavil] 10 mg PO HS 04/17/17 [History] Aspirin Enteric Coated [Aspirin EC] 81 mg PO DAILY 04/17/17 [History] Bromfenac Sodium 1 drop RIGHT EYE DAILY 04/17/17 [History] Insulin Aspart Prot/Insuln Asp [Novolog Mix 70-30 Vial] 46 unit SQ HS 04/17/17 [ History] Insulin Aspart Prot/Insuln Asp [Novolog Mix 70-30 Vial] 56 unit SQ QAM 04/17/17 [History] Magnesium Oxide [Mag-Ox] 400 mg PO BID 04/17/17 [History] Metoprolol [Lopressor] 12.5 mg PO BID 04/17/17 [History] Sertraline [Zoloft] 25 mg PO DAILY 04/17/17 [History] Calcium Carbonate/Vitamin D3 [Oyster Shell 250 mg + Vit D Tb] 1 tab PO DAILY 02/01 [History] Calcium Polycarbophil [Fiber Laxative] 625 mg PO DAILY 05/25/17 [History] Colestipol HCl [Colestid] 2 gm PO DAILY 05/25/17 [History] Gabapentin [Neurontin] 100 mg PO QAM #15 capsule 06/04/17 [Rx] Gabapentin [Neurontin] 200 mg PO HS #20 capsule 06/04/17 [Rx] LORazepam [Ativan] 0.5 mg PO BID PRN #10 tablet 06/04/17 [Rx] Ondansetron HCl [Zofran] 4 mg PO Q8H PRN 07/13/17 [History] Oxycodone HCl [Oxaydo] 5 mg PO Q6H PRN 07/13/17 [History] Simvastatin [Zocor] 40 mg PO HS 07/13/17 [History] Acetaminophen [Tylenol] 650 mg PO Q8H PRN 09/26/17 [History] Oxycodone HCl/Acetaminophen [Percocet 5-325 mg Tablet] 1 each PO Q6H PRN [History] Sertraline [Zoloft] 100 mg PO DAILY 09/26/17 [History] 3 Allergy/AdvReac Type Severity Reaction Status Date / Time rosuvastatin [From Crestor] Allergy Hives Verified 07/13/17 16:35 ciprofloxacin AdvReac Itching Verified 07/13/17 16:35 Hydromorphone [From Dilaudid] AdvReac Difficulty Verified 07/13/17 16:35 Breathing All Systems PM: A 10-system review of systems was performed and is negative for pertinent findings except as documented above in the HPI. - Constitutional Constitutional: anorexia, lethargy, malaise, weakness, no chills, no fever(s), no night sweats - EENT Eyes: no change in vision, no discharge, no pain, no photophobia Ears: no ear discharge, no ear pain, no tinnitus Nose, mouth and throat: no dysphagia, no nasal discharge, no neck pain, no sore throat - Cardiovascular Cardiovascular ROS IM: no chest pain, no diaphoresis, no dyspnea, no lightheadedness, no palpitations, no syncope - Respiratory Respiratory: no cough, no dyspnea, no wheezing, no excessive phlegm production - Gastrointestinal Gastrointestinal: abdominal pain, no diarrhea, no hematemesis, no hematochezia, no melena, no nausea, no vomiting - Genitourinary Genitourinary: no change in urinary stream, no dysuria, no flank pain, no hematuria - Musculoskeletal Musculoskeletal ROS IM: no numbness, no tingling - Integumentary Integumentary IM: no rash, no unusual bruising - Neurological Neurological ROS: confusion, no convulsions, no focal weakness, no numbness, no tingling, no tremor(s) - Hematologic/Lymphatic Hematologic/Lymphatic: no easy bruising - Constitutional Vitals: Temp Pulse Resp BP Pulse Ox 97.6 F 99 18 116/79 97 09/26/17 08:11 09/26/17 13:01 09/26/17 13:01 09/26/17 13:01 09/26/17 13:01 General appearance: Present: A&O X 3, pleasant, no acute distress, answers questions appropriately - Head Head exam: Present: atraumatic, normocephalic - Eye Eye exam: Present: PERRL, conjuntiva pink, sclera anicteric Pupils: Present: PERRL - Neck Neck exam general surgery: Present: supple, trachea midline. Absent: lymphadenopathy - Respiratory Respiratory exam: Present: CTAB. Absent: accessory muscle use, rales, rhonchi, wheezes - Cardiovascular Cardiovascular exam: Present: RRR, +S1, +S2. Absent: diastolic murmur, gallop, rubs, systolic murmur - GI/Abdominal GI/Abdominal exam: Present: normal bowel sounds, soft, no peritoneal signs. Absent: distended, tenderness - Extremities Exam Extremities exam: Present: warm, radial pulses palpable and symmetrical. Absent : calf tenderness, cyanotic, pedal edema - Neurological Exam Neurological exam: Present: CN II-XII intact, oriented X3, no focal deficits. Absent: pronater drift, facial droop, speech deficit - Skin Skin exam: Present: dry, intact Internal Med - H&P Results - Labs CBC & Chem 7: 09/26/17 08:13 09/26/17 08:13 - Assessment and plan (1) UTI (urinary tract infection) Current Visit: No Status: Resolved Assessment and plan: Patient does have a recurrent urinary tract infection. Please see below that he to pathology of the same. We will continue broad-spectrum antibiotics. We will follow the protocols for urinary tract infection Close monitoring of the patient. Qualifiers: Urinary tract infection type: acute cystitis Hematuria presence: with hematuria Qualified Code(s): N30.01 - Acute cystitis with hematuria (2) Hypotension Current Visit: No Status: Inactive Assessment and plan: Patient had an episode of refractory/relapsing hypotension. When patient came her blood pressure was in 80s. She responded well to IV fluids. Again noted that patient's blood pressure was in 90s. This was the reason ICU was called. ICU recommended management on the floor. Qualifiers: Hypotension type: unspecified hypotension type Qualified Code(s): I95.9 - Hypotension, unspecified (3) Decubitus ulcer, stage 4 with infection Current Visit: No Status: Chronic Assessment and plan: Patient does have a decubiti is ulcer which is a stage IV, sacral area. Wound care consult placed. Patient is on appropriate antibiotics. This may be the reason why patient is getting recurrent urinary tract infection. If symptoms does not controlled and patient might need a rectal tube. (4) Diabetes mellitus Current Visit: No Status: Chronic Assessment and plan: Patient is known to have her type 2 diabetes mellitus. We will resume her home medication. At this point we will follow the recommendations from the subcutaneous insulin order set. Qualifiers: Diabetes mellitus type: type 2 Diabetes mellitus terminal block assembler insulin use: with terminal block assembler use Diabetes mellitus complication status: with skin complications Diabetes mellitus complication detail: with other skin ulcer Qualified Code(s): E11.622 - Type 2 diabetes mellitus with other skin ulcer; Z79.4 - terminal gauger (current) use of insulin (5) Morbid obesity with BMI of 40.0-44.9, adult Current Visit: No Status: Chronic Assessment and plan: Patient is morbidly obese. Patient might have a obstructive sleep apnea. Pulmonology to workup with the patient. Patient might get benefit from a bariatric surgery evaluation as outpatient upon discharge. (6) CAD (coronary artery disease) Current Visit: No Status: Chronic Assessment and plan: Patient does have a coronary artery disease. At this point patient does not have a chest pain. We will closely monitor patient's condition during this hospitalization. We will resume her home medications back. Qualifiers: Coronary Disease-Associated Artery/Lesion type: [place] artery [place] vs. transplanted heart: [place] heart Associated angina: without angina Qualified Code(s): I25.10 - Atherosclerotic heart disease of [place] coronary artery without angina pectoris (7) DVT prophylaxis Current Visit: No Status: Acute Assessment and plan: Heparin Medical decision making: This patient has a moderate to severe risk of worsening in spite of being on appropriate medication/treatment due to the underlying chronic comorbid conditions. - Time Spent With Patient Total time spent is greater than 50% in coordination of care (as documented) at patient's floor/unit and/or counseling patient:
[2017-09-26] MEDS ORDERED: Vancomycin 1,750 MG in 0.9 % Sodium Chloride 250 ML IVPB SCH (14:00)
[2017-09-26 14:01] LABS: ABG Base Excess -2 mEq/L (-2 to 3); ABG HCO3 23 mEq/L (21-27); ABG Oxygen Saturation 95 % (95-98); ABG PCO2 40 mmHg (35-45); ABG PH 7.37 pH Units (7.32-7.45); ABG PO2 76 mmHg (85-104); ABG TCO2 24 mEq/L (20-26)
[2017-09-26] MEDS: *HR* Heparin 5,000 UNIT/ML VIAL SQ SCH (16:11)
[2017-09-26] MEDS: Piperacillin/Tazobactam 3.375 GM in 0.9 % Sodium Chloride Mini Bag 100 ML IVPB SCH (16:11)
[2017-09-26] MEDS: Insulin LISPRO 300 UNITS/3 ML VIAL SQ SCH (16:20)
[2017-09-26] MEDS: Magnesium Oxide 400 MG TABLET PO SCH (21:25)
[2017-09-26] MEDS: Gabapentin 100 MG CAPSULE PO SCH (21:26)
[2017-09-26] MEDS: Insulin NPH/REG 70/30 100 UNIT/ML (x5UNIT) SQ SCH (21:35)
[2017-09-27] MEDS: *HR* Heparin 5,000 UNIT/ML VIAL SQ SCH ×3 (00:14→16:21)
[2017-09-27] MEDS: Piperacillin/Tazobactam 3.375 GM in 0.9 % Sodium Chloride Mini Bag 100 ML IVPB SCH ×3 (00:14→16:20)
[2017-09-27 01:42] LABS: Basophils % 0.2 %; Eosinophils % 0.1 %; Hematocrit 31.5 % (35.3-44.9); Immature Granulocytes % 0.4 % (0-4); Lymphocytes # 0.9 K/mcL (0.6-4.6); Lymphocytes % 6.6 %; Mean Corpuscular HGB Conc 31.1 g/dL (31.6-35.5); Mean Corpuscular Hemoglobin 27.2 pg (28.0-33.3); Mean Corpuscular Volume 87.5 fL (83.0-100.0); Mean Platelet Volume 11.2 fL (9.4-12.4); Monocytes # 1.1 K/mcL (0.0-1.3); Monocytes % 8.1 %; Platelet Count 236 K/mcL (140-400); Red Cell Distribution Width 17.3 % (11.5-14.5); Segmented Neutrophils % 84.6 %
[2017-09-27 01:43] LABS: Hemoglobin 9.8 g/dL (11.5-15.4)
[2017-09-27 01:47] LABS: INR 1.3; Prothrombin Time 14.5 Seconds (9.4-12.1)
[2017-09-27 01:50] LABS: Activated Partial Thrombo Time 30.5 Seconds (26.0-36.0)
[2017-09-27 02:07] LABS: Alanine Aminotransferase 8 Units/L (7-52); Albumin/Globulin Ratio 0.9 (1.1-2.2); Alkaline Phosphatase 85 Units/L (34-104); Aspartate Amino Transferase 11 Units/L (13-39); BUN/Creatinine Ratio 27 (6-26); Bilirubin,Total 0.6 mg/dL (0.3-1.0); Blood Urea Nitrogen 18 mg/dL (8-23); Calcium 8.5 mg/dL (8.6-10.3); Carbon Dioxide 25 mEq/L (23-29); Chloride 103 mEq/L (98-107); Chol/HDL Ratio 2.7 (0-4.9); Cholesterol 78 mg/dL (< 200); Globulin 3.4 g/dL (2.4-3.5); Glucose 164 mg/dL (70-105); HDL Cholesterol 29 mg/dL (40-59); LDL Cholesterol,Calculated 26 mg/dL (0-99); Magnesium 1.5 mg/dL (1.6-2.6); Osmolality,Calculated 288 (280-300); Phosphorous 3.4 mg/dL (2.7-4.5); Sodium 136 mEq/L (136-145); Total Protein 6.4 g/dL (6.4-8.9); Triglycerides 113 mg/dL (< 150); eGFR For African Americans > 60 (> 60); eGFR For Non-African Americans > 60 (> 60)
[2017-09-27] MEDS: Ondansetron ODT 4 MG TAB.RAPDIS PO PRN ×2 (06:23→16:20)
[2017-09-27] MEDS: 0.9 % Sodium Chloride 1,000 ML IVC SCH ×3 (06:24→16:27)
[2017-09-27] MEDS ORDERED: Sennosides/Docusate Sodium TABLET PO PRN (08:19)
[2017-09-27] MEDS ORDERED: *HR* OxyCODONE/APAP 5/325 TABLET PO PRN (08:19)
[2017-09-27] MEDS ORDERED: Acetaminophen 325 MG TABLET PO PRN (08:19)
[2017-09-27] MEDS: Insulin LISPRO 300 UNITS/3 ML VIAL SQ SCH ×3 (08:23→16:22)
[2017-09-27] MEDS ORDERED: (Colestipol Hcl [Colestid] 2 GM) PO SCH (09:00)
[2017-09-27] MEDS ORDERED: BROMFENAC SODIUM OP SCH (09:00)
[2017-09-27] MEDS: Cholecalciferol (D-3) 1,000 UNIT TABLET PO SCH (09:35)
[2017-09-27] MEDS: Gabapentin 100 MG CAPSULE PO SCH ×2 (09:35→20:30)
[2017-09-27] MEDS: Lactobacillus 1 EACH CAP.SPRINK PO SCH (09:35)
[2017-09-27] MEDS: Aspirin Enteric Coated 81 MG Tablet PO SCH (09:35)
[2017-09-27] MEDS: Magnesium Oxide 400 MG TABLET PO SCH ×2 (09:36→20:25)
[2017-09-27] MEDS: *HR* OxyCODONE/APAP 5/325 TABLET PO PRN ×2 (09:36→16:20)
[2017-09-27] MEDS: Insulin NPH/REG 70/30 100 UNIT/ML (x5UNIT) SQ SCH (09:37)
[2017-09-28 05:42] LABS: Basophils % 0.2 %; Eosinophils % 0.1 %; Hematocrit 30.6 % (35.3-44.9); Hemoglobin 9.3 g/dL (11.5-15.4); Lymphocytes # 0.4 K/mcL (0.6-4.6); Lymphocytes % 2.4 %; Mean Corpuscular HGB Conc 30.4 g/dL (31.6-35.5); Mean Corpuscular Hemoglobin 26.8 pg (28.0-33.3); Mean Corpuscular Volume 88.2 fL (83.0-100.0); Mean Platelet Volume 11.4 fL (9.4-12.4); Monocytes # 0.9 K/mcL (0.0-1.3); Monocytes % 6.4 %; Neutrophils # 13.2 K/mcL (1.6-8.9); Platelet Count 192 K/mcL (140-400); Red Blood Count 3.47 M/mcL (3.82-4.97); Red Cell Distribution Width 17.4 % (11.5-14.5); Segmented Neutrophils % 89.9 %
[2017-09-28 06:00] LABS: BUN/Creatinine Ratio 25 (6-26); Blood Urea Nitrogen 12 mg/dL (8-23); Calcium 8.6 mg/dL (8.6-10.3); Carbon Dioxide 23 mEq/L (23-29); Chloride 105 mEq/L (98-107); Glucose 131 mg/dL (70-105); Osmolality,Calculated 284 (280-300); Potassium 3.6 mEq/L (3.5-5.1); Sodium 136 mEq/L (136-145); eGFR For African Americans > 60 (> 60); eGFR For Non-African Americans > 60 (> 60)
--- NOTE | 2017-09-28 06:44 | Electrocardiograph Report ---
[address] [place], [place] [address] Test Date: 2017-09-26 Pat Name: [facility] Department: 102 Room: [facility] Gender: F Chart Picker: [email or web address] : [phone] Requested By: John Triana Order Number: [id number] Reading MD: Farhat Segura Measurements Intervals [place] Rate: 81 P: [place]: 0 QRS: -43 QRSD: 92 T: 67 QT: 388 QTc: 425 Interpretive Statements BASELINE ARTIFACT PROBABLE SINUS RHYTHM WITH SINUS ARRHYTHMIA PVCs LOW QRS VOLATAGE IN PRECORDIAL LEADS INCOMPLETE RIGHT BUNDLE BRANCH BLOCK INDETERMINATE AXIS Electronically Signed On 09-28-2017 6:42:53 EDT by Farhat Segura
[2017-09-28] MEDS ORDERED: 0.9 % Sodium Chloride Mini Bag 100 ML ONE (08:50)
[2017-09-28] MEDS: Gabapentin 100 MG CAPSULE PO SCH ×2 (08:59→21:43)
[2017-09-28] MEDS: Magnesium Oxide 400 MG TABLET PO SCH ×2 (09:00→21:43)
[2017-09-28] MEDS: Aspirin Enteric Coated 81 MG Tablet PO SCH (09:00)
[2017-09-28] MEDS: Lactobacillus 1 EACH CAP.SPRINK PO SCH (09:00)
[2017-09-28] MEDS: Cholecalciferol (D-3) 1,000 UNIT TABLET PO SCH (09:00)
[2017-09-28] MEDS: Insulin LISPRO 300 UNITS/3 ML VIAL SQ SCH ×4 (09:01→21:37)
[2017-09-28] MEDS: *HR* Heparin 5,000 UNIT/ML VIAL SQ SCH ×3 (09:02→23:54)
[2017-09-28] MEDS: Piperacillin/Tazobactam 3.375 GM in 0.9 % Sodium Chloride Mini Bag 100 ML IVPB SCH ×3 (09:05→09:23)
[2017-09-28] MEDS: Insulin NPH/REG 70/30 100 UNIT/ML (x5UNIT) SQ SCH ×2 (09:13→21:43)
[2017-09-28] MEDS: 0.9 % Sodium Chloride 1,000 ML IVC SCH (09:20)
[2017-09-28] MEDS: Ketorolac OPTH Soln 5 ML BOTTLE RIGHT EYE SCH (12:04)
[2017-09-28] MEDS: Cefepime HCl 2,000 MG in Water for inj. (sterile) 20 ML 20 ML IVP SCH ×2 (15:49→23:55)
--- NOTE | 2017-09-28 16:24 | Internal Med Progress Note ---
Date of Encounter: 09/28/17 Time of Encounter: 11:00 - Assessment and plan (1) Sepsis Current Visit: No Status: Acute Assessment and plan: Pt did meet sepsis criteria with elevated WBC, source of inf as UTI and Sacral ulcer cont empirical abx Qualifiers: Sepsis type: sepsis due to unspecified organism Qualified Code(s): A41.9 - Sepsis, unspecified organism (2) Altered mental status Current Visit: Yes Status: Resolved Assessment and plan: Likely secondary to UTI. Now appears resolved. Continue to treat UTI as per below. Qualifiers: Altered mental status type: unspecified Qualified Code(s): R41.82 - Altered mental status, unspecified (3) UTI (urinary tract infection) Current Visit: Yes Status: Acute Assessment and plan: Urine cx growing G-ve rods x 2 In the past she did grew E. Coli and Proteus so changed abx to Cefepime Qualifiers: Urinary tract infection type: acute cystitis Hematuria presence: with hematuria Qualified Code(s): N30.01 - Acute cystitis with hematuria (4) Decubitus ulcer, stage 4 with infection Current Visit: Yes Status: Chronic Assessment and plan: Had MRSA growing in the past will send for wound cx cont empirical abx Vancomycin and Cefepime for now Consulted surgery Dr. Harper for further eval regarding wound carter (5) Hypotension Current Visit: Yes Status: Resolved Assessment and plan: Resolved d/c IVF Qualifiers: Hypotension type: unspecified hypotension type Qualified Code(s): I95.9 - Hypotension, unspecified (6) Diabetes mellitus Current Visit: No Status: Chronic Assessment and plan: Continue accuchecks and SSI AC/HS. Qualifiers: Diabetes mellitus type: type 2 Diabetes mellitus oil heaterman insulin use: with oil heaterman use Diabetes mellitus complication status: with skin complications Diabetes mellitus complication detail: with other skin ulcer Qualified Code(s): E11.622 - Type 2 diabetes mellitus with other skin ulcer; Z79.4 - group home (current) use of insulin (7) CAD (coronary artery disease) Current Visit: No Status: Chronic Assessment and plan: No chest pain at this time. Continue home medications. Qualifiers: Coronary Disease-Associated Artery/Lesion type: [place] artery [place] vs. transplanted heart: [place] heart Associated angina: without angina Qualified Code(s): I25.10 - Atherosclerotic heart disease of [place] coronary artery without angina pectoris (8) Morbid obesity with BMI of 40.0-44.9, adult Current Visit: No Status: Chronic (9) DVT prophylaxis Current Visit: No Status: Acute Assessment and plan: Continue SQ heparin. - Time Spent With Patient Total time spent is greater than 50% in coordination of care (as documented) at patient's floor/unit and/or counseling patient: - Subjective Interval history: Ms. Camacho is a 77 year old female with known medical history of diabetes, hypertension, dyslipidemia, coronary artery disease, has a long-standing indwelling Ramos catheter, patient has a huge stage 4 sacral ulcer, who is a [facility] resident was brought into ER with AMS. Pt was admitted in the hospital with UTI and Stage 4 sacral ulcer. Pt is alert, awake and o X 3. Denied any CP / SOB. No fever / chills. Feeling little better today. Pain in her sacral area tolerable with medications. - Constitutional Vitals: Temp Pulse Resp BP Pulse Ox 100.1 F H 69 19 121/56 93 09/28/17 15:25 09/28/17 15:25 09/28/17 15:25 09/28/17 15:25 09/28/17 15:25 General appearance: Present: cooperative, A&O X 3, pleasant, no acute distress, answers questions appropriately - Head Head exam: Present: atraumatic, normal inspection - Neck Neck exam general surgery: Present: supple - Respiratory Respiratory exam: Present: decreased breath sounds. Absent: rales, respiratory distress, rhonchi, wheezes - Cardiovascular Cardiovascular exam: Present: RRR, +S1, +S2. Absent: tachycardia - GI/Abdominal GI/Abdominal exam: Present: normal bowel sounds, soft. Absent: rebound, rigid, tenderness - Extremities Exam Extremities exam: Absent: calf tenderness, pedal edema, tenderness - Back Exam Additional comments: stage 4 sacral ulcer over Rt gluteal region with foul odor and discharge. - Neurological Exam Neurological exam: Present: alert, oriented X3 - Psychiatric Psychiatric exam: Present: normal affect, normal mood Internal Medicine: Result - Labs CBC & Chem 7: 09/28/17 05:21 09/28/17 05:21 Labs: Short CBC 09/28/17 Range/Units 05:21 WBC 14.7 H (4.3-11.1) K/mcL Hgb 9.3 L (11.5-15.4) g/dL Hct 30.6 L (35.3-44.9) % Plt Count 192 (140-400) K/mcL Neutrophils # 13.2 H (1.6-8.9) K/mcL BMP 09/28/17 05:21 Sodium 136 Potassium 3.6 Chloride 105 Carbon Dioxide 23 BUN 12 Creatinine 0.48 L Glucose 131 H Calcium 8.6 - ABG Interpretation ABG results: ABG ABG pH 7.37 pH Units (7.32-7.45) 09/26/17 13:58 ABG pCO2 40 mmHg (35-45) 09/26/17 13:58 ABG pO2 76 mmHg (85-104) L 09/26/17 13:58 ABG O2 Saturation 95 % (95-98) 09/26/17 13:58 PT/INR, D-dimer PT 14.5 Seconds (9.4-12.1) H 09/27/17 01:28 Consult Discharge Plan - Plan Referrals: NONE,PCP [Primary Care Provider] -
--- NOTE | 2017-09-28 17:36 | General Surg History&Physical ---
Date of Encounter: 09/28/17 Time of Encounter: 17:34 Assessment and Plan (1) Sacral decubitus ulcer, stage III Current Visit: Yes Status: Acute 77F with sepsis 2/2 UTI from indwelling catheter with sacral ulcer; currently no clear source of infection (no abcess, no purulent drainage); cont with 0.25% dakins dressing daily q2hr turns low air loss mattress recommend pre-albumin follow up in wound clinic Thank you for allowing me to take part in the care of this patient. please call back with any new questions or concerns. The assessment and plan as outlined above was discussed with the patient and/or family members who expressed understanding and agreement. All questions were answered. History of Present Illness Chief complaint: sepsis HPI: Ms. Camacho is a 77 year old female h/p cholangiocarcinoma, obesity, Dm< HTN, CAD, HLD with an indwelling Ramos catheter, and a sacral ulcer. She is very well known to me is admitted for AMS and concern for sepsis. The patient is not a great historian at present so most of my history is obtained from the medical record. CT (which was evaluated and interpreted by me)demonstrated concern for chronic osteomyelitis at the sacral ulcer while urine studies are positive for urine as a source of infection. General Surgery was consulted for management recommendations in regard to the sacral ulcer. Past Med Surg Social Fam HX - Past Medical History Medical history: cancer, diabetes, hypertension, myocardial infarction, thyroid disease, other Psychiatric history: anxiety, depression - Past Surgical History Surgical History: appendectomy, , cataract, cholecystectomy, herniorrhaphy, orthopedic, other, SHONDA/BSO, other - Social History Smoking Status: Former smoker Smokeless Tobacco Status: No Alcohol use: rarely Drug use: none - Family History Father Living Status: Mother Adopted: No Living Status: Hx Family Cardiac Disorders: Yes Hx Family Respiratory Disorders: Yes (copd) Hx Family Endocrine Disorder: Yes (Diabetes) Medications and Allergies Omeprazole [PriLOSEC] 20 mg PO QAM 02/04/15 [History] Sennosides/Docusate Sodium [Senna Plus] 8.6 mg PO QAM PRN 02/04/15 [History] Acidoph/L.bulg/Bif.b/S.thermop [Emilie-Bid Caplet] 2 tab PO DAILY 04/17/17 [ History] Amitriptyline [Elavil] 10 mg PO HS 04/17/17 [History] Aspirin Enteric Coated [Aspirin EC] 81 mg PO DAILY 04/17/17 [History] Bromfenac Sodium 1 drop RIGHT EYE DAILY 04/17/17 [History] Insulin Aspart Prot/Insuln Asp [Novolog Mix 70-30 Vial] 46 unit SQ HS 04/17/17 [ History] Insulin Aspart Prot/Insuln Asp [Novolog Mix 70-30 Vial] 56 unit SQ QAM 04/17/17 [History] Magnesium Oxide [Mag-Ox] 400 mg PO BID 04/17/17 [History] Metoprolol [Lopressor] 12.5 mg PO BID 04/17/17 [History] Sertraline [Zoloft] 25 mg PO DAILY 04/17/17 [History] Calcium Carbonate/Vitamin D3 [Oyster Shell 250 mg + Vit D Tb] 1 tab PO DAILY 02/01 [History] Calcium Polycarbophil [Fiber Laxative] 625 mg PO DAILY 05/25/17 [History] Colestipol HCl [Colestid] 2 gm PO DAILY 05/25/17 [History] Gabapentin [Neurontin] 100 mg PO QAM #15 capsule 06/04/17 [Rx] Gabapentin [Neurontin] 200 mg PO HS #20 capsule 06/04/17 [Rx] LORazepam [Ativan] 0.5 mg PO BID PRN #10 tablet 06/04/17 [Rx] Ondansetron HCl [Zofran] 4 mg PO Q8H PRN 07/13/17 [History] Oxycodone HCl [Oxaydo] 5 mg PO Q6H PRN 07/13/17 [History] Simvastatin [Zocor] 40 mg PO HS 07/13/17 [History] Acetaminophen [Tylenol] 650 mg PO Q8H PRN 09/26/17 [History] Oxycodone HCl/Acetaminophen [Percocet 5-325 mg Tablet] 1 each PO Q6H PRN [History] Sertraline [Zoloft] 100 mg PO DAILY 09/26/17 [History] 3 Allergy/AdvReac Type Severity Reaction Status Date / Time rosuvastatin [From Crestor] Allergy Hives Verified 07/13/17 16:35 ciprofloxacin AdvReac Itching Verified 07/13/17 16:35 Hydromorphone [From Dilaudid] AdvReac Difficulty Verified 07/13/17 16:35 Breathing Review of Systems All systems PM: The remainder of the systems were reviewed and are negative General Surgery Exam Initial Vital Signs Temp Pulse Resp BP Pulse Ox 97.6 F 85 20 94/70 95 09/26/17 08:11 09/26/17 08:11 09/26/17 08:11 09/26/17 08:11 09/26/17 08:11 - General physical appearance no distress - Eyes normal ocular movement - ENT normocephalic - Neck no lymphadectomy - Respiratory normal expansion, normal respiratory effort - Cardiovascular Cardiovascular exam: Present: RRR - Abdomen Abdomen general surgery: Present: soft, non tender Hernia: Present: incisional - Integumentary Integumentary general surgery: Present: warm and dry, other (sacral ulcer 2/2 pressure; no necrotic tissue, no purulent drainage; ) - Neurologic Present: CN 2-12 grossly intact - Psychiatric Psychiatric general surgery: Present: A&Ox3 Results - Labs 09/28/17 05:21 09/28/17 05:21 Abnormal lab results WBC 14.7 K/mcL (4.3-11.1) H 09/28/17 05:21 RBC 3.47 M/mcL (3.82-4.97) L 09/28/17 05:21 Hgb 9.3 g/dL (11.5-15.4) L 09/28/17 05:21 Hct 30.6 % (35.3-44.9) L 09/28/17 05:21 MCH 26.8 pg (28.0-33.3) L 09/28/17 05:21 MCHC 30.4 g/dL (31.6-35.5) L 09/28/17 05:21 RDW 17.4 % (11.5-14.5) H 09/28/17 05:21 Neutrophils # 13.2 K/mcL (1.6-8.9) H 09/28/17 05:21 Lymphocytes # 0.4 K/mcL (0.6-4.6) L 09/28/17 05:21 PT 14.5 Seconds (9.4-12.1) H 09/27/17 01:28 ABG pO2 76 mmHg (85-104) L 09/26/17 13:58 Creatinine 0.48 mg/dL (0.60-1.20) L 09/28/17 05:21 Glucose 131 mg/dL (70-105) H 09/28/17 05:21 POC Glucose 146 mg/dL (70-99) H 09/28/17 07:59 Lactic Acid 3.0 mmol/L (0.5-2.2) H 09/26/17 14:24 Magnesium 1.5 mg/dL (1.6-2.6) L 09/27/17 01:28 AST 11 Units/L (13-39) L 09/27/17 01:28 B-Natriuretic Peptide 239 pg/mL (Less than 100) H 09/27/17 01:28 Albumin 3.0 g/dL (3.5-5.7) L 09/27/17 01:28 Albumin/Globulin Ratio 0.9 (1.1-2.2) L 09/27/17 01:28 HDL Cholesterol 29 mg/dL (40-59) L 09/27/17 01:28 Lipase 10 Units/L (11-82) L 09/26/17 08:13 Urine Clarity Turbid (Clear) A 09/26/17 09:02 Urine pH 8.5 pH Units (5.0-8.0) H 09/26/17 09:02 Urine Protein 100 mg/dL (Neg-Trace) H 09/26/17 09:02 Urine Blood Large (Negative) H 09/26/17 09:02 Urine Nitrite Positive (Negative) A 09/26/17 09:02 Ur Leukocyte Esterase Moderate (Negative) H 09/26/17 09:02 Urine Microscopic RBC TNTC per hpf (0-3) H 09/26/17 09:02 Urine Microscopic WBC TNTC per hpf (0-3) H 09/26/17 09:02 Ur Squamous Epith Cells Moderate per lpf (None-Few) H 09/26/17 09:02 Urine Bacteria Many per hpf (None-Few) H 09/26/17 09:02 Hyaline Casts Moderate per lpf (None-Few) H 09/26/17 09:02 Ur Culture Indicated? YES (NO) A 09/26/17 09:02 Vancomycin Trough 19 mcg/mL (5-10) H 09/27/17 21:54 Diabetes panel 09/28/17 Range/Units 05:21 Sodium 136 (136-145) mEq/L Potassium 3.6 (3.5-5.1) mEq/L Chloride 105 (98-107) mEq/L Carbon Dioxide 23 (23-29) mEq/L BUN 12 (8-23) mg/dL Creatinine 0.48 L (0.60-1.20) mg/dL Glucose 131 H (70-105) mg/dL Calcium 8.6 (8.6-10.3) mg/dL Calcium panel 09/28/17 Range/Units 05:21 Calcium 8.6 (8.6-10.3) mg/dL Pituitary panel 09/28/17 Range/Units 05:21 Sodium 136 (136-145) mEq/L Potassium 3.6 (3.5-5.1) mEq/L Chloride 105 (98-107) mEq/L Carbon Dioxide 23 (23-29) mEq/L BUN 12 (8-23) mg/dL Creatinine 0.48 L (0.60-1.20) mg/dL Glucose 131 H (70-105) mg/dL Calcium 8.6 (8.6-10.3) mg/dL Adrenal panel 09/28/17 Range/Units 05:21 Sodium 136 (136-145) mEq/L Potassium 3.6 (3.5-5.1) mEq/L Chloride 105 (98-107) mEq/L Carbon Dioxide 23 (23-29) mEq/L BUN 12 (8-23) mg/dL Creatinine 0.48 L (0.60-1.20) mg/dL Glucose 131 H (70-105) mg/dL Calcium 8.6 (8.6-10.3) mg/dL All other labs normal. - Imaging CT scan - abdomen: report reviewed, image reviewed CT scan - pelvis: report reviewed, image reviewed
[2017-09-29] MEDS: *HR* Heparin 5,000 UNIT/ML VIAL SQ SCH ×2 (00:09→09:48)
[2017-09-29] MEDS: Insulin LISPRO 300 UNITS/3 ML VIAL SQ SCH ×3 (00:09→12:18)
[2017-09-29] MEDS: Insulin NPH/REG 70/30 100 UNIT/ML (x5UNIT) SQ SCH ×2 (00:31→10:06)
[2017-09-29 07:36] LABS: Basophils % 0.1 %; Eosinophils # 0.1 K/mcL (0.0-0.6); Hematocrit 30.4 % (35.3-44.9); Hemoglobin 9.1 g/dL (11.5-15.4); Immature Granulocytes % 0.9 % (0-4); Lymphocytes # 0.5 K/mcL (0.6-4.6); Lymphocytes % 4.5 %; Mean Corpuscular HGB Conc 29.9 g/dL (31.6-35.5); Mean Corpuscular Hemoglobin 26.8 pg (28.0-33.3); Mean Corpuscular Volume 89.4 fL (83.0-100.0); Mean Platelet Volume 11.5 fL (9.4-12.4); Monocytes % 9.3 %; Neutrophils # 9.3 K/mcL (1.6-8.9); Platelet Count 200 K/mcL (140-400); Red Cell Distribution Width 17.5 % (11.5-14.5); Segmented Neutrophils % 84.2 %
[2017-09-29 07:54] LABS: BUN/Creatinine Ratio 23 (6-26); Blood Urea Nitrogen 12 mg/dL (8-23); Calcium 8.6 mg/dL (8.6-10.3); Carbon Dioxide 23 mEq/L (23-29); Chloride 106 mEq/L (98-107); Glucose 129 mg/dL (70-105); Magnesium 1.4 mg/dL (1.6-2.6); Osmolality,Calculated 287 (280-300); Potassium 3.8 mEq/L (3.5-5.1); Sodium 138 mEq/L (136-145); eGFR For African Americans > 60 (> 60); eGFR For Non-African Americans > 60 (> 60)
[2017-09-29] MEDS: 0.9 % Sodium Chloride 1,000 ML IVC SCH (09:09)
[2017-09-29] MEDS: Lactobacillus 1 EACH CAP.SPRINK PO SCH (09:48)
[2017-09-29] MEDS: Aspirin Enteric Coated 81 MG Tablet PO SCH (09:49)
[2017-09-29] MEDS: Gabapentin 100 MG CAPSULE PO SCH (09:49)
[2017-09-29] MEDS: Cholecalciferol (D-3) 1,000 UNIT TABLET PO SCH (09:49)
[2017-09-29] MEDS: Cefepime HCl 2,000 MG in Water for inj. (sterile) 20 ML 20 ML IVP SCH (09:49)
[2017-09-29] MEDS: Magnesium Oxide 400 MG TABLET PO SCH (09:49)
[2017-09-29] MEDS: Ketorolac OPTH Soln 5 ML BOTTLE RIGHT EYE SCH (10:06)
[2017-09-29] MEDS: Ondansetron ODT 4 MG TAB.RAPDIS PO PRN (10:51)
[2017-09-29 11:29] VITALS: BP 129/52
--- NOTE | 2017-09-29 13:40 | Discharge Summary ---
- NOTES TO OUTPATIENT PROVIDER Notes to Outpatient Provider: f/u with PCP in one week. Cont IV Abx Cefepime 2gm BID x 3 more days. Cont local wound care. f/u with surgery Dr. Harper at wound care center for your sacral ulcer. Orders not resulted at time of discharge: Pending orders 09/28/17 15:34 Culture,Wound [RM] Routine 09/30/17 10:00 Vancomycin,Trough Timed Date of Encounter: 09/29/17 Time of Encounter: 13:35 - Discharge Diagnosis (1) Sepsis Priority: Primary Status: Acute Qualifiers: Sepsis type: sepsis due to unspecified organism Qualified Code(s): A41.9 - Sepsis, unspecified organism (2) Altered mental status Priority: Primary Status: Resolved Qualifiers: Altered mental status type: unspecified Qualified Code(s): R41.82 - Altered mental status, unspecified (3) UTI (urinary tract infection) Priority: Primary Status: Acute Qualifiers: Urinary tract infection type: acute cystitis Hematuria presence: with hematuria Qualified Code(s): N30.01 - Acute cystitis with hematuria (4) Decubitus ulcer, stage 4 with infection Priority: Secondary Status: Chronic (5) Hypotension Priority: Secondary Status: Resolved Qualifiers: Hypotension type: unspecified hypotension type Qualified Code(s): I95.9 - Hypotension, unspecified (6) Diabetes mellitus Priority: Secondary Status: Chronic Qualifiers: Diabetes mellitus type: type 2 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 transplanted heart: beaver heart Associated angina: without angina Qualified Code(s): I25.10 - Atherosclerotic heart disease of beaver coronary artery without angina pectoris (8) Morbid obesity with BMI of 40.0-44.9, adult Priority: Secondary Status: Chronic (9) DVT prophylaxis Priority: Secondary Status: Acute (10) Chronic respiratory failure with hypoxia Priority: Secondary Status: Acute Hospital course: Ms. 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 Pt was admitted in the hospital with UTI and Stage 4 sacral ulcer. Pt was hypotensie initially which improved with fluids. She was also started on empirical abx with Zosyn and Vancomycin. Her blood cx did no grow anything, however her urine cx came back as positive for Proteus and Klebsiella, bith are susceptible to Cefepime. So recommend to finish 7 days f V Abx due to her recurrent UTI and chronic indwelling guzmán cath. Regarding her sacral stage 4 pressure ulcer, surgery Dr. Harper evaluated the pt and suggested wound does not look infected , recommend to continue local wound care and f/u with him as wound care center. - Time Spent with Patient Total time spent providing and/or coordinating discharge services: - Discharge Medications Prescriptions: Cefepime HCl/Dextrose, Iso-Osm [Cefepime 2 gm Injection] 2 gm IV Q12H #6 froz.piggy Lactobacillus [Culturelle] 1 each PO BID #10 cap.sprink LORazepam [Ativan] 0.5 mg PO BID PRN 5 Days #10 tablet PRN Reason: Anxiety Oxycodone HCl/Acetaminophen [Percocet 5-325 mg Tablet] 1 each PO Q6H PRN 5 Days #15 tablet PRN Reason: Mild To Moderate Pain Home Medications: Omeprazole [PriLOSEC] 20 mg PO QAM 02/04/15 [History] Sennosides/Docusate Sodium [Senna Plus] 8.6 mg PO QAM PRN 02/04/15 [History] Acidoph/L.bulg/Bif.b/S.thermop [Emilie-Bid Caplet] 2 tab PO DAILY 04/17/17 [ History] Amitriptyline [Elavil] 10 mg PO HS 04/17/17 [History] Aspirin Enteric Coated [Aspirin EC] 81 mg PO DAILY 04/17/17 [History] Bromfenac Sodium 1 drop RIGHT EYE DAILY 04/17/17 [History] Insulin Aspart Prot/Insuln Asp [Novolog Mix 70-30 Vial] 46 unit SQ HS 04/17/17 [ History] Insulin Aspart Prot/Insuln Asp [Novolog Mix 70-30 Vial] 56 unit SQ QAM 04/17/17 [History] Magnesium Oxide [Mag-Ox] 400 mg PO BID 04/17/17 [History] Metoprolol [Lopressor] 12.5 mg PO BID 04/17/17 [History] Sertraline [Zoloft] 25 mg PO DAILY 04/17/17 [History] Calcium Carbonate/Vitamin D3 [Oyster Shell 250 mg + Vit D Tb] 1 tab PO DAILY 02/01 [History] Calcium Polycarbophil [Fiber Laxative] 625 mg PO DAILY 05/25/17 [History] Colestipol HCl [Colestid] 2 gm PO DAILY 05/25/17 [History] Gabapentin [Neurontin] 100 mg PO QAM #15 capsule 06/04/17 [Rx] Gabapentin [Neurontin] 200 mg PO HS #20 capsule 06/04/17 [Rx] Ondansetron HCl [Zofran] 4 mg PO Q8H PRN 07/13/17 [History] Simvastatin [Zocor] 40 mg PO HS 07/13/17 [History] Acetaminophen [Tylenol] 650 mg PO Q8H PRN 09/26/17 [History] Sertraline [Zoloft] 100 mg PO DAILY 09/26/17 [History] Cefepime HCl/Dextrose, Iso-Osm [Cefepime 2 gm Injection] 2 gm IV Q12H #6 froz.piggy 09/29/17 [Rx] LORazepam [Ativan] 0.5 mg PO BID PRN 5 Days #10 tablet 09/29/17 [Rx] Lactobacillus [Culturelle] 1 each PO BID #10 cap.sprink 09/29/17 [Rx] Oxycodone HCl/Acetaminophen [Percocet 5-325 mg Tablet] 1 each PO Q6H PRN 5 Days #15 tablet 09/29/17 [Rx] Sodium Hypochlorite 0.25% [Dakin's (Half-Strength 0.25%)] 1 appl TP DAILY bottle 09/29/17 [Rx] Allergies/Adverse Reactions: 3 Allergy/AdvReac Type Severity Reaction Status Date / Time rosuvastatin [From Crestor] Allergy Hives Verified 07/13/17 16:35 ciprofloxacin AdvReac Itching Verified 07/13/17 16:35 Hydromorphone [From Dilaudid] AdvReac Difficulty Verified 07/13/17 16:35 Breathing Date of admission: 09/26/17 13:34 Primary care physician: PCP NONE Consults: 09/26/17 16:53 Consult to Chairman And Ceo [CONS] Routine Reason for SW Consult: patient [facility] 09/26/17 16:56 Consult to Wound Care [CONS] Routine Reason for Consult: a known patient to the wound clinic, is seen for a stage 3 sacral ulcer Call Completed: No 09/28/17 16:17 Consult to Surgery [CONS] Routine Consulting Provider: Surgery Michael Surg - [facility] Reason for Consult: Stage 4 sacral ulcer Time Notified: 16:17 Call Completed: Yes - Constitutional Vitals: Temp Pulse Resp BP Pulse Ox 98.4 F 98 18 129/52 93 09/29/17 11:18 09/29/17 11:18 09/29/17 11:18 09/29/17 11:18 09/29/17 11:18 General appearance: Present: cooperative, A&O X 3, pleasant, no acute distress, answers questions appropriately - Head Head exam: Present: atraumatic, normal inspection - Neck Neck exam general surgery: Present: supple - Respiratory Respiratory exam: Present: decreased breath sounds. Absent: rales, respiratory distress, rhonchi, wheezes - Cardiovascular Cardiovascular exam: Present: RRR, +S1, +S2. Absent: tachycardia - GI/Abdominal GI/Abdominal exam: Present: normal bowel sounds, soft. Absent: rebound, rigid, tenderness - Back Exam Back exam: Absent: CVA tenderness (L), CVA tenderness (R) Additional comments: stage 4 sacral ulcer over Rt gluteal region - Neurological Exam Neurological exam: Present: alert, oriented X3 - Patient Status Disposition: Transfer SNF Condition: Good Overall status at discharge: patient is back to baseline - Discharge Instructions Follow Up With: NONE,PCP [Primary Care Provider] - Veto Harper MD [Non-Partnered Physician] - - Diet and Activity Activity: increase activity as tolerated, wear oxygen at all times Diet: low salt diet
--- NOTE | 2017-09-29 13:44 | Physician Discharge Referral ---
ExtendedCare Referral Info Transfer To: F Provider in Charge after Transfer: PCP Institutional Level of Care: Skilled - Diagnosis (1) Sepsis Status: Acute (2) Altered mental status Status: Resolved (3) UTI (urinary tract infection) Status: Acute (4) Decubitus ulcer, stage 4 with infection Status: Chronic (5) Hypotension Status: Resolved (6) Diabetes mellitus Status: Chronic (7) CAD (coronary artery disease) Status: Chronic (8) Morbid obesity with BMI of 40.0-44.9, adult Status: Chronic (9) DVT prophylaxis Status: Acute (10) Chronic respiratory failure with hypoxia Status: Acute - Transfer Medications Prescriptions: Cefepime HCl/Dextrose, Iso-Osm [Cefepime 2 gm Injection] 2 gm IV Q12H #6 froz.piggy Lactobacillus [Culturelle] 1 each PO BID #10 cap.sprink LORazepam [Ativan] 0.5 mg PO BID PRN 5 Days #10 tablet PRN Reason: Anxiety Oxycodone HCl/Acetaminophen [Percocet 5-325 mg Tablet] 1 each PO Q6H PRN 5 Days #15 tablet PRN Reason: Mild To Moderate Pain Home Medications: Omeprazole [PriLOSEC] 20 mg PO QAM 02/04/15 [History] Sennosides/Docusate Sodium [Senna Plus] 8.6 mg PO QAM PRN 02/04/15 [History] Acidoph/L.bulg/Bif.b/S.thermop [Emilie-Bid Caplet] 2 tab PO DAILY 04/17/17 [ History] Amitriptyline [Elavil] 10 mg PO HS 04/17/17 [History] Aspirin Enteric Coated [Aspirin EC] 81 mg PO DAILY 04/17/17 [History] Bromfenac Sodium 1 drop RIGHT EYE DAILY 04/17/17 [History] Insulin Aspart Prot/Insuln Asp [Novolog Mix 70-30 Vial] 46 unit SQ HS 04/17/17 [ History] Insulin Aspart Prot/Insuln Asp [Novolog Mix 70-30 Vial] 56 unit SQ QAM 04/17/17 [History] Magnesium Oxide [Mag-Ox] 400 mg PO BID 04/17/17 [History] Metoprolol [Lopressor] 12.5 mg PO BID 04/17/17 [History] Sertraline [Zoloft] 25 mg PO DAILY 04/17/17 [History] Calcium Carbonate/Vitamin D3 [Oyster Shell 250 mg + Vit D Tb] 1 tab PO DAILY 02/01 [History] Calcium Polycarbophil [Fiber Laxative] 625 mg PO DAILY 05/25/17 [History] Colestipol HCl [Colestid] 2 gm PO DAILY 05/25/17 [History] Gabapentin [Neurontin] 100 mg PO QAM #15 capsule 06/04/17 [Rx] Gabapentin [Neurontin] 200 mg PO HS #20 capsule 06/04/17 [Rx] Ondansetron HCl [Zofran] 4 mg PO Q8H PRN 07/13/17 [History] Simvastatin [Zocor] 40 mg PO HS 07/13/17 [History] Acetaminophen [Tylenol] 650 mg PO Q8H PRN 09/26/17 [History] Sertraline [Zoloft] 100 mg PO DAILY 09/26/17 [History] Cefepime HCl/Dextrose, Iso-Osm [Cefepime 2 gm Injection] 2 gm IV Q12H #6 froz.piggy 09/29/17 [Rx] LORazepam [Ativan] 0.5 mg PO BID PRN 5 Days #10 tablet 09/29/17 [Rx] Lactobacillus [Culturelle] 1 each PO BID #10 cap.sprink 09/29/17 [Rx] Oxycodone HCl/Acetaminophen [Percocet 5-325 mg Tablet] 1 each PO Q6H PRN 5 Days #15 tablet 09/29/17 [Rx] Sodium Hypochlorite 0.25% [Dakin's (Half-Strength 0.25%)] 1 appl TP DAILY bottle 09/29/17 [Rx] Allergies/Adverse Reactions: 3 Allergy/AdvReac Type Severity Reaction Status Date / Time rosuvastatin [From Crestor] Allergy Hives Verified 07/13/17 16:35 ciprofloxacin AdvReac Itching Verified 07/13/17 16:35 Hydromorphone [From Dilaudid] AdvReac Difficulty Verified 07/13/17 16:35 Breathing - Respiratory Orders Smoking Cessation: Smoking cessation has been advised. For more information, call the [place] Tobacco Quit Line at 5-648-PRCW-NOW. CERTIFICATION: I certify that the transfer of the above named patient to an Extended Care Facility is necessary for the continuing treatment of the diagnosis listed. The above information is true and accurate reflection of patient's current condition. Confidential - Redisclosure prohibited without a patient's written consent.
[2017-09-29] MEDS ORDERED: Aminoglycoside Consult 1 EACH MC ONE (14:21)
== END 2017-09-29 15:42 | DRG 698 ==
LOC: 2ANU 08:09 → EMEROO 08:09 → SUATTDRO 13:34 → 2ANU 13:58
PROVIDERS: ADMIT Hospitalist; ATTEND Family Medicine

== ENCOUNTER 2017-12-21 05:37 | Observation (INO) ==
[2017-12-21] MEDS ORDERED: Ondansetron 4 MG/2 ML VIAL IVP ONE (05:50)
[2017-12-21] MEDS ORDERED: *HR* FentaNYL (PF) 100 MCG/2 ML VIAL IVP ONE (05:50)
--- NOTE | 2017-12-21 05:53 | Emergency Department Note ---
Disposition Clinical Impression: Diverticulitis Urinary tract infection Qualifiers: Urinary tract infection type: acute cystitis Hematuria presence: without hematuria Qualified Code(s): N30.00 - Acute cystitis without hematuria Disposition: Still a Patient Condition: Good Time of Disposition: 07:14 Abdominal Pain HPI - General Stated Complaint: abd pain n/v Time Seen by Provider: 12/21/17 05:43 Source: patient, EMS Mode of arrival: EMS Limitations: no limitations Nursing Notes Reviewed: Yes Vital Signs Reviewed: Yes - History of Present Illness HPI Narrative: This is a 77-year-old female who was awakened less than 30 minutes prior to arrival by left lower quadrant abdominal pain accompanied by nausea and vomiting. She states she felt fine when she went to bed. - Related Data Home Medications Medication Instructions Recorded Confirmed Omeprazole [PriLOSEC] 20 mg PO QAM 02/04/15 09/26/17 Sennosides/Docusate Sodium [Senna 8.6 mg PO QAM PRN 02/04/15 09/26/17 Plus] Acidoph/L.bulg/Bif.b/S.thermop 2 tab PO DAILY 04/17/17 09/26/17 [Emilie-Bid Caplet] Amitriptyline [Elavil] 10 mg PO HS 04/17/17 09/26/17 Aspirin Enteric Coated [Aspirin EC] 81 mg PO DAILY 04/17/17 09/26/17 Bromfenac Sodium 1 drop RIGHT EYE DAILY 04/17/17 09/26/17 Insulin Aspart Prot/Insuln Asp 46 unit SQ HS 04/17/17 09/26/17 [Novolog Mix 70-30 Vial] Insulin Aspart Prot/Insuln Asp 56 unit SQ QAM 04/17/17 09/26/17 [Novolog Mix 70-30 Vial] Magnesium Oxide [Mag-Ox] 400 mg PO BID 04/17/17 09/26/17 Metoprolol [Lopressor] 12.5 mg PO BID 04/17/17 09/26/17 Sertraline [Zoloft] 25 mg PO DAILY 04/17/17 09/26/17 Calcium Carbonate/Vitamin D3 1 tab PO DAILY 05/25/17 09/26/17 [Oyster Shell 250 mg + Vit D Tb] Calcium Polycarbophil [Fiber 625 mg PO DAILY 05/25/17 09/26/17 Laxative] Colestipol HCl [Colestid] 2 gm PO DAILY 05/25/17 09/26/17 Ondansetron HCl [Zofran] 4 mg PO Q8H PRN 07/13/17 09/26/17 Simvastatin [Zocor] 40 mg PO HS 07/13/17 09/26/17 Acetaminophen [Tylenol] 650 mg PO Q8H PRN 09/26/17 09/26/17 Sertraline [Zoloft] 100 mg PO DAILY 09/26/17 09/26/17 Previous Rx's Medication Instructions Recorded Gabapentin [Neurontin] 100 mg PO QAM #15 capsule 06/04/17 Gabapentin [Neurontin] 200 mg PO HS #20 capsule 06/04/17 Cefepime HCl/Dextrose, Iso-Osm 2 gm IV Q12H #6 froz.piggy 09/29/17 [Cefepime 2 gm Injection] LORazepam [Ativan] 0.5 mg PO BID PRN 5 Days #10 tablet 09/29/17 Lactobacillus [Culturelle] 1 each PO BID #10 cap.sprink 09/29/17 Oxycodone HCl/Acetaminophen 1 each PO Q6H PRN 5 Days #15 tablet 09/29/17 [Percocet 5-325 mg Tablet] Sodium Hypochlorite 0.25% [Dakin's 1 appl TP DAILY bottle 09/29/17 (Half-Strength 0.25%)] Amoxicillin/Clavulanate [Augmentin] 500 mg PO BIDWM #14 tablet 11/05/17 Allergies Allergy/AdvReac Type Severity Reaction Status Date / Time rosuvastatin [From Crestor] Allergy Hives Verified 07/13/17 16:35 ciprofloxacin AdvReac Itching Verified 07/13/17 16:35 Hydromorphone [From Dilaudid] AdvReac Difficulty Verified 07/13/17 16:35 Breathing All systems ED: reviewed and negative except as stated. Constitutional: Denies: fever, chills, weakness, weight change Cardiovascular: Denies: chest pain, palpitations, dyspnea on exertion, edema, syncope Respiratory: Denies: cough, dyspnea, wheezes, hemoptysis, stridor Gastrointestinal: Reports: abdominal pain, nausea, vomiting Genitourinary: Reports: other (Very little urine output in the last 8 hours) Musculoskeletal: Denies: back pain, neck pain, arthralgia, myalgia Integumentary: Denies: rash, abrasion, lesions Neurological: Denies: headache, weakness, numbness, paresthesias, confusion, abnormal gait, vertigo Psychiatric: Denies: anxiety, depression, suicidal thoughts, homicidal thoughts , auditory hallucinations, visual hallucinations Hematological/Lymphatic: Denies: easy bleeding, easy bruising Abdominal Pain PMH - Past Medical History Medical history: Reports: cancer, diabetes, hypertension, myocardial infarction , thyroid disease, other Female Surgical History: Reports: herniorrhaphy Psychiatric history: Reports: anxiety, depression - Social History Smoking status: Former smoker Alcohol use: Reports: rarely Drug use: Reports: none Physical Exam - General Limitations: no limitations General appearance: alert, obese - Eye Eye exam: Present: normal appearance, PERRL, EOMI - Chest Chest inspection: Present: normal inspection, symmetric chest wall rise - Respiratory Respiratory exam: Present: normal lung sounds bilaterally - Cardiovascular Cardiovascular exam: Present: regular rate, normal rhythm, normal heart sounds - Abdominal Exam Abdominal exam: Present: soft, tenderness Abdominal tenderness: Present: LLQ, moderate. Absent: RUQ, RLQ, LUQ - Extremities Exam Extremities exam: Present: normal inspection, pedal edema (Nonpitting bilateral) . Absent: tenderness - Neurological Exam Neurological exam: Present: alert, oriented X3, CN II-XII intact. Absent: motor sensory deficit - Psychiatric Psychiatric exam: Present: normal affect, normal mood - Skin Skin exam: Present: warm, dry, intact, normal color Course Course Narrative: This is a 77-year-old female with left lower quadrant abdominal pain concerning for diverticulitis Nursing replaced her Ramos catheter with the release of thick cloudy urine Vital Signs Temperature 98 F 12/21/17 05:48 Pulse Rate 102 12/21/17 05:48 Respiratory Rate 18 12/21/17 05:48 Blood Pressure 195/105 12/21/17 05:48 O2 Sat by Pulse Oximetry 99 12/21/17 05:48 Temperature 98 F 12/21/17 05:48 Pulse Rate 96 12/21/17 06:02 Respiratory Rate 18 12/21/17 06:02 Blood Pressure 180/98 12/21/17 06:02 O2 Sat by Pulse Oximetry 97 12/21/17 06:02 Oxygen Delivery Oxygen Delivery Room Air,Nasal Cannula Abdominal Pain - MDM Narrative Medical decision making narrative: This is a 77-year-old female who complains of abdominal pain with left lower quadrant pain on exam. This is concerning for diverticulitis or obstruction. As noted below, labs are unremarkable. CT abdomen/pelvis was obtained but not available at time of signout Patient was signed out to Dr Dejesus at 7:15 AM - Lab Data Lab results reviewed: Yes I reviewed the patient's lab results. Lab results narrative: CBC was unremarkable BMP was unremarkable UA showed positive nitrites, too many to count white cells, many bacteria, and moderate leuk esterase Result diagrams: 12/21/17 06:39 12/21/17 06:39 Lab Results 12/21/17 12/21/17 12/21/17 Range/Units 06:05 06:39 06:39 WBC 10.8 (4.3-11.1) K/mcL RBC 4.51 (3.82-4.97) M/mcL Hgb 12.1 (11.5-15.4) g/dL Hct 39.1 (35.3-44.9) % MCV 86.7 (83.0-100.0) fL MCH 26.8 L (28.0-33.3) pg MCHC 30.9 L (31.6-35.5) g/dL RDW 16.6 H (11.5-14.5) % Plt Count 258 (140-400) K/mcL MPV 11.6 (9.4-12.4) fL Immature Gran % 0.4 (0-4) % Seg Neutrophils % 76.3 % Lymphocytes % 14.9 % Monocytes % 7.3 % Eosinophils % 0.7 % Basophils % 0.4 % Neutrophils # 8.2 (1.6-8.9) K/mcL Lymphocytes # 1.6 (0.6-4.6) K/mcL Monocytes # 0.8 (0.0-1.3) K/mcL Eosinophils # 0.1 (0.0-0.6) K/mcL Basophils # 0.0 (0.0-0.2) K/mcL Sodium 135 L (136-145) mEq/L Potassium 4.1 (3.5-5.1) mEq/L Chloride 100 (98-107) mEq/L Carbon Dioxide 24 (23-29) mEq/L BUN 22 (8-23) mg/dL Creatinine 0.69 (0.60-1.20) mg/dL Est GFR ( Amer) > 60 (> 60) Est GFR (Non-Af Amer) > 60 (> 60) BUN/Creatinine Ratio 32 H (6-26) Glucose 183 H (70-105) mg/dL Calculated Osmolality 288 (280-300) Calcium 9.5 (8.6-10.3) mg/dL Urine Color Yellow (Yellow) Urine Clarity Cloudy A (Clear) Urine pH 7.0 (5.0-8.0) pH Units Ur Specific [place] 1.010 (1.010-1.025) Urine Protein 100 H (Neg-Trace) mg/dL Urine Glucose (UA) Normal (Normal) mg/dL Urine Ketones Negative (Negative) mg/dL Urine Blood Moderate H (Negative) Urine Nitrite Positive A (Negative) Urine Bilirubin Negative (Negative) Urine Urobilinogen Normal (Normal) mg/dL Ur Leukocyte Esterase Moderate H (Negative) Urine Microscopic RBC 30-50 H (0-3) per hpf Urine Microscopic WBC TNTC H (0-3) per hpf Ur Squamous Epith Cells Moderate H (None-Few) per lpf Urine Bacteria Many H (None-Few) per hpf Hyaline Casts Few (None-Few) per lpf Ur Culture Indicated? YES A (NO) - EKG Data EKG results narrative: ECG shows a sinus rhythm at 82 bpm, normal intervals, normal axis, slight ST depressions in V2 through V6, no other ST or T-wave abnormalities
[2017-12-21 06:24] LABS: Bilirubin,Urine Negative (Negative); Blood,Urine Moderate (Negative); Clarity,Urine Cloudy (Clear); Color,Urine Yellow (Yellow); Glucose,Urine (UA) Normal (Normal); Ketones,Urine Negative (Negative); Leukocyte Esterase,Urine Moderate (Negative); Nitrite,Urine Positive (Negative); Protein,Urine 100 mg/dL (Neg-Trace); Urobilinogen,Urine Normal (Normal)
[2017-12-21 06:26] LABS: Bacteria,Urine Many per hpf (None-Few); Hyaline Casts,Urine Few per lpf (None-Few); RBC,Urine 30-50 per hpf (0-3); Squamous Epithelial Cell,Urine Moderate per lpf (None-Few); WBC,Urine TNTC per hpf (0-3)
[2017-12-21 06:51] LABS: Basophils % 0.4 %; Eosinophils # 0.1 K/mcL (0.0-0.6); Eosinophils % 0.7 %; Hematocrit 39.1 % (35.3-44.9); Hemoglobin 12.1 g/dL (11.5-15.4); Immature Granulocytes % 0.4 % (0-4); Lymphocytes # 1.6 K/mcL (0.6-4.6); Lymphocytes % 14.9 %; Mean Corpuscular HGB Conc 30.9 g/dL (31.6-35.5); Mean Corpuscular Hemoglobin 26.8 pg (28.0-33.3); Mean Corpuscular Volume 86.7 fL (83.0-100.0); Mean Platelet Volume 11.6 fL (9.4-12.4); Monocytes # 0.8 K/mcL (0.0-1.3); Monocytes % 7.3 %; Neutrophils # 8.2 K/mcL (1.6-8.9); Platelet Count 258 K/mcL (140-400); Red Blood Count 4.51 M/mcL (3.82-4.97); Red Cell Distribution Width 16.6 % (11.5-14.5); Segmented Neutrophils % 76.3 %
[2017-12-21 07:07] LABS: BUN/Creatinine Ratio 32 (6-26); Blood Urea Nitrogen 22 mg/dL (8-23); Calcium 9.5 mg/dL (8.6-10.3); Carbon Dioxide 24 mEq/L (23-29); Chloride 100 mEq/L (98-107); Glucose 183 mg/dL (70-105); Osmolality,Calculated 288 (280-300); Potassium 4.1 mEq/L (3.5-5.1); Sodium 135 mEq/L (136-145); eGFR For Non-African Americans > 60 (> 60)
[2017-12-21 07:18] LABS: Troponin I < 0.03 ng/mL (< 0.04)
--- NOTE | 2017-12-21 07:25 | Electrocardiograph Report ---
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
--- NOTE | 2017-12-21 07:28 | Emergency Department Note ---
Disposition Clinical Impression: Diverticulitis Urinary tract infection Qualifiers: Urinary tract infection type: acute cystitis Hematuria presence: without hematuria Qualified Code(s): N30.00 - Acute cystitis without hematuria Disposition: Still a Patient Condition: Good Referrals: Sha Johnson MD [Primary Care Provider] - General Adult HPI - General Chief complaint: ED Abdominal Pain Stated complaint: abd pain n/v Time Seen by Provider: 12/21/17 05:43 Source: patient, EMS Mode of arrival: EMS Limitations: no limitations - History of Present Illness Pain Scale: 10 - Related Data Home Medications Medication Instructions Recorded Confirmed Omeprazole [PriLOSEC] 20 mg PO QAM 02/04/15 09/26/17 Sennosides/Docusate Sodium [Senna 8.6 mg PO QAM PRN 02/04/15 09/26/17 Plus] Acidoph/L.bulg/Bif.b/S.thermop 2 tab PO DAILY 04/17/17 09/26/17 [Emilie-Bid Caplet] Amitriptyline [Elavil] 10 mg PO HS 04/17/17 09/26/17 Aspirin Enteric Coated [Aspirin EC] 81 mg PO DAILY 04/17/17 09/26/17 Bromfenac Sodium 1 drop RIGHT EYE DAILY 04/17/17 09/26/17 Insulin Aspart Prot/Insuln Asp 46 unit SQ HS 04/17/17 09/26/17 [Novolog Mix 70-30 Vial] Insulin Aspart Prot/Insuln Asp 56 unit SQ QAM 04/17/17 09/26/17 [Novolog Mix 70-30 Vial] Magnesium Oxide [Mag-Ox] 400 mg PO BID 04/17/17 09/26/17 Metoprolol [Lopressor] 12.5 mg PO BID 04/17/17 09/26/17 Sertraline [Zoloft] 25 mg PO DAILY 04/17/17 09/26/17 Calcium Carbonate/Vitamin D3 1 tab PO DAILY 05/25/17 09/26/17 [Oyster Shell 250 mg + Vit D Tb] Calcium Polycarbophil [Fiber 625 mg PO DAILY 05/25/17 09/26/17 Laxative] Colestipol HCl [Colestid] 2 gm PO DAILY 05/25/17 09/26/17 Ondansetron HCl [Zofran] 4 mg PO Q8H PRN 07/13/17 09/26/17 Simvastatin [Zocor] 40 mg PO HS 07/13/17 09/26/17 Acetaminophen [Tylenol] 650 mg PO Q8H PRN 09/26/17 09/26/17 Sertraline [Zoloft] 100 mg PO DAILY 09/26/17 09/26/17 Previous Rx's Medication Instructions Recorded Gabapentin [Neurontin] 100 mg PO QAM #15 capsule 06/04/17 Gabapentin [Neurontin] 200 mg PO HS #20 capsule 06/04/17 Cefepime HCl/Dextrose, Iso-Osm 2 gm IV Q12H #6 [email or web address] 09/29/17 [Cefepime 2 gm Injection] LORazepam [Ativan] 0.5 mg PO BID PRN 5 Days #10 tablet 09/29/17 Lactobacillus [Culturelle] 1 each PO BID #10 cap.sprink 09/29/17 Oxycodone HCl/Acetaminophen 1 each PO Q6H PRN 5 Days #15 tablet 09/29/17 [Percocet 5-325 mg Tablet] Sodium Hypochlorite 0.25% [Dakin's 1 appl TP DAILY bottle 09/29/17 (Half-Strength 0.25%)] Amoxicillin/Clavulanate [Augmentin] 500 mg PO BIDWM #14 tablet 11/05/17 Allergies Allergy/AdvReac Type Severity Reaction Status Date / Time rosuvastatin [From Crestor] Allergy Hives Verified 07/13/17 16:35 ciprofloxacin AdvReac Itching Verified 07/13/17 16:35 Hydromorphone [From Dilaudid] AdvReac Difficulty Verified 07/13/17 16:35 Breathing Constitutional: Denies: fever, chills, weakness, weight change Cardiovascular: Denies: chest pain, palpitations, dyspnea on exertion, edema, syncope Respiratory: Denies: cough, dyspnea, wheezes, hemoptysis, stridor Gastrointestinal: Reports: abdominal pain, nausea, vomiting Genitourinary: Reports: other (Very little urine output in the last 8 hours) Musculoskeletal: Denies: back pain, neck pain, arthralgia, myalgia Integumentary: Denies: rash, abrasion, lesions Neurological: Denies: headache, weakness, numbness, paresthesias, confusion, abnormal gait, vertigo Psychiatric: Denies: anxiety, depression, suicidal thoughts, homicidal thoughts , auditory hallucinations, visual hallucinations Hematological/Lymphatic: Denies: easy bleeding, easy bruising Past Medical History - Past Medical History Medical history: Reports: cancer, diabetes, hypertension, myocardial infarction , thyroid disease, other Surgical history: Reports: appendectomy, , cataract, cholecystectomy, herniorrhaphy, orthopedic, other, SHONDA/BSO, other Psychiatric history: Reports: anxiety, depression - Social History Smoking Status: Former smoker Smokeless Tobacco Status: No Alcohol use: Reports: rarely Drug use: Reports: none Physical Exam - General Limitations: no limitations General appearance: alert, obese Course - Reevaluation(s) Reevaluation #1: Patient received in signout from Dr. lutz the overnight physician at 7 AM. Patient is a 77-year-old female from [facility] via EMS for left lower quadrant pain. Patient has a tender left lower quadrant please see Dr. lutz's note for the initial history and physical examination and the initiation of the workup. He signed out the case to me to review the rest the patient's blood work abdominal pelvic CT. Urinalysis shows too numerous to count WBCs and although she has had several of those in the past she is not always have those despite having a chronic Ramos this might be a new UTI. We will also exclude the possibility of intra-abdominal emergency such as volvulus intussusception bowel obstruction or diverticulitis. [facility] is [facility] gotten IV fluids patient is stable disposition pending. Time: 07:19 Vital Signs Temperature 98 F 12/21/17 05:48 Pulse Rate 102 12/21/17 05:48 Respiratory Rate 18 12/21/17 05:48 Blood Pressure 195/105 12/21/17 05:48 O2 Sat by Pulse Oximetry 99 12/21/17 05:48 Temperature 98 F 12/21/17 05:48 Pulse Rate 96 12/21/17 06:02 Respiratory Rate 18 12/21/17 06:02 Blood Pressure 180/98 12/21/17 06:02 O2 Sat by Pulse Oximetry 97 12/21/17 06:02 Oxygen Delivery Oxygen Delivery Room Air,Nasal Cannula Medical Decision Making - Lab Data Result diagrams: 12/21/17 06:39 12/21/17 06:39 Lab Results 12/21/1718 12/21/17 Range/Units 06:05 06:39 06:39 WBC 10.8 (4.3-11.1) K/mcL RBC 4.51 (3.82-4.97) M/mcL Hgb 12.1 (11.5-15.4) g/dL Hct 39.1 (35.3-44.9) % MCV 86.7 (83.0-100.0) fL MCH 26.8 L (28.0-33.3) pg MCHC 30.9 L (31.6-35.5) g/dL RDW 16.6 H (11.5-14.5) % Plt Count 258 (140-400) K/mcL MPV 11.6 (9.4-12.4) fL Immature Gran % 0.4 (0-4) % Seg Neutrophils % 76.3 % Lymphocytes % 14.9 % Monocytes % 7.3 % Eosinophils % 0.7 % Basophils % 0.4 % Neutrophils # 8.2 (1.6-8.9) K/mcL Lymphocytes # 1.6 (0.6-4.6) K/mcL Monocytes # 0.8 (0.0-1.3) K/mcL Eosinophils # 0.1 (0.0-0.6) K/mcL Basophils # 0.0 (0.0-0.2) K/mcL Sodium 135 L (136-145) mEq/L Potassium 4.1 (3.5-5.1) mEq/L Chloride 100 (98-107) mEq/L Carbon Dioxide 24 (23-29) mEq/L BUN 22 (8-23) mg/dL Creatinine 0.69 (0.60-1.20) mg/dL Est GFR ( Amer) > 60 (> 60) Est GFR (Non-Af Amer) > 60 (> 60) BUN/Creatinine Ratio 32 H (6-26) Glucose 183 H (70-105) mg/dL Calculated Osmolality 288 (280-300) Calcium 9.5 (8.6-10.3) mg/dL Troponin I < 0.03 (< 0.04) ng/mL Urine Color Yellow (Yellow) Urine Clarity Cloudy A (Clear) Urine pH 7.0 (5.0-8.0) pH Units Ur Specific [place] 1.010 (1.010-1.025) Urine Protein 100 H (Neg-Trace) mg/dL Urine Glucose (UA) Normal (Normal) mg/dL Urine Ketones Negative (Negative) mg/dL Urine Blood Moderate H (Negative) Urine Nitrite Positive A (Negative) Urine Bilirubin Negative (Negative) Urine Urobilinogen Normal (Normal) mg/dL Ur Leukocyte Esterase Moderate H (Negative) Urine Microscopic RBC 30-50 H (0-3) per hpf Urine Microscopic WBC TNTC H (0-3) per hpf Ur Squamous Epith Cells Moderate H (None-Few) per lpf Urine Bacteria Many H (None-Few) per hpf Hyaline Casts Few (None-Few) per lpf Ur Culture Indicated? YES A (NO)
[2017-12-21] MEDS ORDERED: 0.9 % Sodium Chloride 500 ML IVC ONE (07:32)
[2017-12-21] MEDS ORDERED: cefTRIAXone 2,000 MG in 0.9 % Sodium Chloride Mini Bag 100 ML IVPB ONE (12:49)
--- NOTE | 2017-12-21 12:53 | Emergency Department Note ---
Disposition Clinical Impression: Acute UTI Urinary tract infection Qualifiers: Urinary tract infection type: acute cystitis Hematuria presence: without hematuria Qualified Code(s): N30.00 - Acute cystitis without hematuria Disposition: Admitted As Inpatient Condition: Good Referrals: Sha Johnson MD [Primary Care Provider] - Time of Disposition: 12:53 Abdominal Pain HPI - General Chief Complaint: ED Abdominal Pain Stated Complaint: abd pain n/v Time Seen by Provider: 12/21/17 05:43 Source: patient, EMS Mode of arrival: EMS - History of Present Illness Pain Scale: 10 - Related Data Home Medications Medication Instructions Recorded Confirmed Omeprazole [PriLOSEC] 20 mg PO QAM 02/04/15 12/21/17 Sennosides/Docusate Sodium [Senna 8.6 mg PO QAM PRN 02/04/15 12/21/17 Plus] Acidoph/L.bulg/Bif.b/S.thermop 2 tab PO DAILY 04/17/17 12/21/17 [Emilie-Bid Caplet] Amitriptyline [Elavil] 10 mg PO HS 04/17/17 12/21/17 Aspirin Enteric Coated [Aspirin EC] 81 mg PO DAILY 04/17/17 12/21/17 Bromfenac Sodium 1 drop RIGHT EYE DAILY 04/17/17 12/21/17 Insulin Aspart Prot/Insuln Asp 40 unit SQ HS 04/17/17 12/21/17 [Novolog Mix 70-30 Vial] Insulin Aspart Prot/Insuln Asp 50 unit SQ QAM 04/17/17 12/21/17 [Novolog Mix 70-30 Vial] Magnesium Oxide [Mag-Ox] 400 mg PO BID 04/17/17 12/21/17 Metoprolol [Lopressor] 12.5 mg PO BID 04/17/17 12/21/17 Sertraline [Zoloft] 25 mg PO DAILY 04/17/17 12/21/17 Calcium Carbonate/Vitamin D3 1 tab PO DAILY 05/25/17 12/21/17 [Oyster Shell 250 mg + Vit D Tb] Calcium Polycarbophil [Fiber 625 mg PO DAILY 05/25/17 12/21/17 Laxative] Colestipol HCl [Colestid] 2 gm PO DAILY 05/25/17 12/21/17 Ondansetron HCl [Zofran] 4 mg PO Q8H PRN 07/13/17 12/21/17 Simvastatin [Zocor] 40 mg PO HS 07/13/17 12/21/17 Acetaminophen [Tylenol] 650 mg PO Q8H PRN 09/26/17 12/21/17 Sertraline [Zoloft] 100 mg PO DAILY 09/26/17 12/21/17 Previous Rx's Medication Instructions Recorded Gabapentin [Neurontin] 100 mg PO QAM #15 capsule 06/04/17 Gabapentin [Neurontin] 200 mg PO HS #20 capsule 06/04/17 Lactobacillus [Culturelle] 1 each PO BID #10 cap.sprink 09/29/17 Oxycodone HCl/Acetaminophen 1 each PO Q6H PRN 5 Days #15 tablet 09/29/17 [Percocet 5-325 mg Tablet] Allergies Allergy/AdvReac Type Severity Reaction Status Date / Time rosuvastatin [From Crestor] Allergy Hives Verified 07/13/17 16:35 ciprofloxacin AdvReac Itching Verified 07/13/17 16:35 Hydromorphone [From Dilaudid] AdvReac Difficulty Verified 07/13/17 16:35 Breathing Constitutional: Denies: fever, chills, weakness, weight change Cardiovascular: Denies: chest pain, palpitations, dyspnea on exertion, edema, syncope Respiratory: Denies: cough, dyspnea, wheezes, hemoptysis, stridor Gastrointestinal: Reports: abdominal pain, nausea, vomiting Genitourinary: Reports: other (Very little urine output in the last 8 hours) Musculoskeletal: Denies: back pain, neck pain, arthralgia, myalgia Integumentary: Denies: rash, abrasion, lesions Neurological: Denies: headache, weakness, numbness, paresthesias, confusion, abnormal gait, vertigo Psychiatric: Denies: anxiety, depression, suicidal thoughts, homicidal thoughts , auditory hallucinations, visual hallucinations Hematological/Lymphatic: Denies: easy bleeding, easy bruising Abdominal Pain PMH - Past Medical History Medical history: Reports: cancer, diabetes, hypertension, myocardial infarction , thyroid disease, other Female Surgical History: Reports: herniorrhaphy Psychiatric history: Reports: anxiety, depression - Social History Smoking status: Former smoker Alcohol use: Reports: rarely Drug use: Reports: none Physical Exam - General Limitations: no limitations General appearance: alert, obese Course - Reevaluation(s) Reevaluation #1: CT scan results came back positive for acute UTI. Discussed case with the hospitalist patient accepted for admission in stable condition. Time: 13:31 Vital Signs Temperature 98 F 12/21/17 05:48 Pulse Rate 102 12/21/17 05:48 Respiratory Rate 18 12/21/17 05:48 Blood Pressure 195/105 12/21/17 05:48 O2 Sat by Pulse Oximetry 99 12/21/17 05:48 Temperature 98 F 12/21/17 05:48 Pulse Rate 79 12/21/17 13:20 Respiratory Rate 15 12/21/17 08:28 Blood Pressure 119/56 12/21/17 13:20 O2 Sat by Pulse Oximetry 100 12/21/17 13:20 Oxygen Delivery Oxygen Delivery Nasal Cannula Abdominal Pain - Lab Data Result diagrams: 12/21/17 06:39 12/21/17 06:39 Lab Results 12/21/17 12/21/17 12/21/17 Range/Units 06:05 06:39 06:39 WBC 10.8 (4.3-11.1) K/mcL RBC 4.51 (3.82-4.97) M/mcL Hgb 12.1 (11.5-15.4) g/dL Hct 39.1 (35.3-44.9) % MCV 86.7 (83.0-100.0) fL MCH 26.8 L (28.0-33.3) pg MCHC 30.9 L (31.6-35.5) g/dL RDW 16.6 H (11.5-14.5) % Plt Count 258 (140-400) K/mcL MPV 11.6 (9.4-12.4) fL Immature Gran % 0.4 (0-4) % Seg Neutrophils % 76.3 % Lymphocytes % 14.9 % Monocytes % 7.3 % Eosinophils % 0.7 % Basophils % 0.4 % Neutrophils # 8.2 (1.6-8.9) K/mcL Lymphocytes # 1.6 (0.6-4.6) K/mcL Monocytes # 0.8 (0.0-1.3) K/mcL Eosinophils # 0.1 (0.0-0.6) K/mcL Basophils # 0.0 (0.0-0.2) K/mcL Sodium 135 L (136-145) mEq/L Potassium 4.1 (3.5-5.1) mEq/L Chloride 100 (98-107) mEq/L Carbon Dioxide 24 (23-29) mEq/L BUN 22 (8-23) mg/dL Creatinine 0.69 (0.60-1.20) mg/dL Est GFR ( Amer) > 60 (> 60) Est GFR (Non-Af Amer) > 60 (> 60) BUN/Creatinine Ratio 32 H (6-26) Glucose 183 H (70-105) mg/dL Calculated Osmolality 288 (280-300) Calcium 9.5 (8.6-10.3) mg/dL Troponin I < 0.03 (< 0.04) ng/mL Urine Color Yellow (Yellow) Urine Clarity Cloudy A (Clear) Urine pH 7.0 (5.0-8.0) pH Units Ur Specific [place] 1.010 (1.010-1.025) Urine Protein 100 H (Neg-Trace) mg/dL Urine Glucose (UA) Normal (Normal) mg/dL Urine Ketones Negative (Negative) mg/dL Urine Blood Moderate H (Negative) Urine Nitrite Positive A (Negative) Urine Bilirubin Negative (Negative) Urine Urobilinogen Normal (Normal) mg/dL Ur Leukocyte Esterase Moderate H (Negative) Urine Microscopic RBC 30-50 H (0-3) per hpf Urine Microscopic WBC TNTC H (0-3) per hpf Ur Squamous Epith Cells Moderate H (None-Few) per lpf Urine Bacteria Many H (None-Few) per hpf Hyaline Casts Few (None-Few) per lpf Ur Culture Indicated? YES A (NO)
[2017-12-21] MEDS ORDERED: Naloxone 0.4 MG/ML INJ IVP PRN (14:20)
[2017-12-21] MEDS ORDERED: Dextrose Gel 15 GM/37.5 ML TUBE PO PRN ×2 (14:30)
[2017-12-21] MEDS ORDERED: D5% in Water 1,000 ML IVC PRN (14:30)
[2017-12-21] MEDS ORDERED: *HR* Dextrose 50 % in Water (Syg) 50 ML SYRINGE IVP PRN (14:30)
--- NOTE | 2017-12-21 14:30 | Internal Med History&Physical ---
<BarrettBrie Mart - Last Filed: 12/21/17 15:37> Date of Encounter: 12/21/17 Time of Encounter: 14:30 Internal Medicine - H&P: HPI Chief complaint: Abdominal Pain Admitted From: Home Plans for Post Hospital Care: Home History of present illness: Ms. Camacho is a 77 year old female with history of macular degeneration, sacral decubitus ulcer, DM, fibromyalgia and GERD. Patient states she lives in a [facility] and woke up this morning with abdominal pain. Ct of the abdomen reported bilateral hydroureteronephrosis with bilateral ej-ureteric stranding may represent bilateral descending urinary tract infection. The patient UA, showed nitrites, mod blood, 30-50 wbc, leukocyte esterase tntc. The patient has a guzmán cath with white purulent sediment. She was started on rocephin in the ED and will continue q12h. Patient has a large sacral decub. Will ask wound care to see her. Past Med Surg Social Fam HX - Past Medical History Medical history: cancer, diabetes, hypertension, myocardial infarction, thyroid disease, other Additional medical history: endometrial cancer, liver cancer Psychiatric history: anxiety, depression - Past Surgical History Surgical History: appendectomy, , cataract, cholecystectomy, herniorrhaphy, orthopedic, other, SHONDA/BSO, other Additional surgical history: port insertion and removal - Social History Smoking Status: Former smoker Smokeless Tobacco Status: No Alcohol use: rarely Drug use: none - Family History Father Living Status: Mother Adopted: No Living Status: Hx Family Cardiac Disorders: Yes Hx Family Respiratory Disorders: Yes (copd) Hx Family Endocrine Disorder: Yes (Diabetes) Internal Medicine - H&P: Meds Omeprazole [PriLOSEC] 20 mg PO QAM 02/04/15 [History] Sennosides/Docusate Sodium [Senna Plus] 8.6 mg PO QAM PRN 02/04/15 [History] Acidoph/L.bulg/Bif.b/S.thermop [Emilie-Bid Caplet] 2 tab PO DAILY 04/17/17 [ History] Amitriptyline [Elavil] 10 mg PO HS 04/17/17 [History] Aspirin Enteric Coated [Aspirin EC] 81 mg PO DAILY 04/17/17 [History] Bromfenac Sodium 1 drop RIGHT EYE DAILY 04/17/17 [History] Insulin Aspart Prot/Insuln Asp [Novolog Mix 70-30 Vial] 40 unit SQ HS 04/17/17 [ History] Insulin Aspart Prot/Insuln Asp [Novolog Mix 70-30 Vial] 50 unit SQ QAM 04/17/17 [History] Magnesium Oxide [Mag-Ox] 400 mg PO BID 04/17/17 [History] Metoprolol [Lopressor] 12.5 mg PO BID 04/17/17 [History] Sertraline [Zoloft] 25 mg PO DAILY 04/17/17 [History] Calcium Carbonate/Vitamin D3 [Oyster Shell 250 mg + Vit D Tb] 1 tab PO DAILY 02/01 [History] Calcium Polycarbophil [Fiber Laxative] 625 mg PO DAILY 05/25/17 [History] Colestipol HCl [Colestid] 2 gm PO DAILY 05/25/17 [History] Gabapentin [Neurontin] 100 mg PO QAM #15 capsule 06/04/17 [Rx] Gabapentin [Neurontin] 200 mg PO HS #20 capsule 06/04/17 [Rx] Ondansetron HCl [Zofran] 4 mg PO Q8H PRN 07/13/17 [History] Simvastatin [Zocor] 40 mg PO HS 07/13/17 [History] Acetaminophen [Tylenol] 650 mg PO Q8H PRN 09/26/17 [History] Sertraline [Zoloft] 100 mg PO DAILY 09/26/17 [History] Lactobacillus [Culturelle] 1 each PO BID #10 cap.sprink 09/29/17 [Rx] Oxycodone HCl/Acetaminophen [Percocet 5-325 mg Tablet] 1 each PO Q6H PRN 5 Days #15 tablet 09/29/17 [Rx] 3 Allergy/AdvReac Type Severity Reaction Status Date / Time rosuvastatin [From Crestor] Allergy Hives Verified 07/13/17 16:35 ciprofloxacin AdvReac Itching Verified 07/13/17 16:35 Hydromorphone [From Dilaudid] AdvReac Difficulty Verified 07/13/17 16:35 Breathing All Systems PM: A 10-system review of systems was performed and is negative for pertinent findings except as documented above in the HPI. - Constitutional Constitutional: no chills, no fever(s), no night sweats - EENT Eyes: no change in vision, no discharge, no pain, no photophobia Ears: no ear discharge, no ear pain, no tinnitus Nose, mouth and throat: no dysphagia, no nasal discharge, no neck pain, no sore throat - Cardiovascular Cardiovascular ROS IM: no chest pain, no diaphoresis, no dyspnea, no lightheadedness, no palpitations, no syncope - Respiratory Respiratory: no cough, no dyspnea, no wheezing, no excessive phlegm production - Gastrointestinal Gastrointestinal: abdominal pain (Umbilical and pelvic pain), no diarrhea, no hematemesis, no hematochezia, no melena, no nausea, no vomiting - Genitourinary Genitourinary: pelvic pain, no change in urinary stream, no dysuria, no flank pain, no hematuria - Musculoskeletal Musculoskeletal ROS IM: no numbness, no tingling - Integumentary Integumentary IM: no rash, no unusual bruising - Neurological Neurological ROS: no confusion, no convulsions, no focal weakness, no numbness, no tingling, no tremor(s) - Hematologic/Lymphatic Hematologic/Lymphatic: no easy bruising - Constitutional Vitals: Temp Pulse Resp BP Pulse Ox 98 F 79 15 119/56 100 12/21/17 05:48 12/21/17 13:20 12/21/17 08:28 12/21/17 13:20 12/21/17 13:20 General appearance: Present: A&O X 3, answers questions appropriately - Head Head exam: Present: atraumatic, normocephalic - Eye Eye exam: Present: PERRL, conjuntiva pink, sclera anicteric Pupils: Present: PERRL - Neck Neck exam general surgery: Present: supple, trachea midline. Absent: lymphadenopathy - Respiratory Respiratory exam: Present: CTAB. Absent: accessory muscle use, rales, rhonchi, wheezes - Cardiovascular Cardiovascular exam: Present: RRR, +S1, +S2. Absent: diastolic murmur, gallop, rubs, systolic murmur - GI/Abdominal GI/Abdominal exam: Present: normal bowel sounds, soft, tenderness (Lower umbilical area. ), no peritoneal signs. Absent: distended - Extremities Exam Extremities exam: Present: warm, radial pulses palpable and symmetrical. Absent : calf tenderness, cyanotic, pedal edema - Neurological Exam Neurological exam: Present: CN II-XII intact, oriented X3, no focal deficits. Absent: pronater drift, facial droop, speech deficit - Skin Skin exam: Present: dry, intact Internal Med - H&P Results - Labs CBC & Chem 7: 12/21/17 06:39 12/21/17 06:39 - Assessment and plan (1) Acute UTI Current Visit: Yes Status: Acute Assessment and plan: Continue rocephin Monitor daily labs (2) Abdominal pain Current Visit: No Status: Acute Assessment and plan: Is likely related to UTI. Started on Rocephin in the ED and will continue to every [address] of abdomen consistent with UTI, Hepatic mass present and showed a decrease in size Qualifiers: Abdominal location: unspecified location Qualified Code(s): R10.9 - Unspecified abdominal pain (3) Diabetes mellitus Current Visit: No Status: Chronic Assessment and plan: Before meals and at bedtime blood sugars with mild Humalog insulin coverage Monitor daily labs Qualifiers: Diabetes mellitus type: type 2 Diabetes mellitus oil heaterman insulin use: with care home use Diabetes mellitus complication status: with skin complications Diabetes mellitus complication detail: with other skin ulcer Qualified Code(s): E11.622 - Type 2 diabetes mellitus with other skin ulcer; Z79.4 - prison (current) use of insulin (4) Hypertension Current Visit: No Status: Chronic Assessment and plan: Bp is marginally controlled 136/82. The patient likely elevated due to pain. Will continue home meds Qualifiers: Hypertension type: essential hypertension Qualified Code(s): I10 - Essential (primary) hypertension (5) Sacral decubitus ulcer Current Visit: Yes Status: Acute Assessment and plan: Will ask wound care to see patient for evaluation and treatment - Time Spent With Patient Total time spent is greater than 50% in coordination of care (as documented) at patient's floor/unit and/or counseling patient: 25 - 35 minutes <Anita Cisneros - Last Filed: 12/21/17 18:18> Date of Encounter: 12/21/17 Internal Medicine - H&P: HPI Admitted From: Home Plans for Post Hospital Care: Home History of present illness: Ms. Camacho is a 77 year old female with above past medical history who presents with weakness. PT resides at [facility]. During my examination she was having rigors, and bedside temp was 100.2. She admits to having loose stools and has had previous hx of C diff. She denies CP or SOB. Does report feeling nauseous. In ED WBC 10.8, Hgb 12.1, plt 258. Na 135, K 4.1, BUN 22, Cr 0.69, glucose 183. Urine moderate blood, nitrite positive, moderate leuks, WBC TNTC, many bacteria , RBC 30-50 CODE STATUS: DNRCC All Systems PM: A 10-system review of systems was performed and is negative for pertinent findings except as documented above in the HPI. - Constitutional Vitals: Temp Pulse Resp BP Pulse Ox 97.5 F L 71 14 136/82 98 12/21/17 14:52 12/21/17 14:52 12/21/17 14:52 12/21/17 14:52 12/21/17 14:52 General appearance: Present: A&O X 3, morbidly obese - Head Head exam: Present: atraumatic, normocephalic - Eye Eye exam: Present: PERRL, conjuntiva pink, sclera anicteric Pupils: Present: PERRL - Neck Neck exam general surgery: Present: supple, trachea midline. Absent: lymphadenopathy - Respiratory Respiratory exam: Present: CTAB. Absent: accessory muscle use, rales, rhonchi, wheezes - Cardiovascular Cardiovascular exam: Present: RRR, +S1, +S2. Absent: diastolic murmur, gallop, rubs, systolic murmur - GI/Abdominal GI/Abdominal exam: Present: normal bowel sounds, soft, no peritoneal signs. Absent: distended, tenderness - Extremities Exam Extremities exam: Present: warm, radial pulses palpable and symmetrical. Absent : calf tenderness, cyanotic, pedal edema - Neurological Exam Neurological exam: Present: CN II-XII intact, oriented X3, no focal deficits. Absent: pronater drift, facial droop, speech deficit - Skin Skin exam: Present: dry, intact Additional comments: stage 4 decub ulcer Internal Med - H&P Results - Labs CBC & Chem 7: 12/21/17 06:39 12/21/17 06:39 - Attending Attestation I performed a history and physical exam of the patient and discussed his management with the [facility]. I reviewed the SH[employer] CARP[employer]'s note and agree with the documented findings and plan of care with exception to addendum in assessment and plan. - Assessment and plan (1) Acute cystitis Current Visit: Yes Status: Acute Assessment and plan: IV Rocephin. Will send urine culture. (2) Decubital ulcer Current Visit: No Status: Chronic Assessment and plan: consult wound care Qualifiers: Laterality: unspecified laterality Qualified Code(s): L89.303 - Pressure ulcer of unspecified buttock, stage 3 (3) Diarrhea Current Visit: No Status: Acute Assessment and plan: will check c diff. Qualifiers: Diarrhea type: unspecified type Qualified Code(s): R19.7 - Diarrhea, unspecified - Time Spent With Patient Total time spent is greater than 50% in coordination of care (as documented) at patient's floor/unit and/or counseling patient: 25 - 35 minutes
[2017-12-21] MEDS ORDERED: Sennosides/Docusate Sodium TABLET PO PRN (17:45)
[2017-12-21] MEDS ORDERED: Acetaminophen 325 MG TABLET PO PRN (17:45)
[2017-12-21] MEDS: Insulin LISPRO 300 UNITS/3 ML VIAL SQ SCH (17:47)
[2017-12-21] MEDS ORDERED: Ondansetron 4 MG/2 ML VIAL IVP PRN ×2 (17:53→22:00)
[2017-12-21] MEDS ORDERED: Ondansetron 4 MG/2 ML VIAL ONE (18:54)
[2017-12-21] MEDS: Acetaminophen 325 MG TABLET PO PRN (18:55)
[2017-12-21] MEDS: Magnesium Oxide 400 MG TABLET PO SCH (21:55)
[2017-12-21] MEDS: Gabapentin 100 MG CAPSULE PO SCH (21:55)
[2017-12-21] MEDS: *HR* OxyCODONE/APAP 5/325 TABLET PO PRN (22:37)
--- NOTE | 2017-12-21 22:41 | Event Note ---
Date of Encounter: 12/21/17 Time of Encounter: 22:37 Patient expressed a desire to me and the night nurse to be a [facility]NRCC[facility]A like [facility] is at [facility]. Patient has a DNR order from 2010, which indicates this. Changed the order to DNRCC-A, as previously written, and per patient's verbalized desire. Patient expressed a desire to not be intubated.
[2017-12-21] MEDS: cefTRIAXone 2,000 MG in Water for inj. (sterile) 20 ML 20 ML IVP SCH (23:53)
[2017-12-22 04:45] LABS: Basophils % 0.2 %; Hematocrit 32.2 % (35.3-44.9); Immature Granulocytes % 0.6 % (0-4); Lymphocytes # 1.1 K/mcL (0.6-4.6); Mean Corpuscular HGB Conc 30.4 g/dL (31.6-35.5); Mean Corpuscular Hemoglobin 26.5 pg (28.0-33.3); Mean Platelet Volume 11.8 fL (9.4-12.4); Monocytes # 1.3 K/mcL (0.0-1.3); Monocytes % 8.3 %; Neutrophils # 13.3 K/mcL (1.6-8.9); Platelet Count 214 K/mcL (140-400); Segmented Neutrophils % 83.9 %
[2017-12-22 04:50] LABS: Hemoglobin 9.8 g/dL (11.5-15.4)
[2017-12-22 05:03] LABS: BUN/Creatinine Ratio 34 (6-26); Blood Urea Nitrogen 24 mg/dL (8-23); Calcium 8.9 mg/dL (8.6-10.3); Carbon Dioxide 26 mEq/L (23-29); Chloride 101 mEq/L (98-107); Glucose 189 mg/dL (70-105); Osmolality,Calculated 287 (280-300); Sodium 134 mEq/L (136-145); eGFR For Non-African Americans > 60 (> 60)
[2017-12-22] MEDS: cefTRIAXone 2,000 MG in Water for inj. (sterile) 20 ML 20 ML IVP SCH (07:06)
[2017-12-22] MEDS: Insulin LISPRO 300 UNITS/3 ML VIAL SQ SCH ×3 (08:12→16:45)
[2017-12-22] MEDS: Aspirin Enteric Coated 81 MG Tablet PO SCH (08:13)
[2017-12-22] MEDS: Gabapentin 100 MG CAPSULE PO SCH ×2 (08:14→21:02)
[2017-12-22] MEDS: Magnesium Oxide 400 MG TABLET PO SCH ×2 (08:14→21:02)
[2017-12-22] MEDS ORDERED: ACIDOPH PO SCH (09:00)
[2017-12-22] MEDS ORDERED: BIF B PO SCH (09:00)
[2017-12-22] MEDS ORDERED: BROMFENAC SODIUM OP SCH (09:00)
[2017-12-22] MEDS ORDERED: (Colestipol Hcl [Colestid] 2 GM) PO SCH (09:00)
[2017-12-22] MEDS ORDERED: [UNRECOGNIZED DRUG - OTHER] PO SCH (09:00)
[2017-12-22] MEDS ORDERED: CALCIUM CARBONATE PO SCH (09:00)
[2017-12-22] MEDS ORDERED: BULG PO SCH (09:00)
[2017-12-22] MEDS ORDERED: VITAMIN D3 PO SCH (09:00)
--- NOTE | 2017-12-22 10:47 | Internal Med Progress Note ---
Hospitalist Progress Note - Encounter Date of Encounter: 12/22/17 Time of Encounter: 10:00 - Subjective Interval History: Patient reports burning sensation when she received intravenous antibiotics today. No fever reported overnight. She denies any dysuria. No abdominal pain at this time. She is tolerating diet well. - Exam Vitals: Temp Pulse Resp BP Pulse Ox 98.1 F 76 18 114/67 98 12/22/17 08:12 12/22/17 08:12 12/22/17 08:12 12/22/17 08:12 12/22/17 08:27 Exam: General: Patient is alert, mild distress, oriented x 3 Head: atraumatic, normocephalic, Eye: normal appearance, PERRL, no scleral icterus, no conjunctival injection ENT: mucous membranes moist, normal external ear exam Neck: normal inspection, trachea midline, full ROM, no carotid bruits Chest: normal inspection, symmetric chest rise Respiratory: Good respiratory effort. Normal breath sounds. No wheezing or crackles.. Cardiovascular: Regular rate and rhythm. s1 and s2 No clicks, rubs, gallops, or murmurs. No pedal edema Abdomen: Abdomen is soft, nontender. Bowel sounds are present Skin: warm, dry, intact. Neuro: Alert oriented x 3 normal cranial nerves, Psych: Patient's affect is normal - Assessment and Plan (1) Acute pyelonephritis Current Visit: Yes Status: Acute Assessment and Plan: Based on CT scan findings and patient's symptoms, she appears to be having sepsis related to acute ascending UTI with possible bilateral pyelonephritis. We will treat with IV antibiotics. Follow culture results. Urine culture growing 2 gram-negative rods. Patient is currently on ceftriaxone. Her prior cultures urine cultures have been positive for Proteus and Klebsiella which were both sensitive to cephalosporins. Will await final identification and sensitivity. High risk for complications. (2) Acute cystitis Current Visit: Yes Status: Acute Assessment and Plan: As above (3) Decubitus ulcer of coccygeal region, stage 4 Current Visit: Yes Status: Chronic Assessment and Plan: Wound Care consult in place. Decubitus ulcer prophylaxis. Local wound care (4) Diarrhea Current Visit: Yes Status: Acute Assessment and Plan: Will send for stool studies. C. difficile study unable to be done because patient having formed stools. (5) Sepsis Current Visit: Yes Status: Acute Assessment and Plan: Due to gram-negative rods and urinary tract infection. Follow culture results. Continue IV antibiotics. Comments: Secondary to sacral wound infection. Dr. Bedolla consulted for recommendation for IV antibiotics. DVT Prophylaxis: With subcutaneous heparin - Time Spent with Patient Total time spent is greater than 50% in coordination of care (as documented) at patient's floor/unit and/or counseling patient: Plan of Care Discussed with: patient Internal Medicine: Result - Labs CBC & Chem 7: 12/22/17 04:08 12/22/17 04:08 Labs: Short CBC 12/22/17 Range/Units 04:08 WBC 15.8 H (4.3-11.1) K/mcL Hgb 9.8 L D (11.5-15.4) g/dL Hct 32.2 L (35.3-44.9) % Plt Count 214 (140-400) K/mcL Neutrophils # 13.3 H (1.6-8.9) K/mcL BMP 12/22/17 04:08 Sodium 134 L Potassium 4.0 Chloride 101 Carbon Dioxide 26 BUN 24 H Creatinine 0.70 Glucose 189 H Calcium 8.9 Consult Discharge Plan - Plan (2) Acute cystitis Qualifiers: Hematuria presence: with hematuria Qualified Code(s): N30.01 - Acute cystitis with hematuria (4) Diarrhea Qualifiers: Diarrhea type: unspecified type Qualified Code(s): R19.7 - Diarrhea, unspecified (5) Sepsis Qualifiers: Sepsis type: sepsis due to unspecified organism Qualified Code(s): A41.9 - Sepsis, unspecified organism
[2017-12-22] MEDS: *HR* Heparin 5,000 UNIT/ML VIAL SQ SCH (17:32)
[2017-12-22] MEDS: *HR* OxyCODONE/APAP 5/325 TABLET PO PRN (21:01)
[2017-12-22] MEDS: Lactobacillus 1 EACH CAP.SPRINK PO SCH (21:02)
[2017-12-23 04:24] LABS: Basophils % 0.2 %; Eosinophils # 0.1 K/mcL (0.0-0.6); Eosinophils % 0.4 %; Hematocrit 33.6 % (35.3-44.9); Immature Granulocytes % 0.5 % (0-4); Lymphocytes # 1.3 K/mcL (0.6-4.6); Lymphocytes % 11.1 %; Mean Corpuscular HGB Conc 29.8 g/dL (31.6-35.5); Mean Corpuscular Hemoglobin 26.7 pg (28.0-33.3); Mean Corpuscular Volume 89.6 fL (83.0-100.0); Mean Platelet Volume 11.6 fL (9.4-12.4); Monocytes % 8.5 %; Neutrophils # 9.5 K/mcL (1.6-8.9); Platelet Count 191 K/mcL (140-400); Red Blood Count 3.75 M/mcL (3.82-4.97); Red Cell Distribution Width 16.8 % (11.5-14.5); Segmented Neutrophils % 79.3 %
[2017-12-23 04:38] LABS: BUN/Creatinine Ratio 28 (6-26); Blood Urea Nitrogen 21 mg/dL (8-23); Calcium 8.9 mg/dL (8.6-10.3); Carbon Dioxide 27 mEq/L (23-29); Chloride 98 mEq/L (98-107); Glucose 232 mg/dL (70-105); Osmolality,Calculated 286 (280-300); Potassium 3.8 mEq/L (3.5-5.1); Sodium 133 mEq/L (136-145); eGFR For Non-African Americans > 60 (> 60)
[2017-12-23] MEDS: *HR* Heparin 5,000 UNIT/ML VIAL SQ SCH ×2 (06:26→17:20)
[2017-12-23] MEDS: Insulin LISPRO 300 UNITS/3 ML VIAL SQ SCH ×3 (07:30→16:38)
[2017-12-23] MEDS: cefTRIAXone 2,000 MG in Water for inj. (sterile) 20 ML 20 ML IVP SCH (08:01)
[2017-12-23] MEDS: Lactobacillus 1 EACH CAP.SPRINK PO SCH ×2 (08:04→22:37)
[2017-12-23] MEDS: Aspirin Enteric Coated 81 MG Tablet PO SCH (08:04)
[2017-12-23] MEDS: Magnesium Oxide 400 MG TABLET PO SCH ×2 (08:05→22:37)
[2017-12-23] MEDS: Gabapentin 100 MG CAPSULE PO SCH ×3 (08:05→22:38)
[2017-12-23] MEDS: Insulin DETEMIR 100 UNIT/ML X5UNITS SQ SCH (12:34)
--- NOTE | 2017-12-23 12:36 | Internal Med Progress Note ---
Hospitalist Progress Note - Encounter Date of Encounter: 12/23/17 Time of Encounter: 12:34 - Subjective Interval History: Patient seen earlier today. She is doing well overall. Feels much better. Denies any abdominal pain. No dysuria. No nausea or vomiting. - Exam Vitals: Temp Pulse Resp BP Pulse Ox 97.6 F 65 17 135/68 96 12/23/17 11:19 12/23/17 11:19 12/23/17 11:19 12/23/17 11:19 12/23/17 11:19 Exam: General: Patient is alert, no acute distress, oriented x 3 Head: atraumatic, normocephalic, Eye: normal appearance, PERRL, no scleral icterus, no conjunctival injection ENT: mucous membranes moist, normal external ear exam Neck: normal inspection, trachea midline, full ROM, no carotid bruits Chest: normal inspection, symmetric chest rise Respiratory: Good respiratory effort. Normal breath sounds. No wheezing or crackles.. Cardiovascular: Regular rate and rhythm. s1 and s2 No clicks, rubs, gallops, or murmurs. No pedal edema Abdomen: Abdomen is soft, nontender. Bowel sounds are present Musculoskeletal: Spontaneously moving all extremities. Neuro: Alert oriented x 3 normal cranial nerves, no focal deficits - Assessment and Plan (1) Acute pyelonephritis Current Visit: Yes Status: Acute Assessment and Plan: Continue current antibiotics. Urine culture growing Proteus and Escherichia coli. Proteus is sensitive to ceftriaxone. Escherichia coli sensitivities are pending. We will await final results to make recommendations regarding antibiotics. (2) Acute cystitis Current Visit: Yes Status: Acute Assessment and Plan: With acute pyelonephritis. Continue current antibiotic (3) Decubitus ulcer of coccygeal region, stage 4 Current Visit: Yes Status: Chronic Assessment and Plan: Local wound care. Pressure ulcer prophylactic measures. (4) Diarrhea Current Visit: Yes Status: Acute Assessment and Plan: Started on lactobacillus. Improving frequency. Formed stools so not sent for C. difficile testing (5) Sepsis Current Visit: Yes Status: Acute Assessment and Plan: Due to urinary tract infection. On ceftriaxone. Comments: Secondary to sacral wound infection. Dr. Bedolla consulted for recommendation for IV antibiotics. DVT Prophylaxis: Subcutaneous heparin - Time Spent with Patient Total time spent is greater than 50% in coordination of care (as documented) at patient's floor/unit and/or counseling patient: Internal Medicine: Result - Labs CBC & Chem 7: 12/23/17 03:58 12/23/17 03:58 Labs: Short CBC 12/23/17 Range/Units 03:58 WBC 11.9 H (4.3-11.1) K/mcL Hgb 10.0 L (11.5-15.4) g/dL Hct 33.6 L (35.3-44.9) % Plt Count 191 (140-400) K/mcL Neutrophils # 9.5 H (1.6-8.9) K/mcL BMP 12/23/17 03:58 Sodium 133 L Potassium 3.8 Chloride 98 Carbon Dioxide 27 BUN 21 Creatinine 0.74 Glucose 232 H Calcium 8.9 Consult Discharge Plan - Plan Referrals: Sha Johnson MD [Primary Care Provider] - (2) Acute cystitis Qualifiers: Hematuria presence: with hematuria Qualified Code(s): N30.01 - Acute cystitis with hematuria (4) Diarrhea Qualifiers: Diarrhea type: unspecified type Qualified Code(s): R19.7 - Diarrhea, unspecified (5) Sepsis Qualifiers: Sepsis type: sepsis due to unspecified organism Qualified Code(s): A41.9 - Sepsis, unspecified organism
[2017-12-23] MEDS: Acetaminophen 325 MG TABLET PO PRN (18:30)
[2017-12-23] MEDS ORDERED: Insulin LISPRO 300 UNITS/3 ML VIAL SQ SCH (21:45)
[2017-12-24] MEDS: *HR* Heparin 5,000 UNIT/ML VIAL SQ SCH ×2 (06:32→17:14)
[2017-12-24] MEDS: Insulin LISPRO 300 UNITS/3 ML VIAL SQ SCH ×3 (08:37→17:14)
[2017-12-24] MEDS: Insulin DETEMIR 100 UNIT/ML X5UNITS SQ SCH ×2 (08:38→21:11)
[2017-12-24] MEDS: cefTRIAXone 2,000 MG in Water for inj. (sterile) 20 ML 20 ML IVP SCH (08:38)
[2017-12-24] MEDS: Lactobacillus 1 EACH CAP.SPRINK PO SCH ×2 (08:39→21:04)
[2017-12-24] MEDS: Magnesium Oxide 400 MG TABLET PO SCH ×2 (08:39→21:05)
[2017-12-24] MEDS: Aspirin Enteric Coated 81 MG Tablet PO SCH (08:39)
[2017-12-24] MEDS: Gabapentin 100 MG CAPSULE PO SCH ×2 (08:40→21:04)
--- NOTE | 2017-12-24 15:09 | Internal Med Progress Note ---
Hospitalist Progress Note - Encounter Date of Encounter: 12/24/17 Time of Encounter: 09:10 - Subjective Interval History: Patient is doing well overall. No new complaints at this time. Tolerating diet well. No fever reported overnight. - Exam Vitals: Temp Pulse Resp BP Pulse Ox 98.4 F 68 18 116/63 97 12/24/17 14:59 12/24/17 14:59 12/24/17 14:59 12/24/17 14:59 12/24/17 14:59 Exam: General: Patient is alert, no acute distress, oriented x 3 Head: atraumatic, normocephalic, Eye: normal appearance, PERRL, no scleral icterus, no conjunctival injectio Neck: normal inspection, trachea midline, full ROM, no carotid bruits Chest: normal inspection, symmetric chest rise Respiratory: Good respiratory effort. Normal breath sounds. No wheezing or crackles.. Cardiovascular: Regular rate and rhythm. s1 and s2 No clicks, rubs, gallops, or murmurs. No pedal edema Abdomen: Abdomen is soft, nontender. Bowel sounds are present Musculoskeletal: Spontaneously moving all extremities. Skin: warm, dry, intact. Neuro: Alert oriented x 3 normal cranial nerves, no focal deficits - Assessment and Plan (1) Acute pyelonephritis Current Visit: Yes Status: Acute Assessment and Plan: With Escherichia coli and Proteus. Awaiting final culture/Sensitivity results given her prior history of multiple urinary tract infections. Discussed with microbiology. Results will be available tomorrow morning. Will address antibiotics at that time. We will continue Rocephin for now. Clinically patient is getting better overall. (2) Acute cystitis Current Visit: Yes Status: Acute (3) Decubitus ulcer of coccygeal region, stage 4 Current Visit: Yes Status: Chronic Assessment and Plan: Continue local wound care. Pressure ulcer prophylactic measures. (4) Diarrhea Current Visit: Yes Status: Acute Assessment and Plan: Improving. Continue lactobacillus (5) Sepsis Current Visit: Yes Status: Acute Assessment and Plan: Present on admission. Due to acute pyelonephritis. Comments: Secondary to sacral wound infection. Dr. Bedolla consulted for recommendation for IV antibiotics. (6) Diabetes mellitus Current Visit: Yes Status: Chronic Assessment and Plan: Will increase sliding scale coverage as blood sugars remain uncontrolled. Also increase long-acting insulin dosage. Diabetic diet. Comments: Insulin-dependent; uses Lantus and NovoLog at home DVT Prophylaxis: Subcutaneous heparin - Time Spent with Patient Total time spent is greater than 50% in coordination of care (as documented) at patient's floor/unit and/or counseling patient: Plan of Care Discussed with: patient Internal Medicine: Result - Labs CBC & Chem 7: 12/23/17 03:58 12/23/17 03:58 Consult Discharge Plan - Plan Referrals: Sha Johnson MD [Primary Care Provider] - (2) Acute cystitis Qualifiers: Hematuria presence: with hematuria Qualified Code(s): N30.01 - Acute cystitis with hematuria (4) Diarrhea Qualifiers: Diarrhea type: unspecified type Qualified Code(s): R19.7 - Diarrhea, unspecified (5) Sepsis Qualifiers: Sepsis type: sepsis due to unspecified organism Qualified Code(s): A41.9 - Sepsis, unspecified organism (6) Diabetes mellitus Qualifiers: Diabetes mellitus type: type 2 Diabetes mellitus longterm insulin use: with longterm use Diabetes mellitus complication status: with skin complications Diabetes mellitus complication detail: with other skin ulcer Qualified Code(s) : E11.622 - Type 2 diabetes mellitus with other skin ulcer; Z79.4 - penitentiary ( current) use of insulin
[2017-12-24] MEDS ORDERED: Insulin LISPRO 300 UNITS/3 ML VIAL SQ SCH (21:00)
[2017-12-25] MEDS: *HR* Heparin 5,000 UNIT/ML VIAL SQ SCH (06:23)
[2017-12-25] MEDS: Magnesium Oxide 400 MG TABLET PO SCH (08:35)
[2017-12-25] MEDS: cefTRIAXone 2,000 MG in Water for inj. (sterile) 20 ML 20 ML IVP SCH (08:35)
[2017-12-25] MEDS: Aspirin Enteric Coated 81 MG Tablet PO SCH (08:35)
[2017-12-25] MEDS: Insulin LISPRO 300 UNITS/3 ML VIAL SQ SCH ×2 (08:36→12:15)
[2017-12-25] MEDS: Gabapentin 100 MG CAPSULE PO SCH (08:36)
[2017-12-25] MEDS: *HR* OxyCODONE/APAP 5/325 TABLET PO PRN (08:36)
[2017-12-25] MEDS: Lactobacillus 1 EACH CAP.SPRINK PO SCH (08:36)
[2017-12-25] MEDS: Insulin DETEMIR 100 UNIT/ML X5UNITS SQ SCH (08:37)
--- NOTE | 2017-12-25 10:46 | Discharge Summary ---
- NOTES TO OUTPATIENT PROVIDER Notes to Outpatient Provider: Patient with history of chronic indwelling Ramos catheter was hospitalized here with sepsis related to acute urinary tract infection/pyelonephritis. She was started on IV antibiotics. Urine cultures are growing Proteus and Escherichia coli which are both sensitive to cephalosporins and fluoroquinolones. Patient is now doing much better. Her Ramos catheter has been changed here. She is clinically stable to be discharged back to skilled rehabilitation. She will be discharged on oral antibiotics to complete a 14 day treatment course. Date of Encounter: 12/25/17 Time of Encounter: 10:47 - Discharge Diagnosis (1) Acute pyelonephritis Priority: Primary Status: Acute (2) Acute cystitis Priority: Secondary Status: Acute Qualifiers: Hematuria presence: with hematuria Qualified Code(s): N30.01 - Acute cystitis with hematuria (3) Decubitus ulcer of coccygeal region, stage 4 Priority: Secondary Status: Chronic (4) Diarrhea Priority: Secondary Status: Acute Qualifiers: Diarrhea type: unspecified type Qualified Code(s): R19.7 - Diarrhea, unspecified (5) Sepsis Priority: Secondary Status: Acute Qualifiers: Sepsis type: Escherichia coli Qualified Code(s): A41.51 - Sepsis due to Escherichia coli [E. coli] (6) Diabetes mellitus Priority: Secondary Status: Chronic Qualifiers: Diabetes mellitus type: type 2 Diabetes mellitus long-term insulin use: with bed bug exterminator use Diabetes mellitus complication status: with skin complications Diabetes mellitus complication detail: with other skin ulcer Qualified Code(s): E11.622 - Type 2 diabetes mellitus with other skin ulcer; Z79.4 - joint terminal attack controller (current) use of insulin Hospital course: Ms. Camacho is a 77 year old female Patient with history of chronic indwelling Ramos catheter , diabetes, hypertension, decubitus ulcer, sacral was hospitalized here with sepsis related to acute urinary tract infection/ pyelonephritis. She was started on IV antibiotics. Urine cultures are growing Proteus and Escherichia coli which are both sensitive to cephalosporins and fluoroquinolones. Patient is now doing much better. Her Ramos catheter has been changed here. She is clinically stable to be discharged back to skilled rehabilitation. She will be discharged on oral antibiotics to complete a 14 day treatment course. Discharge discussed with: patient, nurse - Time Spent with Patient Total time spent providing and/or coordinating discharge services: Greater than 30 minutes (35 min) - Discharge Medications Prescriptions: Gabapentin [Neurontin] 100 mg PO QAM #15 capsule levoFLOXacin [Levaquin] 500 mg PO DAILY #10 tablet Oxycodone HCl/Acetaminophen [Percocet 5-325 mg Tablet] 1 each PO Q6H PRN 5 Days #15 tablet PRN Reason: Mild To Moderate Pain Home Medications: Omeprazole [PriLOSEC] 20 mg PO QAM 02/04/15 [History] Sennosides/Docusate Sodium [Senna Plus] 8.6 mg PO QAM PRN 02/04/15 [History] Acidoph/L.bulg/Bif.b/S.thermop [Emilie-Bid Caplet] 2 tab PO DAILY 04/17/17 [ History] Amitriptyline [Elavil] 10 mg PO HS 04/17/17 [History] Aspirin Enteric Coated [Aspirin EC] 81 mg PO DAILY 04/17/17 [History] Bromfenac Sodium 1 drop RIGHT EYE DAILY 04/17/17 [History] Insulin Aspart Prot/Insuln Asp [Novolog Mix 70-30 Vial] 40 unit SQ HS 04/17/17 [ History] Insulin Aspart Prot/Insuln Asp [Novolog Mix 70-30 Vial] 50 unit SQ QAM 04/17/17 [History] Magnesium Oxide [Mag-Ox] 400 mg PO BID 04/17/17 [History] Metoprolol [Lopressor] 12.5 mg PO BID 04/17/17 [History] Sertraline [Zoloft] 25 mg PO DAILY 04/17/17 [History] Calcium Carbonate/Vitamin D3 [Oyster Shell 250 mg + Vit D Tb] 1 tab PO DAILY 02/01 [History] Calcium Polycarbophil [Fiber Laxative] 625 mg PO DAILY 05/25/17 [History] Colestipol HCl [Colestid] 2 gm PO DAILY 05/25/17 [History] Gabapentin [Neurontin] 200 mg PO HS #20 capsule 06/04/17 [Rx] Ondansetron HCl [Zofran] 4 mg PO Q8H PRN 07/13/17 [History] Simvastatin [Zocor] 40 mg PO HS 07/13/17 [History] Acetaminophen [Tylenol] 650 mg PO Q8H PRN 09/26/17 [History] Sertraline [Zoloft] 100 mg PO DAILY 09/26/17 [History] Lactobacillus [Culturelle] 1 each PO BID #10 cap.sprink 09/29/17 [Rx] Gabapentin [Neurontin] 100 mg PO QAM #15 capsule 12/25/17 [Rx] Oxycodone HCl/Acetaminophen [Percocet 5-325 mg Tablet] 1 each PO Q6H PRN 5 Days #15 tablet 12/25/17 [Rx] levoFLOXacin [Levaquin] 500 mg PO DAILY #10 tablet 12/25/17 [Rx] Allergies/Adverse Reactions: 3 Allergy/AdvReac Type Severity Reaction Status Date / Time rosuvastatin [From Crestor] Allergy Hives Verified 07/13/17 16:35 ciprofloxacin AdvReac Itching Verified 07/13/17 16:35 Hydromorphone [From Dilaudid] AdvReac Difficulty Verified 07/13/17 16:35 Breathing Date of admission: 12/21/17 13:38 Primary care physician: Sha Johnson MD Consults: 12/21/17 15:40 Consult to Occupational Therapy [CONS] Routine Comment: Evaluate, develop and implement POC Reason for Consult: Inmobility Does patient have active BEDREST order?: No Is patient medically & hemodynamically stable?: Yes Patient assessed for mobility or mobilized this visit?: No PT [Consult to Physical Therapy] [CONS] Routine Comment: Evaluate, develop and implement POC Reason for Consult: Inmobility Does patient have active BEDREST order?: No Is patient medically & hemodynamically stable?: Yes Patient assessed for mobility or mobilized this visit?: No 12/21/17 16:06 Consult to Wound Care [CONS] Routine Reason for Consult: Stage four to coccyx Time Notified: 16:06 Call Completed: Yes Discharging clinician: Flavio Carson Anticipated date of discharge: 12/25/17 - Constitutional Vitals: Temp Pulse Resp BP Pulse Ox 97.4 F L 66 18 170/76 97 12/25/17 10:19 12/25/17 10:19 12/25/17 10:19 12/25/17 10:19 12/25/17 10:19 General appearance: Present: A&O X 3, morbidly obese, answers questions appropriately - Neck Neck exam general surgery: Present: supple, trachea midline. Absent: lymphadenopathy - Respiratory Respiratory exam: Present: CTAB. Absent: accessory muscle use, rales, rhonchi, wheezes - Cardiovascular Cardiovascular exam: Present: RRR, +S1, +S2. Absent: diastolic murmur, gallop, rubs, systolic murmur - GI/Abdominal GI/Abdominal exam: Present: normal bowel sounds, soft, no peritoneal signs. Absent: distended, tenderness - Extremities Exam Extremities exam: Present: warm, radial pulses palpable and symmetrical. Absent : calf tenderness, cyanotic, pedal edema - Neurological Exam Neurological exam: Present: alert, oriented X3. Absent: facial droop, speech deficit - Patient Status Disposition: Transfer SNF Condition: Good Functional capacity at discharge: bed bound Overall status at discharge: patient is progressing back to baseline - Discharge Instructions Instructions: Urinary Tract Infection in Women (DC) Follow Up With: Sha Johnson MD [Primary Care Provider] - (in 1-2 weeks) Forms: ED Satisfaction Letter, Work/School Release - Diet and Activity Activity: as per physical therapy, increase activity as tolerated Diet: diabetic diet
--- NOTE | 2017-12-25 10:59 | Physician Discharge Referral ---
ExtendedCare Referral Info Provider in Charge after Transfer: PCP Institutional Level of Care: Skilled - Diagnosis (1) Acute pyelonephritis Priority: Primary Status: Acute (2) Acute cystitis Priority: Secondary Status: Acute (3) Decubitus ulcer of coccygeal region, stage 4 Priority: Secondary Status: Chronic (4) Diarrhea Priority: Secondary Status: Acute (5) Sepsis Priority: Secondary Status: Acute (6) Diabetes mellitus Priority: Secondary Status: Chronic Prognosis: Fair Aware of Diagnosis: Patient Aware of Prognosis: Patient - Transfer Medications Prescriptions: Gabapentin [Neurontin] 100 mg PO QAM #15 capsule levoFLOXacin [Levaquin] 500 mg PO DAILY #10 tablet Oxycodone HCl/Acetaminophen [Percocet 5-325 mg Tablet] 1 each PO Q6H PRN 5 Days #15 tablet PRN Reason: Mild To Moderate Pain Home Medications: Omeprazole [PriLOSEC] 20 mg PO QAM 02/04/15 [History] Sennosides/Docusate Sodium [Senna Plus] 8.6 mg PO QAM PRN 02/04/15 [History] Acidoph/L.bulg/Bif.b/S.thermop [Emilie-Bid Caplet] 2 tab PO DAILY 04/17/17 [ History] Amitriptyline [Elavil] 10 mg PO HS 04/17/17 [History] Aspirin Enteric Coated [Aspirin EC] 81 mg PO DAILY 04/17/17 [History] Bromfenac Sodium 1 drop RIGHT EYE DAILY 04/17/17 [History] Insulin Aspart Prot/Insuln Asp [Novolog Mix 70-30 Vial] 40 unit SQ HS 04/17/17 [ History] Insulin Aspart Prot/Insuln Asp [Novolog Mix 70-30 Vial] 50 unit SQ QAM 04/17/17 [History] Magnesium Oxide [Mag-Ox] 400 mg PO BID 04/17/17 [History] Metoprolol [Lopressor] 12.5 mg PO BID 04/17/17 [History] Sertraline [Zoloft] 25 mg PO DAILY 04/17/17 [History] Calcium Carbonate/Vitamin D3 [Oyster Shell 250 mg + Vit D Tb] 1 tab PO DAILY 02/01 [History] Calcium Polycarbophil [Fiber Laxative] 625 mg PO DAILY 05/25/17 [History] Colestipol HCl [Colestid] 2 gm PO DAILY 05/25/17 [History] Gabapentin [Neurontin] 200 mg PO HS #20 capsule 06/04/17 [Rx] Ondansetron HCl [Zofran] 4 mg PO Q8H PRN 07/13/17 [History] Simvastatin [Zocor] 40 mg PO HS 07/13/17 [History] Acetaminophen [Tylenol] 650 mg PO Q8H PRN 09/26/17 [History] Sertraline [Zoloft] 100 mg PO DAILY 09/26/17 [History] Lactobacillus [Culturelle] 1 each PO BID #10 cap.sprink 09/29/17 [Rx] Gabapentin [Neurontin] 100 mg PO QAM #15 capsule 12/25/17 [Rx] Oxycodone HCl/Acetaminophen [Percocet 5-325 mg Tablet] 1 each PO Q6H PRN 5 Days #15 tablet 12/25/17 [Rx] levoFLOXacin [Levaquin] 500 mg PO DAILY #10 tablet 12/25/17 [Rx] Allergies/Adverse Reactions: 3 Allergy/AdvReac Type Severity Reaction Status Date / Time rosuvastatin [From Crestor] Allergy Hives Verified 07/13/17 16:35 ciprofloxacin AdvReac Itching Verified 07/13/17 16:35 Hydromorphone [From Dilaudid] AdvReac Difficulty Verified 07/13/17 16:35 Breathing - Respiratory Orders Smoking Cessation: Smoking cessation has been advised. For more information, call the [place] Tobacco Quit Line at 0-211-SXTF-NOW. - Advance Directives Code Status: DNR-Arrest (DNR CC Arrest) - Mobility Orders Other (per PT) - Rehabiliation Orders Rehab Potential: Fair Rehab Orders: Evaluation for Physical Therapy, Evaluation for Occupational Therapy - Treatments Skin tear care topically daily PRN per policy - Diet Orders No Concentrated Sweets (diabetic), Cardiac CERTIFICATION: I certify that the transfer of the above named patient to an Extended Care Facility is necessary for the continuing treatment of the diagnosis listed. The above information is true and accurate reflection of patient's current condition. Confidential - Redisclosure prohibited without a patient's written consent.
[2017-12-25 13:56] VITALS: BP 126/68
== END 2017-12-25 14:20 ==
LOC: EMEROO 05:37 → 3ANU 05:37 → SUATTDRO 12-22 10:52
PROVIDERS: ADMIT Internal Medicine; ATTEND Internal Medicine

== ENCOUNTER 2018-05-27 13:57 | Inpatient (IN) ==
[2018-05-27] MEDS ORDERED: Hyoscyamine SL 0.125 MG TAB.SUBL SL STA (15:12)
[2018-05-27] MEDS ORDERED: 0.9 % Sodium Chloride 1,000 ML IVC ONE ×3 (15:12→21:05)
--- NOTE | 2018-05-27 15:44 | Emergency Department Note ---
Disposition Clinical Impression: UTI (urinary tract infection) Qualifiers: Urinary tract infection type: acute cystitis Hematuria presence: with hematuria Qualified Code(s): N30.01 - Acute cystitis with hematuria Disposition: Admitted As Inpatient Condition: Fair Referrals: NONE,PCP [Primary Care Provider] - Forms: ED Satisfaction Letter, Work/School Release Time of Disposition: 19:30 Abdominal Pain HPI - General Chief Complaint: ED Abdominal Pain Stated Complaint: abd pain Time Seen by Provider: 05/27/18 14:22 Source: patient, EMS Mode of arrival: ambulatory Limitations: no limitations Nursing Notes Reviewed: Yes Vital Signs Reviewed: Yes - History of Present Illness HPI Narrative: 77-year-old male presents to the emergency department with abdominal pain she has had multiple abdominal surgeries including appendicitis, cholecystectomy, presents to the emergency department with abdominal pain. Patient says his abdominal pains been going on for 1 day she normally takes Percocet been nothing has been working at the nursing facility. Nursing facility so that she is continue to get worse. She is having normal bowel movements as well as normal f latulence is been no nausea or vomiting with this. There is been no fevers. She says is mainly suprapubic pain but has been going into the abdomen is more generalized. She does have chronic use of a Ramos catheter and she says she believes that this could be a urinary tract infection. They have been more cloudy recently. Patient describes abdominal pain as 8 out of 10 generalized postural abdomen nonradiating nothing is seemed to work for the pain. Otherwise patient is having no other complaints including fevers, chills, nausea, vomiting, headache, blurry vision, neck pain, back pain, chest pain, shortness of breath, changes in bowel movement, pain with urination, pain or tingling jaci g down the arms or legs or generalized weakness. Pain Scale: 9 - Related Data Home Medications Medication Instructions Recorded Confirmed Omeprazole [PriLOSEC] 20 mg PO QAM 02/04/15 01/13/18 Sennosides/Docusate Sodium [Senna 8.6 mg PO QAM PRN 02/04/15 01/13/18 Plus] Amitriptyline [Elavil] 10 mg PO HS 04/17/17 01/13/18 Aspirin Enteric Coated [Aspirin EC] 81 mg PO DAILY 04/17/17 01/13/18 Bromfenac Sodium 1 drop RIGHT EYE DAILY 04/17/17 01/13/18 Insulin Aspart Prot/Insuln Asp 40 unit SQ HS 04/17/17 01/13/18 [Novolog Mix 70-30 Vial] Insulin Aspart Prot/Insuln Asp 50 unit SQ QAM 04/17/17 01/13/18 [Novolog Mix 70-30 Vial] Magnesium Oxide [Mag-Ox] 400 mg PO BID 04/17/17 01/13/18 Metoprolol [Lopressor] 12.5 mg PO BID 04/17/17 01/13/18 Sertraline [Zoloft] 25 mg PO DAILY 04/17/17 01/13/18 Colestipol HCl [Colestid] 2 gm PO DAILY 05/25/17 01/13/18 Ondansetron HCl [Zofran] 4 mg PO Q8H PRN 07/13/17 01/13/18 Simvastatin [Zocor] 40 mg PO HS 07/13/17 01/13/18 Acetaminophen [Tylenol] 650 mg PO Q8H PRN 09/26/17 01/13/18 Sertraline [Zoloft] 100 mg PO DAILY 09/26/17 01/13/18 Gabapentin [Neurontin] 100 mg PO BID 01/13/18 01/13/18 Naproxen [Naprosyn] 250 mg PO BID PRN 01/13/18 01/13/18 Previous Rx's Medication Instructions Recorded Lactobacillus [Culturelle] 1 each PO BID #10 cap.sprink 09/29/17 Oxycodone HCl/Acetaminophen 1 each PO Q6H PRN 5 Days #15 tablet 12/25/17 [Percocet 5-325 mg Tablet] Allergies Allergy/AdvReac Type Severity Reaction Status Date / Time rosuvastatin [From Crestor] Allergy Hives Verified 01/13/18 09:19 ciprofloxacin AdvReac Itching Verified 01/13/18 09:19 hydromorphone [From Dilaudid] AdvReac Difficulty Verified 01/13/18 09:19 Breathing All systems ED: reviewed and negative except as stated. Review of Systems: As Per HPI Abdominal Pain PMH - Past Medical History Medical history: Reports: cancer, coronary artery disease, diabetes, GERD, hypertension, myocardial infarction, peripheral artery disease, thyroid disease, other Female Surgical History: Reports: appendectomy, cholecystectomy, herniorrhaphy, hysterectomy Psychiatric history: Reports: anxiety, depression - Social History Smoking status: Former smoker Alcohol use: Reports: none Drug use: Reports: none Physical Exam - General Limitations: no limitations General appearance: alert, in distress - Head Head exam: atraumatic, normocephalic, normal inspection - Eye Eye exam: Present: normal appearance, PERRL, EOMI - ENT ENT exam: normal exam, normal oropharynx, mucous membranes moist - Neck Neck exam: Present: normal inspection, full ROM, trachea midline - Chest Chest inspection: Present: normal inspection, symmetric chest wall rise - Respiratory Respiratory exam: Present: normal lung sounds bilaterally - Cardiovascular Cardiovascular exam: Present: regular rate, normal rhythm, normal heart sounds - Abdominal Exam Abdominal exam: Present: soft, tenderness, guarding, normal bowel sounds. Absent: distention, rebound, rigidity Abdominal tenderness: Present: diffuse, moderate - Extremities Exam Extremities exam: Present: normal inspection, full ROM. Absent: tenderness, pedal edema - Back Exam Back exam: Present: normal inspection, full ROM. Absent: tenderness, CVA tenderness (R), CVA tenderness (L) - Neurological Exam Neurological exam: Present: alert, oriented X3 - Skin Skin exam: Present: warm, dry, intact, normal color Course Course Narrative: We have basic labs including CBC, CMP, lipase as well as urinalysis. We will give patient Levsin as well as fentanyl for pain control. We will give patient IV fluids. We will get CT of the abdomen and pelvis without contrast. Patient okay with this plan. Disposition pending results. Vital Signs Temperature 98.1 F 05/27/18 14:09 Pulse Rate 101 05/27/18 14:09 Respiratory Rate 14 05/27/18 14:09 Blood Pressure 135/68 05/27/18 14:09 O2 Sat by Pulse Oximetry 100 05/27/18 14:09 Temperature 98.1 F 05/27/18 14:09 Pulse Rate 110 05/27/18 18:54 Respiratory Rate 16 05/27/18 18:54 Blood Pressure 119/74 05/27/18 18:54 O2 Sat by Pulse Oximetry 100 05/27/18 18:54 Oxygen Delivery Oxygen Delivery Nasal Cannula Abdominal Pain - MDM Narrative Medical decision making narrative: 77-year-old female presents to the emergency department from a shelter with abdominal pain. When I first evaluated her she nonradiating Sirs criteria what was afebrile. I did give her full IV fluids as well as giving her pain control including fentanyl and morphine. Did do broad workup including CT abdomen and pelvis showed only chronic findings are no acute findings on exam. The urine did come back positive for urinary tract infection did not nitrite was grossly positive looking back at old cultures patient was most recently sensitive to ceftriaxone so I gave her 1 g of that here in the emergency prior. Patient did receive a total of 2 L of IV fluids as she was tachycardic when I reevaluated her. She was never febrile. Patient was never sepsis, severe sepsis, severe septic shock. Patient is stable at this time. I feel patient needs IV antibiotics so I recommended admission patient does agree with this plan. Gelacio antonio does have a known ulcer that according to family and friends at bedside said it is rate resolving and getting better CT scan also said that it looked similar to last time. There are no new acute findings. Patient did have a leukocytosis otherwise no acute changes. Patient is going be admitted to the hospitalist service. I spoke with Dr. Kim who agreed to admit the patient to their service. Abdomen/Pelvis CT 05/27/18 15:05 IMPRESSION: 1. No acute process in the abdomen or pelvis. 2. 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 Adjacent to the ablation site, there are discrete hypodense areas which measure up to 3.8 x 2.8 cm and are concerning for recurrent disease. This could be better evaluated by a liver mass protocol MRI on a nonemergent basis. These findings are compatible with the pattern of metabolic activity on recent PET scan. 3. Large ventral abdominal wall hernia, without evidence of obstruction. 4. Trace bilateral hydronephrosis and hydroureter, similar in appearance to prior exam on 12/21/2017. 5. Marked progressive enlargement of a sacral decubitus ulcer with changes of chronic osteomyelitis involving the sacrum. 6. Trace ascites in the low pelvis. 7. IVC filter in place. D/ / 05/27/2018 17:42:40 Mando Turner MD / [facility] Interpreting Provider: Mando Turner MD Chest X-Ray 05/27/18 15:07 IMPRESSION: No acute cardiopulmonary disease is identified. D/ / Ronnie Zurita MD / Ronnie Zurita MD Interpreting Provider: Ronnie Zurita MD - Medical Records Medical records reviewed: Yes I reviewed the patient's medical records. - Lab Data Lab results reviewed: Yes I reviewed the patient's lab results. Result diagrams: 05/27/18 15:39 05/27/18 15:39 Lab Results 05/27/18 05/27/18 05/27/18 Range/Units 15:39 15:39 18:22 WBC 17.6 H (4.3-11.1) K/mcL RBC 4.53 (3.82-4.97) M/mcL Hgb 11.8 (11.5-15.4) g/dL Hct 38.7 (35.3-44.9) % MCV 85.4 (83.0-100.0) fL MCH 26.0 L (28.0-33.3) pg MCHC 30.5 L (31.6-35.5) g/dL RDW 18.0 H (11.5-14.5) % Plt Count 352 (140-400) K/mcL MPV 11.1 (9.4-12.4) fL Immature Gran % 0.9 (0-4) % Seg Neutrophils % 89.4 % Lymphocytes % 3.5 % Monocytes % 5.9 % Eosinophils % 0.1 % Basophils % 0.2 % Neutrophils # 15.7 H (1.6-8.9) K/mcL Lymphocytes # 0.6 (0.6-4.6) K/mcL Monocytes # 1.0 (0.0-1.3) K/mcL Eosinophils # 0.0 (0.0-0.6) K/mcL Basophils # 0.0 (0.0-0.2) K/mcL Sodium 133 L (136-145) mEq/L Potassium 4.2 (3.5-5.1) mEq/L Chloride 97 L (98-107) mEq/L Carbon Dioxide 24 (23-29) mEq/L BUN 14 (8-23) mg/dL Creatinine 0.73 (0.60-1.20) mg/dL Est GFR ( Amer) > 60 (> 60) Est GFR (Non-Af Amer) > 60 (> 60) BUN/Creatinine Ratio 19 (6-26) Glucose 252 H (70-105) mg/dL Calculated Osmolality 285 (280-300) Calcium 8.9 (8.6-10.3) mg/dL Total Bilirubin 0.7 (0.3-1.0) mg/dL AST 14 (13-39) Units/L ALT 6 L (7-52) Units/L Alkaline Phosphatase 169 H (34-104) Units/L Serum Total Protein 7.8 (6.4-8.9) g/dL Albumin 3.0 L (3.5-5.7) g/dL Globulin 4.8 H (2.4-3.5) g/dL Albumin/Globulin Ratio 0.6 L (1.1-2.2) Lipase 5 L (11-82) Units/L Ur Specimen Adequacy See below A Urine Color Alicia A (Yellow) Urine Clarity Turbid A (Clear) Urine pH 8.0 (5.0-8.0) pH Units Ur Specific [place] 1.017 (1.010-1.025) Urine Protein >=300 H (Neg-Trace) mg/dL Urine Glucose (UA) Normal (Normal) mg/dL Urine Ketones 15 H (Negative) mg/dL Urine Blood Large H (Negative) Urine Nitrite Negative (Negative) Urine Bilirubin Small H (Negative) Urine Urobilinogen Normal (Normal) mg/dL Ur Leukocyte Esterase Large H (Negative) Urine Microscopic RBC TNTC H (0-3) per hpf Urine Microscopic WBC TNTC H (0-3) per hpf Ur Squamous Epith Cells Many H (None-Few) per lpf Urine Bacteria Many H (None-Few) per hpf Hyaline Casts None Seen (None-Few) per lpf Urine Mucus Few (Few) Ur Culture Indicated? NO. A (NO) - Radiology Data Radiology results reviewed: Yes I reviewed the patient's radiology results. - EKG Data EKG attestation: Yes I reviewed and interpreted this EKG. EKG results narrative: EKG done at 1631 review myself and attending shows sinus tachycardia rate of 103, MS 177, QRS 89, QTC 518. There is no acute ST changes no acute T-wave changes no other signs of ischemia. No signs of hypertrophy, heart, heart block. No WPW//HOCM. EKG is unchanged when compared with old one done 12/21/17.
[2018-05-27] MEDS ORDERED: *HR* FentaNYL (PF) 100 MCG/2 ML VIAL IVP ONE (15:45)
[2018-05-27] MEDS ORDERED: Ondansetron 4 MG/2 ML VIAL IVP ONE (15:59)
[2018-05-27 16:05] LABS: Basophils % 0.2 %; Eosinophils % 0.1 %; Hematocrit 38.7 % (35.3-44.9); Hemoglobin 11.8 g/dL (11.5-15.4); Immature Granulocytes % 0.9 % (0-4); Lymphocytes # 0.6 K/mcL (0.6-4.6); Lymphocytes % 3.5 %; Mean Corpuscular HGB Conc 30.5 g/dL (31.6-35.5); Mean Corpuscular Volume 85.4 fL (83.0-100.0); Mean Platelet Volume 11.1 fL (9.4-12.4); Monocytes % 5.9 %; Neutrophils # 15.7 K/mcL (1.6-8.9); Platelet Count 352 K/mcL (140-400); Red Blood Count 4.53 M/mcL (3.82-4.97); Segmented Neutrophils % 89.4 %
[2018-05-27 16:25] LABS: Alanine Aminotransferase 6 Units/L (7-52); Alkaline Phosphatase 169 Units/L (34-104); Aspartate Amino Transferase 14 Units/L (13-39); BUN/Creatinine Ratio 19 (6-26); Bilirubin,Total 0.7 mg/dL (0.3-1.0); Blood Urea Nitrogen 14 mg/dL (8-23); Calcium 8.9 mg/dL (8.6-10.3); Carbon Dioxide 24 mEq/L (23-29); Chloride 97 mEq/L (98-107); Glucose 252 mg/dL (70-105); Osmolality,Calculated 285 (280-300); Potassium 4.2 mEq/L (3.5-5.1); Sodium 133 mEq/L (136-145); Total Protein 7.8 g/dL (6.4-8.9); eGFR For Non-African Americans > 60 (> 60)
[2018-05-27 16:26] LABS: Albumin/Globulin Ratio 0.6 (1.1-2.2); Globulin 4.8 g/dL (2.4-3.5); Lipase 5 Units/L (11-82)
[2018-05-27] MEDS ORDERED: *HR* Morphine 2 MG/ML SYRINGE IVP ONE (17:51)
[2018-05-27 18:34] LABS: Bilirubin,Urine Small (Negative); Blood,Urine Large (Negative); Clarity,Urine Turbid (Clear); Glucose,Urine (UA) Normal (Normal); Ketones,Urine 15 mg/dL (Negative); Leukocyte Esterase,Urine Large (Negative); Nitrite,Urine Negative (Negative); Protein,Urine >=300 mg/dL (Neg-Trace); Specific Gravity,Urine 1.017 (1.010-1.025); Urobilinogen,Urine Normal (Normal)
[2018-05-27 18:36] LABS: Bacteria,Urine Many per hpf (None-Few); RBC,Urine TNTC per hpf (0-3); Squamous Epithelial Cell,Urine Many per lpf (None-Few); WBC,Urine TNTC per hpf (0-3)
[2018-05-27 18:58] LABS: Color,Urine Amber (Yellow)
[2018-05-27 19:00] LABS: Hyaline Casts,Urine None Seen per lpf (None-Few); Mucus,Urine Few (Few)
[2018-05-27] MEDS ORDERED: cefTRIAXone 1,000 MG in Water for inj. (sterile) 20 ML 10 ML IVP ONE (19:16)
--- NOTE | 2018-05-27 20:30 | Internal Med History&Physical ---
<AngelCasie - Last Filed: 05/28/18 18:55> Date of Encounter: 05/28/18 Time of Encounter: 20:40 Internal Medicine - H&P: HPI Chief complaint: Abdominal pain Admitted From: Long-term Nursing Facility Plans for Post Hospital Care: Transfer [facility] History of present illness: Ms. Camacho is a 77-year-old female with PMH chronic indwelling Ramos catheter and stage IV sacral decubitus ulcer presents to ED from [facility] for abdominal pain. She was seen December 2017 with complaint of abdominal pain, admitted for sepsis due to acute UTI, and treated with IV antibiotics. When I entered patient's room she was quite somnolent, but arousable to voice and following some commands. Due to her somnolence she was unable to provide any history or participate in review of systems; there were no family/visitors present to provide any information. ED report was reviewed. Per ED report, patient's abdominal pain was suprapubic, present x1 day, and she was concerned it was a UTI. In the emergency department she was afebrile, tachycardic with HR 110s, BP downtrending from 120s/70s to 90s/50s, oxygen saturation 99% on 2 L nasal cannula. Initial CBC significant for WBC 17.6, neutrophil predominant. Serum glucose noted to be 252. Urinalysis notable for turbid quality, large leukocyte esterase, urine WBCs, and urine bacteria. CT abdomen pelvis shows no acute process in abdomen/pelvis, ventral abdominal wall hernia without obstruction, trace bilateral hydronephrosis and hydroureter similar to prior imaging, marked progression of sacral decubitus ulcer with changes of chronic sacral osteomyelitis. Urine and blood cultures collected. Received ceftriaxone 1 dose and given 1 L bolus NS x 2. She is admitted to the hospitalist service for further evaluation and management PMH: CAD, diabetes, hypertension, [place], PAD, GERD, thyroid disease, cancer PSH: Appendectomy, cholecystectomy, hysterectomy, herniorraphy Past Med Surg Social Fam HX - Past Medical History Medical history: cancer, coronary artery disease, diabetes, GERD, hypertension, myocardial infarction, peripheral artery disease, thyroid disease, other Additional medical history: endometrial cancer, liver cancer Psychiatric history: anxiety, depression - Past Surgical History Surgical History: appendectomy, , cataract, cholecystectomy, he rniorrhaphy, orthopedic, other, SHONDA/BSO, other Additional surgical history: port insertion and removal - Social History Smoking Status: Former smoker Smokeless Tobacco Status: No Alcohol use: none Drug use: none - Family History Father Living Status: Mother Adopted: No Living Status: Hx Family Cardiac Disorders: Yes Hx Family Respiratory Disorders: Yes (copd) Hx Family Endocrine Disorder: Yes (Diabetes) Internal Medicine - H&P: Meds Amitriptyline [Elavil] 10 mg PO HS 04/17/17 [History] Aspirin Enteric Coated [Aspirin EC] 81 mg PO DAILY 04/17/17 [History] Insulin Aspart Prot/Insuln Asp [Novolog Mix 70-30 Vial] 40 unit SQ QPM 04/17/17 [History] Insulin Aspart Prot/Insuln Asp [Novolog Mix 70-30 Vial] 50 unit SQ QAM 04/17/17 [History] Magnesium Oxide [Mag-Ox] 400 mg PO BID 04/17/17 [History] Metoprolol [Lopressor] 12.5 mg PO BID 04/17/17 [History] Sertraline [Zoloft] 25 mg PO DAILY 04/17/17 [History] Colestipol HCl [Colestid] 2 gm PO DAILY 05/25/17 [History] Ondansetron HCl [Zofran] 4 mg PO Q8H PRN 07/13/17 [History] Simvastatin [Zocor] 40 mg PO HS 07/13/17 [History] Acetaminophen [Tylenol] 650 mg PO Q8H PRN 09/26/17 [History] Sertraline [Zoloft] 100 mg PO DAILY 09/26/17 [History] Lactobacillus [Culturelle] 1 each PO BID #10 cap.sprink 09/29/17 [Rx] Gabapentin [Neurontin] 100 mg PO BID 01/13/18 [History] Calcium Polycarbophil [Fiber Laxative] 625 mg PO DAILY 05/27/18 [History] Cpap 0 unit IH QPM 05/27/18 [History] Famotidine [Pepcid] 20 mg PO DAILY 05/27/18 [History] Oxycodone HCl/Acetaminophen [Percocet 5-325 mg Tablet] 1 tab PO Q6H PRN 05/27/18 [History] Oxygen 2 l IH DAILY PRN 05/27/18 [History] Sennosides/Docusate Sodium [Senna Plus] 1 tab PO DAILY 05/27/18 [History] Allergy/AdvReac Type Severity Reaction Status Date / Time rosuvastatin [From Crestor] Allergy Hives Verified 01/13/18 09:19 ciprofloxacin AdvReac Itching Verified 01/13/18 09:19 hydromorphone [From Dilaudid] AdvReac Difficulty Verified 01/13/18 09:19 Breathing ROS unobtainable: due to mental status All Systems PM: A 10-system review of systems was performed and is negative for pertinent findings except as documented above in the HPI. - Constitutional Vitals: Temp Pulse Resp BP Pulse Ox 98.1 F 112 16 94/55 98 05/27/18 14:09 05/27/18 19:39 05/27/18 19:39 05/27/18 19:39 05/27/18 19:39 Exam: General: Somnolent, poor hygiene, ill-appearing HEENT: Normocephalic/atraumatic, oral mucous membranes dry, PERRL, no scleral ic terus, poor dentition Neck: Supple Respiratory: Clear to auscultation anteriorly, normal respiratory effort, no wheezing/rhonchi/Rales Cardiovascular: Distant heart sounds due to body habitus, regular rhythm and tachycardic rate, bilateral lower extremity edema with RLE +1 pitting Abdominal: Obese, distended, large hernia, no rebound, no rigidity, no guarding, nontender : Indwelling Ramos catheter noted; dark, cloudy urine visible Back: Sacral decubitus ulcer, stage IV with wound packing Extremities: No visible deformity, no calf tenderness on palpation, dorsalis pedis pulses present and equal, acyanotic Neuro: Alert to person and place, responds to voice, follows some commands, moving all 4 extremities, no facial droop Skin: pale, cool, dry, no visible rashes Internal Med - H&P Results - Labs CBC & Chem 7: 05/28/18 06:42 05/28/18 06:42 Labs: Short CBC 05/27/18 Range/Units 15:39 WBC 17.6 H (4.3-11.1) K/mcL Hgb 11.8 (11.5-15.4) g/dL Hct 38.7 (35.3-44.9) % Plt Count 352 (140-400) K/mcL Neutrophils # 15.7 H (1.6-8.9) K/mcL BMP 05/27/18 15:39 Sodium 133 L Potassium 4.2 Chloride 97 L Carbon Dioxide 24 BUN 14 Creatinine 0.73 Glucose 252 H Calcium 8.9 Liver Function 05/27/18 Range/Units 15:39 Total Bilirubin 0.7 (0.3-1.0) mg/dL AST 14 (13-39) Units/L ALT 6 L (7-52) Units/L Alkaline Phosphatase 169 H (34-104) Units/L Albumin 3.0 L (3.5-5.7) g/dL Urine 05/27/18 Range/Units 18:22 Urine Color Alicia A (Yellow) Urine Clarity Turbid A (Clear) Urine pH 8.0 (5.0-8.0) pH Units Ur Specific [place] 1.017 (1.010-1.025) Urine Protein >=300 H (Neg-Trace) mg/dL Urine Glucose (UA) Normal (Normal) mg/dL - Impressions ITS Impressions Abdomen/Pelvis CT 05/27/18 15:05 IMPRESSION: 1. No acute process in the abdomen or pelvis. 2. 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 Adjacent to the ablation site, there are discrete hypodense areas which measure up to 3.8 x 2.8 cm and are concerning for recurrent disease. This could be better evaluated by a liver mass protocol MRI on a nonemergent basis. These findings are compatible with the pattern of metabolic activity on recent PET scan. 3. Large ventral abdominal wall hernia, without evidence of obstruction. 4. Trace bilateral hydronephrosis and hydroureter, similar in appearance to prior exam on 12/21/2017. 5. Marked progressive enlargement of a sacral decubitus ulcer with changes of chronic osteomyelitis involving the sacrum. 6. Trace ascites in the low pelvis. 7. IVC filter in place. D/ / 05/27/2018 17:42:40 Mando Turner MD / [facility] Interpreting Provider: Mando Turner MD Chest X-Ray 05/27/18 15:07 IMPRESSION: No acute cardiopulmonary disease is identified. D/ / Ronnie Zurita MD / Ronnie Zurita MD Interpreting Provider: Ronnie Zurita MD - Assessment and plan (1) Septic shock Current Visit: Yes Status: Acute Assessment and plan: SIRS criteria met: HR > 90, WBC > 12,000 Suspected etiology: UTI vs soft tissue infection of sacral decubitus ulcer Causative organism: unclear WBC 17.6 , no bands Lactic acid 4.3 CT abdomen pelvis: marked progression of sacral decubitus ulcer with changes of chronic sacral osteomyelitis; no acute process in abdomen/pelvis, ventral abdominal wall hernia without obstruction, trace bilateral hydronephrosis and h ydroureter similar to prior imaging CXR: No acute airspace consolidation or pleural effusion; calcified granuloma present 05/27/18 peripheral blood cultures--no growth to date 05/27/18 urine culture--received 05/27/18 wound culture, sacrum--received Ceftriaxone 1 g IV 1 dose received in ED Plan Continue IV fluid support--vasopressors have not been required at this point Empiric antibiotics cefepime, zosyn, vancomycin--de-escalate as results of blood, urine, and wound cultures become available Continue telemetry monitoring Repeat lactic acid Repeat CBC Wound care consulted (2) UTI (urinary tract infection) Current Visit: No Status: Acute Qualifiers: Urinary tract infection type: acute cystitis Hematuria presence: with hematuria Qualified Code(s): N30.01 - Acute cystitis with hematuria (3) NSTEMI (non-ST elevated myocardial infarction) Current Visit: No Status: Acute Assessment and plan: Troponin 0.72 T-wave inversions in leads V4-6, left anterior fasicular block, prolonged QTc interval noted--new compared to previous EKG (Dec 2017) Trend troponin x 2 Repeat EKG Start heparin gtt Echocardiogram pending Cardiology consulted Continuous cardiac monitoring (4) Elevated lactic acid level Current Visit: Yes Status: Acute Assessment and plan: Initial lactic acid 4.3 Plan as above (5) Elevated troponin Current Visit: Yes Status: Acute Assessment and plan: Troponin 0.72 Plan as above (6) Decubitus ulcer of sacral region, stage 4 Current Visit: Yes Status: Chronic Assessment and plan: Possibly contributing to patient's septic picture CT abdomen/pelvis notes marked progression of sacral decubitus ulcer with changes of chronic sacral osteomyelitis Plan as above (7) Chronic osteomyelitis of sacrum Current Visit: Yes Status: Chronic Assessment and plan: Secondary to sacral decubitus ulcer as above ESR >/= 130 Has been seen by ID on previous admissions Plan as above (8) Chronic indwelling Ramos catheter Current Visit: Yes Status: Acute Assessment and plan: Ramos catheter exchanged in ED (9) CAD (coronary artery disease) Current Visit: No Status: Chronic Assessment and plan: Continue home statin Qualifiers: Coronary Disease-Associated Artery/Lesion type: [place] artery [place] vs. transplanted heart: [place] heart Associated angina: without angina Qualified Code(s): I25.10 - Atherosclerotic heart disease of [place] coronary artery without angina pectoris (10) Diabetes mellitus Current Visit: No Status: Chronic Assessment and plan: Diabetic diet Sliding scale insulin ACHS glucose checks Qualifiers: Diabetes mellitus type: type 2 Diabetes mellitus continuous churn buttermaker insulin use: with continuous churn buttermaker use Diabetes mellitus complication status: with skin complications Diabetes mellitus complication detail: with other skin ulcer Qualified Code(s): E11.622 - Type 2 diabetes mellitus with other skin ulcer; Z79.4 - FPC (current) use of insulin (11) DVT prophylaxis Current Visit: No Status: Acute Assessment and plan: Heparin gtt - Time Spent With Patient Total time spent is greater than 50% in coordination of care (as documented) at patient's floor/unit and/or counseling patient: <DelisaThor bills - Last Filed: 05/28/18 19:56> Date of Encounter: 05/27/18 Internal Medicine - H&P: HPI History of present illness: Ms. Camacho is a 77 year old female All Systems PM: A 10-system review of systems was performed and is negative for pertinent findings except as documented above in the HPI. - Constitutional Vitals: Temp Pulse Resp BP Pulse Ox 97.6 F 106 16 127/64 96 05/28/18 19:16 05/28/18 19:16 05/28/18 19:16 05/28/18 19:34 05/28/18 19:16 Internal Med - H&P Results - Labs CBC & Chem 7: 05/28/18 06:42 05/28/18 06:42 Labs: Short CBC 05/28/18 Range/Units 06:42 WBC 17.2 H (4.3-11.1) K/mcL Hgb 9.5 L D (11.5-15.4) g/dL Hct 32.9 L (35.3-44.9) % Plt Count 256 (140-400) K/mcL Neutrophils # 15.6 H (1.6-8.9) K/mcL BMP 05/27/18 05/28/18 15:39 06:42 Sodium 133 L 137 Potassium 4.2 3.7 Chloride 97 L 108 H Carbon Dioxide 24 21 L BUN 14 15 Creatinine 0.73 0.71 Glucose 252 H 213 H Calcium 8.9 7.4 L Cardiac Enzymes 05/27/18 05/28/18 05/28/18 Range/Units 22:26 06:42 14:06 Troponin I 0.72 H* 0.59 H* 0.36 H* (< 0.04) ng/mL Liver Function 05/27/18 Range/Units 15:39 Total Bilirubin 0.7 (0.3-1.0) mg/dL AST 14 (13-39) Units/L ALT 6 L (7-52) Units/L Alkaline Phosphatase 169 H (34-104) Units/L Albumin 3.0 L (3.5-5.7) g/dL - Impressions ITS Impressions Abdomen/Pelvis CT 05/27/18 15:05 IMPRESSION: 1. No acute process in the abdomen or pelvis. 2. 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 Adjacent to the ablation site, there are discrete hypodense areas which measure up to 3.8 x 2.8 cm and are concerning for recurrent disease. This could be better evaluated by a liver mass protocol MRI on a nonemergent basis. These findings are compatible with the pattern of metabolic activity on recent PET scan. 3. Large ventral abdominal wall hernia, without evidence of obstruction. 4. Trace bilateral hydronephrosis and hydroureter, similar in appearance to prior exam on 12/21/2017. 5. Marked progressive enlargement of a sacral decubitus ulcer with changes of chronic osteomyelitis involving the sacrum. 6. Trace ascites in the low pelvis. 7. IVC filter in place. D/ / 05/27/2018 17:42:40 Mando Turner MD / [facility] Interpreting Provider: Mando Turner MD Chest X-Ray 05/27/18 15:07 IMPRESSION: No acute cardiopulmonary disease is identified. D/ / Ronnie Zurita MD / Ronnie Zurita MD Interpreting Provider: Ronnie Zurita MD - Time Spent With Patient Total time spent is greater than 50% in coordination of care (as documented) at patient's floor/unit and/or counseling patient: - Attending Attestation I saw and evaluated the patient. I reviewed the residents note, performed my own physical examination and agree with findings and plan as documented in the residents note. Patient seen and examined on 05/27/18. Patient presented to the emergency room with suspected UTI and chronic history of sacral decubital ulcer stage IV. CT indicates progression of the ulceration, patient meets septic shock criteria. Escalated antibiotics, giving IV fluid boluses and trending lactate and troponins. Monitoring blood pressures closely. We have repeat labs ordered as well for troponin and lactate. If patient does not improve, we will plan to transfer to higher acuity unit. Currently patient is stable.
[2018-05-27] MEDS ORDERED: Dextrose Gel 15 GM/37.5 ML TUBE PO PRN ×2 (20:34)
[2018-05-27] MEDS ORDERED: *HR* Dextrose 50 % in Water (Syg) 50 ML SYRINGE IVP PRN (20:34)
[2018-05-27] MEDS ORDERED: Naloxone 0.4 MG/ML INJ IVP PRN (20:34)
[2018-05-27] MEDS ORDERED: D5% in Water 1,000 ML IVC PRN (20:34)
[2018-05-27] MEDS ORDERED: Vancomycin (wt based) 1,000 MG VIAL IVPB SCH (23:45)
[2018-05-28] MEDS ORDERED: *HR* Heparin 5,000 UNIT/ML VIAL IVP ONE (00:12)
[2018-05-28] MEDS ORDERED: *HR* Heparin 5,000 UNIT/ML VIAL IVP PRN ×2 (00:12)
[2018-05-28] MEDS ORDERED: Heparin 25,000 UNIT/500 ML D5W 25,000 UNIT/500 ML BAG IVC SCH (00:15)
[2018-05-28] MEDS ORDERED: Acetaminophen 325 MG TABLET PO PRN (00:16)
[2018-05-28] MEDS: 0.9 % Sodium Chloride 1,000 ML IVC SCH ×4 (00:24→03:39)
[2018-05-28 00:29] LABS: C-Reactive Protein 37 mg/L (Less than 10)
[2018-05-28] MEDS: Piperacillin/Tazobactam 3.375 GM in 0.9 % Sodium Chloride Mini Bag 100 ML IVPB SCH ×4 (01:07→23:46)
[2018-05-28] MEDS: Insulin LISPRO 300 UNITS/3 ML VIAL SQ SCH ×5 (01:30→20:53)
[2018-05-28] MEDS: Cefepime HCl 2,000 MG in Water for inj. (sterile) 20 ML 20 ML IVP SCH ×2 (05:46→17:47)
--- NOTE | 2018-05-28 05:50 | Sepsis Event Note ---
Sepsis Reassessment Note - Evaluation Sepsis Screen: No Definite Risk Current Stage of Sepsis: severe sepsis Possible Source of Sepsis: genitourinary - Focused Exam Date of Encounter: 05/28/18 Time of Encounter: 05:52 Vital Signs: Vital Signs Temp Pulse Resp BP Pulse Ox 05/28/18 05:45 81 104/57 05/28/18 05:21 95/52 05/28/18 04:58 97.6 F 92 20 94/61 95 05/28/18 03:07 97.8 F 91 15 108/63 94 05/28/18 01:25 97.6 F 83 20 101/58 95 05/27/18 22:23 95 05/27/18 22:20 99.2 F 110 15 92/46 95 05/27/18 21:41 103 16 96/56 96 05/27/18 21:22 99.7 F H 113 16 98/57 96 05/27/18 19:39 112 16 94/55 98 05/27/18 18:54 110 16 119/74 100 Respiratory Exam: Present: CTA bilaterally. Absent: wheezes, rhonchi, respiratory distress Cardiovascular Exam: Present: RRR, S1, S2. Absent: murmur Capillary Refill: < 2 seconds Peripheral Pulse Strength: 3+ normal Peripheral Pulse Location: Pedal Skin Exam: pale (turgor improved)
[2018-05-28] MEDS ORDERED: *HR* Heparin 5,000 UNIT/ML VIAL SQ SCH (06:00)
[2018-05-28 07:51] LABS: Basophils % 0.1 %
[2018-05-28 07:53] LABS: Hematocrit 32.9 % (35.3-44.9); Hemoglobin 9.5 g/dL (11.5-15.4); Immature Granulocytes % 0.5 % (0-4); Lymphocytes # 0.4 K/mcL (0.6-4.6); Lymphocytes % 2.3 %; Mean Corpuscular HGB Conc 28.9 g/dL (31.6-35.5); Mean Corpuscular Volume 90.1 fL (83.0-100.0); Mean Platelet Volume 11.6 fL (9.4-12.4); Monocytes # 1.2 K/mcL (0.0-1.3); Monocytes % 6.7 %; Neutrophils # 15.6 K/mcL (1.6-8.9); Platelet Count 256 K/mcL (140-400); Red Blood Count 3.65 M/mcL (3.82-4.97); Red Cell Distribution Width 18.5 % (11.5-14.5); Segmented Neutrophils % 90.4 %
[2018-05-28 07:54] LABS: Hypochromasia Present (Not Present); Platelet Estimate Normal (Normal)
[2018-05-28 08:10] LABS: BUN/Creatinine Ratio 21 (6-26); Blood Urea Nitrogen 15 mg/dL (8-23); Calcium 7.4 mg/dL (8.6-10.3); Carbon Dioxide 21 mEq/L (23-29); Chloride 108 mEq/L (98-107); Glucose 213 mg/dL (70-105); Osmolality,Calculated 291 (280-300); Potassium 3.7 mEq/L (3.5-5.1); Sodium 137 mEq/L (136-145); eGFR For Non-African Americans > 60 (> 60)
--- NOTE | 2018-05-28 12:39 | Internal Med Progress Note ---
<Santos Ribeiro - Last Filed: 05/28/18 13:02> Hospitalist Progress Note - Encounter Date of Encounter: 05/28/18 Time of Encounter: 12:31 - Subjective Interval History: Patient is a 77-year-old female presenting to [facility] ED on 05/28/2089 HEENT for abdominal pain. Patient has past medical his tory of cancer, CAD, diabetes mellitus, HTN, previous UT, PAD, thyroid disease, and GERD. Patient found to be in septic shock, meeting Sirs criteria with tachycardia, and elevated white blood cell count with suspected onus of infection being a stage IV decubitus ulcer and chronic sacral osteomyelitis. Patient was given 1 dose of IV ceftriaxone and received 2 L of fluids, patient remains hypotensive despite fluid resuscitative efforts. CT scan of the abdomen and pelvis shows bilateral hydronephrosis and hydroureter unchanged since 12/21/2017 There is worsening of the sacral decubitus ulcer and chronic osteomyelitis There are noted areas of liver mass which are stated to be concerning for recurrent disease Chest x-ray shows no acute cardiopulmonary disease Patient EKG shows abnormal T-wave inversions in the lateral leads when compared to prior EKG performed in December 2017. Troponins noted to be elevated to 0.72 on admission. Patient meets NSTEMI criteria Upon initial evaluation this a.m. patient states that she is feeling poorly, she admits to diaphoresis, shortness of breath, diffuse abdominal pain as well as nausea, lower back pain and sacral pain as well as upper extremity paresthesias. The patient denies headache, vision change, tinnitus, neck pain, chest pain, vomiting, hematuria/hematochezia. - Exam Vitals: Temp Pulse Resp BP Pulse Ox 97.5 F L 85 18 99/59 97 05/28/18 10:42 05/28/18 10:42 05/28/18 10:42 05/28/18 10:42 05/28/18 10:42 Exam: Constitutional: Patient is awake, somnolent, able to engaged conversation and answer questions appropriately but appears to be somewhat confused HEENT: Atraumatic, normocephalic, trachea is midline, no scleral icterus noted, no overt deficits to pupillary response or extraocular muscles Cardiovascular: Rhythm rate regular, S1 plus S2, no S3 or S4, no murmurs, gallops, or rubs appreciated. Respiratory: Clear to auscultation bilaterally Abdomen: Diffusely and exquisitely tender to palpation, abdomen is obese, nondistended, no guarding or rebound appreciated Extremities: No pedal edema, radial and dorsalis pedis pulses are intact and strong - Assessment and Plan (1) Septic shock Current Visit: Yes Status: Acute Assessment and Plan: Sepsis resolved - patient afebrile at 97.5, non-tachycardic, nontachypneic, White blood cell count mildly trending downward from 17.6 currently at 17.2 Patient has received a total of 4 L of normal saline - I/O shows + >6000 mL Lactic acid noted to be 4.3 in ED-now within normal limits at 1.8 1 g of ceftriaxone received in the ED Plan: Continue IV vancomycin, Zosyn, and cefepime (day 2) Hold continued IV fluids for now due to concern over fluid overload (2) NSTEMI (non-ST elevated myocardial infarction) Current Visit: No Status: Acute Assessment and Plan: Patient with known past medical history of CAD as well as previous myocardial infarction EKG shows T-wave inversions in the lateral leads with possible anterior fascicular block - not present on prior EKG performed in December Troponin upon admission measured at 0.72-currently trending downward at 0.59 Patient meets criteria for NSTEMI Plan: Aspirin plus Plavix (loading dose of 300 mg today - continue at 75mg by mouth d aily maintenance dose) Patient remains hypotensive at 99/59 currently - will hold beta blockers and FELIX inhibitor's at this time due to concern over continued hypotension (3) UTI (urinary tract infection) Current Visit: No Status: Acute Assessment and Plan: Urinalysis appears to be contaminated No nitrites noted Plan: Continue vancomycin, Zosyn, and cefepime (4) Indwelling Ramos catheter present Current Visit: No Status: Acute Assessment and Plan: Ramos catheter replaced upon admission (5) Diabetes mellitus Current Visit: No Status: Chronic Assessment and Plan: Continue: Diabetic diet -Medium dose sliding scale insulin -ACHS glucose checks Comments: Insulin-dependent; uses Lantus and NovoLog at home (6) Decubitus ulcer of coccygeal region, stage 4 Current Visit: No Status: Chronic Assessment and Plan: Patient with known history of chronic osteomyelitis CT scan shows worsening progression of stage IV decubitus ulcer Plan: Continue antibiotics Continue to monitor (7) Adenocarcinoma Current Visit: No Status: Acute Assessment and Plan: CT scan shows potential for worsening disease Patient with diffuse and exquisite abdominal pain to palpation Plan: Will discuss goals of care with the patient and the family + Oxycodone 5/325 for moderate to severe pain DVT Prophylaxis: 5,000 units subcutaneous heparin every 8 hours - Time Spent with Patient Total time spent is greater than 50% in coordination of care (as documented) at patient's floor/unit and/or counseling patient: Internal Medicine: Result - Labs CBC & Chem 7: 05/28/18 06:42 05/28/18 06:42 Labs: Short CBC 05/27/18 05/28/18 Range/Units 15:39 06:42 WBC 17.6 H 17.2 H (4.3-11.1) K/mcL Hgb 11.8 9.5 L D (11.5-15.4) g/dL Hct 38.7 32.9 L (35.3-44.9) % Plt Count 352 256 (140-400) K/mcL Neutrophils # 15.7 H 15.6 H (1.6-8.9) K/mcL BMP 05/27/18 05/28/18 15:39 06:42 Sodium 133 L 137 Potassium 4.2 3.7 Chloride 97 L 108 H Carbon Dioxide 24 21 L BUN 14 15 Creatinine 0.73 0.71 Glucose 252 H 213 H Calcium 8.9 7.4 L Cardiac Enzymes 05/27/18 05/28/18 Range/Units 22:26 06:42 Troponin I 0.72 H* 0.59 H* (< 0.04) ng/mL Liver Function 05/27/18 Range/Units 15:39 Total Bilirubin 0.7 (0.3-1.0) mg/dL AST 14 (13-39) Units/L ALT 6 L (7-52) Units/L Alkaline Phosphatase 169 H (34-104) Units/L Albumin 3.0 L (3.5-5.7) g/dL Urine 05/27/18 Range/Units 18:22 Urine Color Alicia A (Yellow) Urine Clarity Turbid A (Clear) Urine pH 8.0 (5.0-8.0) pH Units Ur Specific [place] 1.017 (1.010-1.025) Urine Protein >=300 H (Neg-Trace) mg/dL Urine Glucose (UA) Normal (Normal) mg/dL - Impressions Impressions Abdomen/Pelvis CT 05/27/18 15:05 IMPRESSION: 1. No acute process in the abdomen or pelvis. 2. 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 Adjacent to the ablation site, there are discrete hypodense areas which measure up to 3.8 x 2.8 cm and are concerning for recurrent disease. This could be better evaluated by a liver mass protocol MRI on a nonemergent basis. These findings are compatible with the pattern of metabolic activity on recent PET scan. 3. Large ventral abdominal wall hernia, without evidence of obstruction. 4. Trace bilateral hydronephrosis and hydroureter, similar in appearance to prior exam on 12/21/2017. 5. Marked progressive enlargement of a sacral decubitus ulcer with changes of chronic osteomyelitis involving the sacrum. 6. Trace ascites in the low pelvis. 7. IVC filter in place. D/ / 05/27/2018 17:42:40 Mando Turner MD / [facility] Interpreting Provider: Mando Turner MD Chest X-Ray 05/27/18 15:07 IMPRESSION: No acute cardiopulmonary disease is identified. D/ / Ronnie Zurita MD / Ronnie Zurita MD Interpreting Provider: Ronnie Zurita MD Consult Discharge Plan - Plan Referrals: NONE,PCP [Primary Care Provider] - <Ziggy Pool - Last Filed: 05/29/18 16:09> Hospitalist Progress Note - Encounter Date of Encounter: 05/29/18 - Exam Vitals: Temp Pulse Resp BP Pulse Ox 98.1 F 120 18 125/66 97 05/29/18 14:36 05/29/18 14:36 05/29/18 14:36 05/29/18 14:36 05/29/18 14:36 - Time Spent with Patient Total time spent is greater than 50% in coordination of care (as documented) at patient's floor/unit and/or counseling patient: Internal Medicine: Result - Labs CBC & Chem 7: 05/29/18 09:17 05/29/18 09:17 Labs: Short CBC 05/29/18 Range/Units 09:17 WBC 15.5 H (4.3-11.1) K/mcL Hgb 9.6 L (11.5-15.4) g/dL Hct 32.5 L (35.3-44.9) % Plt Count 239 (140-400) K/mcL Neutrophils # 14.6 H (1.6-8.9) K/mcL BMP 05/29/18 09:17 Sodium 135 L Potassium 3.4 L Chloride 104 Carbon Dioxide 20 L BUN 18 Creatinine 0.64 Glucose 205 H Calcium 8.1 L Cardiac Enzymes 05/29/18 Range/Units 09:17 Troponin I 0.13 H* (< 0.04) ng/mL Liver Function 05/29/18 Range/Units 09:17 Total Bilirubin 0.5 (0.3-1.0) mg/dL AST 9 L (13-39) Units/L ALT 5 L (7-52) Units/L Alkaline Phosphatase 99 (34-104) Units/L Albumin 2.5 L (3.5-5.7) g/dL - Impressions Impressions Echocardiogram 05/28/18 23:39 Impressions: LVEF 45%. Mild concentric left ventricular hypertrophy. Moderate left ventricular diastolic dysfunction. Normal right ventricular structure and function. Mild mitral annular calcification Mild tricuspid regurgitation. Mild pulmonary hypertension. Left Ventricular Wall Motion: Rest Echo Findings The apex, apical inferior, mid inferior, basal inferior, apical anterior, mid anterior, basal anterior, apical septal, mid inferior septal, basal inferior septal, apical lateral, mid anterior lateral, basal anterior lateral, mid anterior septal, mid inferior lateral, basal anterior septal and basal inferior lateral aviles were hypokinetic. Findings: Study Quality * Technically adequate exam. ECG Findings * Normal sinus rhythm. Left Ventricle * LVEF 45%. * Mild concentric left ventricular hypertrophy. * Moderate left ventricular diastolic dysfunction. Right Ventricle * Normal right ventricular structure and function. Left Atrium * Normal left atrial size. Right Atrium * Normal right atrial size. Interatrial Septum * No evidence of PFO by color Doppler. Aortic Valve * Trileaflet aortic valve. * No aortic regurgitation. * No aortic stenosis. 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 This was also in the echo of 04/29/17 Mitral Valve * Mild mitral annular calcification * Trace mitral regurgitation. * Normal mitral valve structure. * No mitral stenosis. Tricuspid Valve * Mild tricuspid regurgitation. * Mild pulmonary hypertension. * Estimated RVSP is 36 mmHg. * Estimated RA pressure is 5 mmHg. * No tricuspid stenosis. * Normal tricuspid valve structure. Pulmonic Valve * Trace pulmonic regurgitation. Aorta * Normally sized aortic root. Pericardium * The pericardium appears normal. IVC * Normal IVC dimensions and inspiratory collapse. Chest CTA 05/29/18 11:32 IMPRESSION: 1. Stable cardiomegaly and atherosclerosis. Stable pulmonary artery hypertension with no acute pulmonary emboli. 2. New trace left pleural effusion with progressive bilateral lower lobe dependent consolidative change new since the CT abdomen/pelvis exam 05/27/2018. This may represent developing pneumonia or atelectasis. 3. Progressive bilateral pulmonary nodules concerning for progressive metastatic disease. 4. Mild progressive nonspecific paraesophageal lymph nodes which could represent reactive changes versus metastatic disease. 5. Redemonstration of left hepatic lobe mass consistent with history of cholangiocarcinoma. D/ / 05/29/2018 12:54:56 Juan Adams MD / [facility] Interpreting Provider: Juan Adams MD - Attending Attestation I examined this patient and my medical decision-making was reviewed with the Resident Physician. I agree with the documented findings, disposition and treatment plan as described except to the extent set forth below. 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
[2018-05-28] MEDS ORDERED: Ringers Solution, Lactated 1,000 ML IVC ONE (14:24)
[2018-05-28] MEDS: *HR* Heparin 5,000 UNIT/ML VIAL SQ SCH ×2 (14:30→20:14)
[2018-05-28] MEDS: Aspirin 81 MG TAB.CHEW PO SCH (14:31)
[2018-05-28] MEDS: Ondansetron 4 MG/2 ML VIAL IVP PRN (20:00)
[2018-05-28] MEDS: *HR* OxyCODONE/APAP 5/325 TABLET PO PRN (20:14)
[2018-05-29] MEDS: Ondansetron 4 MG/2 ML VIAL IVP PRN ×3 (03:54→21:19)
[2018-05-29] MEDS: *HR* OxyCODONE/APAP 5/325 TABLET PO PRN (03:54)
[2018-05-29] MEDS: *HR* Heparin 5,000 UNIT/ML VIAL SQ SCH ×2 (05:29→13:01)
[2018-05-29] MEDS: Cefepime HCl 2,000 MG in Water for inj. (sterile) 20 ML 20 ML IVP SCH ×2 (05:29→16:39)
[2018-05-29] MEDS: Piperacillin/Tazobactam 3.375 GM in 0.9 % Sodium Chloride Mini Bag 100 ML IVPB SCH ×2 (08:22→16:38)
[2018-05-29] MEDS: Aspirin 81 MG TAB.CHEW PO SCH (08:24)
[2018-05-29] MEDS: Insulin LISPRO 300 UNITS/3 ML VIAL SQ SCH ×4 (08:25→21:36)
[2018-05-29] MEDS ORDERED: *HR* OxyCODONE/APAP 7.5/325 TABLET PO PRN (08:56)
--- NOTE | 2018-05-29 09:05 | Internal Med Progress Note ---
<Santos Ribeiro - Last Filed: 05/29/18 09:00> Hospitalist Progress Note - Encounter Date of Encounter: 05/29/18 Time of Encounter: 09:00 - Subjective Interval History: Patient is a 77-year-old female presenting to [facility] ED on 05/28/2089 HEENT for abdominal pain. Patient has past medical his tory of cancer, CAD, diabetes mellitus, HTN, previous [place], PAD, thyroid disease, and GERD. Patient found to be in septic shock, meeting Sirs criteria with tachycardia, and elevated white blood cell count with suspected onus of infection being a stage IV decubitus ulcer and chronic sacral osteomyelitis. Patient was given 1 dose of IV ceftriaxone and received 2 L of fluids, patient remains hypotensive despite fluid resuscitative efforts. CT scan of the abdomen and pelvis shows bilateral hydronephrosis and hydroureter unchanged since 12/21/2017 There is worsening of the sacral decubitus ulcer and chronic osteomyelitis There are noted areas of liver mass which are stated to be concerning for recurrent disease Chest x-ray shows no acute cardiopulmonary disease Patient EKG shows abnormal T-wave inversions in the lateral leads when compared to prior EKG performed in December 2017. Troponins noted to be elevated to 0.72 on admission. Patient meets NSTEMI criteria Upon initial evaluation this a.m. patient states that she is feeling poorly, she admits to fever/diaphoresis, chest pain/shortness of breath worsened with deep breathing, diffuse worsening abdominal pain (8/10) as well as nausea/vomiting, and neck pain. The patient denies headache, vision change, tinnitus, hematuria/hematochezia. - Exam Vitals: Temp Pulse Resp BP Pulse Ox 98.2 F 102 16 163/64 98 05/29/18 07:51 05/29/18 07:51 05/29/18 07:51 05/29/18 07:51 05/29/18 07:51 Exam: Constitutional: Patient is actively dry heaving, pale, stating that she is extremely nauseated with worsening abdominal pain and a "firm" feeling in the right side of her mid abdomen. She is awake, alert, in mild distress, anxious, engaged conversation answering questions appropriately. There are no new overt focal neurological deficits. HEENT: Atraumatic, normocephalic, trachea is midline, there are no overt pupillary deficits or deficiencies in extra ocular musculature. Cardiovascular: Distant heart sounds - most likely due to body habitus, otherwise rhythm rate regular, S1 plus S2 without S3 or S4, no murmurs, gallops, rubs appreciated. Respiratory: Diminished lung sounds throughout, patient may be splinting due to pain, otherwise clear to auscultation bilaterally, no stridor or wheezes appreciated. Abdomen: Abdomen is obese, soft, it appears to be distended without rigidity, there is a mass palpated in the mid abdomen/upper right quadrant-likely due to liver mass found on CT scan. Abdomen is diffusely tender to palpation-spe cifically in the right upper quadrant. Skin: Patient is mildly diaphoretic and pale appearing Extremities radial and dorsalis pedis pulses are intact, patient has noted bilateral lower extremity weakness which the patient states this is chronic after chemotherapy treatments. - Assessment and Plan (1) Septic shock Current Visit: Yes Status: Acute (2) NSTEMI (non-ST elevated myocardial infarction) Current Visit: No Status: Acute (3) UTI (urinary tract infection) Current Visit: No Status: Acute (4) Indwelling Ramos catheter present Current Visit: No Status: Acute (5) Diabetes mellitus Current Visit: No Status: Chronic Comments: Insulin-dependent; uses Lantus and NovoLog at home (6) Decubitus ulcer of coccygeal region, stage 4 Current Visit: No Status: Chronic (7) Adenocarcinoma Current Visit: No Status: Acute DVT Prophylaxis: 5,000 units subcutaneous heparin every 8 hours - Summary of Assessment and Plan Summary of Assessment and Plan: (1) Septic shock Current Visit: Yes Status: Acute Assessment and Plan: Sepsis resolved - patient afebrile at 97.5, non-tachypneic, mildly tachycardic at 102 bpm. White blood cell count elevated at last check on May 28 at 17.2-down from 17.6 on May 27 Patient has received a total of 7 L of normal saline - blood pressure has responded well and is 163/6 for a last check Lactic acid noted to be 4.3 in ED-now within normal limits at 1.8 at last check on May 28 1 g of ceftriaxone received in the ED Plan: + Repeat CBC Continue IV vancomycin, Zosyn, and cefepime (day 3) Hold continued IV fluids for now due to concern over fluid overload (2) NSTEMI (non-ST elevated myocardial infarction) Current Visit: No Status: Acute Assessment and Plan: Patient with known past medical history of CAD as well as previous myocardial infarction EKG shows T-wave inversions in the lateral leads with possible anterior fascicular block - not present on prior EKG performed in December Troponin upon admission measured at 0.72-currently trending downward at 0.59 Patient meets criteria for NSTEMI Plan: + Repeat troponin Continue Plavix at 75mg by mouth daily maintenance dose +81 mg aspirin + Add low dose FELIX inhibitor-lisinopril 5 mg (3) UTI (urinary tract infection) Current Visit: No Status: Acute Assessment and Plan: Urinalysis appears to be contaminated No nitrites noted Plan: Continue vancomycin, Zosyn, and cefepime (4) Indwelling Ramos catheter present Current Visit: No Status: Acute Assessment and Plan: Ramos catheter replaced upon admission (5) Diabetes mellitus Current Visit: No Status: Chronic Assessment and Plan: Glucose well-controlled in hospital and current regimen and was 146 at last check Continue: Diabetic diet -Medium dose sliding scale insulin -ACHS glucose checks Comments: Insulin-dependent; uses Lantus and NovoLog at home (6) Decubitus ulcer of coccygeal region, stage 4 Current Visit: No Status: Chronic Assessment and Plan: Patient with known history of chronic osteomyelitis CT scan shows worsening progression of stage IV decubitus ulcer Plan: Continue antibiotics Continue to monitor (7) Adenocarcinoma Current Visit: No Status: Acute Assessment and Plan: CT scan shows potential for worsening disease Patient with diffuse and exquisite abdominal pain to palpation Plan: Will discuss goals of care with the patient and the family Continue Oxycodone 5/325 for moderate pain + Add oxycodone 7.5/325 for severe pain + Increased Zofran to 8 mg IVP every 6 hours when necessary + Restart patient home Zoloft 125 mg by mouth daily - Time Spent with Patient Total time spent is greater than 50% in coordination of care (as documented) at patient's floor/unit and/or counseling patient: Internal Medicine: Result - Labs CBC & Chem 7: 05/28/18 06:42 05/28/18 06:42 Labs: Cardiac Enzymes 05/28/18 Range/Units 14:06 Troponin I 0.36 H* (< 0.04) ng/mL - Impressions Impressions Echocardiogram 05/28/18 23:39 Impressions: LVEF 45%. Mild concentric left ventricular hypertrophy. Moderate left ventricular diastolic dysfunction. Normal right ventricular structure and function. Mild mitral annular calcification Mild tricuspid regurgitation. Mild pulmonary hypertension. Left Ventricular Wall Motion: Rest Echo Findings The apex, apical inferior, mid inferior, basal inferior, apical anterior, mid anterior, basal anterior, apical septal, mid inferior septal, basal inferior septal, apical lateral, mid anterior lateral, basal anterior lateral, mid anterior septal, mid inferior lateral, basal anterior septal and basal inferior lateral aviles were hypokinetic. Findings: Study Quality * Technically adequate exam. ECG Findings * Normal sinus rhythm. Left Ventricle * LVEF 45%. * Mild concentric left ventricular hypertrophy. * Moderate left ventricular diastolic dysfunction. Right Ventricle * Normal right ventricular structure and function. Left Atrium * Normal left atrial size. Right Atrium * Normal right atrial size. Interatrial Septum * No evidence of PFO by color Doppler. Aortic Valve * Trileaflet aortic valve. * No aortic regurgitation. * No aortic stenosis. 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 This was also in the echo of 04/29/17 Mitral Valve * Mild mitral annular calcification * Trace mitral regurgitation. * Normal mitral valve structure. * No mitral stenosis. Tricuspid Valve * Mild tricuspid regurgitation. * Mild pulmonary hypertension. * Estimated RVSP is 36 mmHg. * Estimated RA pressure is 5 mmHg. * No tricuspid stenosis. * Normal tricuspid valve structure. Pulmonic Valve * Trace pulmonic regurgitation. Aorta * Normally sized aortic root. Pericardium * The pericardium appears normal. IVC * Normal IVC dimensions and inspiratory collapse. Consult Discharge Plan - Plan Referrals: NONE,PCP [Primary Care Provider] - <Ziggy Pool - Last Filed: 05/30/18 08:39> Hospitalist Progress Note - Encounter Date of Encounter: 05/30/18 - Exam Vitals: Temp Pulse Resp BP Pulse Ox 97.5 F L 112 15 106/67 90 05/30/18 07:19 05/30/18 07:19 05/30/18 07:19 05/30/18 07:19 05/30/18 07:19 - Time Spent with Patient Total time spent is greater than 50% in coordination of care (as documented) at patient's floor/unit and/or counseling patient: Internal Medicine: Result - Labs CBC & Chem 7: 05/30/18 05:16 05/30/18 05:16 Labs: Short CBC 05/29/18 05/30/18 Range/Units 09:17 05:16 WBC 15.5 H 10.8 (4.3-11.1) K/mcL Hgb 9.6 L 8.7 L (11.5-15.4) g/dL Hct 32.5 L 29.4 L (35.3-44.9) % Plt Count 239 209 (140-400) K/mcL Neutrophils # 14.6 H 10.0 H (1.6-8.9) K/mcL BMP 05/29/18 05/30/18 09:17 05:16 Sodium 135 L 136 Potassium 3.4 L 3.1 L Chloride 104 105 Carbon Dioxide 20 L 22 L BUN 18 15 Creatinine 0.64 0.55 L Glucose 205 H 199 H Calcium 8.1 L 8.1 L Cardiac Enzymes 05/29/18 Range/Units 09:17 Troponin I 0.13 H* (< 0.04) ng/mL Liver Function 05/29/18 05/30/18 Range/Units 09:17 05:16 Total Bilirubin 0.5 0.4 (0.3-1.0) mg/dL AST 9 L 6 L (13-39) Units/L ALT 5 L 4 L (7-52) Units/L Alkaline Phosphatase 99 92 (34-104) Units/L Albumin 2.5 L 2.3 L (3.5-5.7) g/dL - Impressions Impressions Chest CTA 05/29/18 11:32 IMPRESSION: 1. Stable cardiomegaly and atherosclerosis. Stable pulmonary artery hypertension with no acute pulmonary emboli. 2. New trace left pleural effusion with progressive bilateral lower lobe dependent consolidative change new since the CT abdomen/pelvis exam 05/27/2018. This may represent developing pneumonia or atelectasis. 3. Progressive bilateral pulmonary nodules concerning for progressive metastatic disease. 4. Mild progressive nonspecific paraesophageal lymph nodes which could represent reactive changes versus metastatic disease. 5. Redemonstration of left hepatic lobe mass consistent with history of cholangiocarcinoma. D/ / 05/29/2018 12:54:56 Juan Adams MD / [email or web address] Interpreting Provider: Juan Adams MD - Attending Attestation I examined this patient and my medical decision-making was reviewed with the Resident Physician. I agree with the documented findings, disposition and treatment plan as described except to the extent set forth below. 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
[2018-05-29 09:30] LABS: Basophils % 0.1 %; Hematocrit 32.5 % (35.3-44.9); Hemoglobin 9.6 g/dL (11.5-15.4); Immature Granulocytes % 0.7 % (0-4); Lymphocytes # 0.2 K/mcL (0.6-4.6); Lymphocytes % 1.5 %; Mean Corpuscular HGB Conc 29.5 g/dL (31.6-35.5); Mean Corpuscular Hemoglobin 26.4 pg (28.0-33.3); Mean Corpuscular Volume 89.5 fL (83.0-100.0); Mean Platelet Volume 10.9 fL (9.4-12.4); Monocytes # 0.6 K/mcL (0.0-1.3); Monocytes % 3.7 %; Neutrophils # 14.6 K/mcL (1.6-8.9); Platelet Count 239 K/mcL (140-400); Red Blood Count 3.63 M/mcL (3.82-4.97); Red Cell Distribution Width 18.4 % (11.5-14.5)
[2018-05-29 09:51] LABS: Alanine Aminotransferase 5 Units/L (7-52); Albumin 2.5 g/dL (3.5-5.7); Albumin/Globulin Ratio 0.6 (1.1-2.2); Alkaline Phosphatase 99 Units/L (34-104); Aspartate Amino Transferase 9 Units/L (13-39); BUN/Creatinine Ratio 28 (6-26); Bilirubin,Total 0.5 mg/dL (0.3-1.0); Blood Urea Nitrogen 18 mg/dL (8-23); Calcium 8.1 mg/dL (8.6-10.3); Carbon Dioxide 20 mEq/L (23-29); Chloride 104 mEq/L (98-107); Globulin 4.3 g/dL (2.4-3.5); Glucose 205 mg/dL (70-105); Osmolality,Calculated 288 (280-300); Potassium 3.4 mEq/L (3.5-5.1); Sodium 135 mEq/L (136-145); Total Protein 6.8 g/dL (6.4-8.9); eGFR For Non-African Americans > 60 (> 60)
[2018-05-29 09:59] LABS: Troponin I 0.13 ng/mL (< 0.04)
[2018-05-29] MEDS ORDERED: Isovue-370 500 ML INFUS..BTL IV ONE (11:32)
--- NOTE | 2018-05-29 17:38 | Event Note ---
Date of Encounter: 05/29/18 Time of Encounter: 17:35 Unfortunately, she has had a bad day, CAT scan was negative for PE earlier in the day, but she has what appears to be significant gastric contents being noted, she could not tolerate NG or OG. We subsequently later in the day had a conversation with the daughter, and decided to go with hospice, in fact will back off some of her orders and provide comfort at this time, stop antibiotics, provide Duragesic patch, and then hope to get hospice back to [facility] tomorrow, her prognosis is obviously quite poor.
[2018-05-29] MEDS ORDERED: *HR* FentaNYL PATCH 50 MCG PATCH TD SCH (17:45)
[2018-05-30] MEDS: Ondansetron 4 MG/2 ML VIAL IVP PRN (03:25)
[2018-05-30 05:41] LABS: Basophils % 0.2 %; Eosinophils % 0.1 %; Hematocrit 29.4 % (35.3-44.9); Hemoglobin 8.7 g/dL (11.5-15.4); Immature Granulocytes % 0.9 % (0-4); Lymphocytes # 0.2 K/mcL (0.6-4.6); Lymphocytes % 1.9 %; Mean Corpuscular HGB Conc 29.6 g/dL (31.6-35.5); Mean Platelet Volume 11.6 fL (9.4-12.4); Monocytes # 0.5 K/mcL (0.0-1.3); Monocytes % 4.6 %; Platelet Count 209 K/mcL (140-400); Red Blood Count 3.34 M/mcL (3.82-4.97); Red Cell Distribution Width 18.6 % (11.5-14.5); Segmented Neutrophils % 92.3 %
[2018-05-30 06:02] LABS: Alanine Aminotransferase 4 Units/L (7-52); Albumin 2.3 g/dL (3.5-5.7); Albumin/Globulin Ratio 0.6 (1.1-2.2); Alkaline Phosphatase 92 Units/L (34-104); Aspartate Amino Transferase 6 Units/L (13-39); BUN/Creatinine Ratio 27 (6-26); Bilirubin,Total 0.4 mg/dL (0.3-1.0); Blood Urea Nitrogen 15 mg/dL (8-23); Calcium 8.1 mg/dL (8.6-10.3); Carbon Dioxide 22 mEq/L (23-29); Chloride 105 mEq/L (98-107); Globulin 3.9 g/dL (2.4-3.5); Glucose 199 mg/dL (70-105); Osmolality,Calculated 288 (280-300); Potassium 3.1 mEq/L (3.5-5.1); Sodium 136 mEq/L (136-145); Total Protein 6.2 g/dL (6.4-8.9); eGFR For Non-African Americans > 60 (> 60)
[2018-05-30 07:17] LABS: Magnesium 1.3 mg/dL (1.6-2.6)
[2018-05-30] MEDS: Insulin LISPRO 300 UNITS/3 ML VIAL SQ SCH ×2 (10:03→12:33)
--- NOTE | 2018-05-30 13:03 | Electrocardiograph Report ---
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
--- NOTE | 2018-05-30 13:08 | Discharge Summary ---
<Ray Harry - Last Filed: 05/30/18 16:55> - NOTES TO OUTPATIENT PROVIDER Notes to Outpatient Provider: Patient minute for septic shock likely secondary to sacral decubitus ulcer versus urinary tract infection. After long discussion with patient and family, decision was made to pursue hospice care. Patient has known history of cholangiocarcinoma with metastasis. Orders not resulted at time of discharge: Pending orders 05/27/18 20:13 Culture,Blood [BC] Stat 05/27/18 23:38 Culture,Wound [RM] Stat Date of Encounter: 05/30/18 Time of Encounter: 09:20 - Discharge Diagnosis (1) Septic shock Priority: Primary Status: Acute (2) Chronic indwelling Ramos catheter Priority: Secondary Status: Chronic (3) UTI (urinary tract infection) Priority: Secondary Status: Acute Qualifiers: Urinary tract infection type: acute cystitis Hematuria presence: with hematuria Qualified Code(s): N30.01 - Acute cystitis with hematuria (4) Adenocarcinoma Priority: Secondary Status: Chronic (5) CAD (coronary artery disease) Priority: Secondary Status: Chronic Qualifiers: Coronary Disease-Associated Artery/Lesion type: [place] artery [place] vs. transplanted heart: [place] heart Associated angina: without angina Qualified Code(s): I25.10 - Atherosclerotic heart disease of [place] coronary artery without angina pectoris (6) Cholangiocarcinoma of liver Priority: Secondary Status: Chronic (7) Chronic osteomyelitis of sacrum Priority: Secondary Status: Chronic (8) Decubitus ulcer of coccygeal region, stage 4 Priority: Secondary Status: Chronic (9) Diabetes mellitus Priority: Secondary Status: Chronic Qualifiers: Diabetes mellitus type: type 2 Diabetes mellitus heel splitter insulin use: with heel splitter use Diabetes mellitus complication status: with skin complications Diabetes mellitus complication detail: with other skin ulcer Qualified Code(s): E11.622 - Type 2 diabetes mellitus with other skin ulcer; 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 Camacho is a 77 year old female with a past medical history of chronic indwelling Ramos catheter, stage IV sacral decubitus ulcer, cholangiocarcinoma with metastasis who presented from [facility] to emergency department for abdominal pain. Upon admission patient was somnolent and unable to give an accurate history. On presentation to the emergency room, vital signs were significant for a heart rate of 101. Laboratory results were significant for white count of 17.6, ESR greater than 130, relatively unremarkable chemistries, lactic acid 4.3, troponin 0.7 to which was trended and down trending, alkaline phosphatase 169, albumin 3.0, CRP of 37. Urinalysis was obtained and showed large leukocyte esterase, large blood too numerous to count WBC however did contain epithelial cells. CT of the abdomen and pelvis was performed in the emergency department which showed no acute process but did show evidence of ventral wall hernia, cholangiocarcinoma with metastasis, progressive enlargement of sacral decubitus ulcer with stages of chronic osteomyelitis. Chest x-ray showed no evidence of no acute process. Patient was admitted for further evaluation and management of septic shock secondary to suspected UTI versus decubitus ulcer. She was started on empiric antibiotics. Echocardiogram performed for elevated troponin shows EF 45% with moderate diastolic dysfunction. CTA was also performed to rule out pulmonary embolism which was negative for acute thrombosis. Blood cultures were negative however urine cultures growing Enterobacter and wound cultures growing Escherichia coli, Klebsiella, staph aureus, gram-negative kenyatta. Conversation was had with the patient and her daughter due to worsening of symptoms including intractable nausea and vomiting as well as an overall poor prognosis. The decision was made to pursue hospice care with supportive measures. Patient was given symptomatic treatment but remainder of resuscitative measures were stopped. Antibiotics were stopped at that time and hospice care will be arranged at [facility]. Patient will be discharged back to [facility]. Social work did contact [facility] regarding hospice care and this will be arranged when she arrives. Plan was explained to patient and family and all questions were answered. - Time Spent with Patient Total time spent providing and/or coordinating discharge services: - Discharge Medications Home Medications: RX: Amitriptyline [Elavil] 10 mg PO HS 04/17/17 [History] RX: Aspirin Enteric Coated [Aspirin EC] 81 mg PO DAILY 04/17/17 [History] RX: Insulin Aspart Prot/Insuln Asp [Novolog Mix 70-30 Vial] 40 unit SQ QPM 04/17/17 [History] RX: Insulin Aspart Prot/Insuln Asp [Novolog Mix 70-30 Vial] 50 unit SQ QAM 04/17/17 [History] RX: Magnesium Oxide [Mag-Ox] 400 mg PO BID 04/17/17 [History] RX: Metoprolol [Lopressor] 12.5 mg PO BID 04/17/17 [History] RX: Sertraline [Zoloft] 25 mg PO DAILY 04/17/17 [History] RX: Colestipol HCl [Colestid] 2 gm PO DAILY 05/25/17 [History] RX: Ondansetron HCl [Zofran] 4 mg PO Q8H PRN 07/13/17 [History] RX: Simvastatin [Zocor] 40 mg PO HS 07/13/17 [History] RX: Acetaminophen [Tylenol] 650 mg PO Q8H PRN 09/26/17 [History] RX: Sertraline [Zoloft] 100 mg PO DAILY 09/26/17 [History] RX: Lactobacillus [Culturelle] 1 each PO BID #10 cap.sprink 09/29/17 [Rx] RX: Gabapentin [Neurontin] 100 mg PO BID 01/13/18 [History] Cpap 0 unit IH QPM 05/27/18 [History] RX: Calcium Polycarbophil [Fiber Laxative] 625 mg PO DAILY 05/27/18 [History] RX: Famotidine [Pepcid] 20 mg PO DAILY 05/27/18 [History] RX: Oxycodone HCl/Acetaminophen [Percocet 5-325 mg Tablet] 1 tab PO Q6H PRN 05/27/18 [History] RX: Oxygen 2 l IH DAILY PRN 05/27/18 [History] RX: Sennosides/Docusate Sodium [Senna Plus] 1 tab PO DAILY 05/27/18 [History] RX: FentaNYL PATCH [Duragesic] 50 mcg TD Q72H patch.td72 05/30/18 [Rx] Allergies/Adverse Reactions: Allergy/AdvReac Type Severity Reaction Status Date / Time rosuvastatin [From Crestor] Allergy Hives Verified 01/13/18 09:19 ciprofloxacin AdvReac Itching Verified 01/13/18 09:19 hydromorphone [From Dilaudid] AdvReac Difficulty Verified 01/13/18 09:19 Breathing Date of admission: 05/30/18 10:06 Primary care physician: PCP NONE Consults: 05/27/18 22:52 Consult to Actor Understudy [CONS] Routine Reason for SW Consult: Return to ECF. 05/28/18 00:15 Consult to Wound Care [CONS] Routine Reason for Consult: stage IV chronic sacral decubitis ulcer Call Completed: No Discharging clinician: Ray Harry Anticipated date of discharge: 05/30/18 - Constitutional Vitals: Temp Pulse Resp BP Pulse Ox 97.5 F L 112 15 106/67 90 05/30/18 07:19 05/30/18 07:19 05/30/18 07:19 05/30/18 07:19 05/30/18 07:19 Exam: Gen.: Vitals noted. No acute distress. AAOx1, resting comfortably in bed. HEENT: PERRL/EOMI, oropharynx clear, Normocephalic, atraumatic, MMM Cardiac: RRR, no murmur, +S1/S2, No BLE edema Pulmonary: CTA bilaterally, no wheezes, rales or rhonchi, equal chest expansion, unlabored breathing Abdomen: soft, tender to palpation in suprapubic, right upper quadrant, left lower quadrant, BS noted, no guarding, no palpable HSM Skin: warm and dry, no visible lesions. MSK: ROM not assessed, no joint swelling noted, gait no assessed while in bed. Non tender calf or clubbing Skin: Stage IV sacral decubitus ulcer present on admission Neuro: A&O, no focal deficits Psych: Appropriate mood and behavior, pleasant - Patient Status Disposition: Transfer SNF Condition: Serious Functional capacity at discharge: bed bound Overall status at discharge: patient is not back to baseline - Discharge Instructions Instructions: Urinary Tract Infection in Women (DC) Follow Up With: NONE,PCP [Primary Care Provider] - - Diet and Activity Diet: advance to your usual diet <Ziggy Pool - Last Filed: 05/31/18 08:48> Orders not resulted at time of discharge: Pending orders 05/27/18 20:13 Culture,Blood [BC] Stat 05/27/18 23:38 Culture,Wound [RM] Stat Date of Encounter: 05/31/18 Hospital course: Ms. Camacho is a 77 year old female - Time Spent with Patient Total time spent providing and/or coordinating discharge services: Date of admission: 05/30/18 10:06 Primary care physician: PCP NONE Consults: 05/27/18 22:52 Consult to Actor Understudy [CONS] Routine Reason for SW Consult: Return to ECF. 05/28/18 00:15 Consult to Wound Care [CONS] Routine Reason for Consult: stage IV chronic sacral decubitis ulcer Call Completed: No - Constitutional Vitals: Temp Pulse Resp BP Pulse Ox 98.2 F 94 16 120/77 90 05/30/18 14:03 05/30/18 14:03 05/30/18 14:03 05/30/18 14:03 05/30/18 14:03 - Attending Attestation I examined this patient and my medical decision-making was reviewed with the Resident Physician. I agree with the documented findings, disposition and treatment plan as described except to the extent set forth below. Given the time with patient, note, chart review and documents.. greater than 30 min. DC
--- NOTE | 2018-05-30 13:12 | Physician Discharge Referral ---
ExtendedCare Referral Info Transfer To: [facility] Provider in Charge after Transfer: PCP Institutional Level of Care: Skilled - Diagnosis (1) Adenocarcinoma Priority: Secondary Status: Chronic (2) Indwelling Ramos catheter present Priority: Secondary Status: Chronic (3) Septic shock Priority: Primary Status: Acute (4) UTI (urinary tract infection) Priority: Secondary Status: Acute (5) Cholangiocarcinoma of liver Priority: Secondary Status: Chronic (6) Decubitus ulcer, stage 4 with infection Priority: Secondary Status: Chronic (7) Diabetes mellitus Priority: Secondary Status: Chronic (8) Morbid obesity with BMI of 40.0-44.9, adult Priority: Secondary Status: Chronic (9) Osteomyelitis Priority: Secondary Status: Suspected Prognosis: Poor Aware of Diagnosis: Patient, Family Aware of Prognosis: Patient, Family - Transfer Medications Home Medications: Amitriptyline [Elavil] 10 mg PO HS 04/17/17 [History] Aspirin Enteric Coated [Aspirin EC] 81 mg PO DAILY 04/17/17 [History] Insulin Aspart Prot/Insuln Asp [Novolog Mix 70-30 Vial] 40 unit SQ QPM 04/17/17 [History] Insulin Aspart Prot/Insuln Asp [Novolog Mix 70-30 Vial] 50 unit SQ QAM 04/17/17 [History] Magnesium Oxide [Mag-Ox] 400 mg PO BID 04/17/17 [History] Metoprolol [Lopressor] 12.5 mg PO BID 04/17/17 [History] Sertraline [Zoloft] 25 mg PO DAILY 04/17/17 [History] Colestipol HCl [Colestid] 2 gm PO DAILY 05/25/17 [History] Ondansetron HCl [Zofran] 4 mg PO Q8H PRN 07/13/17 [History] Simvastatin [Zocor] 40 mg PO HS 07/13/17 [History] Acetaminophen [Tylenol] 650 mg PO Q8H PRN 09/26/17 [History] Sertraline [Zoloft] 100 mg PO DAILY 09/26/17 [History] Lactobacillus [Culturelle] 1 each PO BID #10 cap.sprink 09/29/17 [Rx] Gabapentin [Neurontin] 100 mg PO BID 01/13/18 [History] Calcium Polycarbophil [Fiber Laxative] 625 mg PO DAILY 05/27/18 [History] Cpap 0 unit IH QPM 05/27/18 [History] Famotidine [Pepcid] 20 mg PO DAILY 05/27/18 [History] Oxycodone HCl/Acetaminophen [Percocet 5-325 mg Tablet] 1 tab PO Q6H PRN 05/27/18 [History] Oxygen 2 l IH DAILY PRN 05/27/18 [History] Sennosides/Docusate Sodium [Senna Plus] 1 tab PO DAILY 05/27/18 [History] FentaNYL PATCH [Duragesic] 50 mcg TD Q72H patch.td72 05/30/18 [Rx] Allergies/Adverse Reactions: Allergy/AdvReac Type Severity Reaction Status Date / Time rosuvastatin [From Crestor] Allergy Hives Verified 01/13/18 09:19 ciprofloxacin AdvReac Itching Verified 01/13/18 09:19 hydromorphone [From Dilaudid] AdvReac Difficulty Verified 01/13/18 09:19 Breathing - Respiratory Orders Oxygen / L per min Smoking Cessation: Smoking cessation has been advised. For more information, call the [place] Tobacco Quit Line at 3-489-GSXH-NOW. - Advance Directives Code Status: DNR-Arrest - Mobility Orders Bedrest - Rehabiliation Orders Rehab Potential: Poor - Treatments Skin tear care topically daily PRN per policy - Diet Orders Regular CERTIFICATION: I certify that the transfer of the above named patient to an Extended Care Facility is necessary for the continuing treatment of the diagnosis listed. The above information is true and accurate reflection of patient's current condition. Confidential - Redisclosure prohibited without a patient's written consent.
[2018-05-30 14:04] VITALS: BP 120/77
[2018-05-30] MEDS ORDERED: Aminoglycoside Consult 1 EACH MC ONE (15:57)
--- NOTE | 2018-05-31 13:09 | Electrocardiograph Report ---
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
--- NOTE | 2018-05-31 16:27 | Electrocardiograph Report ---
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
--- NOTE | 2018-05-31 20:01 | Emergency Department Note ---
Disposition Clinical Impression: UTI (urinary tract infection) Qualifiers: Urinary tract infection type: acute cystitis Hematuria presence: with hematuria Qualified Code(s): N30.01 - Acute cystitis with hematuria Disposition: Admitted As Inpatient Condition: Serious General Adult HPI - General Chief complaint: ED Abdominal Pain Stated complaint: abd pain Time Seen by Provider: 05/27/18 14:22 Source: patient, EMS Mode of arrival: ambulatory Limitations: no limitations - History of Present Illness Pain Scale: 0 - Related Data Home Medications Medication Instructions Recorded Confirmed Amitriptyline [Elavil] 10 mg PO HS 04/17/17 05/27/18 Aspirin Enteric Coated [Aspirin EC] 81 mg PO DAILY 04/17/17 05/27/18 Insulin Aspart Prot/Insuln Asp 40 unit SQ QPM 04/17/17 05/27/18 [Novolog Mix 70-30 Vial] Insulin Aspart Prot/Insuln Asp 50 unit SQ QAM 04/17/17 05/27/18 [Novolog Mix 70-30 Vial] Magnesium Oxide [Mag-Ox] 400 mg PO BID 04/17/17 05/27/18 Metoprolol [Lopressor] 12.5 mg PO BID 04/17/17 05/27/18 Sertraline [Zoloft] 25 mg PO DAILY 04/17/17 05/27/18 Colestipol HCl [Colestid] 2 gm PO DAILY 05/25/17 05/27/18 Ondansetron HCl [Zofran] 4 mg PO Q8H PRN 07/13/17 05/27/18 Simvastatin [Zocor] 40 mg PO HS 07/13/17 05/27/18 Acetaminophen [Tylenol] 650 mg PO Q8H PRN 09/26/17 05/27/18 Sertraline [Zoloft] 100 mg PO DAILY 09/26/17 05/27/18 Gabapentin [Neurontin] 100 mg PO BID 01/13/18 05/27/18 Calcium Polycarbophil [Fiber 625 mg PO DAILY 05/27/18 05/27/18 Laxative] Cpap 0 unit IH QPM 05/27/18 05/27/18 Famotidine [Pepcid] 20 mg PO DAILY 05/27/18 05/27/18 Oxycodone HCl/Acetaminophen 1 tab PO Q6H PRN 05/27/18 05/27/18 [Percocet 5-325 mg Tablet] Oxygen 2 l IH DAILY PRN 05/27/18 05/27/18 Sennosides/Docusate Sodium [Senna 1 tab PO DAILY 05/27/18 05/27/18 Plus] Previous Rx's Medication Instructions Recorded Lactobacillus [Culturelle] 1 each PO BID #10 cap.sprink 09/29/17 FentaNYL PATCH [Duragesic] 50 mcg TD Q72H patch.[id number] 05/30/18 Allergies Allergy/AdvReac Type Severity Reaction Status Date / Time rosuvastatin [From Crestor] Allergy Hives Verified 01/13/18 09:19 ciprofloxacin AdvReac Itching Verified 01/13/18 09:19 hydromorphone [From Dilaudid] AdvReac Difficulty Verified 01/13/18 09:19 Breathing Past Medical History - Past Medical History Medical history: Reports: cancer, coronary artery disease, diabetes, GERD, hypertension, myocardial infarction, peripheral artery disease, thyroid disease, other Surgical history: Reports: appendectomy, , cataract, cholecystectomy, herniorrhaphy, orthopedic, other, SHONDA/BSO, other Psychiatric history: Reports: anxiety, depression - Social History Smoking Status: Former smoker Smokeless Tobacco Status: No Alcohol use: Reports: none Drug use: Reports: none Physical Exam - General Limitations: no limitations General appearance: alert, in distress Course Vital Signs Temperature 98.1 F 05/27/18 14:09 Pulse Rate 101 05/27/18 14:09 Respiratory Rate 14 05/27/18 14:09 Blood Pressure 135/68 05/27/18 14:09 O2 Sat by Pulse Oximetry 100 05/27/18 14:09 Temperature 98.2 F 05/30/18 14:03 Pulse Rate 94 05/30/18 14:03 Respiratory Rate 16 05/30/18 14:03 Blood Pressure 120/77 05/30/18 14:03 O2 Sat by Pulse Oximetry 90 05/30/18 14:03 Oxygen Delivery Oxygen Delivery Nasal Cannula Medical Decision Making - Lab Data Result diagrams: 05/30/18 05:16 05/30/18 05:16 Lab Results 05/27/18 05/27/18 05/27/18 Range/Units 15:39 15:39 15:39 WBC 17.6 H (4.3-11.1) K/mcL RBC 4.53 (3.82-4.97) M/mcL Hgb 11.8 (11.5-15.4) g/dL Hct 38.7 (35.3-44.9) % MCV 85.4 (83.0-100.0) fL MCH 26.0 L (28.0-33.3) pg MCHC 30.5 L (31.6-35.5) g/dL RDW 18.0 H (11.5-14.5) % Plt Count 352 (140-400) K/mcL MPV 11.1 (9.4-12.4) fL Immature Gran % 0.9 (0-4) % Seg Neutrophils % 89.4 % Lymphocytes % 3.5 % Monocytes % 5.9 % Eosinophils % 0.1 % Basophils % 0.2 % Neutrophils # 15.7 H (1.6-8.9) K/mcL Lymphocytes # 0.6 (0.6-4.6) K/mcL Monocytes # 1.0 (0.0-1.3) K/mcL Eosinophils # 0.0 (0.0-0.6) K/mcL Basophils # 0.0 (0.0-0.2) K/mcL Platelet Estimate (Normal) Hypochromasia (Not Present) ESR >= 130 H (0-15) mm/hr Heparin Anti-Xa, Unfract (0.30-0.70) IU/mL Sodium 133 L (136-145) mEq/L Potassium 4.2 (3.5-5.1) mEq/L Chloride 97 L (98-107) mEq/L Carbon Dioxide 24 (23-29) mEq/L BUN 14 (8-23) mg/dL Creatinine 0.73 (0.60-1.20) mg/dL Est GFR ( Amer) > 60 (> 60) Est GFR (Non-Af Amer) > 60 (> 60) BUN/Creatinine Ratio 19 (6-26) Glucose 252 H (70-105) mg/dL POC Glucose (70-99) mg/dL Calculated Osmolality 285 (280-300) Lactic Acid (0.5-2.2) mmol/L Calcium 8.9 (8.6-10.3) mg/dL Magnesium (1.6-2.6) mg/dL Total Bilirubin 0.7 (0.3-1.0) mg/dL AST 14 (13-39) Units/L ALT 6 L (7-52) Units/L Alkaline Phosphatase 169 H (34-104) Units/L Troponin I (< 0.04) ng/mL C-Reactive Protein 37 H (Less than 10) mg/L Serum Total Protein 7.8 (6.4-8.9) g/dL Albumin 3.0 L (3.5-5.7) g/dL Globulin 4.8 H (2.4-3.5) g/dL Albumin/Globulin Ratio 0.6 L (1.1-2.2) Lipase 5 L (11-82) Units/L Ur Specimen Adequacy Urine Color (Yellow) Urine Clarity (Clear) Urine pH (5.0-8.0) pH Units Ur Specific [place] (1.010-1.025) Urine Protein (Neg-Trace) mg/dL Urine Glucose (UA) (Normal) mg/dL Urine Ketones (Negative) mg/dL Urine Blood (Negative) Urine Nitrite (Negative) Urine Bilirubin (Negative) Urine Urobilinogen (Normal) mg/dL Ur Leukocyte Esterase (Negative) Urine Microscopic RBC (0-3) per hpf Urine Microscopic WBC (0-3) per hpf Ur Squamous Epith Cells (None-Few) per lpf Urine Bacteria (None-Few) per hpf Hyaline Casts (None-Few) per lpf Urine Mucus (Few) Ur Culture Indicated? (NO) Vancomycin Trough (5-10) mcg/mL 05/27/18 05/27/18 05/27/18 Range/Units 18:22 22:26 22:26 WBC (4.3-11.1) K/mcL RBC (3.82-4.97) M/mcL Hgb (11.5-15.4) g/dL Hct (35.3-44.9) % MCV (83.0-100.0) fL MCH (28.0-33.3) pg MCHC (31.6-35.5) g/dL RDW (11.5-14.5) % Plt Count (140-400) K/mcL MPV (9.4-12.4) fL Immature Gran % (0-4) % Seg Neutrophils % % Lymphocytes % % Monocytes % % Eosinophils % % Basophils % % Neutrophils # (1.6-8.9) K/mcL Lymphocytes # (0.6-4.6) K/mcL Monocytes # (0.0-1.3) K/mcL Eosinophils # (0.0-0.6) K/mcL Basophils # (0.0-0.2) K/mcL Platelet Estimate (Normal) Hypochromasia (Not Present) ESR (0-15) mm/hr Heparin Anti-Xa, Unfract (0.30-0.70) IU/mL Sodium (136-145) mEq/L Potassium (3.5-5.1) mEq/L Chloride (98-107) mEq/L Carbon Dioxide (23-29) mEq/L BUN (8-23) mg/dL Creatinine (0.60-1.20) mg/dL Est GFR ( Amer) (> 60) Est GFR (Non-Af Amer) (> 60) BUN/Creatinine Ratio (6-26) Glucose (70-105) mg/dL POC Glucose (70-99) mg/dL Calculated Osmolality (280-300) Lactic Acid 4.3 H* (0.5-2.2) mmol/L Calcium (8.6-10.3) mg/dL Magnesium (1.6-2.6) mg/dL Total Bilirubin (0.3-1.0) mg/dL AST (13-39) Units/L ALT (7-52) Units/L Alkaline Phosphatase (34-104) Units/L Troponin I 0.72 H* (< 0.04) ng/mL C-Reactive Protein (Less than 10) mg/L Serum Total Protein (6.4-8.9) g/dL Albumin (3.5-5.7) g/dL Globulin (2.4-3.5) g/dL Albumin/Globulin Ratio (1.1-2.2) Lipase (11-82) Units/L Ur Specimen Adequacy See below A Urine Color Alicia A (Yellow) Urine Clarity Turbid A (Clear) Urine pH 8.0 (5.0-8.0) pH Units Ur Specific [place] 1.017 (1.010-1.025) Urine Protein >=300 H (Neg-Trace) mg/dL Urine Glucose (UA) Normal (Normal) mg/dL Urine Ketones 15 H (Negative) mg/dL Urine Blood Large H (Negative) Urine Nitrite Negative (Negative) Urine Bilirubin Small H (Negative) Urine Urobilinogen Normal (Normal) mg/dL Ur Leukocyte Esterase Large H (Negative) Urine Microscopic RBC TNTC H (0-3) per hpf Urine Microscopic WBC TNTC H (0-3) per hpf Ur Squamous Epith Cells Many H (None-Few) per lpf Urine Bacteria Many H (None-Few) per hpf Hyaline Casts None Seen (None-Few) per lpf Urine Mucus Few (Few) Ur Culture Indicated? NO. A (NO) Vancomycin Trough (5-10) mcg/mL 05/28/18 05/28/18 05/28/18 Range/Units 00:47 00:53 02:32 WBC (4.3-11.1) K/mcL RBC (3.82-4.97) M/mcL Hgb (11.5-15.4) g/dL Hct (35.3-44.9) % MCV (83.0-100.0) fL MCH (28.0-33.3) pg MCHC (31.6-35.5) g/dL RDW (11.5-14.5) % Plt Count (140-400) K/mcL MPV (9.4-12.4) fL Immature Gran % (0-4) % Seg Neutrophils % % Lymphocytes % % Monocytes % % Eosinophils % % Basophils % % Neutrophils # (1.6-8.9) K/mcL Lymphocytes # (0.6-4.6) K/mcL Monocytes # (0.0-1.3) K/mcL Eosinophils # (0.0-0.6) K/mcL Basophils # (0.0-0.2) K/mcL Platelet Estimate (Normal) Hypochromasia (Not Present) ESR (0-15) mm/hr Heparin Anti-Xa, Unfract 0.00 L (0.30-0.70) IU/mL Sodium (136-145) mEq/L Potassium (3.5-5.1) mEq/L Chloride (98-107) mEq/L Carbon Dioxide (23-29) mEq/L BUN (8-23) mg/dL Creatinine (0.60-1.20) mg/dL Est GFR ( Amer) (> 60) Est GFR (Non-Af Amer) (> 60) BUN/Creatinine Ratio (6-26) Glucose (70-105) mg/dL POC Glucose 235 H (70-99) mg/dL Calculated Osmolality (280-300) Lactic Acid 2.8 H (0.5-2.2) mmol/L Calcium (8.6-10.3) mg/dL Magnesium (1.6-2.6) mg/dL Total Bilirubin (0.3-1.0) mg/dL AST (13-39) Units/L ALT (7-52) Units/L Alkaline Phosphatase (34-104) Units/L Troponin I (< 0.04) ng/mL C-Reactive Protein (Less than 10) mg/L Serum Total Protein (6.4-8.9) g/dL Albumin (3.5-5.7) g/dL Globulin (2.4-3.5) g/dL Albumin/Globulin Ratio (1.1-2.2) Lipase (11-82) Units/L Ur Specimen Adequacy Urine Color (Yellow) Urine Clarity (Clear) Urine pH (5.0-8.0) pH Units Ur Specific [place] (1.010-1.025) Urine Protein (Neg-Trace) mg/dL Urine Glucose (UA) (Normal) mg/dL Urine Ketones (Negative) mg/dL Urine Blood (Negative) Urine Nitrite (Negative) Urine Bilirubin (Negative) Urine Urobilinogen (Normal) mg/dL Ur Leukocyte Esterase (Negative) Urine Microscopic RBC (0-3) per hpf Urine Microscopic WBC (0-3) per hpf Ur Squamous Epith Cells (None-Few) per lpf Urine Bacteria (None-Few) per hpf Hyaline Casts (None-Few) per lpf Urine Mucus (Few) Ur Culture Indicated? (NO) Vancomycin Trough (5-10) mcg/mL 05/28/18 05/28/18 05/28/18 Range/Units 06:42 06:42 06:42 WBC 17.2 H (4.3-11.1) K/mcL RBC 3.65 L (3.82-4.97) M/mcL Hgb 9.5 L D (11.5-15.4) g/dL Hct 32.9 L (35.3-44.9) % MCV 90.1 (83.0-100.0) fL MCH 26.0 L (28.0-33.3) pg MCHC 28.9 L (31.6-35.5) g/dL RDW 18.5 H (11.5-14.5) % Plt Count 256 (140-400) K/mcL MPV 11.6 (9.4-12.4) fL Immature Gran % 0.5 (0-4) % Seg Neutrophils % 90.4 % Lymphocytes % 2.3 % Monocytes % 6.7 % Eosinophils % 0.0 % Basophils % 0.1 % Neutrophils # 15.6 H (1.6-8.9) K/mcL Lymphocytes # 0.4 L (0.6-4.6) K/mcL Monocytes # 1.2 (0.0-1.3) K/mcL Eosinophils # 0.0 (0.0-0.6) K/mcL Basophils # 0.0 (0.0-0.2) K/mcL Platelet Estimate Normal (Normal) Hypochromasia Present A (Not Present) ESR (0-15) mm/hr Heparin Anti-Xa, Unfract (0.30-0.70) IU/mL Sodium 137 (136-145) mEq/L Potassium 3.7 (3.5-5.1) mEq/L Chloride 108 H (98-107) mEq/L Carbon Dioxide 21 L (23-29) mEq/L BUN 15 (8-23) mg/dL Creatinine 0.71 (0.60-1.20) mg/dL Est GFR ( Amer) > 60 (> 60) Est GFR (Non-Af Amer) > 60 (> 60) BUN/Creatinine Ratio 21 (6-26) Glucose 213 H (70-105) mg/dL POC Glucose (70-99) mg/dL Calculated Osmolality 291 (280-300) Lactic Acid (0.5-2.2) mmol/L Calcium 7.4 L (8.6-10.3) mg/dL Magnesium (1.6-2.6) mg/dL Total Bilirubin (0.3-1.0) mg/dL AST (13-39) Units/L ALT (7-52) Units/L Alkaline Phosphatase (34-104) Units/L Troponin I 0.59 H* (< 0.04) ng/mL C-Reactive Protein (Less than 10) mg/L Serum Total Protein (6.4-8.9) g/dL Albumin (3.5-5.7) g/dL Globulin (2.4-3.5) g/dL Albumin/Globulin Ratio (1.1-2.2) Lipase (11-82) Units/L Ur Specimen Adequacy Urine Color (Yellow) Urine Clarity (Clear) Urine pH (5.0-8.0) pH Units Ur Specific [place] (1.010-1.025) Urine Protein (Neg-Trace) mg/dL Urine Glucose (UA) (Normal) mg/dL Urine Ketones (Negative) mg/dL Urine Blood (Negative) Urine Nitrite (Negative) Urine Bilirubin (Negative) Urine Urobilinogen (Normal) mg/dL Ur Leukocyte Esterase (Negative) Urine Microscopic RBC (0-3) per hpf Urine Microscopic WBC (0-3) per hpf Ur Squamous Epith Cells (None-Few) per lpf Urine Bacteria (None-Few) per hpf Hyaline Casts (None-Few) per lpf Urine Mucus (Few) Ur Culture Indicated? (NO) Vancomycin Trough (5-10) mcg/mL 05/28/18 05/28/18 05/28/18 Range/Units 06:42 07:38 08:21 WBC (4.3-11.1) K/mcL RBC (3.82-4.97) M/mcL Hgb (11.5-15.4) g/dL Hct (35.3-44.9) % MCV (83.0-100.0) fL MCH (28.0-33.3) pg MCHC (31.6-35.5) g/dL RDW (11.5-14.5) % Plt Count (140-400) K/mcL MPV (9.4-12.4) fL Immature Gran % (0-4) % Seg Neutrophils % % Lymphocytes % % Monocytes % % Eosinophils % % Basophils % % Neutrophils # (1.6-8.9) K/mcL Lymphocytes # (0.6-4.6) K/mcL Monocytes # (0.0-1.3) K/mcL Eosinophils # (0.0-0.6) K/mcL Basophils # (0.0-0.2) K/mcL Platelet Estimate (Normal) Hypochromasia (Not Present) ESR (0-15) mm/hr Heparin Anti-Xa, Unfract 0.48 (0.30-0.70) IU/mL Sodium (136-145) mEq/L Potassium (3.5-5.1) mEq/L Chloride (98-107) mEq/L Carbon Dioxide (23-29) mEq/L BUN (8-23) mg/dL Creatinine (0.60-1.20) mg/dL Est GFR ( Amer) (> 60) Est GFR (Non-Af Amer) (> 60) BUN/Creatinine Ratio (6-26) Glucose (70-105) mg/dL POC Glucose 199 H (70-99) mg/dL Calculated Osmolality (280-300) Lactic Acid 1.8 (0.5-2.2) mmol/L Calcium (8.6-10.3) mg/dL Magnesium (1.6-2.6) mg/dL Total Bilirubin (0.3-1.0) mg/dL AST (13-39) Units/L ALT (7-52) Units/L Alkaline Phosphatase (34-104) Units/L Troponin I (< 0.04) ng/mL C-Reactive Protein (Less than 10) mg/L Serum Total Protein (6.4-8.9) g/dL Albumin (3.5-5.7) g/dL Globulin (2.4-3.5) g/dL Albumin/Globulin Ratio (1.1-2.2) Lipase (11-82) Units/L Ur Specimen Adequacy Urine Color (Yellow) Urine Clarity (Clear) Urine pH (5.0-8.0) pH Units Ur Specific [place] (1.010-1.025) Urine Protein (Neg-Trace) mg/dL Urine Glucose (UA) (Normal) mg/dL Urine Ketones (Negative) mg/dL Urine Blood (Negative) Urine Nitrite (Negative) Urine Bilirubin (Negative) Urine Urobilinogen (Normal) mg/dL Ur Leukocyte Esterase (Negative) Urine Microscopic RBC (0-3) per hpf Urine Microscopic WBC (0-3) per hpf Ur Squamous Epith Cells (None-Few) per lpf Urine Bacteria (None-Few) per hpf Hyaline Casts (None-Few) per lpf Urine Mucus (Few) Ur Culture Indicated? (NO) Vancomycin Trough (5-10) mcg/mL 05/28/18 05/28/18 05/28/18 Range/Units 10:48 14:06 16:11 WBC (4.3-11.1) K/mcL RBC (3.82-4.97) M/mcL Hgb (11.5-15.4) g/dL Hct (35.3-44.9) % MCV (83.0-100.0) fL MCH (28.0-33.3) pg MCHC (31.6-35.5) g/dL RDW (11.5-14.5) % Plt Count (140-400) K/mcL MPV (9.4-12.4) fL Immature Gran % (0-4) % Seg Neutrophils % % Lymphocytes % % Monocytes % % Eosinophils % % Basophils % % Neutrophils # (1.6-8.9) K/mcL Lymphocytes # (0.6-4.6) K/mcL Monocytes # (0.0-1.3) K/mcL Eosinophils # (0.0-0.6) K/mcL Basophils # (0.0-0.2) K/mcL Platelet Estimate (Normal) Hypochromasia (Not Present) ESR (0-15) mm/hr Heparin Anti-Xa, Unfract (0.30-0.70) IU/mL Sodium (136-145) mEq/L Potassium (3.5-5.1) mEq/L Chloride (98-107) mEq/L Carbon Dioxide (23-29) mEq/L BUN (8-23) mg/dL Creatinine (0.60-1.20) mg/dL Est GFR ( Amer) (> 60) Est GFR (Non-Af Amer) (> 60) BUN/Creatinine Ratio (6-26) Glucose (70-105) mg/dL POC Glucose 205 H 146 H (70-99) mg/dL Calculated Osmolality (280-300) Lactic Acid (0.5-2.2) mmol/L Calcium (8.6-10.3) mg/dL Magnesium (1.6-2.6) mg/dL Total Bilirubin (0.3-1.0) mg/dL AST (13-39) Units/L ALT (7-52) Units/L Alkaline Phosphatase (34-104) Units/L Troponin I 0.36 H* (< 0.04) ng/mL C-Reactive Protein (Less than 10) mg/L Serum Total Protein (6.4-8.9) g/dL Albumin (3.5-5.7) g/dL Globulin (2.4-3.5) g/dL Albumin/Globulin Ratio (1.1-2.2) Lipase (11-82) Units/L Ur Specimen Adequacy Urine Color (Yellow) Urine Clarity (Clear) Urine pH (5.0-8.0) pH Units Ur Specific [place] (1.010-1.025) Urine Protein (Neg-Trace) mg/dL Urine Glucose (UA) (Normal) mg/dL Urine Ketones (Negative) mg/dL Urine Blood (Negative) Urine Nitrite (Negative) Urine Bilirubin (Negative) Urine Urobilinogen (Normal) mg/dL Ur Leukocyte Esterase (Negative) Urine Microscopic RBC (0-3) per hpf Urine Microscopic WBC (0-3) per hpf Ur Squamous Epith Cells (None-Few) per lpf Urine Bacteria (None-Few) per hpf Hyaline Casts (None-Few) per lpf Urine Mucus (Few) Ur Culture Indicated? (NO) Vancomycin Trough (5-10) mcg/mL 05/28/18 05/29/18 05/29/18 Range/Units 20:43 07:49 09:17 WBC 15.5 H (4.3-11.1) K/mcL RBC 3.63 L (3.82-4.97) M/mcL Hgb 9.6 L (11.5-15.4) g/dL Hct 32.5 L (35.3-44.9) % MCV 89.5 (83.0-100.0) fL MCH 26.4 L (28.0-33.3) pg MCHC 29.5 L (31.6-35.5) g/dL RDW 18.4 H (11.5-14.5) % Plt Count 239 (140-400) K/mcL MPV 10.9 (9.4-12.4) fL Immature Gran % 0.7 (0-4) % Seg Neutrophils % 94.0 % Lymphocytes % 1.5 % Monocytes % 3.7 % Eosinophils % 0.0 % Basophils % 0.1 % Neutrophils # 14.6 H (1.6-8.9) K/mcL Lymphocytes # 0.2 L (0.6-4.6) K/mcL Monocytes # 0.6 (0.0-1.3) K/mcL Eosinophils # 0.0 (0.0-0.6) K/mcL Basophils # 0.0 (0.0-0.2) K/mcL Platelet Estimate (Normal) Hypochromasia (Not Present) ESR (0-15) mm/hr Heparin Anti-Xa, Unfract (0.30-0.70) IU/mL Sodium (136-145) mEq/L Potassium (3.5-5.1) mEq/L Chloride (98-107) mEq/L Carbon Dioxide (23-29) mEq/L BUN (8-23) mg/dL Creatinine (0.60-1.20) mg/dL Est GFR ( Amer) (> 60) Est GFR (Non-Af Amer) (> 60) BUN/Creatinine Ratio (6-26) Glucose (70-105) mg/dL POC Glucose 149 H 177 H (70-99) mg/dL Calculated Osmolality (280-300) Lactic Acid (0.5-2.2) mmol/L Calcium (8.6-10.3) mg/dL Magnesium (1.6-2.6) mg/dL Total Bilirubin (0.3-1.0) mg/dL AST (13-39) Units/L ALT (7-52) Units/L Alkaline Phosphatase (34-104) Units/L Troponin I (< 0.04) ng/mL C-Reactive Protein (Less than 10) mg/L Serum Total Protein (6.4-8.9) g/dL Albumin (3.5-5.7) g/dL Globulin (2.4-3.5) g/dL Albumin/Globulin Ratio (1.1-2.2) Lipase (11-82) Units/L Ur Specimen Adequacy Urine Color (Yellow) Urine Clarity (Clear) Urine pH (5.0-8.0) pH Units Ur Specific [place] (1.010-1.025) Urine Protein (Neg-Trace) mg/dL Urine Glucose (UA) (Normal) mg/dL Urine Ketones (Negative) mg/dL Urine Blood (Negative) Urine Nitrite (Negative) Urine Bilirubin (Negative) Urine Urobilinogen (Normal) mg/dL Ur Leukocyte Esterase (Negative) Urine Microscopic RBC (0-3) per hpf Urine Microscopic WBC (0-3) per hpf Ur Squamous Epith Cells (None-Few) per lpf Urine Bacteria (None-Few) per hpf Hyaline Casts (None-Few) per lpf Urine Mucus (Few) Ur Culture Indicated? (NO) Vancomycin Trough (5-10) mcg/mL 05/29/18 05/29/18 05/29/18 Range/Units 09:17 11:15 13:19 WBC (4.3-11.1) K/mcL RBC (3.82-4.97) M/mcL Hgb (11.5-15.4) g/dL Hct (35.3-44.9) % MCV (83.0-100.0) fL MCH (28.0-33.3) pg MCHC (31.6-35.5) g/dL RDW (11.5-14.5) % Plt Count (140-400) K/mcL MPV (9.4-12.4) fL Immature Gran % (0-4) % Seg Neutrophils % % Lymphocytes % % Monocytes % % Eosinophils % % Basophils % % Neutrophils # (1.6-8.9) K/mcL Lymphocytes # (0.6-4.6) K/mcL Monocytes # (0.0-1.3) K/mcL Eosinophils # (0.0-0.6) K/mcL Basophils # (0.0-0.2) K/mcL Platelet Estimate (Normal) Hypochromasia (Not Present) ESR (0-15) mm/hr Heparin Anti-Xa, Unfract (0.30-0.70) IU/mL Sodium 135 L (136-145) mEq/L Potassium 3.4 L (3.5-5.1) mEq/L Chloride 104 (98-107) mEq/L Carbon Dioxide 20 L (23-29) mEq/L BUN 18 (8-23) mg/dL Creatinine 0.64 (0.60-1.20) mg/dL Est GFR ( Amer) > 60 (> 60) Est GFR (Non-Af Amer) > 60 (> 60) BUN/Creatinine Ratio 28 H (6-26) Glucose 205 H (70-105) mg/dL POC Glucose 184 H (70-99) mg/dL Calculated Osmolality 288 (280-300) Lactic Acid (0.5-2.2) mmol/L Calcium 8.1 L (8.6-10.3) mg/dL Magnesium (1.6-2.6) mg/dL Total Bilirubin 0.5 (0.3-1.0) mg/dL AST 9 L (13-39) Units/L ALT 5 L (7-52) Units/L Alkaline Phosphatase 99 (34-104) Units/L Troponin I 0.13 H* (< 0.04) ng/mL C-Reactive Protein (Less than 10) mg/L Serum Total Protein 6.8 (6.4-8.9) g/dL Albumin 2.5 L (3.5-5.7) g/dL Globulin 4.3 H (2.4-3.5) g/dL Albumin/Globulin Ratio 0.6 L (1.1-2.2) Lipase (11-82) Units/L Ur Specimen Adequacy Urine Color (Yellow) Urine Clarity (Clear) Urine pH (5.0-8.0) pH Units Ur Specific [place] (1.010-1.025) Urine Protein (Neg-Trace) mg/dL Urine Glucose (UA) (Normal) mg/dL Urine Ketones (Negative) mg/dL Urine Blood (Negative) Urine Nitrite (Negative) Urine Bilirubin (Negative) Urine Urobilinogen (Normal) mg/dL Ur Leukocyte Esterase (Negative) Urine Microscopic RBC (0-3) per hpf Urine Microscopic WBC (0-3) per hpf Ur Squamous Epith Cells (None-Few) per lpf Urine Bacteria (None-Few) per hpf Hyaline Casts (None-Few) per lpf Urine Mucus (Few) Ur Culture Indicated? (NO) Vancomycin Trough 11 H (5-10) mcg/mL 05/29/18 05/29/18 05/30/18 Range/Units 16:21 20:40 05:16 WBC 10.8 (4.3-11.1) K/mcL RBC 3.34 L (3.82-4.97) M/mcL Hgb 8.7 L (11.5-15.4) g/dL Hct 29.4 L (35.3-44.9) % MCV 88.0 (83.0-100.0) fL MCH 26.0 L (28.0-33.3) pg MCHC 29.6 L (31.6-35.5) g/dL RDW 18.6 H (11.5-14.5) % Plt Count 209 (140-400) K/mcL MPV 11.6 (9.4-12.4) fL Immature Gran % 0.9 (0-4) % Seg Neutrophils % 92.3 % Lymphocytes % 1.9 % Monocytes % 4.6 % Eosinophils % 0.1 % Basophils % 0.2 % Neutrophils # 10.0 H (1.6-8.9) K/mcL Lymphocytes # 0.2 L (0.6-4.6) K/mcL Monocytes # 0.5 (0.0-1.3) K/mcL Eosinophils # 0.0 (0.0-0.6) K/mcL Basophils # 0.0 (0.0-0.2) K/mcL Platelet Estimate (Normal) Hypochromasia (Not Present) ESR (0-15) mm/hr Heparin Anti-Xa, Unfract (0.30-0.70) IU/mL Sodium (136-145) mEq/L Potassium (3.5-5.1) mEq/L Chloride (98-107) mEq/L Carbon Dioxide (23-29) mEq/L BUN (8-23) mg/dL Creatinine (0.60-1.20) mg/dL Est GFR ( Amer) (> 60) Est GFR (Non-Af Amer) (> 60) BUN/Creatinine Ratio (6-26) Glucose (70-105) mg/dL POC Glucose 146 H 166 H (70-99) mg/dL Calculated Osmolality (280-300) Lactic Acid (0.5-2.2) mmol/L Calcium (8.6-10.3) mg/dL Magnesium (1.6-2.6) mg/dL Total Bilirubin (0.3-1.0) mg/dL AST (13-39) Units/L ALT (7-52) Units/L Alkaline Phosphatase (34-104) Units/L Troponin I (< 0.04) ng/mL C-Reactive Protein (Less than 10) mg/L Serum Total Protein (6.4-8.9) g/dL Albumin (3.5-5.7) g/dL Globulin (2.4-3.5) g/dL Albumin/Globulin Ratio (1.1-2.2) Lipase (11-82) Units/L Ur Specimen Adequacy Urine Color (Yellow) Urine Clarity (Clear) Urine pH (5.0-8.0) pH Units Ur Specific [place] (1.010-1.025) Urine Protein (Neg-Trace) mg/dL Urine Glucose (UA) (Normal) mg/dL Urine Ketones (Negative) mg/dL Urine Blood (Negative) Urine Nitrite (Negative) Urine Bilirubin (Negative) Urine Urobilinogen (Normal) mg/dL Ur Leukocyte Esterase (Negative) Urine Microscopic RBC (0-3) per hpf Urine Microscopic WBC (0-3) per hpf Ur Squamous Epith Cells (None-Few) per lpf Urine Bacteria (None-Few) per hpf Hyaline Casts (None-Few) per lpf Urine Mucus (Few) Ur Culture Indicated? (NO) Vancomycin Trough (5-10) mcg/mL 05/30/18 05/30/18 Range/Units 05:16 08:01 WBC (4.3-11.1) K/mcL RBC (3.82-4.97) M/mcL Hgb (11.5-15.4) g/dL Hct (35.3-44.9) % MCV (83.0-100.0) fL MCH (28.0-33.3) pg MCHC (31.6-35.5) g/dL RDW (11.5-14.5) % Plt Count (140-400) K/mcL MPV (9.4-12.4) fL Immature Gran % (0-4) % Seg Neutrophils % % Lymphocytes % % Monocytes % % Eosinophils % % Basophils % % Neutrophils # (1.6-8.9) K/mcL Lymphocytes # (0.6-4.6) K/mcL Monocytes # (0.0-1.3) K/mcL Eosinophils # (0.0-0.6) K/mcL Basophils # (0.0-0.2) K/mcL Platelet Estimate (Normal) Hypochromasia (Not Present) ESR (0-15) mm/hr Heparin Anti-Xa, Unfract (0.30-0.70) IU/mL Sodium 136 (136-145) mEq/L Potassium 3.1 L (3.5-5.1) mEq/L Chloride 105 (98-107) mEq/L Carbon Dioxide 22 L (23-29) mEq/L BUN 15 (8-23) mg/dL Creatinine 0.55 L (0.60-1.20) mg/dL Est GFR ( Amer) > 60 (> 60) Est GFR (Non-Af Amer) > 60 (> 60) BUN/Creatinine Ratio 27 H (6-26) Glucose 199 H (70-105) mg/dL POC Glucose 201 H (70-99) mg/dL Calculated Osmolality 288 (280-300) Lactic Acid (0.5-2.2) mmol/L Calcium 8.1 L (8.6-10.3) mg/dL Magnesium 1.3 L (1.6-2.6) mg/dL Total Bilirubin 0.4 (0.3-1.0) mg/dL AST 6 L (13-39) Units/L ALT 4 L (7-52) Units/L Alkaline Phosphatase 92 (34-104) Units/L Troponin I (< 0.04) ng/mL C-Reactive Protein (Less than 10) mg/L Serum Total Protein 6.2 L (6.4-8.9) g/dL Albumin 2.3 L (3.5-5.7) g/dL Globulin 3.9 H (2.4-3.5) g/dL Albumin/Globulin Ratio 0.6 L (1.1-2.2) Lipase (11-82) Units/L Ur Specimen Adequacy Urine Color (Yellow) Urine Clarity (Clear) Urine pH (5.0-8.0) pH Units Ur Specific [place] (1.010-1.025) Urine Protein (Neg-Trace) mg/dL Urine Glucose (UA) (Normal) mg/dL Urine Ketones (Negative) mg/dL Urine Blood (Negative) Urine Nitrite (Negative) Urine Bilirubin (Negative) Urine Urobilinogen (Normal) mg/dL Ur Leukocyte Esterase (Negative) Urine Microscopic RBC (0-3) per hpf Urine Microscopic WBC (0-3) per hpf Ur Squamous Epith Cells (None-Few) per lpf Urine Bacteria (None-Few) per hpf Hyaline Casts (None-Few) per lpf Urine Mucus (Few) Ur Culture Indicated? (NO) Vancomycin Trough (5-10) mcg/mL Attestation Statement - Attestation Attestation: I examined this patient and my medical decision-making was reviewed with the Resident Physician. I agree with the documented findings, disposition and treatment plan as described.
== END 2018-05-30 15:58 | DRG 871 ==
LOC: 3ANU 13:57 → EMEROOARM 13:57 → 3ANU 21:51
PROVIDERS: ADMIT Pediatrics; ATTEND Pediatrics